=== PATIENT | male | born 1985 | race Caucasian/White ===

== ENCOUNTER 2016-06-17 09:57 | Inpatient (IN) | payer OTHER ==
[2016-06-17] MEDS ORDERED: IPRATROPIUM-ALBUTEROL 3 ML NEB INHALATION STA (10:36)
[2016-06-17] MEDS ORDERED: SODIUM CHLORIDE 0.9% 1,000 ML IV STA ×2 (10:36)
[2016-06-17] MEDS ORDERED: LEVOFLOXACIN 750MG-D5W PMX 750 MG in DEXTROSE/WATER 1 150ML.BAG IVPB STA (10:38)
--- NOTE | 2016-06-17 11:31 | ED ---
SOB HPI - General Chief Complaint: Shortness of Breath Stated Complaint: Weakness/yellow eyes Time Seen by Provider: 06/17/16 10:28 Source: patient Mode of arrival: wheelchair Limitations: no limitations - History of Present Illness Initial Comments: This 30-year-old white male presents with a complaint of some shortness of breath. He apparently has had it for approximately 10 days. He has had a cough with some yellowish production but denies any actual fever. He's felt very weak. He denies any known pulmonary pathology otherwise. He does utilize tobacco but quit approximately one week ago. Apparently had an episode of hematuria earlier today. He also complains of having some icterus of last 2 weeks. He barely does have one history of cold abuse but quit drinking alcohol approximately 2 weeks ago. 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 This causes severe psoriatic-type changes to his skin and is diffusely throughout his body. No other complaints or modifying factors. - Related Data Home Medications Medication Instructions Recorded Confirmed No Known Home Medications [No 06/17/16 06/17/16 Known Home Medications] Allergies Allergy/AdvReac Type Severity Reaction Status Date / Time No Known Allergies Allergy Verified 06/17/16 10:19 Review of Systems ROS Statement: Those systems with pertinent positive or pertinent negative responses have been documented in the HPI. ROS Other: All systems not noted in ROS Statement are negative. Past Medical History Additional Past Medical History / Comment(s): EPIDERMALYTIC HYPERKERATOSIS, ALCOHOL History of Any Multi-Drug Resistant Organisms: None Reported Past Surgical History: No Surgical Hx Reported Past Psychological History: No Psychological Hx Reported Smoking Status: Former smoker Past Alcohol Use History: Heavy Past Drug Use History: None Reported General Exam - General Exam Comments Initial Comments: GENERAL: The patient is well nourished and well hydrated. VITAL SIGNS: Heart rate, blood pressure, respiratory rate reviewed as recorded in nurse's notes. EYES: Pupils are round and reactive. Extraocular movements are intact. No conjunctival / lid redness or swelling. There is significant icterus noted. ENT: No external evidence of injury, swelling, or ecchymosis. Airway is patent. Throat is clear. NECK: Nontender. No swelling or evidence of injury. No subcutaneous emphysema. Trachea is midline. No thyroid mass. HEART: There is a tachycardic rate. Good peripheral pulses. LUNGS/CHEST: Breath sounds clear and equal bilaterally. No rales, rhonchi, or wheezes. No ecchymosis, subcutaneous emphysema, or tenderness. ABDOMEN: Abdomen soft without tenderness. No palpable masses or organomegaly. No peritoneal signs. No abdominal wall swelling or ecchymosis. EXTREMITIES: No extremity tenderness. Normal muscle tone and function. No thoracolumbar tenderness. NEUROLOGIC: Sensation is grossly intact. Cranial nerve exam reveals face is symmetrical, tongue is midline, speech is clear. SKIN: There is a diffuse severe scaly rash throughout most of body. PSYCHIATRIC: Alert and oriented. Appropriate behavior and judgment. Limitations: no limitations Course Vital Signs 06/17/16 06/17/16 06/17/16 10:01 11:30 11:40 Temperature 97.2 F L Pulse Rate 119 H 88 88 Respiratory 20 Rate Blood Pressure 119/72 O2 Sat by Pulse 100 Oximetry 06/17/16 06/17/16 06/17/16 12:42 13:40 15:08 Temperature Pulse Rate 112 H 114 H 110 H Respiratory 18 16 18 Rate Blood Pressure 122/66 121/70 112/56 O2 Sat by Pulse 100 99 98 Oximetry Medical Decision Making - Medical Decision Making The patient was seen and examined. All diagnostics were reviewed. An IV is started and he was hydrated. The patient receives a DuoNeb breathing treatment. The EKG shows a sinus tachycardia at a rate of 110. There is a nonspecific ST-T wave abnormality diffusely. The WI interval is 112, castration is 104, and the QTc interval is 562. The chest x-ray did not show any acute processes. There are multiple lab abnormalities. These are consistent with significant folliculitis abnormalities and hepatic failure. Is felt that his hepatic failure likely is related to his alcohol abuse but there also could be other underlying causes. It is felt as though patient likely does have a bronchitis treated with some IV Levaquin. Is felt as though he would require admission to the hospital and further GI consultation. Is somewhat improved on recheck. Case will be discussed with internal medicine in the near future and patient will be admitted to the floor. - Lab Data Result diagrams: 06/17/16 11:41 06/17/16 14:25 Lab Results 06/17/16 06/17/16 06/17/16 Range/Units 11:41 14:05 14:25 WBC 18.6 H (3.8-10.6) k/uL RBC 3.82 L (4.30-5.90) m/uL Hgb 12.6 L (13.0-17.5) gm/dL Hct 38.1 L (39.0-53.0) % MCV 99.7 (80.0-100.0) fL MCH 33.1 (25.0-35.0) pg MCHC 33.2 (31.0-37.0) g/dL RDW 15.9 H (11.5-15.5) % Plt Count 274 (150-450) k/uL Neutrophils % (Manual) 87.5 % Band Neutrophils % 1.0 % Lymphocytes % (Manual) 8.0 % Monocytes % (Manual) 3.0 % Myelocytes % 0.5 % Neutrophils # (Manual) 16.5 H (1.3-7.7) k/uL Lymphocytes # (Manual) 1.5 (1.0-4.8) k/uL Monocytes # (Manual) 0.6 (0-1.0) k/uL Nucleated RBCs 0 (0-0) /100 WBC Toxic Granulation Present Poikilocytosis (manual Present Anisocytosis (manual) Present Macrocytosis Slight Sodium 117 L* (137-145) mmol/L Potassium 3.4 L (3.5-5.1) mmol/L Chloride 79 L* (98-107) mmol/L Carbon Dioxide 15 L (22-30) mmol/L Anion Gap 23 mmol/L BUN <2 L (9-20) mg/dL Creatinine 0.54 L (0.66-1.25) mg/dL Est GFR (MDRD) Af Amer >60 (>60 ml/min/1.73 sqM) Est GFR (MDRD) Non-Af >60 (>60 ml/min/1.73 sqM) Glucose 135 H (74-99) mg/dL Calcium 6.9 L (8.4-10.2) mg/dL Total Bilirubin 17.9 H* (0.2-1.3) mg/dL ALT 106 H (21-72) U/L Alkaline Phosphatase 358 H (38-126) U/L Total Protein 6.4 (6.3-8.2) g/dL Albumin 2.9 L (3.5-5.0) g/dL Urine Color Dark Brown Urine Appearance Cloudy (Clear) Urine pH 6.0 (5.0-8.0) Ur Specific [place] 1.016 (1.001-1.035) Urine Protein 1+ H (Negative) Urine Glucose (UA) Negative (Negative) Urine Ketones Trace H (Negative) Urine Blood Negative (Negative) Urine Nitrate Negative (Negative) Urine Bilirubin 4+ H (Negative) Urine Urobilinogen 2.0 (<2.0) mg/dL Ur Leukocyte Esterase Negative (Negative) Cellular Casts 17 (0) /lpf Hyaline Casts 21 H (0-2) /lpf Urine Mucus Few H (None) /hpf Disposition Clinical Impression: Bronchitis, Dyspnea, Hepatic failure, Hyponatremia, Hypochloremia, Leukocytosis , Transaminitis, Prolonged QT interval, Alcohol abuse, Tobacco abuse, Icterus Disposition: ADMITTED IP TO THIS [facility] Condition: Fair Time of Disposition: 15:40 Decision Date: 06/17/16 Decision Time: 15:40
[2016-06-17 12:22] LABS: CHCM 35.3; HCT 38.1 % (39.0-53.0); HDW 3.01; HGB 12.6 gm/dL (13.0-17.5); Immature Gran Flag Moderate; MCH 33.1 pg (25.0-35.0); MCHC 33.2 g/dL (31.0-37.0); MCV 99.7 fL (80.0-100.0); Macrocytosis Slight; Mean Platelet Volume 7.8; RBC 3.82 m/uL (4.30-5.90); RDW 15.9 % (11.5-15.5); WBC (Perox) 18.33
--- NOTE | 2016-06-17 12:38 | XR ---
EXAMINATION TYPE: XR chest 2V DATE OF EXAM: 06/17/2016 12:09 PM COMPARISON: NONE HISTORY: Difficulty breathing, shortness of breath and hematuria TECHNIQUE: Frontal and lateral views of the chest are obtained. FINDINGS: There is no focal air space opacity, pleural effusion, or pneumothorax seen. The cardiac silhouette size is within normal limits. The osseous structures are intact. IMPRESSION: No acute cardiopulmonary process.
[2016-06-17 13:36] LABS: Add Differential Manual Differential
[2016-06-17 13:39] LABS: WBC 18.6 k/uL (3.8-10.6)
[2016-06-17 13:41] LABS: Myelocytes % 0.5 %; Nucleated Red Blood Cells 0 /100 WBC (0-0); Total Cells Counted 200
[2016-06-17 13:42] LABS: Toxic Granulation Present
[2016-06-17 14:19] LABS: Appearance,Urine Cloudy (Clear); Bilirubin,Urine 4+ (Negative); Glucose,Urine (UA) Negative (Negative); Ketones,Urine Trace (Negative); Leukocyte Esterase,Urine Negative (Negative); Mucus,Urine Few /hpf; Nitrite,Urine Negative (Negative); Particle Count 44474; Protein,Urine 1+ (Negative); Specific Gravity,Urine 1.016 (1.001-1.035); UA Billing (MACRO vs. MICRO) MICRO
[2016-06-17 15:02] LABS: ALT 106 U/L (21-72); Alkaline Phosphatase 358 U/L (38-126); Anion Gap 23 mmol/L; Blood Urea Nitrogen <2 mg/dL (9-20); Calcium 6.9 mg/dL (8.4-10.2); Carbon Dioxide 15 mmol/L (22-30); Glucose 135 mg/dL (74-99); Non-African American GFR(MDRD) >60 (>60 ml/min/1.73 sqM); Total Protein 6.4 g/dL (6.3-8.2)
[2016-06-17 15:10] LABS: Sodium 117 mmol/L (137-145)
[2016-06-17 15:11] LABS: Chloride 79 mmol/L (98-107); Total Bilirubin 17.9 mg/dL (0.2-1.3)
[2016-06-17 15:18] LABS: Potassium 3.4 mmol/L (3.5-5.1)
[2016-06-17] MEDS ORDERED: ONDANSETRON 4 MG/2 ML VIAL IVP PRN (15:44)
[2016-06-17] MEDS ORDERED: NALOXONE 0.4 MG/ML 1 ML VIAL IV PRN (15:44)
[2016-06-17] MEDS ORDERED: KETOROLAC 30 MG/ML 1 ML VIAL IVP PRN (15:44)
[2016-06-17 16:11] LABS: AST 572 U/L (17-59)
[2016-06-17] MEDS: IPRATROPIUM-ALBUTEROL 3 ML NEB INHALATION SCH ×3 (17:19→20:35)
[2016-06-17] MEDS: PIPERACILLIN-TAZOBACTAM 3.375 GM in DEXTROSE/WATER 1 50ML.BAG IVPB SCH (20:36)
[2016-06-17] MEDS: ENOXAPARIN 40 MG/0.4 ML SYRINGE SQ SCH (20:43)
[2016-06-17] MEDS: PANTOPRAZOLE 40 MG/10 ML VIAL IV SCH (20:43)
[2016-06-17] MEDS ORDERED: LORazepam 2 MG/ML SYRINGE IV PRN ×3 (20:52)
[2016-06-17] MEDS ORDERED: Potassium Replacement Protocol 1 EACH MISC MISCELLANE PRN (20:53)
[2016-06-17] MEDS ORDERED: SODIUM CHLORIDE 3%(HYPERTONIC) 500 ML IV SCH (21:00)
[2016-06-17] MEDS: POTASSIUM CHLORIDE ER 20 MEQ TAB.ER PO SCH ×2 (22:25→23:19)
[2016-06-17 23:45] LABS: Glucose,Whole Blood 153 mg/dL (75-99)
[2016-06-18 00:51] LABS: Anion Gap 21 mmol/L; Calcium 6.7 mg/dL (8.4-10.2); Carbon Dioxide 16 mmol/L (22-30); Glucose 142 mg/dL (74-99); Non-African American GFR(MDRD) >60 (>60 ml/min/1.73 sqM); Sodium 116 mmol/L (137-145)
[2016-06-18 00:52] LABS: Blood Urea Nitrogen 3 mg/dL (9-20); Chloride 79 mmol/L (98-107); Potassium 4.7 mmol/L (3.5-5.1)
[2016-06-18] MEDS: IPRATROPIUM-ALBUTEROL 3 ML NEB INHALATION SCH ×6 (00:57→22:04)
[2016-06-18] MEDS: PIPERACILLIN-TAZOBACTAM 3.375 GM in DEXTROSE/WATER 1 50ML.BAG IVPB SCH ×4 (01:00→23:24)
[2016-06-18] MEDS: SODIUM CHLORIDE 0.9% 1,000 ML IV SCH ×2 (01:00→11:55)
[2016-06-18] MEDS ORDERED: SODIUM CHLORIDE 3%(HYPERTONIC) 500 ML IV SCH ×2 (01:30→21:15)
[2016-06-18 06:43] LABS: Basophils % (A) 0 %; CH 34.5; CHCM 34.3; Eosinophils # (A) 0.1 k/uL (0-0.7); Eosinophils % (A) 1 %; HCT 35.4 % (39.0-53.0); HDW 2.91; Luc # (Auto) 0.24; Luc % (Auto) 2; Lymphocytes # (A) 2.1 k/uL (1.0-4.8); Lymphocytes % (A) 15 %; MCH 34.3 pg (25.0-35.0); MCHC 33.8 g/dL (31.0-37.0); MCV 101.3 fL (80.0-100.0); Macrocytosis Slight; Mean Platelet Volume 6.8; Monocytes # (A) 0.6 k/uL (0-1.0); Monocytes % (A) 4 %; Neutrophils # (A) 10.5 k/uL (1.3-7.7); Neutrophils % (A) 78 %; RBC 3.49 m/uL (4.30-5.90); RDW 15.8 % (11.5-15.5); WBC 13.4 k/uL (3.8-10.6); WBC (Perox) 13.53
[2016-06-18 06:48] LABS: INR 1.9 (<1.1); Prothrombin Time 18.5 sec (9.0-12.0)
[2016-06-18 06:54] LABS: ALT 111 U/L (21-72); AST 473 U/L (17-59); Alkaline Phosphatase 338 U/L (38-126); Anion Gap 16 mmol/L; Blood Urea Nitrogen 2 mg/dL (9-20); Calcium 6.6 mg/dL (8.4-10.2); Carbon Dioxide 20 mmol/L (22-30); Chloride 84 mmol/L (98-107); Glucose 107 mg/dL (74-99); Magnesium 2.1 mg/dL (1.6-2.3); Non-African American GFR(MDRD) >60 (>60 ml/min/1.73 sqM); Phosphorous 1.5 mg/dL (2.5-4.5); Potassium 3.1 mmol/L (3.5-5.1); Total Protein 5.2 g/dL (6.3-8.2)
[2016-06-18 06:56] LABS: Sodium 120 mmol/L (137-145); Total Bilirubin 15.9 mg/dL (0.2-1.3)
[2016-06-18] MEDS ORDERED: POTASSIUM CHLORIDE ER 20 MEQ TAB.ER PO STA ×2 (07:18→16:54)
[2016-06-18] MEDS ORDERED: POTASSIUM PHOSPHATE 10 MMOL in SODIUM CHLORIDE 0.9% 250 ML IV ONE (08:00)
[2016-06-18] MEDS: ENOXAPARIN 40 MG/0.4 ML SYRINGE SQ SCH (08:35)
--- NOTE | 2016-06-18 10:04 | P.CNPUL ---
<Gloria Tompkins - Last Filed: 06/18/16 09:49> History of Present Illness Consult date: 06/18/16 Requesting physician: Chapo Harkins Reason for consult: other (Critical care management) Chief complaint: Shortness of breath History of present illness: This is a pleasant 30-year-old gentleman with a known history of daily excessive alcohol use who admits to 3 1/2 pints a day of mostly schnapps but usually whatever he can obtain that well "knock him out", chronic tobacco use, epidermalytic hyperkeratosis. He currently resides with his grandmother. He presented to the emergency room yesterday with complaints of increasing shortness of breath, yellow productive sputum and generalized weakness. He also noted yellow changes of his eyes and some blood in his urine. His urinalysis was negative for blood but did show 4+ bilirubin 1+ protein and trace of ketones. Liver enzymes revealed AST of 572, ALT 106, alk phos 358, albumin 2.9, total bilirubin 17.9. He also had profound hyponatremia with the presenting sodium of 117. He is currently receiving 3% sodium chloride at a rate of 30 MLS per hour. His most recent sodium is 121. His chest x-ray revealed no acute pulmonary process. White count 18.6. He is maintaining good O2 saturations in the high 90s on room air. He's been afebrile. He is covered with Zosyn. No signs of acute withdrawal currently. He did receive 1 dose of Ativan for slight restlessness last evening. He is seen currently in the intensive care unit. He is awake and alert in no acute distress. He denies any worsening shortness of breath, cough or congestion. He denies any significant abdominal discomfort. No noted bleeding. Review of Systems 14 point review of system was conducted. All negative other than as mentioned in the HPI. Past Medical History Past Medical History: No Reported History, GERD/Reflux Additional Past Medical History / Comment(s): EPIDERMALYTIC HYPERKERATOSIS, daily alcohol use up to 3 1/2 pints per day. History of Any Multi-Drug Resistant Organisms: None Reported Past Surgical History: No Surgical Hx Reported Past Anesthesia/Blood Transfusion Reactions: No Reported Reaction Past Psychological History: No Psychological Hx Reported Smoking Status: Current every day smoker Past Alcohol Use History: Daily, Heavy Additional Past Alcohol Use History / Comment(s): STARTED SMOKING AT AGE 20, 1/2 -1 PPD-STATED HAS'NT SMOKED IN PAST WEEK D/T NOT FEELING WELL. PT STATED DRINKS DAILY 1.5 [employer] [place] [employer] Past Drug Use History: None Reported - Past Family History Father Family Medical History: Unable to Obtain Additional Family Medical History / Comment(s): RAISED BY STEP FATHER Mother Family Medical History: No Reported History Medications and Allergies Home Medications Medication Instructions Recorded Confirmed Type No Known Home Medications [No 06/17/16 06/17/16 History Known Home Medications] Allergies Allergy/AdvReac Type Severity Reaction Status Date / Time No Known Allergies Allergy Verified 06/17/16 10:19 Physical Exam Vitals: Vital Signs Temp Pulse Pulse Pulse Resp BP BP 06/18/16 09:00 98.1 F 109 H 26 H 104/58 06/18/16 08:00 98.1 F 109 H 26 H 94/47 06/18/16 07:55 109 H 06/18/16 07:41 111 H 06/18/16 07:00 112 H 20 103/56 06/18/16 06:00 112 H 20 102/61 06/18/16 05:00 114 H 12 111/59 06/18/16 04:00 98.6 F 112 H 20 115/61 06/18/16 03:00 109 H 24 98/70 06/18/16 02:00 109 H 125/70 06/18/16 01:00 110 H 17 109/79 06/18/16 00:50 111 H 16 109/79 06/18/16 00:40 109 H 19 109/79 06/18/16 00:30 109 H 24 109/79 06/18/16 00:20 112 H 17 109/79 06/18/16 00:10 114 H 16 109/79 06/18/16 00:09 98.1 F 114 H 16 109/79 06/18/16 00:00 115 H 16 117/66 06/17/16 23:50 113 H 16 117/66 06/17/16 23:42 114 H 16 117/66 06/17/16 22:03 117 H 115 H 18 06/17/16 20:48 104 H 06/17/16 20:35 104 H 06/17/16 20:00 97 F L 115 H 18 116/77 06/17/16 19:00 98.3 F 110 H 16 115/68 06/17/16 18:03 97.2 F L 112 H 16 119/65 06/17/16 17:40 118 H 126/74 06/17/16 17:33 106 H 06/17/16 17:23 116 H 06/17/16 16:40 111 H 116/59 Pulse Ox 06/18/16 09:00 99 06/18/16 08:00 98 06/18/16 07:55 06/18/16 07:41 06/18/16 07:00 99 06/18/16 06:00 98 06/18/16 05:00 100 06/18/16 04:00 99 06/18/16 03:00 99 06/18/16 02:00 99 06/18/16 01:00 100 06/18/16 00:50 99 06/18/16 00:40 99 06/18/16 00:30 100 06/18/16 00:20 100 06/18/16 00:10 99 06/18/16 00:09 100 06/18/16 00:00 100 06/17/16 23:50 99 06/17/16 23:42 99 06/17/16 22:03 06/17/16 20:48 06/17/16 20:35 06/17/16 20:00 99 06/17/16 19:00 100 06/17/16 18:03 99 06/17/16 17:40 100 06/17/16 17:33 06/17/16 17:23 06/17/16 16:40 99 Intake and Output 06/17/16 06/18/16 06/18/16 22:59 06:59 14:59 Intake Total 120 430.0 330 Output Total 600 250 Balance 120 -170.0 80 Intake: IV 250.0 300 Piperacillin-Tazobactam 3 50.0 50 .375 gm In Dextrose/Water 1 50ml.bag @ 12.5 mls/hr IVPB Q8HR [facility] Rx#: [id number] Potassium Phosphate 10 250 mmol In Sodium Chloride 0 .9% 250 ml @ 125 mls/hr IV ONCE ONE Rx#:[id number] Sodium Chloride 0.9% 1, 200 000 ml @ 100 mls/hr IV . Q10H [facility] Rx#:[id number] Intake, IV Titration 180 30 Amount Sodium Chloride 3%( 180 30 Hypertonic) 500 ml @ 30 mls/hr IV .[id number] [facility] Rx #:[id number] Oral 120 Output: Urine 600 250 Other: Voiding Method Urinal Urinal # Voids 0 0 Weight 65.77 kg 65.77 kg Patient Weight 06/19/16 06:59 Weight 65.77 kg GENERAL EXAM: Alert, active, comfortable in no apparent distress. HEAD: Normocephalic. EYES: Slightly icteric. Normal reaction of pupils, equal size. NOSE: Clear with pink turbinates. THROAT: No erythema or exudates. NECK: No masses, no JVD. CHEST: No chest wall deformity. LUNGS: Equal air entry with no crackles, wheeze, rhonchi or dullness. CVS: S1 and S2 normal with no audible murmurs, regular rhythm. ABDOMEN: No significant hepatosplenomegaly, normal bowel sounds, no guarding or rigidity. SPINE: No scoliosis or deformity SKIN: Evidence of epidermal lytic hyperkeratosis with scaling. CENTRAL NERVOUS SYSTEM: No focal deficits, tone is normal in all 4 extremities. Extremities: There is no significant peripheral edema. Slight clubbing, no cyanosis. Peripheral pulses are intact. Results - Laboratory Findings CBC and BMP: 06/18/16 06:06 06/18/16 08:06 PT/INR, D-dimer PT 18.5 sec (9.0-12.0) H 06/18/16 06:06 INR 1.9 (<1.1) 06/18/16 06:06 Abnormal lab findings: Abnormal Labs 06/17/16 06/17/16 06/18/16 21:36 23:43 00:20 WBC RBC Hgb Hct MCV RDW Neutrophils # PT Sodium 118 L* 116 L* Potassium Chloride 79 L* Carbon Dioxide 16 L BUN 3 L Creatinine 0.52 L Glucose 142 H POC Glucose (mg/dL) 153 H Calcium 6.7 L Phosphorus Total Bilirubin AST ALT Alkaline Phosphatase Total Protein Albumin 06/18/16 06/18/16 06/18/16 03:38 06:06 06:06 WBC 13.4 H RBC 3.49 L Hgb 12.0 L Hct 35.4 L MCV 101.3 H RDW 15.8 H Neutrophils # 10.5 H PT 18.5 H Sodium 119 L* Potassium Chloride Carbon Dioxide BUN Creatinine Glucose POC Glucose (mg/dL) Calcium Phosphorus Total Bilirubin AST ALT Alkaline Phosphatase Total Protein Albumin 06/18/16 06/18/16 06:06 08:06 WBC RBC Hgb Hct MCV RDW Neutrophils # PT Sodium 120 L* 121 L Potassium 3.1 L Chloride 84 L Carbon Dioxide 20 L BUN 2 L Creatinine 0.48 L Glucose 107 H POC Glucose (mg/dL) Calcium 6.6 L Phosphorus 1.5 L Total Bilirubin 15.9 H* AST 473 H ALT 111 H Alkaline Phosphatase 338 H Total Protein 5.2 L Albumin 2.4 L - Diagnostic Findings Chest x-ray: image reviewed Assessment and Plan Plan: Impression: #1 Generalized weakness secondary to hyponatremia secondary to excessive alcohol use. #2 hyponatremia, initial sodium level CXII, currently 121. Remains on 3% normal saline at 5030 MLS per hour. #3 Elevated liver enzymes secondary to excessive daily alcohol use. #4Daily excessive alcohol use. #5 Chronic tobacco dependence. #6 Epidermolytic hyperkeratosis. Plan: The patient was seen and evaluated by Dr. Cook. His chest x-ray and labs were reviewed. We are gradually correcting his sodium and once normalized we' ll discontinue the 3% normal saline. The patient could be transferred out of the intensive care unit. He should remain in CIWAl protocol and observe for any delirium tremens. <Prince Cook - Last Filed: 06/18/16 10:28> Physical Exam Vitals: Vital Signs Temp Pulse Pulse Pulse Resp BP BP 06/18/16 10:00 110 H 18 107/64 06/18/16 09:00 98.1 F 109 H 26 H 104/58 06/18/16 08:00 98.1 F 109 H 26 H 94/47 06/18/16 07:55 109 H 06/18/16 07:41 111 H 06/18/16 07:00 112 H 20 103/56 06/18/16 06:00 112 H 20 102/61 06/18/16 05:00 114 H 12 111/59 06/18/16 04:00 98.6 F 112 H 20 115/61 06/18/16 03:00 109 H 24 98/70 06/18/16 02:00 109 H 125/70 06/18/16 01:00 110 H 17 109/79 06/18/16 00:50 111 H 16 109/79 06/18/16 00:40 109 H 19 109/79 06/18/16 00:30 109 H 24 109/79 06/18/16 00:20 112 H 17 109/79 06/18/16 00:10 114 H 16 109/79 06/18/16 00:09 98.1 F 114 H 16 109/79 06/18/16 00:00 115 H 16 117/66 06/17/16 23:50 113 H 16 117/66 06/17/16 23:42 114 H 16 117/66 06/17/16 22:03 117 H 115 H 18 06/17/16 20:48 104 H 06/17/16 20:35 104 H 06/17/16 20:00 97 F L 115 H 18 116/77 06/17/16 19:00 98.3 F 110 H 16 115/68 06/17/16 18:03 97.2 F L 112 H 16 119/65 06/17/16 17:40 118 H 126/74 06/17/16 17:33 106 H 06/17/16 17:23 116 H 06/17/16 16:40 111 H 116/59 Pulse Ox 06/18/16 10:00 100 06/18/16 09:00 99 06/18/16 08:00 98 06/18/16 07:55 06/18/16 07:41 06/18/16 07:00 99 06/18/16 06:00 98 06/18/16 05:00 100 06/18/16 04:00 99 06/18/16 03:00 99 06/18/16 02:00 99 06/18/16 01:00 100 06/18/16 00:50 99 06/18/16 00:40 99 06/18/16 00:30 100 06/18/16 00:20 100 06/18/16 00:10 99 06/18/16 00:09 100 06/18/16 00:00 100 06/17/16 23:50 99 06/17/16 23:42 99 06/17/16 22:03 06/17/16 20:48 06/17/16 20:35 06/17/16 20:00 99 06/17/16 19:00 100 06/17/16 18:03 99 06/17/16 17:40 100 06/17/16 17:33 06/17/16 17:23 06/17/16 16:40 99 Intake and Output 06/17/16 06/18/16 06/18/16 22:59 06:59 14:59 Intake Total 120 430.0 360 Output Total 600 250 Balance 120 -170.0 110 Intake: IV 250.0 300 Piperacillin-Tazobactam 3 50.0 50 .375 gm In Dextrose/Water 1 50ml.bag @ 12.5 mls/hr IVPB Q8HR [facility] Rx#: [id number] Potassium Phosphate 10 250 mmol In Sodium Chloride 0 .9% 250 ml @ 125 mls/hr IV ONCE ONE Rx#:[id number] Sodium Chloride 0.9% 1, 200 000 ml @ 100 mls/hr IV . Q10H [facility] Rx#:[id number] Intake, IV Titration 180 60 Amount Sodium Chloride 3%( 180 60 Hypertonic) 500 ml @ 30 mls/hr IV .[id number] [facility] Rx #:[id number] Oral 120 Output: Urine 600 250 Other: Voiding Method Urinal Urinal # Voids 0 0 Weight 65.77 kg 65.77 kg Patient Weight 06/19/16 06:59 Weight 65.77 kg Results - Laboratory Findings CBC and BMP: 06/18/16 06:06 06/18/16 08:06 PT/INR, D-dimer PT 18.5 sec (9.0-12.0) H 06/18/16 06:06 INR 1.9 (<1.1) 06/18/16 06:06 Abnormal lab findings: Abnormal Labs 06/17/16 06/17/16 06/18/16 21:36 23:43 00:20 WBC RBC Hgb Hct MCV RDW Neutrophils # PT Sodium 118 L* 116 L* Potassium Chloride 79 L* Carbon Dioxide 16 L BUN 3 L Creatinine 0.52 L Glucose 142 H POC Glucose (mg/dL) 153 H Calcium 6.7 L Phosphorus Total Bilirubin AST ALT Alkaline Phosphatase Total Protein Albumin 06/18/16 06/18/16 06/18/16 03:38 06:06 06:06 WBC 13.4 H RBC 3.49 L Hgb 12.0 L Hct 35.4 L MCV 101.3 H RDW 15.8 H Neutrophils # 10.5 H PT 18.5 H Sodium 119 L* Potassium Chloride Carbon Dioxide BUN Creatinine Glucose POC Glucose (mg/dL) Calcium Phosphorus Total Bilirubin AST ALT Alkaline Phosphatase Total Protein Albumin 06/18/16 06/18/16 06:06 08:06 WBC RBC Hgb Hct MCV RDW Neutrophils # PT Sodium 120 L* 121 L Potassium 3.1 L Chloride 84 L Carbon Dioxide 20 L BUN 2 L Creatinine 0.48 L Glucose 107 H POC Glucose (mg/dL) Calcium 6.6 L Phosphorus 1.5 L Total Bilirubin 15.9 H* AST 473 H ALT 111 H Alkaline Phosphatase 338 H Total Protein 5.2 L Albumin 2.4 L Assessment and Plan Plan: The patient has evidence of acute alcoholic hepatitis. His liver function tests are quite abnormal and the disturbances in the AST and ALP are typical of alcoholic hepatitis in conjunction with elevated bilirubin levels. As such, it is recommended to put this patient with glucocorticoids and will start the patient 40 mg by mouth daily. We'll check baseline hepatitis profile. We'll check an ultrasound of the liver looking for any fatty liver versus cirrhosis. Meanwhile, the patient will continue the hypertonic saline solution regards to his hyponatremia. Monitor the sodium level periodically every 4 hours. Nephrology on the case regarding the infusion rate and management. The patient will be watched for any signs of delirium tremens. We'll provide the patient thiamine and folate. We'll keep the patient ICU for another 24 hours.
[2016-06-18] MEDS: PANTOPRAZOLE 40 MG/10 ML VIAL IV SCH (10:08)
--- NOTE | 2016-06-18 10:26 | P.CONS ---
History of Present Illness - Reason for Consult Consult date: 06/18/16 hepatic failure Requesting physician: Chapo Harkins - History of Present Illness 30-year-old male with a history of epidermalytic hyperkeratosis skin, nicotine cigarette dependency, and EtOH abuse admitted with shortness of breath and electrolyte abnormalities. Quit drinking 3 days ago. Consultation requested for hepatic failure. Admission Hemoglobin 12.6. MCV 99. White count 18.6. Platelet 274. INR 1.9. Sodium 117. Potassium 3.4. BUN less than 2. Creatinine 0.5. Total bilirubin 17.9. AST 572. ALT 106. Alkaline phosphates 358. Currently sodium 120. Potassium 3.1. Total bilirubin 15.9. AST 473. ALT 111. Alkaline phosphates 08/14/1935. Phosphorus 1.5. Magnesium 2.1. BUN 2. Creatinine 0.4. Potassium 3.1. Denies fever chills weight loss changes in appetite hematemesis hematochezia or melena. Review of Systems All systems: negative (See HPI) Past Medical History Past Medical History: GERD/Reflux Additional Past Medical History / Comment(s): EPIDERMALYTIC HYPERKERATOSIS, ALCOHOL History of Any Multi-Drug Resistant Organisms: None Reported Past Surgical History: No Surgical Hx Reported Past Anesthesia/Blood Transfusion Reactions: No Reported Reaction Past Psychological History: No Psychological Hx Reported Smoking Status: Current every day smoker Past Alcohol Use History: Daily, Heavy Additional Past Alcohol Use History / Comment(s): STARTED SMOKING AT AGE 20, 1/2 -1 PPD-STATED HAS'NT SMOKED IN PAST WEEK D/T NOT FEELING WELL. PT STATED DRINKS DAILY 1.5 PINTS [place] [employer]NAPPS Past Drug Use History: None Reported - Past Family History Father Family Medical History: Unable to Obtain Additional Family Medical History / Comment(s): RAISED BY STEP FATHER Mother Family Medical History: No Reported History Medications and Allergies Home Medications Medication Instructions Recorded Confirmed Type No Known Home Medications [No 06/17/16 06/17/16 History Known Home Medications] Allergies Allergy/AdvReac Type Severity Reaction Status Date / Time No Known Allergies Allergy Verified 06/17/16 10:19 Physical Exam Vitals: Vital Signs Temp Pulse Pulse Pulse Resp BP BP 06/18/16 07:41 111 H 06/18/16 07:00 112 H 20 103/56 06/18/16 06:00 112 H 20 102/61 06/18/16 05:00 114 H 12 111/59 06/18/16 04:00 98.6 F 112 H 20 115/61 06/18/16 03:00 109 H 24 98/70 06/18/16 02:00 109 H 125/70 06/18/16 01:00 110 H 17 109/79 06/18/16 00:50 111 H 16 109/79 06/18/16 00:40 109 H 19 109/79 06/18/16 00:30 109 H 24 109/79 06/18/16 00:20 112 H 17 109/79 06/18/16 00:10 114 H 16 109/79 06/18/16 00:09 98.1 F 114 H 16 109/79 06/18/16 00:00 115 H 16 117/66 06/17/16 23:50 113 H 16 117/66 06/17/16 23:42 114 H 16 117/66 06/17/16 22:03 117 H 115 H 18 06/17/16 20:48 104 H 06/17/16 20:35 104 H 06/17/16 20:00 97 F L 115 H 18 116/77 06/17/16 19:00 98.3 F 110 H 16 115/68 06/17/16 18:03 97.2 F L 112 H 16 119/65 06/17/16 17:40 118 H 126/74 06/17/16 17:33 106 H 06/17/16 17:23 116 H 06/17/16 16:40 111 H 116/59 Pulse Ox 06/18/16 07:41 06/18/16 07:00 99 06/18/16 06:00 98 06/18/16 05:00 100 06/18/16 04:00 99 06/18/16 03:00 99 06/18/16 02:00 99 06/18/16 01:00 100 06/18/16 00:50 99 06/18/16 00:40 99 06/18/16 00:30 100 06/18/16 00:20 100 06/18/16 00:10 99 06/18/16 00:09 100 06/18/16 00:00 100 06/17/16 23:50 99 06/17/16 23:42 99 06/17/16 22:03 06/17/16 20:48 06/17/16 20:35 06/17/16 20:00 99 06/17/16 19:00 100 06/17/16 18:03 99 06/17/16 17:40 100 06/17/16 17:33 06/17/16 17:23 06/17/16 16:40 99 Intake and Output 06/17/16 06/18/16 06/18/16 22:59 06:59 14:59 Intake Total 120 430.0 Output Total 600 Balance 120 -170.0 Intake: IV 250.0 Piperacillin-Tazobactam 3 50.0 .375 gm In Dextrose/Water 1 50ml.bag @ 12.5 mls/hr IVPB Q8HR [facility] Rx#: [id number] Sodium Chloride 0.9% 1, 200 000 ml @ 100 mls/hr IV . Q10H [facility] Rx#:[id number] Intake, IV Titration 180 Amount Sodium Chloride 3%( 180 Hypertonic) 500 ml @ 30 mls/hr IV .[id number] [facility] Rx #:[id number] Oral 120 Output: Urine 600 Other: Voiding Method Urinal # Voids 0 0 Weight 65.77 kg General appearance: The patient is alert, oriented, in no acute distress. Visibly jaundiced with generalized hyperkeratosis of the skin all extremities and face. HET: Head is normocephalic and atraumatic. Pupils are equal and reactive, icteric. Oropharynx is clear without lesions. Neck: Supple without lymphadenopathy. Trachea midline. Heart: S1 S2. Regular rate and rhythm. Lungs: No crackles or wheezes are heard. Abdomen: Soft, nontender, mildly bloated with no appreciable ascites with bowel sounds. No peritoneal signs. No palpable organomegaly or masses. Extremities: Normal skin color and turgor. No cyanosis, rash, ulceration, clubbing, or edema. Radial and pedal pulses are 2/4 bilaterally. No evidence of asterixis. Neurological: No focal deficits. Strength and sensation are grossly intact. Results CBC & Chem 7: 06/18/16 06:06 06/18/16 08:06 Labs: Abnormal Lab Results - Last 24 Hours (Table) 06/17/16 06/17/16 06/18/16 Range/Units 21:36 23:43 00:20 WBC (3.8-10.6) k/uL RBC (4.30-5.90) m/uL Hgb (13.0-17.5) gm/dL Hct (39.0-53.0) % MCV (80.0-100.0) fL RDW (11.5-15.5) % Neutrophils # (1.3-7.7) k/uL PT (9.0-12.0) sec Sodium 118 L* 116 L* (137-145) mmol/L Potassium (3.5-5.1) mmol/L Chloride 79 L* (98-107) mmol/L Carbon Dioxide 16 L (22-30) mmol/L BUN 3 L (9-20) mg/dL Creatinine 0.52 L (0.66-1.25) mg/dL Glucose 142 H (74-99) mg/dL POC Glucose (mg/dL) 153 H (75-99) mg/dL Calcium 6.7 L (8.4-10.2) mg/dL Phosphorus (2.5-4.5) mg/dL Total Bilirubin (0.2-1.3) mg/dL AST (17-59) U/L ALT (21-72) U/L Alkaline Phosphatase (38-126) U/L Total Protein (6.3-8.2) g/dL Albumin (3.5-5.0) g/dL 06/18/16 06/18/16 06/18/16 Range/Units 03:38 06:06 06:06 WBC 13.4 H (3.8-10.6) k/uL RBC 3.49 L (4.30-5.90) m/uL Hgb 12.0 L (13.0-17.5) gm/dL Hct 35.4 L (39.0-53.0) % MCV 101.3 H (80.0-100.0) fL RDW 15.8 H (11.5-15.5) % Neutrophils # 10.5 H (1.3-7.7) k/uL PT 18.5 H (9.0-12.0) sec Sodium 119 L* (137-145) mmol/L Potassium (3.5-5.1) mmol/L Chloride (98-107) mmol/L Carbon Dioxide (22-30) mmol/L BUN (9-20) mg/dL Creatinine (0.66-1.25) mg/dL Glucose (74-99) mg/dL POC Glucose (mg/dL) (75-99) mg/dL Calcium (8.4-10.2) mg/dL Phosphorus (2.5-4.5) mg/dL Total Bilirubin (0.2-1.3) mg/dL AST (17-59) U/L ALT (21-72) U/L Alkaline Phosphatase (38-126) U/L Total Protein (6.3-8.2) g/dL Albumin (3.5-5.0) g/dL 06/18/16 Range/Units 06:06 WBC (3.8-10.6) k/uL RBC (4.30-5.90) m/uL Hgb (13.0-17.5) gm/dL Hct (39.0-53.0) % MCV (80.0-100.0) fL RDW (11.5-15.5) % Neutrophils # (1.3-7.7) k/uL PT (9.0-12.0) sec Sodium 120 L* (137-145) mmol/L Potassium 3.1 L (3.5-5.1) mmol/L Chloride 84 L (98-107) mmol/L Carbon Dioxide 20 L (22-30) mmol/L BUN 2 L (9-20) mg/dL Creatinine 0.48 L (0.66-1.25) mg/dL Glucose 107 H (74-99) mg/dL POC Glucose (mg/dL) (75-99) mg/dL Calcium 6.6 L (8.4-10.2) mg/dL Phosphorus 1.5 L (2.5-4.5) mg/dL Total Bilirubin 15.9 H* (0.2-1.3) mg/dL AST 473 H (17-59) U/L ALT 111 H (21-72) U/L Alkaline Phosphatase 338 H (38-126) U/L Total Protein 5.2 L (6.3-8.2) g/dL Albumin 2.4 L (3.5-5.0) g/dL Assessment and Plan (1) Alcoholic hepatitis Status: Acute (2) Jaundice Status: Acute (3) Alcohol abuse Status: Chronic (4) Hyperkeratosis of skin Status: Chronic (5) Dyspnea Status: Acute (6) Hyponatremia Status: Acute Plan: 1. Hepatitis panel, ammonia, monitoring PT INR and liver chemistries closely. 2. Alcohol abstinence strongly advised. 3. Supportive measures. Correction of electrolytes. 4. Abdominal ultrasound. GI prophylaxis. Alcohol withdrawal protocol. Thank you for this kind referral and the opportunity to participate in the care of your patient. This consultation was discussed with Dr. Mcelroy. The impression and plan of care have been directed as dictated.
[2016-06-18 10:56] LABS: Creatine Kinase 145 U/L (55-170); Sodium 121 mmol/L (137-145)
[2016-06-18 11:16] LABS: Acetaminophen <10.0 ug/mL; Salicylate <1.0 mg/dL
[2016-06-18 11:47] LABS: Hepatitis B Surface Ag Index 0.12
[2016-06-18 11:52] LABS: Hepatitis B Core IgM Index 0.02
[2016-06-18] MEDS: predniSONE 20 MG TAB PO SCH (11:55)
[2016-06-18] MEDS: THIAMINE 100 MG TAB PO SCH (11:55)
[2016-06-18] MEDS: FOLIC ACID 1 MG TAB PO SCH (11:55)
[2016-06-18 12:04] LABS: Hepatitis C Virus IgG Ab Negative (Negative); Hepatitis C Virus IgG Index 0.01
--- NOTE | 2016-06-18 13:23 | P.NPCON ---
History of Present Illness - Reason for Consult hyponatremia - Chief Complaint Hyponatremia, normal renal function and severe liver disease - History of Present Illness Visit 30-year-old male with a chronic skin disease with hyperkeratosis, admitted because of severe jaundice and hyponatremia. Overnight he has been given 3% saline as initial liter of normal saline reduce his sodium. He was also found to have severe gap acidosis and a normal creatinine at 0.5 and a BUN of 2. He is known to have history of alcohol abuse has not been admitted to this hospital therefore there is no previous labs available. He was able to tell me that he is been eating fairly amount his last significant alcohol was on 06/13/2016 for days prior to admission. No nausea vomiting diarrhea abdominal pain no fever chills cough shortness of breath no chest pain. Denies taking any substances other than alcohol. He is not on any medication except for some skin cream that he does not use. Denies taking any [id number] medications. Denies taking any rubbing alcohol or anti-freeze. Denies any glue sniffing. Past Medical History Past Medical History: GERD/Reflux Additional Past Medical History / Comment(s): EPIDERMALYTIC HYPERKERATOSIS, ALCOHOL History of Any Multi-Drug Resistant Organisms: None Reported Past Surgical History: No Surgical Hx Reported Past Anesthesia/Blood Transfusion Reactions: No Reported Reaction Past Psychological History: No Psychological Hx Reported Smoking Status: Current every day smoker Past Alcohol Use History: Daily, Heavy Additional Past Alcohol Use History / Comment(s): STARTED SMOKING AT AGE 20, 1/2 -1 PPD-STATED HAS'NT SMOKED IN PAST WEEK D/T NOT FEELING WELL. PT STATED DRINKS DAILY 1.5 [employer]TS [employer] Past Drug Use History: None Reported - Past Family History Father Family Medical History: Unable to Obtain Additional Family Medical History / Comment(s): RAISED BY STEP FATHER Mother Family Medical History: No Reported History Medications and Allergies Home Medications Medication Instructions Recorded Confirmed Type No Known Home Medications [No 06/17/16 06/17/16 History Known Home Medications] Allergies Allergy/AdvReac Type Severity Reaction Status Date / Time No Known Allergies Allergy Verified 06/17/16 10:19 Physical Exam Vitals: Vital Signs Temp Pulse Pulse Pulse Resp BP BP 06/18/16 12:00 98.1 F 96 26 H 96/69 06/18/16 11:42 104 H 06/18/16 11:32 107 H 06/18/16 11:00 107 H 25 H 108/75 06/18/16 10:00 110 H 18 107/64 06/18/16 09:00 98.1 F 109 H 26 H 104/58 06/18/16 08:00 98.1 F 109 H 26 H 94/47 06/18/16 07:55 109 H 06/18/16 07:41 111 H 06/18/16 07:00 112 H 20 103/56 06/18/16 06:00 112 H 20 102/61 06/18/16 05:00 114 H 12 111/59 06/18/16 04:00 98.6 F 112 H 20 115/61 06/18/16 03:00 109 H 24 98/70 06/18/16 02:00 109 H 125/70 06/18/16 01:00 110 H 17 109/79 06/18/16 00:50 111 H 16 109/79 06/18/16 00:40 109 H 19 109/79 06/18/16 00:30 109 H 24 109/79 06/18/16 00:20 112 H 17 109/79 06/18/16 00:10 114 H 16 109/79 06/18/16 00:09 98.1 F 114 H 16 109/79 06/18/16 00:00 115 H 16 117/66 06/17/16 23:50 113 H 16 117/66 06/17/16 23:42 114 H 16 117/66 06/17/16 22:03 117 H 115 H 18 06/17/16 20:48 104 H 06/17/16 20:35 104 H 06/17/16 20:00 97 F L 115 H 18 116/77 06/17/16 19:00 98.3 F 110 H 16 115/68 06/17/16 18:03 97.2 F L 112 H 16 119/65 06/17/16 17:40 118 H 126/74 06/17/16 17:33 106 H 06/17/16 17:23 116 H 06/17/16 16:40 111 H 116/59 Pulse Ox 06/18/16 12:00 94 L 06/18/16 11:42 06/18/16 11:32 06/18/16 11:00 98 06/18/16 10:00 100 06/18/16 09:00 99 06/18/16 08:00 98 06/18/16 07:55 06/18/16 07:41 06/18/16 07:00 99 06/18/16 06:00 98 06/18/16 05:00 100 06/18/16 04:00 99 06/18/16 03:00 99 06/18/16 02:00 99 06/18/16 01:00 100 06/18/16 00:50 99 06/18/16 00:40 99 06/18/16 00:30 100 06/18/16 00:20 100 06/18/16 00:10 99 06/18/16 00:09 100 06/18/16 00:00 100 06/17/16 23:50 99 06/17/16 23:42 99 06/17/16 22:03 06/17/16 20:48 06/17/16 20:35 06/17/16 20:00 99 06/17/16 19:00 100 06/17/16 18:03 99 06/17/16 17:40 100 06/17/16 17:33 06/17/16 17:23 06/17/16 16:40 99 Intake and Output 06/17/16 06/18/16 06/18/16 22:59 06:59 14:59 Intake Total 120 430.0 390 Output Total 600 250 Balance 120 -170.0 140 Intake: IV 250.0 300 Piperacillin-Tazobactam 3 50.0 50 .375 gm In Dextrose/Water 1 50ml.bag @ 12.5 mls/hr IVPB Q8HR [facility] Rx#: [id number] Potassium Phosphate 10 250 mmol In Sodium Chloride 0 .9% 250 ml @ 125 mls/hr IV ONCE ONE Rx#:[id number] Sodium Chloride 0.9% 1, 200 000 ml @ 100 mls/hr IV . Q10H [facility] Rx#:[id number] Intake, IV Titration 180 90 Amount Sodium Chloride 3%( 180 90 Hypertonic) 500 ml @ 30 mls/hr IV .[id number] [facility] Rx #:[id number] Oral 120 Output: Urine 600 250 Other: Voiding Method Urinal Urinal # Voids 0 0 Weight 65.77 kg 65.77 kg Patient Weight 06/19/16 06:59 Weight 65.77 kg Currently on exam he is awake alert oriented. He is somewhat sleepy fatigued tired he does answer questions when pressed. A chin exam no JVP in neck is supple no facial asymmetry is deeply jaundiced. He has severe skin disease with scaliness and hyperkeratosis all over his body. Lungs are clear to auscultation percussion good air entry bilaterally Heart sounds are unremarkable for any murmur rub gallop normal sinus rhythm on the monitor. Abdomen is soft nontender slightly distended 50 to see if he has ascites probably has some. No organomegaly noted. No masses noted. Extremity exam was mild edema with red erythematous scaly skin. Neck Neurologically awake alert oriented no asterixis. He has significant contractures of both of his hands therefore the acidosis was difficult to evaluate. Results - Lab Results Most recent lab results Calcium 6.6 mg/dL (8.4-10.2) L 06/18/16 06:06 Phosphorus 1.5 mg/dL (2.5-4.5) L 06/18/16 06:06 Magnesium 2.1 mg/dL (1.6-2.3) 06/18/16 06:06 06/18/16 06:06 06/18/16 10:38 Assessment and Plan Plan: Impression 1. 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 Rule out hypothyroidism and adrenal insufficiency. Creatinine was normal at 0.5, uric acid is 6, urine osmolality was 339, after fluid was given about a liter therefore unreliable to read into this urine osmolality. Slowly improving but satisfactory on 3% normal saline. 2. Severe non-gap acidosis on admission with a bicarb of 15 and a gap of 23. Possibly lactic acidosis versus ketoacidosis from starvation. With IV fluid is bicarb improved to 20) and anion gap has improved to 16. Will check for ethylene glycol or methanol formic acid and lactic acid. 3. Severe liver disease likely secondary to alcohol his him. Hepatitis a IgM, hepatitis B surface antigen, hepatitis C IgG core is negative so far bilirubin is high and transaminases are high. 4. Severe skin disease with keratosis, chronically. 5. Hypokalemia secondary to decreased intake, and possibly alcohol wasn't. magnesium deficiency has been ruled out, magnesium is 2.1. 6. Hypophosphatemia secondary to alcohol his him, decreased intake and possibly respiratory alkalosis Recommendation. 1. Check ethylene glycol or methanol formic acid, TSH, serum free cortisol and total cortisol. 2. Patient has been treated with 3% saline overnight and we have been monitoring his sodium so that it comes up slowly as this may be a chronic issue. For right now on the changing to normal saline at 100 mL an hour and DC the 3% and watch 3. Watch potassium closely., Patient has been given 50 mg of potassium 4. Watch phosphorus. Patient was given 10 mmol of potassium phosphorus
--- NOTE | 2016-06-18 13:50 | HP ---
DATE OF ADMISSION: CHIEF COMPLAINT: Turning yellow. HISTORY OF PRESENT ILLNESS: This is the first known admission for this 30-year-old white male. He presented to the emergency room because he noticed that his eyes were getting yellow. He is an alcoholic. He has had no seizures, blackouts, nausea, vomiting, hematemesis, melena, etc. In the emergency room, his bilirubin was 17 and his sodium was 117 and the chloride of 79 and CO2 of 15. He also had an increased QT interval. 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 REVIEW OF SYSTEMS: He has had no other complaints. He has had no diplopia, history of lung disease, heart disease, hypertension, murmurs, rheumatic fever, pancreatitis, renal disease, diabetes, etc. Past medical history, family history, and personal and social histories reveals he is not allergic to any medication. He is not taking any. He has had no surgery and he smokes about a pack of cigarettes a day. He cannot quantify how much he drinks. PHYSICAL EXAMINATION: Blood pressure is 116/68 with a pulse of 83 and regular, respirations of 40 and he is afebrile. Generally appeared to be chronically ill. He was jaundiced and he had a hyperkeratotic dermatitis encompassing his entire body. Head, ears, eyes, nose, mouth, and throat were normal except for the scleral icterus. Neck veins are not distended and there are no neck masses. Chest demonstrated breath sounds on both sides. Cardiac exam demonstrated sinus tachycardia. The abdomen is soft and there was suggestion of ascites. Extremities were normal except for the dermatitis. He was admitted to the hospital with diagnosis: 1. 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 2. Electrolyte imbalance. 3. Metabolic acidosis. 4. Alcoholism. PLAN: 1. Bed rest. 2. IV fluids. 3. Correct electrolyte imbalance. 4. Prophylaxis for DTs. 5. [facility] referral.
--- NOTE | 2016-06-18 13:55 | US ---
EXAMINATION TYPE: US liver DATE OF EXAM: 06/18/2016 11:40 AM COMPARISON: NONE CLINICAL HISTORY: US. Cirrhosis, hepatic failure, hyponatremia, hypochloremia EXAM MEASUREMENTS: Liver Length: 22.4 cm Gallbladder Wall: 0.2 cm CBD: 0.5 cm Right Kidney: 10.0 x 4.4 x 5.4 cm ANATOMY: TECHNOLOGIST IMPRESSION: Limited examination due to bowel gas, liver size and attenuation. Pancreas: Obscured by bowel gas, parts visualized appear wnl Liver: Overall echogenicity is hyperechoic probable liver steatosis Gallbladder: Limited due to gas and pt wouldn't LLD, parts visualized appear wnl Evidence for sonographic Reyes's sign: No CBD: Appears wnl Right Kidney: Obscured by overlying bowel gas, liver size and attentuation; parts visualized appear wnl Overall examination was limited due to liver size and attenuation; portions visualized appeared with in normal limits. Impressions: 1. Limited examination. 2. Moderate fatty infiltration of the liver. Normal Values: Liver Length: < 16cm wnl, 17-18cm upper limits, >18cm enlarged Renal Length = 9 - 12cm GB Wall: < 0.3cm CBD: < 0.6cm or < 1.0cm post cholecystectomy
--- NOTE | 2016-06-18 14:10 | PN ---
DATE OF SERVICE: 06/18/2016 CHIEF COMPLAINT: Alcoholism and hepatic failure. HISTORY OF PRESENT ILLNESS: This gentleman is fairly stable. His blood pressure is low. He has not DT's so far. PHYSICAL EXAM: Blood pressure is 94/57 and his chest is clear and the cardiac exam is normal. The abdomen is soft. IMPRESSION: 1. Alcoholic hepatitis. 2. Cirrhosis. 3. Hepatic failure. 4. Chronic alcoholism. 5. Electrolyte imbalance. PLAN: 1. Continue with IV fluids and follow labs. 2. Watch for DTs. 3. [facility] are following the patient.
[2016-06-18 15:30] LABS: Potassium 3.6 mmol/L (3.5-5.1); Sodium 123 mmol/L (137-145)
[2016-06-18 17:27] LABS: Anion Gap 36 mmol/L; Blood Urea Nitrogen 3 mg/dL (9-20); Glucose 72 mg/dL (74-99); Non-African American GFR(MDRD) >60 (>60 ml/min/1.73 sqM); Potassium 3.6 mmol/L (3.5-5.1)
[2016-06-18 17:30] LABS: Chloride 76 mmol/L (98-107); Sodium 119 mmol/L (137-145)
[2016-06-18 17:31] LABS: Calcium 5.9 mg/dL (8.4-10.2); Carbon Dioxide 7 mmol/L (22-30)
[2016-06-18 18:06] LABS: ABG Base Excess -3.8 mmol/L; ABG HCO3 18 mmol/L (21-25); ABG PCO2 20 mmHg (35-45); ABG PH 7.56 (7.35-7.45); ABG PO2 100 mmHg (83-108); ABG TCO2 19 mmol/L (19-24)
[2016-06-18 19:32] LABS: ALT 94 U/L (21-72); AST 462 U/L (17-59); Alkaline Phosphatase 360 U/L (38-126); Anion Gap 15 mmol/L; Blood Urea Nitrogen 3 mg/dL (9-20); Calcium 6.7 mg/dL (8.4-10.2); Carbon Dioxide 18 mmol/L (22-30); Chloride 90 mmol/L (98-107); Glucose 146 mg/dL (74-99); Non-African American GFR(MDRD) >60 (>60 ml/min/1.73 sqM); Potassium 4.3 mmol/L (3.5-5.1); Sodium 123 mmol/L (137-145); Total Protein 5.9 g/dL (6.3-8.2)
[2016-06-18 19:37] LABS: Total Bilirubin 16.5 mg/dL (0.2-1.3)
[2016-06-18 22:13] LABS: INR 1.6 (<1.1); Partial Thromboplastin Time 27.3 sec (22.0-30.0); Prothrombin Time 15.5 sec (9.0-12.0)
[2016-06-18 22:17] LABS: Sodium 124 mmol/L (137-145)
[2016-06-18] MEDS ORDERED: IPRATROPIUM-ALBUTEROL 3 ML NEB INHALATION PRN (22:41)
[2016-06-19 05:00] LABS: Basophils # (A) 0.1 k/uL (0-0.2); Basophils % (A) 1 %; CH 33.3; CHCM 31.4; Eosinophils # (A) 0.1 k/uL (0-0.7); Eosinophils % (A) 0 %; HCT 36.2 % (39.0-53.0); HDW 2.82; HGB 11.5 gm/dL (13.0-17.5); Hypochromasia Slight; Luc # (Auto) 0.21; Luc % (Auto) 1; Lymphocytes # (A) 2.2 k/uL (1.0-4.8); Lymphocytes % (A) 14 %; MCHC 31.8 g/dL (31.0-37.0); Macrocytosis Moderate; Mean Platelet Volume 7.7; Monocytes # (A) 0.7 k/uL (0-1.0); Monocytes % (A) 4 %; Neutrophils # (A) 13.2 k/uL (1.3-7.7); Neutrophils % (A) 80 %; RBC 3.38 m/uL (4.30-5.90); RDW 15.6 % (11.5-15.5); WBC 16.4 k/uL (3.8-10.6); WBC (Perox) 16.27
[2016-06-19 05:31] LABS: INR 1.7 (<1.1); Prothrombin Time 16.8 sec (9.0-12.0)
[2016-06-19 05:39] LABS: Anion Gap 12 mmol/L; Carbon Dioxide 18 mmol/L (22-30); Chloride 93 mmol/L (98-107); Glucose 102 mg/dL (74-99); Non-African American GFR(MDRD) >60 (>60 ml/min/1.73 sqM); Sodium 123 mmol/L (137-145); Total Protein 5.1 g/dL (6.3-8.2)
[2016-06-19 06:01] LABS: Calcium 6.5 mg/dL (8.4-10.2)
[2016-06-19 06:02] LABS: ALT 100 U/L (21-72); AST 409 U/L (17-59); Alkaline Phosphatase 310 U/L (38-126); Blood Urea Nitrogen 4 mg/dL (9-20); Magnesium 2.4 mg/dL (1.6-2.3); Phosphorous 1.6 mg/dL (2.5-4.5); Potassium 4.4 mmol/L (3.5-5.1)
[2016-06-19] MEDS ORDERED: Phosphorus Replacement Protoco 1 EACH MISC MISCELLANE PRN (06:07)
[2016-06-19 08:41] LABS: Ionized Calcium 3.6 mg/dL (4.5-5.3)
--- NOTE | 2016-06-19 08:44 | P.PN ---
Subjective Principal diagnosis: This is a 30-year-old male seen in consultation because of severe hyponatremia which is very slowly improving on 3% saline. 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 He does have mild edema. On normal saline and his sodium continues to fall requiring continuation of 3% saline. Last night again and attempt at normal saline resulted in sodium going down and therefore we had to go back to 3% saline. Other than this he has hypophosphatemia from respiratory alkalosis. Hypokalemia from decreased intake. His appetite is still poor although slowly improving. He has severe skin disease chronically with keratosis erythema. Yesterday he fell when he was going to the bathroom and there has been some abrasion on his posterior chest wall. Patient denies any nausea vomiting diarrhea abdominal pain no. Fever chills cough shortness of breath. On exam today he had orthostatic changes blood pressure 126/62, with heart rate of 108 supine and on standing up it was 107/72 with a heart rate of 124. Workup for an anion gap acidosis including ethylene glycol or methanol and formic acid is still pending. The cause of his respiratory alkalosis seemed to be from pain and anxiety. Blood gases showed pH of 7.56 with a pCO2 of 20, bicarb was 19 on the blood gases. There's been no positive cultures to suggest sepsis. Objective - Vital Signs Vital signs: Vital Signs Temp 98.3 F 06/19/16 00:00 Pulse 95 06/19/16 07:00 Resp 16 06/19/16 07:00 BP 104/61 06/19/16 07:00 Pulse Ox 97 06/19/16 07:00 Intake & Output 06/18/16 06/19/16 06/19/16 18:59 06:59 18:59 Intake Total 915 580.0 Output Total 250 650 Balance 665 -70.0 Weight 65.77 kg 80 kg Intake: IV 750 330.0 Piperacillin-Tazobactam 3 50 150.0 .375 gm In Dextrose/Water 1 50ml.bag @ 12.5 mls/hr IVPB Q8HR [facility] Rx#: [id number] Potassium Phosphate 10 250 mmol In Sodium Chloride 0 .9% 250 ml @ 125 mls/hr IV ONCE ONE Rx#:[id number] Sodium Chloride 0.9% 1, 450 90 000 ml @ 100 mls/hr IV . Q10H [facility] Rx#:[id number] Sodium Chloride 3%( 90 Hypertonic) 500 ml @ 30 mls/hr IV .[id number] [facility] Rx #:[id number] Intake, IV Titration 165 Amount Sodium Chloride 3%( 165 Hypertonic) 500 ml @ 30 mls/hr IV .[id number] [facility] Rx #:[id number] Oral 250 Output: Urine 250 650 Other: Voiding Method Urinal Urinal # Voids 1 # Bowel Movements 1 On examination is awake alert oriented. He is in pain in his shoulders. A chin exam no JVP neck is supple no facial asymmetry He has skin lesions that are unchanged with diffuse erythema and scaliness keratosis. Lungs are clear to auscultation and percussion good air entry bilaterally Heart sounds are unremarkable no murmur rub gallop monitor shows normal sinus rhythm. Abdomen soft nontender ascites is not clinically evident although he has mild distention. Extremity exam was mild edema. Neurologically awake alert oriented. - Labs CBC & Chem 7: 06/19/16 04:18 06/19/16 04:18 Labs: Abnormal Lab Results - Last 24 Hours (Table) 06/18/16 06/18/16 06/18/16 Range/Units 06:06 08:06 10:38 WBC (3.8-10.6) k/uL RBC (4.30-5.90) m/uL Hgb (13.0-17.5) gm/dL Hct (39.0-53.0) % MCV (80.0-100.0) fL RDW (11.5-15.5) % Neutrophils # (1.3-7.7) k/uL PT (9.0-12.0) sec ABG pH (7.35-7.45) ABG pCO2 (35-45) mmHg ABG HCO3 (21-25) mmol/L ABG O2 Saturation (94-97) % Sodium 121 L 121 L (137-145) mmol/L Chloride (98-107) mmol/L Carbon Dioxide (22-30) mmol/L BUN (9-20) mg/dL Creatinine (0.66-1.25) mg/dL Glucose (74-99) mg/dL Osmolality (280-301) mosm/kg Plasma Lactic Acid Sebastián (0.7-2.0) mmol/L Calcium (8.4-10.2) mg/dL Phosphorus (2.5-4.5) mg/dL Magnesium (1.6-2.3) mg/dL Total Bilirubin (0.2-1.3) mg/dL AST (17-59) U/L ALT (21-72) U/L Alkaline Phosphatase (38-126) U/L Ammonia 81 H (<30) umol/L Total Protein (6.3-8.2) g/dL Albumin (3.5-5.0) g/dL TSH (0.465-4.680) mIU/L Free T4 (0.78-2.19) ng/dL 06/18/16 06/18/16 06/18/16 Range/Units 14:00 14:00 16:10 WBC (3.8-10.6) k/uL RBC (4.30-5.90) m/uL Hgb (13.0-17.5) gm/dL Hct (39.0-53.0) % MCV (80.0-100.0) fL RDW (11.5-15.5) % Neutrophils # (1.3-7.7) k/uL PT (9.0-12.0) sec ABG pH (7.35-7.45) ABG pCO2 (35-45) mmHg ABG HCO3 (21-25) mmol/L ABG O2 Saturation (94-97) % Sodium 123 L 119 L* (137-145) mmol/L Chloride 76 L* (98-107) mmol/L Carbon Dioxide 7 L* (22-30) mmol/L BUN 3 L (9-20) mg/dL Creatinine 0.55 L (0.66-1.25) mg/dL Glucose 72 L (74-99) mg/dL Osmolality (280-301) mosm/kg Plasma Lactic Acid Sebastián (0.7-2.0) mmol/L Calcium 5.9 L* (8.4-10.2) mg/dL Phosphorus (2.5-4.5) mg/dL Magnesium (1.6-2.3) mg/dL Total Bilirubin (0.2-1.3) mg/dL AST (17-59) U/L ALT (21-72) U/L Alkaline Phosphatase (38-126) U/L Ammonia (<30) umol/L Total Protein (6.3-8.2) g/dL Albumin (3.5-5.0) g/dL TSH 6.260 H (0.465-4.680) mIU/L Free T4 2.37 H (0.78-2.19) ng/dL 06/18/16 06/18/16 06/18/16 Range/Units 16:10 17:51 19:00 WBC (3.8-10.6) k/uL RBC (4.30-5.90) m/uL Hgb (13.0-17.5) gm/dL Hct (39.0-53.0) % MCV (80.0-100.0) fL RDW (11.5-15.5) % Neutrophils # (1.3-7.7) k/uL PT (9.0-12.0) sec ABG pH 7.56 H (7.35-7.45) ABG pCO2 20 L* (35-45) mmHg ABG HCO3 18 L (21-25) mmol/L ABG O2 Saturation 99.0 H (94-97) % Sodium 123 L (137-145) mmol/L Chloride 90 L (98-107) mmol/L Carbon Dioxide 18 L (22-30) mmol/L BUN 3 L (9-20) mg/dL Creatinine 0.49 L (0.66-1.25) mg/dL Glucose 146 H (74-99) mg/dL Osmolality (280-301) mosm/kg Plasma Lactic Acid Sebastián 9.3 H* (0.7-2.0) mmol/L Calcium 6.7 L (8.4-10.2) mg/dL Phosphorus (2.5-4.5) mg/dL Magnesium (1.6-2.3) mg/dL Total Bilirubin 16.5 H* (0.2-1.3) mg/dL AST 462 H (17-59) U/L ALT 94 H (21-72) U/L Alkaline Phosphatase 360 H (38-126) U/L Ammonia (<30) umol/L Total Protein 5.9 L (6.3-8.2) g/dL Albumin 2.7 L (3.5-5.0) g/dL TSH (0.465-4.680) mIU/L Free T4 (0.78-2.19) ng/dL 06/18/16 06/18/16 06/18/16 Range/Units 21:40 21:40 21:40 WBC (3.8-10.6) k/uL RBC (4.30-5.90) m/uL Hgb (13.0-17.5) gm/dL Hct (39.0-53.0) % MCV (80.0-100.0) fL RDW (11.5-15.5) % Neutrophils # (1.3-7.7) k/uL PT 15.5 H (9.0-12.0) sec ABG pH (7.35-7.45) ABG pCO2 (35-45) mmHg ABG HCO3 (21-25) mmol/L ABG O2 Saturation (94-97) % Sodium (137-145) mmol/L Chloride (98-107) mmol/L Carbon Dioxide (22-30) mmol/L BUN (9-20) mg/dL Creatinine (0.66-1.25) mg/dL Glucose (74-99) mg/dL Osmolality (280-301) mosm/kg Plasma Lactic Acid Sebastián 6.2 H* (0.7-2.0) mmol/L Calcium (8.4-10.2) mg/dL Phosphorus (2.5-4.5) mg/dL Magnesium (1.6-2.3) mg/dL Total Bilirubin (0.2-1.3) mg/dL AST (17-59) U/L ALT (21-72) U/L Alkaline Phosphatase (38-126) U/L Ammonia 65 H (<30) umol/L Total Protein (6.3-8.2) g/dL Albumin (3.5-5.0) g/dL TSH (0.465-4.680) mIU/L Free T4 (0.78-2.19) ng/dL 06/18/16 06/19/16 06/19/16 Range/Units 21:40 01:15 04:18 WBC (3.8-10.6) k/uL RBC (4.30-5.90) m/uL Hgb (13.0-17.5) gm/dL Hct (39.0-53.0) % MCV (80.0-100.0) fL RDW (11.5-15.5) % Neutrophils # (1.3-7.7) k/uL PT 16.8 H (9.0-12.0) sec ABG pH (7.35-7.45) ABG pCO2 (35-45) mmHg ABG HCO3 (21-25) mmol/L ABG O2 Saturation (94-97) % Sodium 124 L 127 L (137-145) mmol/L Chloride (98-107) mmol/L Carbon Dioxide (22-30) mmol/L BUN (9-20) mg/dL Creatinine (0.66-1.25) mg/dL Glucose (74-99) mg/dL Osmolality 262 L (280-301) mosm/kg Plasma Lactic Acid Sebastián (0.7-2.0) mmol/L Calcium (8.4-10.2) mg/dL Phosphorus (2.5-4.5) mg/dL Magnesium (1.6-2.3) mg/dL Total Bilirubin (0.2-1.3) mg/dL AST (17-59) U/L ALT (21-72) U/L Alkaline Phosphatase (38-126) U/L Ammonia (<30) umol/L Total Protein (6.3-8.2) g/dL Albumin (3.5-5.0) g/dL TSH (0.465-4.680) mIU/L Free T4 (0.78-2.19) ng/dL 06/19/16 06/19/16 06/19/16 Range/Units 04:18 04:18 04:18 WBC 16.4 H (3.8-10.6) k/uL RBC 3.38 L (4.30-5.90) m/uL Hgb 11.5 L (13.0-17.5) gm/dL Hct 36.2 L (39.0-53.0) % MCV 107.0 H D (80.0-100.0) fL RDW 15.6 H (11.5-15.5) % Neutrophils # 13.2 H (1.3-7.7) k/uL PT (9.0-12.0) sec ABG pH (7.35-7.45) ABG pCO2 (35-45) mmHg ABG HCO3 (21-25) mmol/L ABG O2 Saturation (94-97) % Sodium 123 L (137-145) mmol/L Chloride 93 L (98-107) mmol/L Carbon Dioxide 18 L (22-30) mmol/L BUN 4 L (9-20) mg/dL Creatinine 0.50 L (0.66-1.25) mg/dL Glucose 102 H (74-99) mg/dL Osmolality (280-301) mosm/kg Plasma Lactic Acid Sebastián (0.7-2.0) mmol/L Calcium 6.5 L* (8.4-10.2) mg/dL Phosphorus 1.6 L (2.5-4.5) mg/dL Magnesium 2.4 H (1.6-2.3) mg/dL Total Bilirubin 15.0 H* (0.2-1.3) mg/dL AST 409 H (17-59) U/L ALT 100 H (21-72) U/L Alkaline Phosphatase 310 H (38-126) U/L Ammonia 66 H (<30) umol/L Total Protein 5.1 L (6.3-8.2) g/dL Albumin 2.4 L (3.5-5.0) g/dL TSH (0.465-4.680) mIU/L Free T4 (0.78-2.19) ng/dL Microbiology - Last 24 Hours (Table) 06/18/16 01:54 Urine Culture - Preliminary Urine,Voided Assessment and Plan Plan: Impression 1. 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 Workup has shown a slightly high TSH at 6.2 cortisol is 26 free T4 is 2.37 slightly high. Uric acid was 6. Serum albumin is 2.4 as of this morning and serum sodium is 127 on 3% saline. He has failed normal saline at least twice now. Sodium tends to go down and had to revert back to 3% saline this morning 06/19/2016.Creatinine normal at 0.5, , urine osmolality was 339, after fluid was given about a liter therefore unreliable to read into this urine osmolality. Slowly improving but satisfactory on 3% normal saline. 2. Severe non-gap acidosis on admission with a bicarb of 15 and a gap of 23. lactic acidosis was high at 6.2 yesterday 06/18/2016. Was deemed to be from hypotension. This morning on 06/19/2016 his bicarb is 18 and anion gap is 12 therefore lactic acidosis is assumed to be down but was checked. Labs are pending for ethylene glycol or methanol formic acid. 3. Severe liver disease likely secondary to alcohol. Hepatitis a IgM, hepatitis B surface antigen, hepatitis C IgG core is negative so far, bilirubin is 15down from 17.9, 4. Liver disease with ammonia 66 this morning. Clinically no encephalopathy. 4. Severe skin disease with keratosis, chronically. 5. Hypokalemia secondary to decreased intake, and possibly alcohol. magnesium deficiency has been ruled out. 6. Hypophosphatemia secondary to respiratory alkalosis. 7. Respiratory alkalosis secondary to pain and anxiety no evidence of sepsis. Lungs are clear Recommendation. 1. pending ethylene glycol , methanol, formic acid, TSH. 2. Patient has been treated with 3% saline overnight and we have been monitoring his sodium so that it comes up slowly as this may be a chronic issue. 3. Potassium is being replaced as needed 4. phosphorus is being replaced as needed but because this is a shift from respiratory alkalosis avoid giving excessive phosphorus as it might rebound. 5. Because of need for 3% saline, requiring frequent lites to be checked, I'll try to give him samska 30 mg 1 dose and see if it'll reduce the need for frequent blood tests and 3% saline
[2016-06-19] MEDS ORDERED: CALCIUM GLUCONATE 2,000 MG in SODIUM CHLORIDE 0.9% 100 ML IVPB ONE (08:51)
--- NOTE | 2016-06-19 08:52 | P.PN ---
Subjective Principal diagnosis: Alcohol hepatitis 30-year-old male with a history of EtOH abuse and with acute alcohol hepatitis with profound hyponatremia. Afebrile. Hepatitis panel negative. Total bilirubin slowly improving 15 today. AST ALT alkaline phosphatase relatively unchanged. INR 1.7. Objective - Vital Signs Vital signs: Vital Signs Temp 98.2 F 06/19/16 08:40 Pulse 107 H 06/19/16 08:40 Resp 27 H 06/19/16 08:40 BP 107/72 06/19/16 08:40 Pulse Ox 99 06/19/16 08:40 Intake & Output 06/18/16 06/19/16 06/19/16 18:59 06:59 18:59 Intake Total 915 580.0 30 Output Total 250 650 Balance 665 -70.0 30 Weight 65.77 kg 80 kg Intake: IV 750 330.0 30 Piperacillin-Tazobactam 3 50 150.0 .375 gm In Dextrose/Water 1 50ml.bag @ 12.5 mls/hr IVPB Q8HR [facility] Rx#: [id number] Potassium Phosphate 10 250 mmol In Sodium Chloride 0 .9% 250 ml @ 125 mls/hr IV ONCE ONE Rx#:[id number] Sodium Chloride 0.9% 1, 450 90 000 ml @ 100 mls/hr IV . Q10H [facility] Rx#:[id number] Sodium Chloride 3%( 90 30 Hypertonic) 500 ml @ 30 mls/hr IV .[id number] [facility] Rx #:[id number] Intake, IV Titration 165 Amount Sodium Chloride 3%( 165 Hypertonic) 500 ml @ 30 mls/hr IV .[id number] [facility] Rx #:[id number] Oral 250 Output: Urine 250 650 Other: Voiding Method Urinal Urinal # Voids 1 # Bowel Movements 1 - Exam General appearance: The patient is alert, oriented, in no acute distress. Visibly jaundiced with generalized hyperkeratosis of the skin all extremities and face. HET: Head is normocephalic and atraumatic. Pupils are equal and reactive, icteric. Oropharynx is clear without lesions. Neck: Supple without lymphadenopathy. Trachea midline. Heart: S1 S2. Regular rate and rhythm. Lungs: No crackles or wheezes are heard. Abdomen: Soft, nontender, mildly bloated with no appreciable ascites with bowel sounds. No peritoneal signs. No palpable organomegaly or masses. Extremities: Normal skin color and turgor. No cyanosis, rash, ulceration, clubbing, or edema. Radial and pedal pulses are 2/4 bilaterally. No evidence of asterixis. Neurological: No focal deficits. Strength and sensation are grossly intact. - Labs CBC & Chem 7: 06/19/16 04:18 06/19/16 04:18 Labs: Abnormal Lab Results - Last 24 Hours (Table) 06/18/16 06/18/16 06/18/16 Range/Units 06:06 10:38 14:00 WBC (3.8-10.6) k/uL RBC (4.30-5.90) m/uL Hgb (13.0-17.5) gm/dL Hct (39.0-53.0) % MCV (80.0-100.0) fL RDW (11.5-15.5) % Neutrophils # (1.3-7.7) k/uL PT (9.0-12.0) sec ABG pH (7.35-7.45) ABG pCO2 (35-45) mmHg ABG HCO3 (21-25) mmol/L ABG O2 Saturation (94-97) % Sodium 121 L 123 L (137-145) mmol/L Chloride (98-107) mmol/L Carbon Dioxide (22-30) mmol/L BUN (9-20) mg/dL Creatinine (0.66-1.25) mg/dL Glucose (74-99) mg/dL Osmolality (280-301) mosm/kg Plasma Lactic Acid Sebastián (0.7-2.0) mmol/L Calcium (8.4-10.2) mg/dL Ionized Calcium Paras (4.5-5.3) mg/dL Phosphorus (2.5-4.5) mg/dL Magnesium (1.6-2.3) mg/dL Total Bilirubin (0.2-1.3) mg/dL AST (17-59) U/L ALT (21-72) U/L Alkaline Phosphatase (38-126) U/L Ammonia 81 H (<30) umol/L Total Protein (6.3-8.2) g/dL Albumin (3.5-5.0) g/dL TSH (0.465-4.680) mIU/L Free T4 (0.78-2.19) ng/dL 06/18/16 06/18/16 06/18/16 Range/Units 14:00 16:10 16:10 WBC (3.8-10.6) k/uL RBC (4.30-5.90) m/uL Hgb (13.0-17.5) gm/dL Hct (39.0-53.0) % MCV (80.0-100.0) fL RDW (11.5-15.5) % Neutrophils # (1.3-7.7) k/uL PT (9.0-12.0) sec ABG pH (7.35-7.45) ABG pCO2 (35-45) mmHg ABG HCO3 (21-25) mmol/L ABG O2 Saturation (94-97) % Sodium 119 L* (137-145) mmol/L Chloride 76 L* (98-107) mmol/L Carbon Dioxide 7 L* (22-30) mmol/L BUN 3 L (9-20) mg/dL Creatinine 0.55 L (0.66-1.25) mg/dL Glucose 72 L (74-99) mg/dL Osmolality (280-301) mosm/kg Plasma Lactic Acid Esbastián 9.3 H* (0.7-2.0) mmol/L Calcium 5.9 L* (8.4-10.2) mg/dL Ionized Calcium Paras (4.5-5.3) mg/dL Phosphorus (2.5-4.5) mg/dL Magnesium (1.6-2.3) mg/dL Total Bilirubin (0.2-1.3) mg/dL AST (17-59) U/L ALT (21-72) U/L Alkaline Phosphatase (38-126) U/L Ammonia (<30) umol/L Total Protein (6.3-8.2) g/dL Albumin (3.5-5.0) g/dL TSH 6.260 H (0.465-4.680) mIU/L Free T4 2.37 H (0.78-2.19) ng/dL 06/18/16 06/18/16 06/18/16 Range/Units 17:51 19:00 21:40 WBC (3.8-10.6) k/uL RBC (4.30-5.90) m/uL Hgb (13.0-17.5) gm/dL Hct (39.0-53.0) % MCV (80.0-100.0) fL RDW (11.5-15.5) % Neutrophils # (1.3-7.7) k/uL PT 15.5 H (9.0-12.0) sec ABG pH 7.56 H (7.35-7.45) ABG pCO2 20 L* (35-45) mmHg ABG HCO3 18 L (21-25) mmol/L ABG O2 Saturation 99.0 H (94-97) % Sodium 123 L (137-145) mmol/L Chloride 90 L (98-107) mmol/L Carbon Dioxide 18 L (22-30) mmol/L BUN 3 L (9-20) mg/dL Creatinine 0.49 L (0.66-1.25) mg/dL Glucose 146 H (74-99) mg/dL Osmolality (280-301) mosm/kg Plasma Lactic Acid Sebastián (0.7-2.0) mmol/L Calcium 6.7 L (8.4-10.2) mg/dL Ionized Calcium Paras (4.5-5.3) mg/dL Phosphorus (2.5-4.5) mg/dL Magnesium (1.6-2.3) mg/dL Total Bilirubin 16.5 H* (0.2-1.3) mg/dL AST 462 H (17-59) U/L ALT 94 H (21-72) U/L Alkaline Phosphatase 360 H (38-126) U/L Ammonia (<30) umol/L Total Protein 5.9 L (6.3-8.2) g/dL Albumin 2.7 L (3.5-5.0) g/dL TSH (0.465-4.680) mIU/L Free T4 (0.78-2.19) ng/dL 06/18/16 06/18/16 06/18/16 Range/Units 21:40 21:40 21:40 WBC (3.8-10.6) k/uL RBC (4.30-5.90) m/uL Hgb (13.0-17.5) gm/dL Hct (39.0-53.0) % MCV (80.0-100.0) fL RDW (11.5-15.5) % Neutrophils # (1.3-7.7) k/uL PT (9.0-12.0) sec ABG pH (7.35-7.45) ABG pCO2 (35-45) mmHg ABG HCO3 (21-25) mmol/L ABG O2 Saturation (94-97) % Sodium 124 L (137-145) mmol/L Chloride (98-107) mmol/L Carbon Dioxide (22-30) mmol/L BUN (9-20) mg/dL Creatinine (0.66-1.25) mg/dL Glucose (74-99) mg/dL Osmolality 262 L (280-301) mosm/kg Plasma Lactic Acid Sebastián 6.2 H* (0.7-2.0) mmol/L Calcium (8.4-10.2) mg/dL Ionized Calcium Paras (4.5-5.3) mg/dL Phosphorus (2.5-4.5) mg/dL Magnesium (1.6-2.3) mg/dL Total Bilirubin (0.2-1.3) mg/dL AST (17-59) U/L ALT (21-72) U/L Alkaline Phosphatase (38-126) U/L Ammonia 65 H (<30) umol/L Total Protein (6.3-8.2) g/dL Albumin (3.5-5.0) g/dL TSH (0.465-4.680) mIU/L Free T4 (0.78-2.19) ng/dL 06/19/16 06/19/16 06/19/16 Range/Units 01:15 04:18 04:18 WBC (3.8-10.6) k/uL RBC (4.30-5.90) m/uL Hgb (13.0-17.5) gm/dL Hct (39.0-53.0) % MCV (80.0-100.0) fL RDW (11.5-15.5) % Neutrophils # (1.3-7.7) k/uL PT 16.8 H (9.0-12.0) sec ABG pH (7.35-7.45) ABG pCO2 (35-45) mmHg ABG HCO3 (21-25) mmol/L ABG O2 Saturation (94-97) % Sodium 127 L (137-145) mmol/L Chloride (98-107) mmol/L Carbon Dioxide (22-30) mmol/L BUN (9-20) mg/dL Creatinine (0.66-1.25) mg/dL Glucose (74-99) mg/dL Osmolality (280-301) mosm/kg Plasma Lactic Acid Sebastián (0.7-2.0) mmol/L Calcium (8.4-10.2) mg/dL Ionized Calcium Paras (4.5-5.3) mg/dL Phosphorus (2.5-4.5) mg/dL Magnesium (1.6-2.3) mg/dL Total Bilirubin (0.2-1.3) mg/dL AST (17-59) U/L ALT (21-72) U/L Alkaline Phosphatase (38-126) U/L Ammonia 66 H (<30) umol/L Total Protein (6.3-8.2) g/dL Albumin (3.5-5.0) g/dL TSH (0.465-4.680) mIU/L Free T4 (0.78-2.19) ng/dL 06/19/16 06/19/16 06/19/16 Range/Units 04:18 04:18 08:05 WBC 16.4 H (3.8-10.6) k/uL RBC 3.38 L (4.30-5.90) m/uL Hgb 11.5 L (13.0-17.5) gm/dL Hct 36.2 L (39.0-53.0) % MCV 107.0 H D (80.0-100.0) fL RDW 15.6 H (11.5-15.5) % Neutrophils # 13.2 H (1.3-7.7) k/uL PT (9.0-12.0) sec ABG pH (7.35-7.45) ABG pCO2 (35-45) mmHg ABG HCO3 (21-25) mmol/L ABG O2 Saturation (94-97) % Sodium 123 L (137-145) mmol/L Chloride 93 L (98-107) mmol/L Carbon Dioxide 18 L (22-30) mmol/L BUN 4 L (9-20) mg/dL Creatinine 0.50 L (0.66-1.25) mg/dL Glucose 102 H (74-99) mg/dL Osmolality (280-301) mosm/kg Plasma Lactic Acid Sebastián (0.7-2.0) mmol/L Calcium 6.5 L* (8.4-10.2) mg/dL Ionized Calcium Paras 3.6 L (4.5-5.3) mg/dL Phosphorus 1.6 L (2.5-4.5) mg/dL Magnesium 2.4 H (1.6-2.3) mg/dL Total Bilirubin 15.0 H* (0.2-1.3) mg/dL AST 409 H (17-59) U/L ALT 100 H (21-72) U/L Alkaline Phosphatase 310 H (38-126) U/L Ammonia (<30) umol/L Total Protein 5.1 L (6.3-8.2) g/dL Albumin 2.4 L (3.5-5.0) g/dL TSH (0.465-4.680) mIU/L Free T4 (0.78-2.19) ng/dL Microbiology - Last 24 Hours (Table) 06/18/16 01:54 Urine Culture - Preliminary Urine,Voided - Imaging and Cardiology US - abdomen: report reviewed (Reviewed by Dr. Mcelroy) Assessment and Plan (1) Alcoholic hepatitis Status: Acute (2) Jaundice Status: Acute (3) Alcohol abuse Status: Chronic (4) Hyperkeratosis of skin Status: Chronic (5) Dyspnea Status: Acute (6) Hyponatremia Status: Acute (7) Hepatomegaly Status: Chronic Plan: 1. Supportive measures. 2. Abdominal ultrasound reviewed overall exam limited due to liver size 22.4 cm CBD appeared within normal limits. GI prophylaxis. Alcohol withdrawal protocol. 3. No further workup at this time we'll continue to follow. Assessment and plan of care discussed with Dr. Mcelroy.
[2016-06-19] MEDS: SODIUM PHOSPHATE 10 MMOL in SODIUM CHLORIDE 0.9% 250 ML IVPB SCH ×2 (08:55→11:56)
[2016-06-19] MEDS ORDERED: SODIUM CHLORIDE 0.9% 1,000 ML IV SCH (09:00)
[2016-06-19] MEDS ORDERED: TOLVAPTAN 30 MG TABLET PO ONE (09:00)
[2016-06-19] MEDS: PIPERACILLIN-TAZOBACTAM 3.375 GM in DEXTROSE/WATER 1 50ML.BAG IVPB SCH ×2 (09:03→17:57)
[2016-06-19] MEDS: ENOXAPARIN 40 MG/0.4 ML SYRINGE SQ SCH (09:04)
[2016-06-19] MEDS: predniSONE 20 MG TAB PO SCH (09:04)
[2016-06-19] MEDS: PANTOPRAZOLE 40 MG/10 ML VIAL IV SCH (09:04)
[2016-06-19] MEDS: FOLIC ACID 1 MG TAB PO SCH (11:57)
[2016-06-19] MEDS: THIAMINE 100 MG TAB PO SCH (11:57)
[2016-06-19 12:54] LABS: Amylase 69 U/L (30-110); Sodium 129 mmol/L (137-145)
--- NOTE | 2016-06-19 18:06 | P.PN ---
Subjective This is a pleasant 30-year-old gentleman with a known history of daily excessive alcohol use who admits to 3 1/2 pints a day of mostly schnapps but usually whatever he can obtain that well "knock him out", chronic tobacco use, epidermalytic hyperkeratosis. He currently resides with his grandmother. He presented to the emergency room yesterday with complaints of increasing shortness of breath, yellow productive sputum and generalized weakness. He also noted yellow changes of his eyes and some blood in his urine. His urinalysis was negative for blood but did show 4+ bilirubin 1+ protein and trace of ketones. Liver enzymes revealed AST of 572, ALT 106, alk phos 358, albumin 2.9, total bilirubin 17.9. He also had profound hyponatremia with the presenting sodium of 117. He is currently receiving 3% sodium chloride at a rate of 30 MLS per hour. His most recent sodium is 121. His chest x-ray revealed no acute pulmonary process. White count 18.6. He is maintaining good O2 saturations in the high 90s on room air. He's been afebrile. He is covered with Zosyn. No signs of acute withdrawal currently. He did receive 1 dose of Ativan for slight restlessness last evening. He is seen currently in the intensive care unit. He is awake and alert in no acute distress. He denies any worsening shortness of breath, cough or congestion. He denies any significant abdominal discomfort. No noted bleeding. On 06/19/2016 the patient is being seen in follow-up. As mentioned earlier, he has signs of alcoholic hepatitis. His liver function tests remain elevated with an AST of 49 and ALT of 100 and alkaline phosphatase of 310. His serum bilirubin is down to 15. The patient's INR is down to 1.7. At one point his lactic acid level was as high as 9.3 and a dilated dropped down to 6.2 and this is being still monitors. He is on oral prednisone. He is also on empiric antibiotic coverage with IV Zosyn. Acute hepatitis profile was done and it was negative. Ultrasound of the liver was done and it was a limited examination yet for the most part the liver was echogenic and consistent with liver steatosis. Gallbladder was difficult to visualize however the part that were visualized essentially within normal limits. The patient is still being treated also for hyponatremia. Earlier this morning he was on a hypertonic solution at 3% at the rate of 30 mL an hour. He was also given a dose of Tolvaptan 30 mg, and this brought up his sodium level up to 129. The hypertonic saline solution was discontinued. The patient is awake. No significant abdominal complaints. No change in mental status. No signs of delirium tremens. Objective - Vital Signs Vital signs: Vital Signs Temp 98.1 F 06/19/16 17:00 Pulse 113 H 06/19/16 17:30 Resp 24 06/19/16 17:30 BP 114/75 06/19/16 17:30 Pulse Ox 99 06/19/16 17:30 Intake & Output 06/18/16 06/19/16 06/19/16 18:59 06:59 18:59 Intake Total 915 580.0 1927.5 Output Total 592 008 3782 Balance 665 -70.0 -582.5 Weight 65.77 kg 80 kg 80 kg Intake: IV 750 330.0 1345.0 Piperacillin-Tazobactam 3 50 150.0 100.0 .375 gm In Dextrose/Water 1 50ml.bag @ 12.5 mls/hr IVPB Q8HR [facility] Rx#: [id number] Potassium Phosphate 10 250 mmol In Sodium Chloride 0 .9% 250 ml @ 125 mls/hr IV ONCE ONE Rx#:[id number] Sodium Chloride 0.9% 1, 450 90 000 ml @ 100 mls/hr IV . Q10H [facility] Rx#:[id number] Sodium Chloride 0.9% 1, 500 000 ml @ 50 mls/hr IV . Q20H [facility] Rx#:[id number] Sodium Chloride 3%( 90 120 Hypertonic) 500 ml @ 30 mls/hr IV .[id number] [facility] Rx #:[id number] Sodium Phosphate 10 mmol 625 In Sodium Chloride 0.9% 250 ml @ 125 mls/hr IVPB Q2H [facility] Rx#:[id number] Intake, IV Titration 165 212.5 Amount Calcium Gluconate 2,000 100 mg In Sodium Chloride 0.9 % 100 ml @ 100 mls/hr IVPB ONCE ONE Rx#: [id number] Piperacillin-Tazobactam 3 12.5 .375 gm In Dextrose/Water 1 50ml.bag @ 12.5 mls/hr IVPB Q8HR [facility] Rx#: [id number] Sodium Chloride 0.9% 1, 100 000 ml @ 50 mls/hr IV . Q20H [facility] Rx#:[id number] Sodium Chloride 3%( 165 Hypertonic) 500 ml @ 30 mls/hr IV .[id number] [facility] Rx #:[id number] Oral 250 370 Output: Urine 924 800 6795 Other: Voiding Method Urinal Urinal Urinal # Voids 1 1 # Bowel Movements 1 1 - Exam GENERAL EXAM: Alert, active, comfortable in no apparent distress. HEAD: Normocephalic. EYES: Slightly icteric. Normal reaction of pupils, equal size. NOSE: Clear with pink turbinates. THROAT: No erythema or exudates. NECK: No masses, no JVD. CHEST: No chest wall deformity. LUNGS: Equal air entry with no crackles, wheeze, rhonchi or dullness. CVS: S1 and S2 normal with no audible murmurs, regular rhythm. ABDOMEN: No significant hepatosplenomegaly, normal bowel sounds, no guarding or rigidity. SPINE: No scoliosis or deformity SKIN: Evidence of epidermal lytic hyperkeratosis with scaling. CENTRAL NERVOUS SYSTEM: No focal deficits, tone is normal in all 4 extremities. Extremities: There is no significant peripheral edema. Slight clubbing, no cyanosis. Peripheral pulses are intact. - Labs CBC & Chem 7: 06/19/16 04:18 06/19/16 11:50 Labs: Abnormal Lab Results - Last 24 Hours (Table) 06/18/16 06/18/16 06/18/16 Range/Units 17:51 19:00 21:40 WBC (3.8-10.6) k/uL RBC (4.30-5.90) m/uL Hgb (13.0-17.5) gm/dL Hct (39.0-53.0) % MCV (80.0-100.0) fL RDW (11.5-15.5) % Neutrophils # (1.3-7.7) k/uL PT 15.5 H (9.0-12.0) sec ABG pH 7.56 H (7.35-7.45) ABG pCO2 20 L* (35-45) mmHg ABG HCO3 18 L (21-25) mmol/L ABG O2 Saturation 99.0 H (94-97) % Sodium 123 L (137-145) mmol/L Chloride 90 L (98-107) mmol/L Carbon Dioxide 18 L (22-30) mmol/L BUN 3 L (9-20) mg/dL Creatinine 0.49 L (0.66-1.25) mg/dL Glucose 146 H (74-99) mg/dL Osmolality (280-301) mosm/kg Plasma Lactic Acid Sebastián (0.7-2.0) mmol/L Calcium 6.7 L (8.4-10.2) mg/dL Ionized Calcium Paras (4.5-5.3) mg/dL Phosphorus (2.5-4.5) mg/dL Magnesium (1.6-2.3) mg/dL Total Bilirubin 16.5 H* (0.2-1.3) mg/dL AST 462 H (17-59) U/L ALT 94 H (21-72) U/L Alkaline Phosphatase 360 H (38-126) U/L Ammonia (<30) umol/L Total Protein 5.9 L (6.3-8.2) g/dL Albumin 2.7 L (3.5-5.0) g/dL 06/18/16 06/18/16 06/18/16 Range/Units 21:40 21:40 21:40 WBC (3.8-10.6) k/uL RBC (4.30-5.90) m/uL Hgb (13.0-17.5) gm/dL Hct (39.0-53.0) % MCV (80.0-100.0) fL RDW (11.5-15.5) % Neutrophils # (1.3-7.7) k/uL PT (9.0-12.0) sec ABG pH (7.35-7.45) ABG pCO2 (35-45) mmHg ABG HCO3 (21-25) mmol/L ABG O2 Saturation (94-97) % Sodium 124 L (137-145) mmol/L Chloride (98-107) mmol/L Carbon Dioxide (22-30) mmol/L BUN (9-20) mg/dL Creatinine (0.66-1.25) mg/dL Glucose (74-99) mg/dL Osmolality 262 L (280-301) mosm/kg Plasma Lactic Acid Sebastián 6.2 H* (0.7-2.0) mmol/L Calcium (8.4-10.2) mg/dL Ionized Calcium Paras (4.5-5.3) mg/dL Phosphorus (2.5-4.5) mg/dL Magnesium (1.6-2.3) mg/dL Total Bilirubin (0.2-1.3) mg/dL AST (17-59) U/L ALT (21-72) U/L Alkaline Phosphatase (38-126) U/L Ammonia 65 H (<30) umol/L Total Protein (6.3-8.2) g/dL Albumin (3.5-5.0) g/dL 06/19/16 06/19/16 06/19/16 Range/Units 01:15 04:18 04:18 WBC (3.8-10.6) k/uL RBC (4.30-5.90) m/uL Hgb (13.0-17.5) gm/dL Hct (39.0-53.0) % MCV (80.0-100.0) fL RDW (11.5-15.5) % Neutrophils # (1.3-7.7) k/uL PT 16.8 H (9.0-12.0) sec ABG pH (7.35-7.45) ABG pCO2 (35-45) mmHg ABG HCO3 (21-25) mmol/L ABG O2 Saturation (94-97) % Sodium 127 L (137-145) mmol/L Chloride (98-107) mmol/L Carbon Dioxide (22-30) mmol/L BUN (9-20) mg/dL Creatinine (0.66-1.25) mg/dL Glucose (74-99) mg/dL Osmolality (280-301) mosm/kg Plasma Lactic Acid Sebastián (0.7-2.0) mmol/L Calcium (8.4-10.2) mg/dL Ionized Calcium Paras (4.5-5.3) mg/dL Phosphorus (2.5-4.5) mg/dL Magnesium (1.6-2.3) mg/dL Total Bilirubin (0.2-1.3) mg/dL AST (17-59) U/L ALT (21-72) U/L Alkaline Phosphatase (38-126) U/L Ammonia 66 H (<30) umol/L Total Protein (6.3-8.2) g/dL Albumin (3.5-5.0) g/dL 06/19/16 06/19/16 06/19/16 Range/Units 04:18 04:18 08:05 WBC 16.4 H (3.8-10.6) k/uL RBC 3.38 L (4.30-5.90) m/uL Hgb 11.5 L (13.0-17.5) gm/dL Hct 36.2 L (39.0-53.0) % MCV 107.0 H D (80.0-100.0) fL RDW 15.6 H (11.5-15.5) % Neutrophils # 13.2 H (1.3-7.7) k/uL PT (9.0-12.0) sec ABG pH (7.35-7.45) ABG pCO2 (35-45) mmHg ABG HCO3 (21-25) mmol/L ABG O2 Saturation (94-97) % Sodium 123 L 126 L (137-145) mmol/L Chloride 93 L (98-107) mmol/L Carbon Dioxide 18 L (22-30) mmol/L BUN 4 L (9-20) mg/dL Creatinine 0.50 L (0.66-1.25) mg/dL Glucose 102 H (74-99) mg/dL Osmolality (280-301) mosm/kg Plasma Lactic Acid Sebastián (0.7-2.0) mmol/L Calcium 6.5 L* (8.4-10.2) mg/dL Ionized Calcium Paras 3.6 L (4.5-5.3) mg/dL Phosphorus 1.6 L (2.5-4.5) mg/dL Magnesium 2.4 H (1.6-2.3) mg/dL Total Bilirubin 15.0 H* (0.2-1.3) mg/dL AST 409 H (17-59) U/L ALT 100 H (21-72) U/L Alkaline Phosphatase 310 H (38-126) U/L Ammonia (<30) umol/L Total Protein 5.1 L (6.3-8.2) g/dL Albumin 2.4 L (3.5-5.0) g/dL 06/19/16 06/19/16 Range/Units 11:50 17:00 WBC (3.8-10.6) k/uL RBC (4.30-5.90) m/uL Hgb (13.0-17.5) gm/dL Hct (39.0-53.0) % MCV (80.0-100.0) fL RDW (11.5-15.5) % Neutrophils # (1.3-7.7) k/uL PT (9.0-12.0) sec ABG pH (7.35-7.45) ABG pCO2 (35-45) mmHg ABG HCO3 (21-25) mmol/L ABG O2 Saturation (94-97) % Sodium 129 L (137-145) mmol/L Chloride (98-107) mmol/L Carbon Dioxide (22-30) mmol/L BUN (9-20) mg/dL Creatinine (0.66-1.25) mg/dL Glucose (74-99) mg/dL Osmolality (280-301) mosm/kg Plasma Lactic Acid Sebastián 7.7 H* (0.7-2.0) mmol/L Calcium (8.4-10.2) mg/dL Ionized Calcium Paras (4.5-5.3) mg/dL Phosphorus (2.5-4.5) mg/dL Magnesium (1.6-2.3) mg/dL Total Bilirubin (0.2-1.3) mg/dL AST (17-59) U/L ALT (21-72) U/L Alkaline Phosphatase (38-126) U/L Ammonia (<30) umol/L Total Protein (6.3-8.2) g/dL Albumin (3.5-5.0) g/dL Microbiology - Last 24 Hours (Table) 06/18/16 01:54 Urine Culture - Final Urine,Voided Assessment and Plan Plan: Assessment 1 acute alcoholic hepatitis, currently on oral prednisone. Patient has considerable abnormalities of the liver function tests typical of an acute hepatitis of an alcoholic in nature. 2 acute lactic acidosis, lactic acid levels are being monitored. 3 coagulopathy secondary to liver disease 4 chronic alcoholism 5 severe hyponatremia initially admitted at a sodium level 117 and the patient was treated with a combination of hypertonic solution at 3% normal saline and he was given Talvaptan which brought up his sodium level up to 127. Currently he is off the hypertonic saline solution. 6 anion gap metabolic acidosis, improving 7 electrolyte imbalance with hypokalemia and hypophosphatemia Plan Monitor the liver function tests, monitor bilirubin, monitor coagulopathy, mild atelectatic level, monitor the sodium level. Agree on discontinuing the 3% hypertonic solution for now. Continue empiric antibiotic coverage with Zosyn. The patient will be watched. ICU protocol 24 hours. The first on the case. GI is on the case.
--- NOTE | 2016-06-19 19:01 | PN ---
DATE OF SERVICE: 06/19/2016 CHIEF COMPLAINT: Acute alcohol intoxication, acute alcoholic hepatitis, cirrhosis and alcoholism. HISTORY OF PRESENT ILLNESS: This gentleman is doing a little bit better. He remains alert and he has not gone into DTs so far. PHYSICAL EXAMINATION: Chest is clear. Cardiac exam is normal. The abdomen is soft and non-tender. IMPRESSION: 1. Acute alcohol intoxication. 2. Alcoholic hepatitis. 3. Cirrhosis. 4. Chronic alcoholism. PLAN: Continue with current program. He is slowly improving.
[2016-06-19] MEDS: DEXTROSE 5% IN WATER 1,000 ML IV SCH (19:09)
[2016-06-20] MEDS: PIPERACILLIN-TAZOBACTAM 3.375 GM in DEXTROSE/WATER 1 50ML.BAG IVPB SCH ×3 (00:30→16:50)
[2016-06-20 04:52] LABS: Anisocytosis Slight; Basophils % (A) 0 %; CH 33.4; CHCM 31.4; Eosinophils % (A) 0 %; HCT 35.4 % (39.0-53.0); HDW 3.12; Hypochromasia Slight; Luc # (Auto) 0.24; Luc % (Auto) 1; Lymphocytes # (A) 1.8 k/uL (1.0-4.8); Lymphocytes % (A) 10 %; MCH 33.2 pg (25.0-35.0); MCV 107.2 fL (80.0-100.0); Macrocytosis Marked; Mean Platelet Volume 7.5; Monocytes % (A) 5 %; Neutrophils # (A) 15.3 k/uL (1.3-7.7); Neutrophils % (A) 83 %; RDW 16.3 % (11.5-15.5); WBC 18.4 k/uL (3.8-10.6)
[2016-06-20 05:07] LABS: ALT 118 U/L (21-72); AST 437 U/L (17-59); Alkaline Phosphatase 299 U/L (38-126); Anion Gap 14 mmol/L; Blood Urea Nitrogen 2 mg/dL (9-20); Calcium 7.7 mg/dL (8.4-10.2); Carbon Dioxide 20 mmol/L (22-30); Chloride 113 mmol/L (98-107); Glucose 198 mg/dL (74-99); Magnesium 2.7 mg/dL (1.6-2.3); Non-African American GFR(MDRD) >60 (>60 ml/min/1.73 sqM); Sodium 147 mmol/L (137-145); Total Bilirubin 14.3 mg/dL (0.2-1.3); Total Protein 5.2 g/dL (6.3-8.2)
[2016-06-20 05:14] LABS: Potassium 2.7 mmol/L (3.5-5.1)
[2016-06-20 05:19] LABS: INR 1.5 (<1.1); Partial Thromboplastin Time 22.5 sec (22.0-30.0); Prothrombin Time 14.3 sec (9.0-12.0)
[2016-06-20] MEDS: POTASSIUM CHLORIDE ER 20 MEQ TAB.ER PO SCH ×9 (05:54→21:04)
[2016-06-20] MEDS ORDERED: DESMOPRESSIN INJ 4 MCG/ML AMP SQ STA (06:05)
--- NOTE | 2016-06-20 07:44 | P.PN ---
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 He has been given 3% saline for several days and then yesterday on 06/19/2016, I gave him Tolvaptan 30 mg one dose. His sodium then went up from 129 6 hours later to 140. He was started on D5W and then sodium went down to 139 but again climbed up to 147 earlier this morning. He was therefore given DDAVP 1 g subcu. He feels fairly well denies any headache fever chills cough he continues to have some nausea vomiting on and off is draining large amounts of water since the sodium went up. He continues to have diarrhea although C. diff is negative. Rest of the review of system is unchanged. His edema is much better. Other than this he has hypophosphatemia from respiratory alkalosis. Hypokalemia from decreased intake, a anion gap acidosis that was not very well explain with lactic acid being high transiently. He is being treated for sepsis although all cultures are negative. . His appetite is still poor although slowly improving. He has severe skin disease chronically with keratosis erythema. Day before yesterday Yesterday he fell when he was going to the bathroom and there has been some abrasion on his posterior chest wall. Workup for an anion gap acidosis including ethylene glycol or methanol and formic acid is still pending. The cause of his respiratory alkalosis seemed to be from pain and anxiety. Blood gases showed pH of 7.56 with a pCO2 of 20, bicarb was 19 on the blood gases. Objective - Vital Signs Vital signs: Vital Signs Temp 97.4 F L 06/20/16 04:00 Pulse 81 06/20/16 07:00 Resp 24 06/20/16 07:00 BP 121/84 06/20/16 07:00 Pulse Ox 98 06/20/16 07:00 Intake & Output 06/19/16 06/20/16 06/20/16 18:59 06:59 18:59 Intake Total 1990.0 4130.0 Output Total 2710 6500 Balance -720.0 -2370.0 Weight 80 kg 77.1 kg Intake: IV 1407.5 50.0 Piperacillin-Tazobactam 3 112.5 50.0 .375 gm In Dextrose/Water 1 50ml.bag @ 12.5 mls/hr IVPB Q8HR [facility] Rx#: [id number] Sodium Chloride 0.9% 1, 550 000 ml @ 50 mls/hr IV . Q20H [facility] Rx#:[id number] Sodium Chloride 3%( 120 Hypertonic) 500 ml @ 30 mls/hr IV .[id number] [facility] Rx #:[id number] Sodium Phosphate 10 mmol 625 In Sodium Chloride 0.9% 250 ml @ 125 mls/hr IVPB Q2H [facility] Rx#:[id number] Intake, IV Titration 212.5 900 Amount Calcium Gluconate 2,000 100 mg In Sodium Chloride 0.9 % 100 ml @ 100 mls/hr IVPB ONCE ONE Rx#: [id number] Dextrose 5% in Water 1, 900 000 ml @ 75 mls/hr IV . [id number] [facility] Rx#:[id number] Piperacillin-Tazobactam 3 12.5 .375 gm In Dextrose/Water 1 50ml.bag @ 12.5 mls/hr IVPB Q8HR [facility] Rx#: [id number] Sodium Chloride 0.9% 1, 100 000 ml @ 50 mls/hr IV . Q20H [facility] Rx#:[id number] Oral 370 3180 Output: Urine 2710 3900 Stool 1100 Emesis 1500 Other: Voiding Method Urinal Urinal Diaper # Voids 1 1 # Bowel Movements 1 1 On examination is awake alert oriented comfortable. No JVP noted neck is supple no facial asymmetry Lungs are clear to auscultation percussion good air entry bilaterally Heart sounds unremarkable no murmur rub gallop Abdomen soft nontender Extremity exam was trace edema significantly improved He has chronic skin condition unchanged. Neurologically awake alert oriented. No asterixis. No focal motor deficit. - Labs CBC & Chem 7: 06/20/16 04:19 06/20/16 04:19 Labs: Abnormal Lab Results - Last 24 Hours (Table) 06/19/16 06/19/16 06/19/16 Range/Units 08:05 11:50 17:00 WBC (3.8-10.6) k/uL RBC (4.30-5.90) m/uL Hgb (13.0-17.5) gm/dL Hct (39.0-53.0) % MCV (80.0-100.0) fL RDW (11.5-15.5) % Neutrophils # (1.3-7.7) k/uL PT (9.0-12.0) sec Sodium 126 L 129 L (137-145) mmol/L Potassium (3.5-5.1) mmol/L Chloride (98-107) mmol/L Carbon Dioxide (22-30) mmol/L BUN (9-20) mg/dL Creatinine (0.66-1.25) mg/dL Glucose (74-99) mg/dL Plasma Lactic Acid Sebastián 7.7 H* (0.7-2.0) mmol/L Calcium (8.4-10.2) mg/dL Ionized Calcium Paras 3.6 L (4.5-5.3) mg/dL Magnesium (1.6-2.3) mg/dL Total Bilirubin (0.2-1.3) mg/dL AST (17-59) U/L ALT (21-72) U/L Alkaline Phosphatase (38-126) U/L Ammonia (<30) umol/L Total Protein (6.3-8.2) g/dL Albumin (3.5-5.0) g/dL 06/20/16 06/20/16 06/20/16 Range/Units 04:19 04:19 04:30 WBC 18.4 H (3.8-10.6) k/uL RBC 3.30 L (4.30-5.90) m/uL Hgb 11.0 L (13.0-17.5) gm/dL Hct 35.4 L (39.0-53.0) % MCV 107.2 H (80.0-100.0) fL RDW 16.3 H (11.5-15.5) % Neutrophils # 15.3 H (1.3-7.7) k/uL PT (9.0-12.0) sec Sodium 147 H (137-145) mmol/L Potassium 2.7 L* (3.5-5.1) mmol/L Chloride 113 H (98-107) mmol/L Carbon Dioxide 20 L (22-30) mmol/L BUN 2 L (9-20) mg/dL Creatinine 0.50 L (0.66-1.25) mg/dL Glucose 198 H (74-99) mg/dL Plasma Lactic Acid Sebastián 6.2 H* (0.7-2.0) mmol/L Calcium 7.7 L (8.4-10.2) mg/dL Ionized Calcium Paras (4.5-5.3) mg/dL Magnesium 2.7 H (1.6-2.3) mg/dL Total Bilirubin 14.3 H (0.2-1.3) mg/dL AST 437 H (17-59) U/L ALT 118 H (21-72) U/L Alkaline Phosphatase 299 H (38-126) U/L Ammonia 31 H (<30) umol/L Total Protein 5.2 L (6.3-8.2) g/dL Albumin 2.4 L (3.5-5.0) g/dL 06/20/16 Range/Units 04:46 WBC (3.8-10.6) k/uL RBC (4.30-5.90) m/uL Hgb (13.0-17.5) gm/dL Hct (39.0-53.0) % MCV (80.0-100.0) fL RDW (11.5-15.5) % Neutrophils # (1.3-7.7) k/uL PT 14.3 H (9.0-12.0) sec Sodium (137-145) mmol/L Potassium (3.5-5.1) mmol/L Chloride (98-107) mmol/L Carbon Dioxide (22-30) mmol/L BUN (9-20) mg/dL Creatinine (0.66-1.25) mg/dL Glucose (74-99) mg/dL Plasma Lactic Acid Sebastián (0.7-2.0) mmol/L Calcium (8.4-10.2) mg/dL Ionized Calcium Paras (4.5-5.3) mg/dL Magnesium (1.6-2.3) mg/dL Total Bilirubin (0.2-1.3) mg/dL AST (17-59) U/L ALT (21-72) U/L Alkaline Phosphatase (38-126) U/L Ammonia (<30) umol/L Total Protein (6.3-8.2) g/dL Albumin (3.5-5.0) g/dL Microbiology - Last 24 Hours (Table) 06/19/16 16:05 Gram Stain - Preliminary Sputum 06/18/16 01:54 Urine Culture - Final Urine,Voided Assessment and Plan Plan: Impression 1. 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 His sodium went up from 129-140 with one dose of Tolvaptan 30 mg and had to be started on D5W as well as 1 dose of DDAVP 1 g subcu was given this morning. Sodium this morning is 147. History of large amounts of water because of the thirst induced by the hyper bacteremia. (Workup has shown a slightly high TSH at 6.2 cortisol is 26 free T4 is 2.37 slightly high. Uric acid was 6. ) 2. Severe non-gap acidosis on admission with a bicarb of 15 and a gap of 23. lactic acidosis was high at 6.2 on 06/18/2016. This morning his bicarb is 20 and his anion gap is 14 therefore unlikely to have any severe acidosis. Was deemed to be from hypotension. This morning on 06/19/2016 his bicarb is 18 and anion gap is 12 therefore lactic acidosis is assumed to be down but was checked. Labs are pending for ethylene glycol or methanol formic acid. 3. Severe liver disease likely secondary to alcohol. Hepatitis a IgM, hepatitis B surface antigen, hepatitis C IgG core is negative so far, bilirubin is down to 14.3 4. Liver disease with ammonia 31 this morning. Clinically no encephalopathy. 4. Severe skin disease with keratosis, chronically. 5. Hypokalemia secondary to decreased intake, and diuresis and diarrhea and vomiting. magnesium deficiency has been ruled out. 6. Hypophosphatemia secondary to respiratory alkalosis. Today's phosphorus pending 7. Respiratory alkalosis secondary to pain and anxiety no evidence of sepsis. Lungs are clear Recommendation. 1. pending ethylene glycol , methanol, formic acid, TSH. 3. Potassium is being replaced as needed 4. phosphorus is being replaced as needed but because this is a shift from respiratory alkalosis avoid giving excessive phosphorus as it might rebound.
[2016-06-20] MEDS: DEXTROSE 5% IN WATER 1,000 ML IV SCH ×2 (08:39→21:05)
[2016-06-20] MEDS: ENOXAPARIN 40 MG/0.4 ML SYRINGE SQ SCH (08:39)
[2016-06-20] MEDS: PANTOPRAZOLE 40 MG/10 ML VIAL IV SCH (08:40)
[2016-06-20] MEDS: predniSONE 20 MG TAB PO SCH (08:40)
--- NOTE | 2016-06-20 09:58 | P.PN ---
Subjective Principal diagnosis: Alcohol hepatitis 30-year-old male with a history of EtOH abuse and with acute alcohol hepatitis with profound hyponatremia. Afebrile. Total bilirubin slowly improving 14.3 today. AST ALT alkaline phosphatase relatively unchanged. INR 1.5. Sodium 147. Loose stools fecal management system inserted. Clostridium difficile testing negative. Objective - Vital Signs Vital signs: Vital Signs Temp 97.4 F L 06/20/16 04:00 Pulse 114 H 06/20/16 09:00 Resp 26 H 06/20/16 09:00 BP 119/77 06/20/16 09:00 Pulse Ox 97 06/20/16 09:00 Intake & Output 06/19/16 06/20/16 06/20/16 18:59 06:59 18:59 Intake Total 1990.0 4130.0 990 Output Total 2710 6500 550 Balance -720.0 -2370.0 440 Weight 80 kg 77.1 kg Intake: IV 1407.5 50.0 Piperacillin-Tazobactam 3 112.5 50.0 .375 gm In Dextrose/Water 1 50ml.bag @ 12.5 mls/hr IVPB Q8HR [facility] Rx#: [id number] Sodium Chloride 0.9% 1, 550 000 ml @ 50 mls/hr IV . Q20H [facility] Rx#:[id number] Sodium Chloride 3%( 120 Hypertonic) 500 ml @ 30 mls/hr IV .[id number] [facility] Rx #:[id number] Sodium Phosphate 10 mmol 625 In Sodium Chloride 0.9% 250 ml @ 125 mls/hr IVPB Q2H [facility] Rx#:[id number] Intake, IV Titration 212.5 900 150 Amount Calcium Gluconate 2,000 100 mg In Sodium Chloride 0.9 % 100 ml @ 100 mls/hr IVPB ONCE ONE Rx#: [id number] Dextrose 5% in Water 1, 900 150 000 ml @ 75 mls/hr IV . [id number] [facility] Rx#:[id number] Piperacillin-Tazobactam 3 12.5 .375 gm In Dextrose/Water 1 50ml.bag @ 12.5 mls/hr IVPB Q8HR [facility] Rx#: [id number] Sodium Chloride 0.9% 1, 100 000 ml @ 50 mls/hr IV . Q20H [facility] Rx#:[id number] Oral 370 3180 840 Output: Urine 2710 3900 550 Stool 1100 Emesis 1500 Other: Voiding Method Urinal Urinal Diaper # Voids 1 1 # Bowel Movements 1 1 - Exam General appearance: The patient is alert, oriented, in no acute distress. Visibly jaundiced with generalized hyperkeratosis of the skin all extremities and face. HET: Head is normocephalic and atraumatic. Pupils are equal and reactive, icteric. Oropharynx is clear without lesions. Neck: Supple without lymphadenopathy. Trachea midline. Heart: S1 S2. Regular rate and rhythm. Lungs: No crackles or wheezes are heard. Abdomen: Soft, nontender, mildly bloated with no appreciable ascites with bowel sounds. No peritoneal signs. No palpable organomegaly or masses. Extremities: Normal skin color and turgor. No cyanosis, rash, ulceration, clubbing, or edema. Radial and pedal pulses are 2/4 bilaterally. No evidence of asterixis. Fecal management system with loose brown stool. Neurological: No focal deficits. Strength and sensation are grossly intact. - Labs CBC & Chem 7: 06/20/16 04:19 06/20/16 04:19 Labs: Abnormal Lab Results - Last 24 Hours (Table) 06/19/16 06/19/16 06/20/16 Range/Units 11:50 17:00 04:19 WBC 18.4 H (3.8-10.6) k/uL RBC 3.30 L (4.30-5.90) m/uL Hgb 11.0 L (13.0-17.5) gm/dL Hct 35.4 L (39.0-53.0) % MCV 107.2 H (80.0-100.0) fL RDW 16.3 H (11.5-15.5) % Neutrophils # 15.3 H (1.3-7.7) k/uL PT (9.0-12.0) sec Sodium 129 L (137-145) mmol/L Potassium (3.5-5.1) mmol/L Chloride (98-107) mmol/L Carbon Dioxide (22-30) mmol/L BUN (9-20) mg/dL Creatinine (0.66-1.25) mg/dL Glucose (74-99) mg/dL Plasma Lactic Acid Sebastián 7.7 H* (0.7-2.0) mmol/L Calcium (8.4-10.2) mg/dL Phosphorus (2.5-4.5) mg/dL Magnesium (1.6-2.3) mg/dL Total Bilirubin (0.2-1.3) mg/dL AST (17-59) U/L ALT (21-72) U/L Alkaline Phosphatase (38-126) U/L Ammonia (<30) umol/L Total Protein (6.3-8.2) g/dL Albumin (3.5-5.0) g/dL 06/20/16 06/20/16 06/20/16 Range/Units 04:19 04:19 04:30 WBC (3.8-10.6) k/uL RBC (4.30-5.90) m/uL Hgb (13.0-17.5) gm/dL Hct (39.0-53.0) % MCV (80.0-100.0) fL RDW (11.5-15.5) % Neutrophils # (1.3-7.7) k/uL PT (9.0-12.0) sec Sodium 147 H (137-145) mmol/L Potassium 2.7 L* (3.5-5.1) mmol/L Chloride 113 H (98-107) mmol/L Carbon Dioxide 20 L (22-30) mmol/L BUN 2 L (9-20) mg/dL Creatinine 0.50 L (0.66-1.25) mg/dL Glucose 198 H (74-99) mg/dL Plasma Lactic Acid Sebastián 6.2 H* (0.7-2.0) mmol/L Calcium 7.7 L (8.4-10.2) mg/dL Phosphorus 1.8 L (2.5-4.5) mg/dL Magnesium 2.7 H (1.6-2.3) mg/dL Total Bilirubin 14.3 H (0.2-1.3) mg/dL AST 437 H (17-59) U/L ALT 118 H (21-72) U/L Alkaline Phosphatase 299 H (38-126) U/L Ammonia 31 H (<30) umol/L Total Protein 5.2 L (6.3-8.2) g/dL Albumin 2.4 L (3.5-5.0) g/dL 06/20/16 Range/Units 04:46 WBC (3.8-10.6) k/uL RBC (4.30-5.90) m/uL Hgb (13.0-17.5) gm/dL Hct (39.0-53.0) % MCV (80.0-100.0) fL RDW (11.5-15.5) % Neutrophils # (1.3-7.7) k/uL PT 14.3 H (9.0-12.0) sec Sodium (137-145) mmol/L Potassium (3.5-5.1) mmol/L Chloride (98-107) mmol/L Carbon Dioxide (22-30) mmol/L BUN (9-20) mg/dL Creatinine (0.66-1.25) mg/dL Glucose (74-99) mg/dL Plasma Lactic Acid Sebastián (0.7-2.0) mmol/L Calcium (8.4-10.2) mg/dL Phosphorus (2.5-4.5) mg/dL Magnesium (1.6-2.3) mg/dL Total Bilirubin (0.2-1.3) mg/dL AST (17-59) U/L ALT (21-72) U/L Alkaline Phosphatase (38-126) U/L Ammonia (<30) umol/L Total Protein (6.3-8.2) g/dL Albumin (3.5-5.0) g/dL Microbiology - Last 24 Hours (Table) 06/19/16 16:05 Gram Stain - Preliminary Sputum 06/18/16 01:54 Urine Culture - Final Urine,Voided Assessment and Plan (1) Alcoholic hepatitis Status: Acute (2) Jaundice Status: Acute (3) Alcohol abuse Status: Chronic (4) Hyperkeratosis of skin Status: Chronic (5) Dyspnea Status: Acute (6) Hyponatremia Status: Acute (7) Hepatomegaly Status: Chronic Plan: 1. Supportive measures. 2. GI prophylaxis. Alcohol withdrawal protocol. 3. No further workup at this time we'll continue to follow. Assessment and plan of care discussed with Dr. Stafford.
[2016-06-20] MEDS ORDERED: DESMOPRESSIN INJ 4 MCG/ML AMP IV ONE (12:15)
[2016-06-20] MEDS: FOLIC ACID 1 MG TAB PO SCH (13:14)
[2016-06-20] MEDS: THIAMINE 100 MG TAB PO SCH (13:14)
[2016-06-20 15:10] LABS: Potassium 3.3 mmol/L (3.5-5.1)
--- NOTE | 2016-06-20 15:53 | CONS ---
DATE OF CONSULTATION: REASON FOR CONSULTATION: Alcohol abuse. HISTORY OF PRESENT ILLNESS: The patient is a 30 -year-old white single male with history of epidermolytic hyperkeratosis of the skin and extensive history of alcohol abuse since age 23. The patient was admitted to the hospital due to electrolytes imbalance and shortness of breath. Initially, the patient said, "I do not need to talk with psychiatrist, I can stop drinking on my own". The he was superficially cooperative during the interview and he stated that he has been drinking up to a fifth of whiskey on a daily basis but he denied any withdrawal of seizures. He did admit that he has multiple blackouts in addition to severe hand tremors when he stopped drinking. The patient denied any history of depression, poor sleep, poor appetite. He denied any psychotic feature, he denied any anxiety disorder. He denied any suicidal or homicidal ideation. PAST PSYCHIATRIC HISTORY: There is no previous inpatient or outpatient treatment for mental illness. SUBSTANCE ABUSE HISTORY: 1. One alcohol. He has been drinking on a daily basis since age 23 and as I mentioned before, up to a fifth a day. He never had been on the inpatient substance abuse, however, four years ago, he did have DUI for drunk driving ticket and he was court ordered to go to [facility] for substance abuse. According to him, he was able to stay sober for almost 12 months four years ago. Currently he does not have any sponsor and he does not attend any substance abuse treatment. 2. Nicotine. He started smoking early teens at least one pack a day but he says "I quit smoking one week ago". PAST MEDICAL HISTORY: 1. As I mentioned, he has hyperkeratosis skin disorder. 2. History of gastroesophageal reflux disease. His lab creatinine 0.48, glucose 107, calcium is low at 6.6, phosphorus 5.5, total bilirubin is high it is 15.9. All his hepatic functions are high, AST 473, ALT 111, alkaline phosphatase 338. His total protein is low at 5.2. His sodium is low at 119. FAMILY HISTORY: Psychiatry illness. He stated multiple uncles from his mother's side struggling with drinking problem but he denied any history of depression or suicide in the family. SOCIAL HISTORY: The patient was born and raised in the [facility]. He was raised by his mother and stepfather. He has been on Social Security Disability for his skin disorder for many years. He has been living on his own. He never had been . No children. He used to work in a factory. He is his own guardian. He does not have any spiritual involvement. MENTAL STATUS EXAMINATION: The patient is a male who has severe skin disease with hyperkeratosis. He was alert and oriented to person, place and time. Disheveled, unkempt. He was superficially cooperative during the interview, avoiding eye contact. His speech is not spontaneous but normal in rate and rhythm. Stated "I am okay". Affect is constricted. Thought process is logical and goal directed. Thought content, denied any suicidal or homicidal ideation. Denied any psychotic feature. Denied any feeling of hopeless or helpless. His insight and judgement are present. However, his insight in regards to his drinking and extensive consequences of this is questionable. Intellectual function is average. DIAGNOSES: AXIS: Alcohol use disorder, continuous. AXIS II: Deferred. AXIS III: Alcoholic hepatitis, jaundice, hyperkeratosis of the skin. Hyponatremia. PLAN: The patient is not suicidal or homicidal. The patient does not need inpatient hospitalization for mental illness as he does not have ( ) he denied any mental symptoms. I did offer him inpatient substance abuse but he was very resistant to this so he was given phone number of [facility], the contact to be referred to substance abuse treatment . Thank you for this consultation.
--- NOTE | 2016-06-20 15:59 | P.PN ---
Subjective This is a pleasant 30-year-old gentleman with a known history of daily excessive alcohol use who admits to 3 1/2 pints a day of mostly schnapps but usually whatever he can obtain that well "knock him out", chronic tobacco use, epidermalytic hyperkeratosis. He currently resides with his grandmother. He presented to the emergency room yesterday with complaints of increasing shortness of breath, yellow productive sputum and generalized weakness. He also noted yellow changes of his eyes and some blood in his urine. His urinalysis was negative for blood but did show 4+ bilirubin 1+ protein and trace of ketones. Liver enzymes revealed AST of 572, ALT 106, alk phos 358, albumin 2.9, total bilirubin 17.9. He also had profound hyponatremia with the presenting sodium of 117. He is currently receiving 3% sodium chloride at a rate of 30 MLS per hour. His most recent sodium is 121. His chest x-ray revealed no acute pulmonary process. White count 18.6. He is maintaining good O2 saturations in the high 90s on room air. He's been afebrile. He is covered with Zosyn. No signs of acute withdrawal currently. He did receive 1 dose of Ativan for slight restlessness last evening. He is seen currently in the intensive care unit. He is awake and alert in no acute distress. He denies any worsening shortness of breath, cough or congestion. He denies any significant abdominal discomfort. No noted bleeding. On 06/19/2016 the patient is being seen in follow-up. As mentioned earlier, he has signs of alcoholic hepatitis. His liver function tests remain elevated with an AST of 49 and ALT of 100 and alkaline phosphatase of 310. His serum bilirubin is down to 15. The patient's INR is down to 1.7. At one point his lactic acid level was as high as 9.3 and a dilated dropped down to 6.2 and this is being still monitors. He is on oral prednisone. He is also on empiric antibiotic coverage with IV Zosyn. Acute hepatitis profile was done and it was negative. Ultrasound of the liver was done and it was a limited examination yet for the most part the liver was echogenic and consistent with liver steatosis. Gallbladder was difficult to visualize however the part that were visualized essentially within normal limits. The patient is still being treated also for hyponatremia. Earlier this morning he was on a hypertonic solution at 3% at the rate of 30 mL an hour. He was also given a dose of Tolvaptan 30 mg, and this brought up his sodium level up to 129. The hypertonic saline solution was discontinued. The patient is awake. No significant abdominal complaints. No change in mental status. No signs of delirium tremens. On 06/20/2016 the patient is being seen in follow-up. Is awake alert and following commands. No signs of any delirium tremens. No nausea vomiting or abdominal pain. His lactic acid level has dropped down to 5.0. He is still having issues with sodium control. After being treated for his hyponatremia, the patient overshot on his sodium level and the value came up to 147. At that point the patient was given DDAVP one dose and the patient was started on D5 water which is currently running in 150 mL an hour. He is doing well. His having adequate urination. As mentioned, no change in mental status or any focal neurological deficits. Objective - Vital Signs Vital signs: Vital Signs Temp 98.1 F 06/20/16 12:00 Pulse 111 H 06/20/16 15:00 Resp 28 H 06/20/16 15:00 BP 139/92 06/20/16 15:00 Pulse Ox 98 06/20/16 15:00 Intake & Output 06/19/16 06/20/16 06/20/16 18:59 06:59 18:59 Intake Total 1990.0 4130.0 4075 Output Total 2710 6500 1552 Balance -720.0 -2370.0 2523 Weight 80 kg 77.1 kg 77.1 kg Intake: IV 1407.5 50.0 Piperacillin-Tazobactam 3 112.5 50.0 .375 gm In Dextrose/Water 1 50ml.bag @ 12.5 mls/hr IVPB Q8HR [facility] Rx#: [id number] Sodium Chloride 0.9% 1, 550 000 ml @ 50 mls/hr IV . Q20H [facility] Rx#:[id number] Sodium Chloride 3%( 120 Hypertonic) 500 ml @ 30 mls/hr IV .[id number] [facility] Rx #:[id number] Sodium Phosphate 10 mmol 625 In Sodium Chloride 0.9% 250 ml @ 125 mls/hr IVPB Q2H [facility] Rx#:[id number] Intake, IV Titration 212.5 900 900 Amount Calcium Gluconate 2,000 100 mg In Sodium Chloride 0.9 % 100 ml @ 100 mls/hr IVPB ONCE ONE Rx#: [id number] Dextrose 5% in Water 1, 900 900 000 ml @ 75 mls/hr IV . [id number] [facility] Rx#:[id number] Piperacillin-Tazobactam 3 12.5 .375 gm In Dextrose/Water 1 50ml.bag @ 12.5 mls/hr IVPB Q8HR [facility] Rx#: [id number] Sodium Chloride 0.9% 1, 100 000 ml @ 50 mls/hr IV . Q20H [facility] Rx#:[id number] Oral 370 [id number] Output: Urine 2710 3900 1450 Stool 1100 100 Emesis 1500 2 Other: Voiding Method Urinal Urinal Diaper # Voids 1 1 1 # Bowel Movements 1 1 1 - Exam GENERAL EXAM: Alert, active, comfortable in no apparent distress. HEAD: Normocephalic. EYES: Slightly icteric. Normal reaction of pupils, equal size. NOSE: Clear with pink turbinates. THROAT: No erythema or exudates. NECK: No masses, no JVD. CHEST: No chest wall deformity. LUNGS: Equal air entry with no crackles, wheeze, rhonchi or dullness. CVS: S1 and S2 normal with no audible murmurs, regular rhythm. ABDOMEN: No significant hepatosplenomegaly, normal bowel sounds, no guarding or rigidity. SPINE: No scoliosis or deformity SKIN: Evidence of epidermal lytic hyperkeratosis with scaling. CENTRAL NERVOUS SYSTEM: No focal deficits, tone is normal in all 4 extremities. Extremities: There is no significant peripheral edema. Slight clubbing, no cyanosis. Peripheral pulses are intact. - Labs CBC & Chem 7: 06/20/16 04:19 06/20/16 14:11 Labs: Abnormal Lab Results - Last 24 Hours (Table) 06/19/16 06/20/16 06/20/16 Range/Units 17:00 04:19 04:19 WBC 18.4 H (3.8-10.6) k/uL RBC 3.30 L (4.30-5.90) m/uL Hgb 11.0 L (13.0-17.5) gm/dL Hct 35.4 L (39.0-53.0) % MCV 107.2 H (80.0-100.0) fL RDW 16.3 H (11.5-15.5) % Neutrophils # 15.3 H (1.3-7.7) k/uL PT (9.0-12.0) sec Sodium 147 H (137-145) mmol/L Potassium 2.7 L* (3.5-5.1) mmol/L Chloride 113 H (98-107) mmol/L Carbon Dioxide 20 L (22-30) mmol/L BUN 2 L (9-20) mg/dL Creatinine 0.50 L (0.66-1.25) mg/dL Glucose 198 H (74-99) mg/dL Plasma Lactic Acid Sebastián 7.7 H* (0.7-2.0) mmol/L Calcium 7.7 L (8.4-10.2) mg/dL Phosphorus (2.5-4.5) mg/dL Magnesium 2.7 H (1.6-2.3) mg/dL Total Bilirubin 14.3 H (0.2-1.3) mg/dL AST 437 H (17-59) U/L ALT 118 H (21-72) U/L Alkaline Phosphatase 299 H (38-126) U/L Ammonia (<30) umol/L Total Protein 5.2 L (6.3-8.2) g/dL Albumin 2.4 L (3.5-5.0) g/dL 06/20/16 06/20/16 06/20/16 Range/Units 04:19 04:30 04:46 WBC (3.8-10.6) k/uL RBC (4.30-5.90) m/uL Hgb (13.0-17.5) gm/dL Hct (39.0-53.0) % MCV (80.0-100.0) fL RDW (11.5-15.5) % Neutrophils # (1.3-7.7) k/uL PT 14.3 H (9.0-12.0) sec Sodium (137-145) mmol/L Potassium (3.5-5.1) mmol/L Chloride (98-107) mmol/L Carbon Dioxide (22-30) mmol/L BUN (9-20) mg/dL Creatinine (0.66-1.25) mg/dL Glucose (74-99) mg/dL Plasma Lactic Acid Sebastián 6.2 H* (0.7-2.0) mmol/L Calcium (8.4-10.2) mg/dL Phosphorus 1.8 L (2.5-4.5) mg/dL Magnesium (1.6-2.3) mg/dL Total Bilirubin (0.2-1.3) mg/dL AST (17-59) U/L ALT (21-72) U/L Alkaline Phosphatase (38-126) U/L Ammonia 31 H (<30) umol/L Total Protein (6.3-8.2) g/dL Albumin (3.5-5.0) g/dL 06/20/16 06/20/16 06/20/16 Range/Units 10:33 14:11 14:11 WBC (3.8-10.6) k/uL RBC (4.30-5.90) m/uL Hgb (13.0-17.5) gm/dL Hct (39.0-53.0) % MCV (80.0-100.0) fL RDW (11.5-15.5) % Neutrophils # (1.3-7.7) k/uL PT (9.0-12.0) sec Sodium 150 H 147 H (137-145) mmol/L Potassium 3.3 L (3.5-5.1) mmol/L Chloride (98-107) mmol/L Carbon Dioxide (22-30) mmol/L BUN (9-20) mg/dL Creatinine (0.66-1.25) mg/dL Glucose (74-99) mg/dL Plasma Lactic Acid Sebastián 5.0 H* (0.7-2.0) mmol/L Calcium (8.4-10.2) mg/dL Phosphorus (2.5-4.5) mg/dL Magnesium (1.6-2.3) mg/dL Total Bilirubin (0.2-1.3) mg/dL AST (17-59) U/L ALT (21-72) U/L Alkaline Phosphatase (38-126) U/L Ammonia (<30) umol/L Total Protein (6.3-8.2) g/dL Albumin (3.5-5.0) g/dL Microbiology - Last 24 Hours (Table) 06/19/16 16:05 Gram Stain - Preliminary Sputum 06/18/16 01:54 Urine Culture - Final Urine,Voided Assessment and Plan Plan: Assessment 1 acute alcoholic hepatitis, currently on oral prednisone. Patient has considerable abnormalities of the liver function tests typical of an acute hepatitis of an alcoholic in nature. 2 acute lactic acidosis, lactic acid levels are being monitored. Lactic acid level is gradually improving and the level is down to 5.0. 3 coagulopathy secondary to liver disease, improving and the INR is down to 1.5 4 chronic alcoholism 5 severe hyponatremia initially admitted at a sodium level 117 and following treatment the patient's sodium level came up to 147. Currently is on D5 water. He was also given a dose of DDAVP. Nephrology has been essentially maintaining and treating his sodium imbalance. 6 anion gap metabolic acidosis, improving 7 electrolyte imbalance with hypokalemia and hypophosphatemia Plan Continue present electrolytes. Monitor the sodium level. Monitor the lactic acid level. Continue oral prednisone. We'll follow.
[2016-06-20] MEDS ORDERED: POTASSIUM PHOSPHATE 10 MMOL in SODIUM CHLORIDE 0.9% 250 ML IV ONE (16:00)
--- NOTE | 2016-06-20 17:01 | PN ---
DATE OF SERVICE: 06/20/2016 CHIEF COMPLAINT: 1. Chronic alcoholism. 2. Acute alcoholic hepatitis. 3. Dehydration. 4. Electrolyte imbalance. HISTORY OF PRESENT ILLNESS: This gentleman is doing better. He is more awake and alert. Serum ammonia has dropped and so has his bilirubin. PHYSICAL EXAMINATION: Color is better. Hydration is improved. Chest is clear. Cardiac exam is normal. Abdomen is soft, nontender. IMPRESSION: 1. Acute alcohol intoxication. 2. Chronic alcoholism. 3. Alcoholic hepatitis. PLAN: Continue on current program and gradually increase activity.
[2016-06-20 20:22] LABS: Phosphorous 1.3 mg/dL (2.5-4.5); Potassium 4.3 mmol/L (3.5-5.1)
[2016-06-21] MEDS: PIPERACILLIN-TAZOBACTAM 3.375 GM in DEXTROSE/WATER 1 50ML.BAG IVPB SCH ×2 (00:14→08:55)
[2016-06-21 00:33] LABS: Magnesium 2.1 mg/dL (1.6-2.3); Potassium 4.4 mmol/L (3.5-5.1)
[2016-06-21 00:44] LABS: Phosphorous 1.2 mg/dL (2.5-4.5)
[2016-06-21] MEDS ORDERED: POTASSIUM PHOSPHATE 10 MMOL in SODIUM CHLORIDE 0.9% 250 ML IV ONE (01:04)
[2016-06-21 04:42] LABS: Anisocytosis Slight; Basophils # (A) 0.1 k/uL (0-0.2); Basophils % (A) 0 %; CH 33.8; CHCM 31.5; Eosinophils # (A) 0.1 k/uL (0-0.7); Eosinophils % (A) 0 %; HCT 32.6 % (39.0-53.0); Hypochromasia Slight; Luc # (Auto) 0.15; Luc % (Auto) 1; Lymphocytes # (A) 2.5 k/uL (1.0-4.8); Lymphocytes % (A) 14 %; MCH 33.1 pg (25.0-35.0); MCHC 30.6 g/dL (31.0-37.0); Macrocytosis Marked; Mean Platelet Volume 7.3; Monocytes # (A) 0.7 k/uL (0-1.0); Monocytes % (A) 4 %; Neutrophils # (A) 14.5 k/uL (1.3-7.7); Neutrophils % (A) 80 %; RBC 3.02 m/uL (4.30-5.90); RDW 16.8 % (11.5-15.5); WBC (Perox) 19.53
[2016-06-21 04:50] LABS: ALT 127 U/L (21-72); AST 462 U/L (17-59); Alkaline Phosphatase 299 U/L (38-126); Anion Gap 8 mmol/L; Blood Urea Nitrogen <2 mg/dL (9-20); Calcium 6.6 mg/dL (8.4-10.2); Carbon Dioxide 20 mmol/L (22-30); Chloride 110 mmol/L (98-107); Glucose 110 mg/dL (74-99); Magnesium 1.8 mg/dL (1.6-2.3); Non-African American GFR(MDRD) >60 (>60 ml/min/1.73 sqM); Phosphorous 2.1 mg/dL (2.5-4.5); Potassium 5.1 mmol/L (3.5-5.1); Sodium 138 mmol/L (137-145); Total Bilirubin 12.7 mg/dL (0.2-1.3); Total Protein 5.2 g/dL (6.3-8.2)
[2016-06-21] MEDS: MAGNESIUM SULFATE-D5W PMX 1 GM in DEXTROSE/WATER 1 100ML.BAG IVPB SCH ×2 (06:33→08:55)
[2016-06-21 08:54] LABS: Magnesium 2.4 mg/dL (1.6-2.3); Phosphorous 1.8 mg/dL (2.5-4.5); Potassium 4.9 mmol/L (3.5-5.1)
[2016-06-21] MEDS: PANTOPRAZOLE 40 MG/10 ML VIAL IV SCH (08:55)
[2016-06-21] MEDS: ENOXAPARIN 40 MG/0.4 ML SYRINGE SQ SCH (08:55)
[2016-06-21] MEDS: predniSONE 20 MG TAB PO SCH (08:55)
--- NOTE | 2016-06-21 10:23 | P.PN ---
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 He has been given 3% saline for several days and then on 06/19/2016, I gave him Tolvaptan 30 mg one dose. His sodium then went up from 129, 6 hours later to 140. He was started on D5W and then sodium went down to 139 but again climbed up to 147 earlier this morning. He was therefore given DDAVP 1 g subcu and a subsequent one microgram was given IV because the sodium intake to go up 250. Subsequently the sodium has been improving. Patient feels somewhat better subjectively and denies any new complaints. He is moving his bowels. His appetite is fair he is drinking large amounts of water. Diarrhea is improved. His edema is much better. Other than this he has hypophosphatemia from respiratory alkalosis. Hypokalemia from decreased intake, a anion gap acidosis that was not very well explain with lactic acid being high transiently. He is being treated for sepsis although all cultures are negative. His appetite is still poor although slowly improving. He has severe skin disease chronically with keratosis erythema. Workup for an anion gap acidosis including ethylene glycol or methanol and formic acid is still pending. He also had respiratory alkalosis because of pain and anxiety and possibly from withdrawal. Objective - Vital Signs Vital signs: Vital Signs Temp 98.6 F 06/21/16 04:00 Pulse 106 H 06/21/16 10:00 Resp 12 06/21/16 09:00 BP 107/73 06/21/16 10:00 Pulse Ox 99 06/21/16 10:00 Intake & Output 06/20/16 06/21/16 06/21/16 18:59 06:59 18:59 Intake Total 5875 2575 595 Output Total 2552 875 440 Balance 3323 1700 155 Weight 77.1 kg 80.6 kg Intake: IV 50 Piperacillin-Tazobactam 3 50 .375 gm In Dextrose/Water 1 50ml.bag @ 12.5 mls/hr IVPB Q8HR [facility] Rx#: [id number] Intake, IV Titration 1450 1525 115 Amount Dextrose 5% in Water 1, 1200 1425 115 000 ml @ 10 mls/hr IV . Q24H [facility] Rx#:[id number] Magnesium Sulfate-D5w Pmx 100 1 gm In Dextrose/Water 1 100ml.bag @ 100 mls/hr IVPB Q1H [facility] Rx#: [id number] Potassium Phosphate 10 250 mmol In Sodium Chloride 0 .9% 250 ml @ 125 mls/hr IV ONCE ONE Rx#:[id number] Oral 4425 1000 480 Output: Urine 2450 875 440 Stool 100 Emesis 2 Other: Voiding Method Urinal Urinal Diaper Diaper # Voids 1 1 # Bowel Movements 1 0 1 On examination he is awake alert oriented comfortable. He has significant minimal diffuse edema A chin exam was unremarkable for any JVP neck is supple no facial asymmetry Lungs are clear to auscultation percussion good air entry bilaterally Heart sounds are unremarkable for any murmur rub gallop Abdomen is soft slightly distended and maybe right upper quadrant tenderness and liver may be felt. It is soft. Extremity exam was trace edema with thick coarse and skin chronically from skin disease. Neurologically awake alert oriented. No asterixis. - Labs CBC & Chem 7: 06/21/16 04:26 06/21/16 08:14 Labs: Abnormal Lab Results - Last 24 Hours (Table) 06/20/16 06/20/16 06/20/16 Range/Units 10:33 14:11 14:11 WBC (3.8-10.6) k/uL RBC (4.30-5.90) m/uL Hgb (13.0-17.5) gm/dL Hct (39.0-53.0) % MCV (80.0-100.0) fL MCHC (31.0-37.0) g/dL RDW (11.5-15.5) % Neutrophils # (1.3-7.7) k/uL Sodium 150 H 147 H (137-145) mmol/L Potassium 3.3 L (3.5-5.1) mmol/L Chloride (98-107) mmol/L Carbon Dioxide (22-30) mmol/L BUN (9-20) mg/dL Creatinine (0.66-1.25) mg/dL Glucose (74-99) mg/dL Plasma Lactic Acid Sebastián 5.0 H* (0.7-2.0) mmol/L Calcium (8.4-10.2) mg/dL Phosphorus (2.5-4.5) mg/dL Magnesium (1.6-2.3) mg/dL Total Bilirubin (0.2-1.3) mg/dL AST (17-59) U/L ALT (21-72) U/L Alkaline Phosphatase (38-126) U/L Total Protein (6.3-8.2) g/dL Albumin (3.5-5.0) g/dL 06/20/16 06/20/16 06/21/16 Range/Units 19:49 23:56 04:26 WBC (3.8-10.6) k/uL RBC (4.30-5.90) m/uL Hgb (13.0-17.5) gm/dL Hct (39.0-53.0) % MCV (80.0-100.0) fL MCHC (31.0-37.0) g/dL RDW (11.5-15.5) % Neutrophils # (1.3-7.7) k/uL Sodium (137-145) mmol/L Potassium (3.5-5.1) mmol/L Chloride 108 H 110 H (98-107) mmol/L Carbon Dioxide 19 L 19 L 20 L (22-30) mmol/L BUN <2 L (9-20) mg/dL Creatinine 0.44 L (0.66-1.25) mg/dL Glucose 110 H (74-99) mg/dL Plasma Lactic Acid Sebastián (0.7-2.0) mmol/L Calcium 6.6 L (8.4-10.2) mg/dL Phosphorus 1.3 L 1.2 L* 2.1 L (2.5-4.5) mg/dL Magnesium (1.6-2.3) mg/dL Total Bilirubin 12.7 H (0.2-1.3) mg/dL AST 462 H (17-59) U/L ALT 127 H (21-72) U/L Alkaline Phosphatase 299 H (38-126) U/L Total Protein 5.2 L (6.3-8.2) g/dL Albumin 2.4 L (3.5-5.0) g/dL 06/21/16 06/21/16 06/21/16 Range/Units 04:26 08:14 08:14 WBC 18.0 H (3.8-10.6) k/uL RBC 3.02 L (4.30-5.90) m/uL Hgb 10.0 L (13.0-17.5) gm/dL Hct 32.6 L (39.0-53.0) % MCV 108.0 H (80.0-100.0) fL MCHC 30.6 L (31.0-37.0) g/dL RDW 16.8 H (11.5-15.5) % Neutrophils # 14.5 H (1.3-7.7) k/uL Sodium (137-145) mmol/L Potassium (3.5-5.1) mmol/L Chloride 109 H (98-107) mmol/L Carbon Dioxide 20 L (22-30) mmol/L BUN (9-20) mg/dL Creatinine (0.66-1.25) mg/dL Glucose (74-99) mg/dL Plasma Lactic Acid Sebastián 3.3 H* (0.7-2.0) mmol/L Calcium (8.4-10.2) mg/dL Phosphorus 1.8 L (2.5-4.5) mg/dL Magnesium 2.4 H (1.6-2.3) mg/dL Total Bilirubin (0.2-1.3) mg/dL AST (17-59) U/L ALT (21-72) U/L Alkaline Phosphatase (38-126) U/L Total Protein (6.3-8.2) g/dL Albumin (3.5-5.0) g/dL Microbiology - Last 24 Hours (Table) 06/19/16 16:05 Gram Stain - Final Sputum Sputum Culture - Final Zora albicans Assessment and Plan Plan: Impression 1. Severe hyponatremia, secondary to tea and toast syndrome, admitted with a serum sodium of 117 likely from Tea and toast syndrome. His hyponatremia was treated with a rapid and 30 mg the cause serum sodium should to 150 requiring 2 doses of DDAVP and D5W, and this morning on 06/21/2016 his sodium is down to 139. sodium was treated with after having went up from 129-140 History of large amounts of water because of the thirst induced by the hyper bacteremia. (Workup has shown a slightly high TSH at 6.2 cortisol is 26 free T4 is 2.37 slightly high. Uric acid was 6. ) 2. Severe non-gap acidosis on admission with a bicarb of 15 and a gap of 23. lactic acidosis was high at 6.2 on 06/18/2016. On today's lab bicarb is 20 and an anion gap is 8. Lactic acid is down to 3.3. Labs are pending for ethylene glycol or methanol formic acid. 3. Severe liver disease likely secondary to alcohol. Hepatitis a IgM, hepatitis B surface antigen, hepatitis C IgG core is negative so far, bilirubin is down to 14.3 4. Liver disease w secondary to alcoholism 4. Severe skin disease with keratosis, chronically. 6. Hypophosphatemia secondary to respiratory alkalosis, and D5W being given . Phosphorus is 1.8 this morning. 7. Respiratory alkalosis secondary to pain and anxiety no evidence of sepsis. Lungs are clear Recommendation. 1. pending ethylene glycol , methanol, formic acid, 2. DC IV fluids and watch sodium and potassium phosphorus calcium. 3. phosphorus is being replaced as needed but because this is a shift from respiratory alkalosis avoid giving excessive phosphorus as it might rebound. 4. Watch liver function tests, bilirubin down to 12.7, albumin is 2.4
--- NOTE | 2016-06-21 11:26 | PN ---
DATE OF SERVICE: 06/21/2016 The patient is a 30-year-old pleasant white male admitted to the hospital with acute alcoholic hepatitis and electrolyte imbalance. He has been in the ICU since being in the hospital. He was also started on oral steroids for acute alcoholic hepatitis with prednisone 40 mg daily and he is presently day #3. Overall, he says he is feeling better. He denies any abdominal pain. He reports no nausea or vomiting. He also has severe skin rash with exfoliating dermatitis. He is being watched very closely in the ICU because of significant hyponatremia which has over the days been corrected and today the sodium is 139. On physical examination he appears comfortable in no apparent distress. Vital signs are stable. Blood pressure is 100/51, pulse rate 91, temperature 97. HEENT examination unremarkable. Conjunctivae pink. Sclerae icteric. Oral cavity, no lesions. NECK: No JVD or lymph node enlargement. CHEST: Clear to auscultation. HEART: Regular rate and rhythm. ABDOMEN: Soft. Bowel sounds are positive. No organomegaly. EXTREMITIES: No pedal edema. SKIN: Diffuse skin rash with exfoliation notes. EXTREMITIES: No pedal edema. NEURO: Alert and oriented x3. No focal deficits. Labs done today: WBC 18, hemoglobin 10.0, platelets are 290. AST is a 462, ALT is 127, alk phos 299, T-bili is 2.7. INR is 1.5. Lactic acid level is 3.3. Hepatitis serologies for A, B, and C are negative. IMPRESSION: 1. Acute alcoholic hepatitis in this patient who is a 30-year-old white male with significant alcohol use over the last several years. Hepatitis serologies for A, B, and C were negative. Ultrasound showed evidence of fatty liver. The patient was empirically started on prednisone 40 mg daily about 3 days ago and his serum transaminases as well as T-bili are gradually improving. Last INR 1.5. 2. Electrolyte abnormalities with severe hyponatremia, appears to have resolved. Today's sodium is 139. 3. Lactic acidosis. 4. Mild coagulopathy likely secondary to liver disease but INR is down to 1.5 today. 5. History of heavy alcohol abuse. RECOMMENDATIONS: 1. Continue with oral prednisone 40 mg daily for 4 weeks. 2. Continue with symptomatic and supportive care. 3. Continue with broad-spectrum antibiotics, which have been already started empirically on the patient 3 days ago and will follow the patient closely during his hospital stay. Thank you for this consultation.
[2016-06-21] MEDS: THIAMINE 100 MG TAB PO SCH (13:29)
[2016-06-21] MEDS: FOLIC ACID 1 MG TAB PO SCH (13:29)
--- NOTE | 2016-06-21 14:03 | PN ---
DATE OF SERVICE: 06/21/2016 CHIEF COMPLAINT: Hepatic failure. HISTORY OF PRESENT ILLNESS: This gentleman continues to improve. Hydration is improving. His bilirubin is coming down. PHYSICAL EXAM: Color is better and he has not developed any edema. Jaundice is fading. Chest is clear. Cardiac exam is normal. The abdomen is protuberant and soft. IMPRESSION: 1. Hepatic failure. 2. Chronic alcoholism. 3. Cirrhosis. 4. Renal failure. PLAN: Progress activity and he can probably go back to regular floor today.
--- NOTE | 2016-06-21 14:17 | P.PN ---
Subjective This is a pleasant 30-year-old gentleman with a known history of daily excessive alcohol use who admits to 3 1/2 pints a day of mostly schnapps but usually whatever he can obtain that well "knock him out", chronic tobacco use, epidermalytic hyperkeratosis. He currently resides with his grandmother. He presented to the emergency room yesterday with complaints of increasing shortness of breath, yellow productive sputum and generalized weakness. He also noted yellow changes of his eyes and some blood in his urine. His urinalysis was negative for blood but did show 4+ bilirubin 1+ protein and trace of ketones. Liver enzymes revealed AST of 572, ALT 106, alk phos 358, albumin 2.9, total bilirubin 17.9. He also had profound hyponatremia with the presenting sodium of 117. He is currently receiving 3% sodium chloride at a rate of 30 MLS per hour. His most recent sodium is 121. His chest x-ray revealed no acute pulmonary process. White count 18.6. He is maintaining good O2 saturations in the high 90s on room air. He's been afebrile. He is covered with Zosyn. No signs of acute withdrawal currently. He did receive 1 dose of Ativan for slight restlessness last evening. He is seen currently in the intensive care unit. He is awake and alert in no acute distress. He denies any worsening shortness of breath, cough or congestion. He denies any significant abdominal discomfort. No noted bleeding. On 06/19/2016 the patient is being seen in follow-up. As mentioned earlier, he has signs of alcoholic hepatitis. His liver function tests remain elevated with an AST of 49 and ALT of 100 and alkaline phosphatase of 310. His serum bilirubin is down to 15. The patient's INR is down to 1.7. At one point his lactic acid level was as high as 9.3 and a dilated dropped down to 6.2 and this is being still monitors. He is on oral prednisone. He is also on empiric antibiotic coverage with IV Zosyn. Acute hepatitis profile was done and it was negative. Ultrasound of the liver was done and it was a limited examination yet for the most part the liver was echogenic and consistent with liver steatosis. Gallbladder was difficult to visualize however the part that were visualized essentially within normal limits. The patient is still being treated also for hyponatremia. Earlier this morning he was on a hypertonic solution at 3% at the rate of 30 mL an hour. He was also given a dose of Tolvaptan 30 mg, and this brought up his sodium level up to 129. The hypertonic saline solution was discontinued. The patient is awake. No significant abdominal complaints. No change in mental status. No signs of delirium tremens. On 06/20/2016 the patient is being seen in follow-up. Is awake alert and following commands. No signs of any delirium tremens. No nausea vomiting or abdominal pain. His lactic acid level has dropped down to 5.0. He is still having issues with sodium control. After being treated for his hyponatremia, the patient overshot on his sodium level and the value came up to 147. At that point the patient was given DDAVP one dose and the patient was started on D5 water which is currently running in 150 mL an hour. He is doing well. His having adequate urination. As mentioned, no change in mental status or any focal neurological deficits. On 06/11/2016, the patient is doing well. His sodium level has normalized. His lactic acid level has further declined. No major arthritis balance. Tolerating his diet. No nausea or vomiting. We'll be removing this patient out of the intensive care unit today. No change in mental status. No abdominal pain. No nausea or vomiting. No hypotension. Objective - Vital Signs Vital signs: Vital Signs Temp 97.8 F 06/21/16 13:00 Pulse 93 06/21/16 13:00 Resp 20 06/21/16 13:00 BP 117/83 06/21/16 13:00 Pulse Ox 99 06/21/16 13:00 Intake & Output 06/20/16 06/21/16 06/21/16 18:59 06:59 18:59 Intake Total 5875 2575 815 Output Total 2552 875 665 Balance 3323 1700 150 Weight 77.1 kg 80.6 kg 80.6 kg Intake: IV 50 Piperacillin-Tazobactam 3 50 .375 gm In Dextrose/Water 1 50ml.bag @ 12.5 mls/hr IVPB Q8HR [facility] Rx#: [id number] Intake, IV Titration 1450 1525 135 Amount Dextrose 5% in Water 1, 1200 1425 135 000 ml @ 20 mls/hr IV . Q24H [facility] Rx#:[id number] Magnesium Sulfate-D5w Pmx 100 1 gm In Dextrose/Water 1 100ml.bag @ 100 mls/hr IVPB Q1H [facility] Rx#: [id number] Potassium Phosphate 10 250 mmol In Sodium Chloride 0 .9% 250 ml @ 125 mls/hr IV ONCE ONE Rx#:[id number] Oral 4425 1000 680 Output: Urine 2450 875 665 Stool 100 Emesis 2 Other: Voiding Method Urinal Urinal Urinal Diaper Diaper Diaper # Voids 1 1 # Bowel Movements 1 0 1 - Exam GENERAL EXAM: Alert, active, comfortable in no apparent distress. HEAD: Normocephalic. EYES: Slightly icteric. Normal reaction of pupils, equal size. NOSE: Clear with pink turbinates. THROAT: No erythema or exudates. NECK: No masses, no JVD. CHEST: No chest wall deformity. LUNGS: Equal air entry with no crackles, wheeze, rhonchi or dullness. CVS: S1 and S2 normal with no audible murmurs, regular rhythm. ABDOMEN: No significant hepatosplenomegaly, normal bowel sounds, no guarding or rigidity. SPINE: No scoliosis or deformity SKIN: Evidence of epidermal lytic hyperkeratosis with scaling. CENTRAL NERVOUS SYSTEM: No focal deficits, tone is normal in all 4 extremities. Extremities: There is no significant peripheral edema. Slight clubbing, no cyanosis. Peripheral pulses are intact. - Labs CBC & Chem 7: 06/21/16 04:26 06/21/16 08:14 Labs: Abnormal Lab Results - Last 24 Hours (Table) 06/20/16 06/20/16 06/20/16 Range/Units 14:11 14:11 19:49 WBC (3.8-10.6) k/uL RBC (4.30-5.90) m/uL Hgb (13.0-17.5) gm/dL Hct (39.0-53.0) % MCV (80.0-100.0) fL MCHC (31.0-37.0) g/dL RDW (11.5-15.5) % Neutrophils # (1.3-7.7) k/uL Sodium 147 H (137-145) mmol/L Potassium 3.3 L (3.5-5.1) mmol/L Chloride 108 H (98-107) mmol/L Carbon Dioxide 19 L (22-30) mmol/L BUN (9-20) mg/dL Creatinine (0.66-1.25) mg/dL Glucose (74-99) mg/dL Plasma Lactic Acid Sebastián 5.0 H* (0.7-2.0) mmol/L Calcium (8.4-10.2) mg/dL Phosphorus 1.3 L (2.5-4.5) mg/dL Magnesium (1.6-2.3) mg/dL Total Bilirubin (0.2-1.3) mg/dL AST (17-59) U/L ALT (21-72) U/L Alkaline Phosphatase (38-126) U/L Total Protein (6.3-8.2) g/dL Albumin (3.5-5.0) g/dL 06/20/16 06/21/16 06/21/16 Range/Units 23:56 04:26 04:26 WBC 18.0 H (3.8-10.6) k/uL RBC 3.02 L (4.30-5.90) m/uL Hgb 10.0 L (13.0-17.5) gm/dL Hct 32.6 L (39.0-53.0) % MCV 108.0 H (80.0-100.0) fL MCHC 30.6 L (31.0-37.0) g/dL RDW 16.8 H (11.5-15.5) % Neutrophils # 14.5 H (1.3-7.7) k/uL Sodium (137-145) mmol/L Potassium (3.5-5.1) mmol/L Chloride 110 H (98-107) mmol/L Carbon Dioxide 19 L 20 L (22-30) mmol/L BUN <2 L (9-20) mg/dL Creatinine 0.44 L (0.66-1.25) mg/dL Glucose 110 H (74-99) mg/dL Plasma Lactic Acid Sebastián (0.7-2.0) mmol/L Calcium 6.6 L (8.4-10.2) mg/dL Phosphorus 1.2 L* 2.1 L (2.5-4.5) mg/dL Magnesium (1.6-2.3) mg/dL Total Bilirubin 12.7 H (0.2-1.3) mg/dL AST 462 H (17-59) U/L ALT 127 H (21-72) U/L Alkaline Phosphatase 299 H (38-126) U/L Total Protein 5.2 L (6.3-8.2) g/dL Albumin 2.4 L (3.5-5.0) g/dL 06/21/16 06/21/16 Range/Units 08:14 08:14 WBC (3.8-10.6) k/uL RBC (4.30-5.90) m/uL Hgb (13.0-17.5) gm/dL Hct (39.0-53.0) % MCV (80.0-100.0) fL MCHC (31.0-37.0) g/dL RDW (11.5-15.5) % Neutrophils # (1.3-7.7) k/uL Sodium (137-145) mmol/L Potassium (3.5-5.1) mmol/L Chloride 109 H (98-107) mmol/L Carbon Dioxide 20 L (22-30) mmol/L BUN (9-20) mg/dL Creatinine (0.66-1.25) mg/dL Glucose (74-99) mg/dL Plasma Lactic Acid Sebastián 3.3 H* (0.7-2.0) mmol/L Calcium (8.4-10.2) mg/dL Phosphorus 1.8 L (2.5-4.5) mg/dL Magnesium 2.4 H (1.6-2.3) mg/dL Total Bilirubin (0.2-1.3) mg/dL AST (17-59) U/L ALT (21-72) U/L Alkaline Phosphatase (38-126) U/L Total Protein (6.3-8.2) g/dL Albumin (3.5-5.0) g/dL Microbiology - Last 24 Hours (Table) 06/19/16 16:05 Gram Stain - Final Sputum Sputum Culture - Final Zora albicans Assessment and Plan Plan: Assessment 1 acute alcoholic hepatitis, currently on oral prednisone. Patient has considerable abnormalities of the liver function tests typical of an acute hepatitis of an alcoholic in nature. 2 acute lactic acidosis, lactic acid levels are being monitored. Lactic acid level is gradually improving and today the level is down to 3.3. 3 coagulopathy secondary to liver disease, improving and the INR is down to 1.5 4 chronic alcoholism 5 severe hyponatremia initially admitted at a sodium level 117 and following treatment the patient's sodium level came up to 147. Currently is on D5 water. He was also given a dose of DDAVP. On 06/21/2016, the sodium level has normalized and it is at 137. No significant atelectatic and balance. 6 anion gap metabolic acidosis, resolved 7 electrolyte imbalance with hypokalemia and hypophosphatemia, resolved Plan We'll discharge this patient out of the intensive care unit.
[2016-06-21] MEDS: DEXTROSE 5% IN WATER 1,000 ML IV SCH ×2 (14:34→19:30)
[2016-06-21 19:47] LABS: Magnesium 2.3 mg/dL (1.6-2.3); Potassium 4.5 mmol/L (3.5-5.1)
[2016-06-21 20:06] LABS: Phosphorous 1.1 mg/dL (2.5-4.5)
[2016-06-21] MEDS: SODIUM PHOSPHATE 10 MMOL in SODIUM CHLORIDE 0.9% 250 ML IVPB SCH ×2 (21:03→23:11)
[2016-06-22] MEDS: SODIUM PHOSPHATE 10 MMOL in SODIUM CHLORIDE 0.9% 250 ML IVPB SCH (01:33)
[2016-06-22 07:05] LABS: ALT 137 U/L (21-72); AST 410 U/L (17-59); Alkaline Phosphatase 285 U/L (38-126); Anion Gap 12 mmol/L; Blood Urea Nitrogen 3 mg/dL (9-20); Carbon Dioxide 19 mmol/L (22-30); Chloride 104 mmol/L (98-107); Glucose 78 mg/dL (74-99); Non-African American GFR(MDRD) >60 (>60 ml/min/1.73 sqM); Potassium 3.8 mmol/L (3.5-5.1); Sodium 135 mmol/L (137-145); Total Bilirubin 10.6 mg/dL (0.2-1.3); Total Protein 5.1 g/dL (6.3-8.2)
[2016-06-22 07:07] LABS: Calcium 6.2 mg/dL (8.4-10.2)
[2016-06-22 07:08] LABS: Anisocytosis Slight; Basophils # (A) 0.1 k/uL (0-0.2); Basophils % (A) 0 %; CH 33.5; CHCM 30.8; Eosinophils # (A) 0.1 k/uL (0-0.7); Eosinophils % (A) 1 %; HCT 32.4 % (39.0-53.0); HDW 2.87; HGB 10.3 gm/dL (13.0-17.5); Hypochromasia Moderate; Luc # (Auto) 0.25; Luc % (Auto) 2; Lymphocytes % (A) 21 %; MCH 34.8 pg (25.0-35.0); MCHC 31.8 g/dL (31.0-37.0); MCV 109.5 fL (80.0-100.0); Macrocytosis Marked; Mean Platelet Volume 6.6; Monocytes # (A) 0.5 k/uL (0-1.0); Monocytes % (A) 4 %; Neutrophils # (A) 10.6 k/uL (1.3-7.7); Neutrophils % (A) 73 %; RBC 2.96 m/uL (4.30-5.90); RDW 17.1 % (11.5-15.5); WBC 14.6 k/uL (3.8-10.6); WBC (Perox) 14.89
[2016-06-22 07:25] LABS: Polychromasia Present
[2016-06-22] MEDS ORDERED: CALCIUM CHLORIDE 100 MG/ML 10 ML SYRINGE IVP STA (08:07)
[2016-06-22] MEDS: predniSONE 20 MG TAB PO SCH (08:34)
[2016-06-22] MEDS: ENOXAPARIN 40 MG/0.4 ML SYRINGE SQ SCH (08:34)
[2016-06-22] MEDS: PANTOPRAZOLE 40 MG/10 ML VIAL IV SCH (08:34)
--- NOTE | 2016-06-22 10:04 | P.PN ---
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 A possibility of ethylene glycol or methanol were considered. Levels were ordered I don't see the results yet.. Initially was managed with 3% saline for several days and then on 06/19/2016, I gave him Tolvaptan 30 mg one dose. His sodium then went up from 129, 6 hours later to 150. He was started on D5W as well as needed DDAVP twice to be given to control his sodium. Eventually it has been controlled over the last 2 days running in the 130s. He is now feeling much better. Able to eat. No diarrhea. Loose stools have r resolved. His edema is significantly improved. He remains jaundiced. Complains of some cramps in his legs. Calcium is down as well as phosphorus which is being replaced. This may be explained on the basis of vitamin D deficiency. The Hypophosphatemia Is from D5W As Well As from Respiratory Alkalosis from Anxiety Pain and Hopefully This Will Recover. 50. He was started on D5W and then sodium went down to 139 but again climbed up to 147 earlier this morning. He was therefore given DDAVP 1 g subcu and a subsequent one microgram was given IV because the sodium intake to go up 250. Subsequently the sodium has been improving. He has severe skin disease chronically with keratosis erythema. Objective - Vital Signs Vital signs: Vital Signs Temp 97.9 F 06/22/16 04:00 Pulse 98 06/22/16 04:00 Resp 18 06/22/16 04:00 BP 115/62 06/22/16 04:00 Pulse Ox 98 06/22/16 04:00 Intake & Output 06/21/16 06/22/16 06/22/16 18:59 06:59 18:59 Intake Total 1052 960 Output Total 1015 1229 Balance 37 -269 Weight 80.6 kg 85.5 kg Intake: Intake, IV Titration 135 Amount Dextrose 5% in Water 1, 135 000 ml @ 20 mls/hr IV . Q24H [facility] Rx#:[id number] Oral 917 960 Output: Urine 1015 1225 Stool 4 Other: Voiding Method Urinal Urinal Diaper Diaper # Bowel Movements 2 On exam she is awake alert oriented HEENT exam no JVP neck is supple no facial asymmetry Lungs are clear to auscultation percussion good air entry bilaterally Heart sounds are unremarkable for any murmur rub gallop Abdomen soft nontender slightly distended mild right upper quadrant tenderness possibly liver engorgement. Extremity examination reveals scaly rough erythematous skin chronically. Also mild edema Neurologically awake alert oriented. - Labs CBC & Chem 7: 06/22/16 06:19 06/22/16 06:19 Labs: Abnormal Lab Results - Last 24 Hours (Table) 06/21/16 06/22/16 06/22/16 Range/Units 19:11 06:19 06:19 WBC 14.6 H (3.8-10.6) k/uL RBC 2.96 L (4.30-5.90) m/uL Hgb 10.3 L (13.0-17.5) gm/dL Hct 32.4 L (39.0-53.0) % MCV 109.5 H (80.0-100.0) fL RDW 17.1 H (11.5-15.5) % Neutrophils # 10.6 H (1.3-7.7) k/uL Sodium 133 L 135 L (137-145) mmol/L Carbon Dioxide 19 L 19 L (22-30) mmol/L BUN 3 L (9-20) mg/dL Creatinine 0.37 L (0.66-1.25) mg/dL Calcium 6.2 L* (8.4-10.2) mg/dL Phosphorus 1.1 L* (2.5-4.5) mg/dL Total Bilirubin 10.6 H (0.2-1.3) mg/dL AST 410 H (17-59) U/L ALT 137 H (21-72) U/L Alkaline Phosphatase 285 H (38-126) U/L Total Protein 5.1 L (6.3-8.2) g/dL Albumin 2.3 L (3.5-5.0) g/dL Microbiology - Last 24 Hours (Table) 06/19/16 16:05 Gram Stain - Final Sputum Sputum Culture - Final Zora albicans Assessment and Plan Plan: Impression 1. Severe hyponatremia, secondary to tea and toast syndrome, and liver disease. admitted with a serum sodium of 117 likely from Tea and toast syndrome. His hyponatremia was treated with 3% and then one dose of Tolvaptan 30 mg induce a sudden increase in sodium to 150 requiring D5W and DDAVP to reverse it. He's been off of IV fluids for the last approximately 48 hours and has been maintaining his sodium. Today sodium is 135. 2. Severe non-gap acidosis on admission with a bicarb of 15 and a gap of 23. lactic acidosis was high at 6.2 on 06/18/2016. All this is resolved with Of 12 now and bicarb of 19. Labs are pending for ethylene glycol or methanol formic acid. 3. Severe liver disease likely secondary to alcohol. Hepatitis a IgM, hepatitis B surface antigen, hepatitis C IgG core is negative so far, bilirubin is down to 10.6 from a high of 17.9. 4. Liver disease secondary to alcoholism 4. Severe skin disease with keratosis, chronically. 6. Hypophosphatemia secondary to respiratory alkalosis, and D5W being given . Phosphorus is 1.1 platelet night and has been given 30 mmol of phosphorus etiology possibly additionally could be from vitamin D deficiency. 7. Respiratory alkalosis secondary to pain and anxiety no evidence of sepsis. Lungs are clear . Possible vitamin D deficiency with low calcium and low phosphorus Recommendation. 1. Start calcitriol 0.25 g a day. 2. Start calcium carbonate 1 g twice a day in between meals so that it does not cause hypophosphatemia 3. Continuing to watch sodium. 4. Watch liver function tests
--- NOTE | 2016-06-22 11:46 | PN ---
DATE OF SERVICE: 06/22/2016 Patient is a 30-year-old white male admitted to the hospital with acute alcoholic hepatitis and electrolyte abnormalities as well as severe hyponatremia. He was transferred from the intensive care unit last night. He is doing much better. He denies any complaints except for right upper quadrant abdominal pain. He reports no nausea, vomiting, fever, chills or night sweats. On physical examination, blood pressure is 110/86, pulse rate 100, temperature 98.1. HEENT examination unremarkable. Conjunctivae are pink. Sclerae are nonicteric, oral cavity no lesions. NECK: No JVD or lymph node enlargement. Chest was clear to auscultation. HEART: Regular rate and rhythm. Abdomen is soft. Mild tenderness in the right upper quadrant, bowel sounds are positive. No organomegaly. EXTREMITIES: No pedal edema. SKIN: No rashes. NEURO: Alert and oriented x3. No focal deficits. LABS: WBC 14.6, hemoglobin 10.3, platelets are 283. Total bilirubin is 10.6. AST 14, ALT 137. IMPRESSION: 1. Acute alcoholic hepatitis. Presently on oral prednisone day #4. His bilirubin is gradually improving and so are the serum transaminases show slight improvement. Clinically, patient appears much better. 2. History of heavy alcohol abuse. 3. Severe skin rash. 4. Electrolyte abnormalities have been corrected. RECOMMENDATIONS: 1. Continue with oral prednisone 40 mg daily. 2. Repeat labs in the morning and if the labs are improving, we can consider discharging the patient from the hospital in the next 1 to 2 days. Thank you for this consultation.
[2016-06-22] MEDS: THIAMINE 100 MG TAB PO SCH (13:00)
[2016-06-22] MEDS: FOLIC ACID 1 MG TAB PO SCH (13:00)
--- NOTE | 2016-06-22 13:30 | P.PN ---
Subjective This is a pleasant 30-year-old gentleman with a known history of daily excessive alcohol use who admits to 3 1/2 pints a day of mostly schnapps but usually whatever he can obtain that well "knock him out", chronic tobacco use, epidermalytic hyperkeratosis. He currently resides with his grandmother. He presented to the emergency room yesterday with complaints of increasing shortness of breath, yellow productive sputum and generalized weakness. He also noted yellow changes of his eyes and some blood in his urine. His urinalysis was negative for blood but did show 4+ bilirubin 1+ protein and trace of ketones. Liver enzymes revealed AST of 572, ALT 106, alk phos 358, albumin 2.9, total bilirubin 17.9. He also had profound hyponatremia with the presenting sodium of 117. He is currently receiving 3% sodium chloride at a rate of 30 MLS per hour. His most recent sodium is 121. His chest x-ray revealed no acute pulmonary process. White count 18.6. He is maintaining good O2 saturations in the high 90s on room air. He's been afebrile. He is covered with Zosyn. No signs of acute withdrawal currently. He did receive 1 dose of Ativan for slight restlessness last evening. He is seen currently in the intensive care unit. He is awake and alert in no acute distress. He denies any worsening shortness of breath, cough or congestion. He denies any significant abdominal discomfort. No noted bleeding. On 06/19/2016 the patient is being seen in follow-up. As mentioned earlier, he has signs of alcoholic hepatitis. His liver function tests remain elevated with an AST of 49 and ALT of 100 and alkaline phosphatase of 310. His serum bilirubin is down to 15. The patient's INR is down to 1.7. At one point his lactic acid level was as high as 9.3 and a dilated dropped down to 6.2 and this is being still monitors. He is on oral prednisone. He is also on empiric antibiotic coverage with IV Zosyn. Acute hepatitis profile was done and it was negative. Ultrasound of the liver was done and it was a limited examination yet for the most part the liver was echogenic and consistent with liver steatosis. Gallbladder was difficult to visualize however the part that were visualized essentially within normal limits. The patient is still being treated also for hyponatremia. Earlier this morning he was on a hypertonic solution at 3% at the rate of 30 mL an hour. He was also given a dose of Tolvaptan 30 mg, and this brought up his sodium level up to 129. The hypertonic saline solution was discontinued. The patient is awake. No significant abdominal complaints. No change in mental status. No signs of delirium tremens. On 06/20/2016 the patient is being seen in follow-up. Is awake alert and following commands. No signs of any delirium tremens. No nausea vomiting or abdominal pain. His lactic acid level has dropped down to 5.0. He is still having issues with sodium control. After being treated for his hyponatremia, the patient overshot on his sodium level and the value came up to 147. At that point the patient was given DDAVP one dose and the patient was started on D5 water which is currently running in 150 mL an hour. He is doing well. His having adequate urination. As mentioned, no change in mental status or any focal neurological deficits. On 06/21/2016, the patient is doing well. His sodium level has normalized. His lactic acid level has further declined. No major arthritis balance. Tolerating his diet. No nausea or vomiting. We'll be removing this patient out of the intensive care unit today. No change in mental status. No abdominal pain. No nausea or vomiting. No hypotension. On 06/22/2016, the patient is stable on the medical floor. No change in mental status. There are function is still slowly improving. A follow-up lactic acid level was not obtained however the patient overall was in a declining pattern of lactic acid levels. Tolerating diet. Still weak. He is having some cramping in his lower extremities probably due to hypocalcemia and the calcium level is being supplemented. Objective - Vital Signs Vital signs: Vital Signs Temp 98 F 06/22/16 08:00 Pulse 103 H 06/22/16 08:00 Resp 18 06/22/16 08:00 BP 123/82 06/22/16 08:00 Pulse Ox 98 06/22/16 08:00 Intake & Output 06/21/16 06/22/16 06/22/16 18:59 06:59 18:59 Intake Total 1052 960 Output Total 1010 6669 300 Balance 37 -269 -300 Weight 80.6 kg 85.5 kg Intake: Intake, IV Titration 135 Amount Dextrose 5% in Water 1, 135 000 ml @ 20 mls/hr IV . Q24H [facility] Rx#:[id number] Oral 917 960 Output: Urine 1015 1225 300 Stool 4 Other: Voiding Method Urinal Urinal Diaper Diaper # Voids 1 # Bowel Movements 2 - Exam GENERAL EXAM: Alert, active, comfortable in no apparent distress. HEAD: Normocephalic. EYES: Slightly icteric. Normal reaction of pupils, equal size. NOSE: Clear with pink turbinates. THROAT: No erythema or exudates. NECK: No masses, no JVD. CHEST: No chest wall deformity. LUNGS: Equal air entry with no crackles, wheeze, rhonchi or dullness. CVS: S1 and S2 normal with no audible murmurs, regular rhythm. ABDOMEN: No significant hepatosplenomegaly, normal bowel sounds, no guarding or rigidity. SPINE: No scoliosis or deformity SKIN: Evidence of epidermal lytic hyperkeratosis with scaling. CENTRAL NERVOUS SYSTEM: No focal deficits, tone is normal in all 4 extremities. Extremities: There is no significant peripheral edema. Slight clubbing, no cyanosis. Peripheral pulses are intact. - Labs CBC & Chem 7: 06/22/16 06:19 06/22/16 06:19 Labs: Abnormal Lab Results - Last 24 Hours (Table) 06/21/16 06/22/16 06/22/16 Range/Units 19:11 06:19 06:19 WBC 14.6 H (3.8-10.6) k/uL RBC 2.96 L (4.30-5.90) m/uL Hgb 10.3 L (13.0-17.5) gm/dL Hct 32.4 L (39.0-53.0) % MCV 109.5 H (80.0-100.0) fL RDW 17.1 H (11.5-15.5) % Neutrophils # 10.6 H (1.3-7.7) k/uL Sodium 133 L 135 L (137-145) mmol/L Carbon Dioxide 19 L 19 L (22-30) mmol/L BUN 3 L (9-20) mg/dL Creatinine 0.37 L (0.66-1.25) mg/dL Calcium 6.2 L* (8.4-10.2) mg/dL Phosphorus 1.1 L* (2.5-4.5) mg/dL Total Bilirubin 10.6 H (0.2-1.3) mg/dL AST 410 H (17-59) U/L ALT 137 H (21-72) U/L Alkaline Phosphatase 285 H (38-126) U/L Total Protein 5.1 L (6.3-8.2) g/dL Albumin 2.3 L (3.5-5.0) g/dL Microbiology - Last 24 Hours (Table) 06/19/16 16:05 Gram Stain - Final Sputum Sputum Culture - Final Zora albicans Assessment and Plan Plan: Assessment 1 acute alcoholic hepatitis, currently on oral prednisone. Patient has considerable abnormalities of the liver function tests typical of an acute hepatitis of an alcoholic in nature. 2 acute lactic acidosis, lactic acid levels are being monitored. Lactic acid level is gradually improving and today the level is down to 3.3. 3 coagulopathy secondary to liver disease, improving and the INR is down to 1.5 4 chronic alcoholism 5 severe hyponatremia initially admitted at a sodium level 117 and following treatment the patient's sodium level came up to 147. Currently is on D5 water. He was also given a dose of DDAVP. On 06/21/2016, the sodium level has normalized and it is at 137. No significant atelectatic and balance. 6 anion gap metabolic acidosis, resolved 7 electrolyte imbalance with hypokalemia and hypophosphatemia, resolved. The calcium level is low and this is being supplemented. The patient has experienced some pain and cramping in lower oximetry is bilaterally. Plan Increased level of activity as tolerated. No active pulmonary or critical condition on this patient.
[2016-06-22] MEDS: CALCIUM CARBONATE 500 MG CHEWABLE PO SCH (20:22)
[2016-06-22] MEDS: DEXTROSE 5% IN WATER 1,000 ML IV SCH (20:23)
[2016-06-22] MEDS: DICLOFENAC SODIUM GEL 100 GM TUBE TOPICAL SCH (21:09)
[2016-06-22] MEDS: traZODone HCL 50 MG TAB PO SCH (21:09)
--- NOTE | 2016-06-22 22:23 | PN ---
CHIEF COMPLAINT: Alcoholism and cirrhosis and alcoholic hepatitis. HISTORY OF PRESENT ILLNESS: This patient continues to improve and bilirubin is going down. He has no complaints and he is not in DTs. PHYSICAL EXAMINATION: CHEST: Clear. CARDIAC: Normal and the abdomen is soft, nontender. Liver was enlarged. IMPRESSION: 1. Alcoholism. 2. Alcoholic hepatitis. 3. Hepatic failure. 4. Delirium tremens. PLAN: Trazodone for sleep and continue to monitor his slow improvement.
[2016-06-23 06:39] LABS: Anisocytosis Slight; Basophils % (A) 0 %; CH 33.6; CHCM 31.7; Eosinophils % (A) 0 %; HCT 31.3 % (39.0-53.0); HDW 2.79; HGB 9.9 gm/dL (13.0-17.5); Hypochromasia Slight; Luc % (Auto) 1; Lymphocytes # (A) 1.7 k/uL (1.0-4.8); Lymphocytes % (A) 15 %; MCH 33.7 pg (25.0-35.0); MCHC 31.5 g/dL (31.0-37.0); MCV 106.8 fL (80.0-100.0); Macrocytosis Marked; Mean Platelet Volume 7.5; Monocytes # (A) 0.5 k/uL (0-1.0); Monocytes % (A) 4 %; Neutrophils # (A) 9.6 k/uL (1.3-7.7); Neutrophils % (A) 80 %; RBC 2.93 m/uL (4.30-5.90); RDW 16.8 % (11.5-15.5); WBC (Perox) 12.34
[2016-06-23 06:57] LABS: ALT 134 U/L (21-72); AST 338 U/L (17-59); Alkaline Phosphatase 294 U/L (38-126); Anion Gap 8 mmol/L; Blood Urea Nitrogen 3 mg/dL (9-20); Calcium 6.8 mg/dL (8.4-10.2); Carbon Dioxide 22 mmol/L (22-30); Chloride 104 mmol/L (98-107); Glucose 83 mg/dL (74-99); Non-African American GFR(MDRD) >60 (>60 ml/min/1.73 sqM); Phosphorous 2.4 mg/dL (2.5-4.5); Potassium 4.1 mmol/L (3.5-5.1); Sodium 134 mmol/L (137-145); Total Bilirubin 10.2 mg/dL (0.2-1.3); Total Protein 5.1 g/dL (6.3-8.2)
[2016-06-23] MEDS: CALCIUM CARBONATE 500 MG CHEWABLE PO SCH ×2 (08:33→21:07)
[2016-06-23] MEDS: DICLOFENAC SODIUM GEL 100 GM TUBE TOPICAL SCH ×4 (08:33→21:12)
[2016-06-23] MEDS: PANTOPRAZOLE 40 MG/10 ML VIAL IV SCH (08:33)
[2016-06-23] MEDS: ENOXAPARIN 40 MG/0.4 ML SYRINGE SQ SCH (08:33)
[2016-06-23] MEDS: predniSONE 20 MG TAB PO SCH (08:34)
[2016-06-23] MEDS: CALCITRIOL 0.25 MCG CAP PO SCH (08:35)
--- NOTE | 2016-06-23 09:03 | P.PN ---
Subjective Patient is seen in follow-up for hyponatremia. Sodium level is stable at 134 today. His sodium was 117 for which she did receive 3% saline initially as well as 12 abdomen. His sodium did rise quite rapidly for which she did receive D5W as well as DDAVP. Sodium yesterday was 135 and is 134 today. His appetite is good. No vomiting or diarrhea. Denies chest pain or shortness of breath. Vital signs are stable. General: The patient appeared well nourished and normally developed. HEENT: Head exam is unremarkable. Neck is without jugular venous distension. LUNGS: Lungs are clear to auscultation and percussion. Breath sounds decreased. HEART: Rate and Rhythm are regular. First and second heart sounds normal. No murmurs, rubs or gallops. ABDOMEN: Abdominal exam reveals normal bowel sounds. Non-tender and non- distended. No evidence of peritonitis. EXTREMITITES: No clubbing, cyanosis, or edema. Objective - Vital Signs Vital signs: Vital Signs Temp 97.6 F 06/23/16 08:00 Pulse 99 06/23/16 08:00 Resp 16 06/23/16 08:00 BP 121/67 06/23/16 08:00 Pulse Ox 99 06/23/16 08:00 Intake & Output 06/22/16 06/23/16 06/23/16 18:59 06:59 18:59 Intake Total 660 220 472 Output Total 1650 4101 700 Balance -990 -3881 -228 Weight 84 kg Intake: Intake, IV Titration 260 220 Amount Dextrose 5% in Water 1, 260 220 000 ml @ 20 mls/hr IV . Q24H [facility] Rx#:[id number] Oral 400 472 Output: Urine 1650 1700 Stool 2401 700 Other: Voiding Method Urinal Urinal Diaper Diaper # Voids 1 1 # Bowel Movements 1 - Labs CBC & Chem 7: 06/23/16 06:17 06/23/16 06:17 Labs: Abnormal Lab Results - Last 24 Hours (Table) 06/23/16 06/23/16 Range/Units 06:17 06:17 WBC 12.0 H (3.8-10.6) k/uL RBC 2.93 L (4.30-5.90) m/uL Hgb 9.9 L (13.0-17.5) gm/dL Hct 31.3 L (39.0-53.0) % MCV 106.8 H (80.0-100.0) fL RDW 16.8 H (11.5-15.5) % Neutrophils # 9.6 H (1.3-7.7) k/uL Sodium 134 L (137-145) mmol/L BUN 3 L (9-20) mg/dL Creatinine 0.36 L (0.66-1.25) mg/dL Calcium 6.8 L (8.4-10.2) mg/dL Phosphorus 2.4 L (2.5-4.5) mg/dL Total Bilirubin 10.2 H (0.2-1.3) mg/dL AST 338 H (17-59) U/L ALT 134 H (21-72) U/L Alkaline Phosphatase 294 H (38-126) U/L Total Protein 5.1 L (6.3-8.2) g/dL Albumin 2.3 L (3.5-5.0) g/dL Assessment and Plan Plan: Assessment: #1. 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 Resolved. Sodium level 134 today. #2. Metabolic acidosis secondary to lactic acidosis. Improving. Bicarb level today is 22. Ethylene glycol and methanol levels negative. #3. Liver disease likely related to alcohol abuse. #4. Hypophosphatemia related to alcoholism and respiratory alkalosis. #5. Hypocalcemia secondary to hypoalbuminemia as well as likely vitamin D deficiency. #6. Respiratory alkalosis. Resolved. Plan: I will put him on a 1.2 L fluid restriction. Replace phosphorus. Neutra-Phos 3 times daily for 2 days. Encourage oral intake. Maintain calcitriol and Tums at current doses. Repeat electrolytes in the morning.
[2016-06-23] MEDS: THIAMINE 100 MG TAB PO SCH (11:43)
[2016-06-23] MEDS: POTAS-SOD-PHOS 278-164-250 MG 1 EACH PACKET PO SCH ×3 (11:43→21:07)
[2016-06-23] MEDS: FOLIC ACID 1 MG TAB PO SCH (11:43)
--- NOTE | 2016-06-23 12:25 | P.PN ---
Progress Note - Text Clinical problem: Patient was seen for psychiatric follow-up. Patient was laying in his bed, he states that he is feeling better than couple of days ago, he denied any nausea or vomiting or shortness of breath. Patient states that he will stay with his parents after discharge from the hospital so he would be able to regain his physical strengths and it would help him to maintain his sobriety. Patient denied any current craving for alcohol and he was offered education regarding the effect of alcohol on his physical and mental health, patient verbalized understanding, he was very resistant to pursuing inpatient substance abuse rehab. Vital signs: Temp 97.6, pulse 99, respirations 16 , blood pressure 121/67. Examination: Patient is wearing hospital gown, superficially cooperative, avoiding eye contact, he is affect is very flat, he is and oriented to person place and time. His speech is non spontaneous and limited in productivity, most of his answers are yes or no answer. He denied any depressive symptoms, he denied suicidal ideation or homicidal ideation, he denied helpless or hopeless feeling he denied any psychotic feature, he stated that his goal is to get some physical therapy so he would be able to walk on his own. Assessment: Alcohol use disorder continuous, liver disease related to his alcohol abuse. Plan: Do recommend physical therapy evaluation as he might need times fair to inpatient physical rehab, he was given a list for [facility] service for alcohol abuse in the [facility].
--- NOTE | 2016-06-23 12:48 | PN ---
DATE OF SERVICE: 06/23/2016 Patient is a 30-year-old pleasant white male admitted to the hospital with electrolyte abnormalities and acute alcoholic hepatitis. Patient was transferred from intensive care unit 2 days ago. He is doing much better. He complains of diarrhea. He had stool studies done for C. diff toxin, which was reported as negative. He denies any abdominal pain. Reports no nausea or vomiting. On physical examination, appears comfortable, in no apparent distress. Vitals signs are stable. Blood pressure is 109/62, pulse 87, temperature 98.8. HEENT is unremarkable. Conjunctivae are pink., sclera nonicteric. Oral cavity no lesions. NECK: No JVD or lymph node enlargement. Chest was clear to auscultation. HEART: Regular rate and rhythm. Abdomen is soft. Bowel sounds are positive. No organomegaly. EXTREMITIES: No pedal edema. SKIN: No rashes. NEURO: Alert and oriented x3. No focal deficits. EXTREMITIES: No pedal edema. SKIN: Has severe diffuse rash. Labs done today, WBC 12, hemoglobin 9.9, platelets are normal. T-bili is 10.2, AST 338, ALT 134, alk phos 294, amylase and lipase are normal. IMPRESSION: 1. Acute alcoholic hepatitis. Patient is clinically doing better, biochemical parameters are already improving. Last T-bili was 3.2. He was started on oral prednisone 40 mg daily while he was in the intensive care unit. 2. Electrolyte abnormalities for which Nephrology following the patient closely. Last sodium is 139 today. 3. Anxiety/depression. 4. Heavy alcohol abuse which he quit drinking one week ago. RECOMMENDATIONS: 1. Continue with the current plan of treatment. 2. Repeat labs in the morning and will follow him closely.
--- NOTE | 2016-06-23 19:26 | PN ---
DATE OF SERVICE: 06/23/2016 CHIEF COMPLAINT: 1. Acute alcoholism. 2. Cirrhosis. 3. Renal failure. 4. Exfoliative dermatitis. HISTORY OF PRESENT ILLNESS: This gentleman is improving, and he remains awake and alert. Labs are slowly improving. PHYSICAL EXAMINATION: CHEST: Clear. CARDIAC: Normal. ABDOMEN: Soft, nontender. IMPRESSION: 1. Alcoholic hepatitis. 2. Cirrhosis. 3. Renal failure. 4. Hypocalcemia. PLAN: Continue to try to make necessary metabolic corrections and work toward his going home sometime soon. His liver is recovering only very slowly.
[2016-06-23] MEDS: traZODone HCL 50 MG TAB PO SCH (21:08)
[2016-06-23] MEDS: DEXTROSE 5% IN WATER 1,000 ML IV SCH (21:10)
[2016-06-24 07:34] LABS: ALT 140 U/L (21-72); AST 394 U/L (17-59); Alkaline Phosphatase 309 U/L (38-126); Anion Gap 9 mmol/L; Blood Urea Nitrogen 5 mg/dL (9-20); Calcium 6.6 mg/dL (8.4-10.2); Carbon Dioxide 22 mmol/L (22-30); Chloride 105 mmol/L (98-107); Glucose 75 mg/dL (74-99); Magnesium 2.1 mg/dL (1.6-2.3); Non-African American GFR(MDRD) >60 (>60 ml/min/1.73 sqM); Phosphorous 2.4 mg/dL (2.5-4.5); Sodium 136 mmol/L (137-145); Total Bilirubin 9.8 mg/dL (0.2-1.3); Total Protein 5.4 g/dL (6.3-8.2)
[2016-06-24 07:35] LABS: Potassium 5.3 mmol/L (3.5-5.1)
[2016-06-24 07:55] LABS: Anisocytosis Slight; CH 33.9; CHCM 31.8; HCT 32.5 % (39.0-53.0); HDW 2.87; HGB 10.6 gm/dL (13.0-17.5); Hypochromasia Slight; Immature Gran Flag Slight; MCH 34.9 pg (25.0-35.0); MCHC 32.5 g/dL (31.0-37.0); MCV 107.2 fL (80.0-100.0); Macrocytosis Marked; Mean Platelet Volume 8.7; RBC 3.03 m/uL (4.30-5.90); RDW 16.9 % (11.5-15.5); WBC (Perox) 13.11
[2016-06-24] MEDS: POTAS-SOD-PHOS 278-164-250 MG 1 EACH PACKET PO SCH ×3 (08:30→21:01)
[2016-06-24] MEDS: PANTOPRAZOLE 40 MG/10 ML VIAL IV SCH (08:31)
[2016-06-24] MEDS: CALCIUM CARBONATE 500 MG CHEWABLE PO SCH ×2 (08:31→20:30)
[2016-06-24] MEDS: predniSONE 20 MG TAB PO SCH (08:32)
[2016-06-24] MEDS: CALCITRIOL 0.25 MCG CAP PO SCH (08:32)
[2016-06-24] MEDS: ENOXAPARIN 40 MG/0.4 ML SYRINGE SQ SCH (09:12)
[2016-06-24] MEDS ORDERED: CALCIUM GLUCONATE 1,000 MG in SODIUM CHLORIDE 0.9% 100 ML IVPB ONE (09:14)
--- NOTE | 2016-06-24 10:05 | P.PN ---
Subjective Patient is seen in follow-up for hyponatremia. Sodium level is stable at 136 today. His sodium was 117 for which she did receive 3% saline initially as well as tolvaptan. His sodium did rise quite rapidly for which he did receive D5W as well as DDAVP. Sodium level is relatively stable at 136 today. His appetite is good. No vomiting or diarrhea. Denies chest pain or shortness of breath. Vital signs are stable. General: The patient appeared well nourished and normally developed. HEENT: Head exam is unremarkable. Neck is without jugular venous distension. LUNGS: Lungs are clear to auscultation and percussion. Breath sounds decreased. HEART: Rate and Rhythm are regular. First and second heart sounds normal. No murmurs, rubs or gallops. ABDOMEN: Abdominal exam reveals normal bowel sounds. Non-tender and non- distended. No evidence of peritonitis. EXTREMITITES: No clubbing, cyanosis, or edema. Objective - Vital Signs Vital signs: Vital Signs Temp 96.8 F L 06/24/16 04:00 Pulse 78 06/24/16 04:00 Resp 18 06/24/16 04:00 BP 133/86 06/24/16 04:00 Pulse Ox 96 06/24/16 04:00 Intake & Output 06/23/16 06/24/16 06/24/16 18:59 06:59 18:59 Intake Total 472 326 Output Total 2050 3601 Balance -1578 -3601 326 Weight 83.5 kg Intake: Oral 472 326 Output: Urine 300 2200 Stool 1750 1400 Urine/Stool Mix 1 Other: Voiding Method Urinal Urinal Diaper Diaper # Voids 1 - Labs CBC & Chem 7: 06/24/16 06:33 06/24/16 06:33 Labs: Abnormal Lab Results - Last 24 Hours (Table) 06/24/16 06/24/16 Range/Units 06:33 06:33 WBC 13.1 H (3.8-10.6) k/uL RBC 3.03 L (4.30-5.90) m/uL Hgb 10.6 L (13.0-17.5) gm/dL Hct 32.5 L (39.0-53.0) % MCV 107.2 H (80.0-100.0) fL RDW 16.9 H (11.5-15.5) % Sodium 136 L (137-145) mmol/L Potassium 5.3 H (3.5-5.1) mmol/L BUN 5 L (9-20) mg/dL Creatinine 0.36 L (0.66-1.25) mg/dL Calcium 6.6 L (8.4-10.2) mg/dL Phosphorus 2.4 L (2.5-4.5) mg/dL Total Bilirubin 9.8 H (0.2-1.3) mg/dL AST 394 H (17-59) U/L ALT 140 H (21-72) U/L Alkaline Phosphatase 309 H (38-126) U/L Total Protein 5.4 L (6.3-8.2) g/dL Albumin 2.5 L (3.5-5.0) g/dL Assessment and Plan Plan: Assessment: #1. 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 Resolved. Sodium level 136 today. #2. Metabolic acidosis secondary to lactic acidosis. Stable. Bicarb level today is 22. Ethylene glycol and methanol levels negative. #3. Liver disease likely related to alcohol abuse. #4. Hypophosphatemia related to alcoholism and respiratory alkalosis. #5. Hypocalcemia secondary to hypoalbuminemia as well as likely vitamin D deficiency. #6. Respiratory alkalosis. Resolved. #. Mild hyperkalemia. Specimen appears to be hemolyzed. Will repeat again in the evening. Plan: Maintain 1.2 L fluid restriction. Replace phosphorus. Continue Neutra-Phos 3 times daily for 2 days. Encourage oral intake. Maintain calcitriol and Tums at current doses. 1 g IV calcium gluconate once today. Repeat electrolytes in the morning.
[2016-06-24 10:38] LABS: Add Differential Manual Differential
[2016-06-24 10:41] LABS: Band Neutrophils % 0.5 %; Nucleated Red Blood Cells 1 /100 WBC (0-0); Total Cells Counted 200
[2016-06-24 10:42] LABS: Crenated RBC Present; Manual Review Performed
--- NOTE | 2016-06-24 11:25 | P.PN ---
Subjective Principal diagnosis: Alcohol hepatitis 30-year-old male with a history of EtOH abuse and with acute alcohol hepatitis with profound hyponatremia. Afebrile. Started on oral prednisone for alcohol hepatitis total bilirubin 9.8. Sodium 136. Objective - Vital Signs Vital signs: Vital Signs Temp 97.4 F L 06/24/16 08:00 Pulse 95 06/24/16 08:00 Resp 18 06/24/16 08:00 BP 107/64 06/24/16 08:00 Pulse Ox 96 06/24/16 04:00 Intake & Output 06/23/16 06/24/16 06/24/16 18:59 06:59 18:59 Intake Total 472 326 Output Total 2049 3601 5337 Balance -5754 -9738 -404 Weight 83.5 kg 83.5 kg Intake: Oral 472 326 Output: Urine 300 2200 400 Stool 1750 1400 700 Urine/Stool Mix 1 Other: Voiding Method Urinal Urinal Urinal Diaper Diaper Diaper # Voids 1 1 - Exam General appearance: The patient is alert, oriented, in no acute distress. Visibly jaundiced with generalized hyperkeratosis of the skin all extremities and face. HET: Head is normocephalic and atraumatic. Pupils are equal and reactive, icteric. Oropharynx is clear without lesions. Neck: Supple without lymphadenopathy. Trachea midline. Heart: S1 S2. Regular rate and rhythm. Lungs: No crackles or wheezes are heard. Abdomen: Soft, nontender, mildly bloated with no appreciable ascites with bowel sounds. No peritoneal signs. No palpable organomegaly or masses. Extremities: Normal skin color and turgor. No cyanosis, rash, ulceration, clubbing, or edema. Radial and pedal pulses are 2/4 bilaterally. No evidence of asterixis. Neurological: No focal deficits. Strength and sensation are grossly intact. - Labs CBC & Chem 7: 06/24/16 06:33 06/24/16 06:33 Labs: Abnormal Lab Results - Last 24 Hours (Table) 06/24/16 06/24/16 Range/Units 06:33 06:33 WBC 13.0 H (3.8-10.6) k/uL RBC 3.03 L (4.30-5.90) m/uL Hgb 10.6 L (13.0-17.5) gm/dL Hct 32.5 L (39.0-53.0) % MCV 107.2 H (80.0-100.0) fL RDW 16.9 H (11.5-15.5) % Neutrophils # (Manual) 10.7 H (1.3-7.7) k/uL Nucleated RBCs 1 H (0-0) /100 WBC Sodium 136 L (137-145) mmol/L Potassium 5.3 H (3.5-5.1) mmol/L BUN 5 L (9-20) mg/dL Creatinine 0.36 L (0.66-1.25) mg/dL Calcium 6.6 L (8.4-10.2) mg/dL Phosphorus 2.4 L (2.5-4.5) mg/dL Total Bilirubin 9.8 H (0.2-1.3) mg/dL AST 394 H (17-59) U/L ALT 140 H (21-72) U/L Alkaline Phosphatase 309 H (38-126) U/L Total Protein 5.4 L (6.3-8.2) g/dL Albumin 2.5 L (3.5-5.0) g/dL Assessment and Plan (1) Alcoholic hepatitis Status: Acute (2) Jaundice Status: Acute (3) Alcohol abuse Status: Chronic (4) Hyperkeratosis of skin Status: Chronic (5) Dyspnea Status: Acute (6) Hyponatremia Status: Acute (7) Hepatomegaly Status: Chronic Plan: 1. Supportive measures. Prednisone 40 mg daily 28 days followed by tapering dose over the next month. 2. GI prophylaxis. Alcohol abstinence advised. Agreeable for discharge. 3. No further workup at this time return to office in 3-4 weeks for reevaluation. Assessment and plan of care discussed with Dr. Stafford.
[2016-06-24] MEDS: THIAMINE 100 MG TAB PO SCH (13:07)
[2016-06-24] MEDS: FOLIC ACID 1 MG TAB PO SCH (13:07)
[2016-06-24] MEDS: DICLOFENAC SODIUM GEL 100 GM TUBE TOPICAL SCH ×4 (13:14→21:01)
[2016-06-24 14:57] VITALS: BMI 25.7
[2016-06-24] MEDS: DEXTROSE 5% IN WATER 1,000 ML IV SCH (20:10)
[2016-06-24] MEDS: traZODone HCL 50 MG TAB PO SCH (20:30)
[2016-06-25] MEDS: guaiFENesin 600 MG TABLET.ER PO SCH ×2 (00:29→08:59)
[2016-06-25] MEDS ORDERED: PANTOPRAZOLE 40 MG TABLET PO SCH (07:30)
[2016-06-25 07:31] VITALS: BP 138/80; PULSE 105; RESP 16; TEMP 98.9
[2016-06-25 08:44] LABS: Anisocytosis Slight; Basophils % (A) 0 %; CH 34.1; CHCM 31.7; Eosinophils # (A) 0.2 k/uL (0-0.7); Eosinophils % (A) 2 %; HCT 34.9 % (39.0-53.0); HGB 11.1 gm/dL (13.0-17.5); Hypochromasia Slight; Immature Gran Flag Slight; Luc # (Auto) 0.12; Luc % (Auto) 1; Lymphocytes # (A) 1.4 k/uL (1.0-4.8); Lymphocytes % (A) 13 %; MCH 34.5 pg (25.0-35.0); MCHC 31.8 g/dL (31.0-37.0); MCV 108.4 fL (80.0-100.0); Macrocytosis Marked; Mean Platelet Volume 7.6; Monocytes # (A) 0.6 k/uL (0-1.0); Monocytes % (A) 5 %; Neutrophils # (A) 8.3 k/uL (1.3-7.7); Neutrophils % (A) 78 %; RBC 3.22 m/uL (4.30-5.90); RDW 17.2 % (11.5-15.5); WBC 10.6 k/uL (3.8-10.6); WBC (Perox) 10.89
[2016-06-25] MEDS: CALCITRIOL 0.25 MCG CAP PO SCH (08:58)
[2016-06-25] MEDS: CALCIUM CARBONATE 500 MG CHEWABLE PO SCH (08:58)
[2016-06-25] MEDS: DICLOFENAC SODIUM GEL 100 GM TUBE TOPICAL SCH ×2 (08:58→12:44)
[2016-06-25] MEDS: POTAS-SOD-PHOS 278-164-250 MG 1 EACH PACKET PO SCH (08:59)
[2016-06-25] MEDS: ENOXAPARIN 40 MG/0.4 ML SYRINGE SQ SCH (08:59)
[2016-06-25] MEDS: predniSONE 20 MG TAB PO SCH (09:00)
[2016-06-25 09:22] LABS: ALT 169 U/L (21-72); AST 416 U/L (17-59); Alkaline Phosphatase 329 U/L (38-126); Anion Gap 10 mmol/L; Blood Urea Nitrogen 3 mg/dL (9-20); Carbon Dioxide 21 mmol/L (22-30); Chloride 104 mmol/L (98-107); Glucose 89 mg/dL (74-99); Magnesium 1.8 mg/dL (1.6-2.3); Non-African American GFR(MDRD) >60 (>60 ml/min/1.73 sqM); Phosphorous 2.1 mg/dL (2.5-4.5); Potassium 3.9 mmol/L (3.5-5.1); Sodium 135 mmol/L (137-145); Total Bilirubin 12.2 mg/dL (0.2-1.3); Total Protein 5.4 g/dL (6.3-8.2)
[2016-06-25 11:10] LABS: Manual Review Performed
[2016-06-25] MEDS ORDERED: POTAS-SOD-PHOS 278-164-250 MG 1 EACH PACKET PO SCH (11:30)
--- NOTE | 2016-06-25 11:51 | P.DS ---
Providers Date of admission: 06/17/16 15:44 Expected date of discharge: 06/25/16 Attending physician: Chapo Harkins Consults: 06/17/16 20:53 Consult Physician Routine Consulting Provider: Prince Cook Consult Reason/Comments: ICU Management Do you want consulting provider notified?: Yes 06/19/16 12:38 Consult Physician Urgent Consulting Provider: Angela Orosco Consult Reason/Comments: substance abuse Do you want consulting provider notified?: Yes Dr. Weber nephrology Dr. Angela Sullivan and GI Primary care physician: Stated None Hospital Course: 30-year-old male who presented on the day of admission to the emergency room June 17 with a chief complaint of shortness of breath nausea vomiting coughing up yellowish sputum with significant weakness Patient has a history of alcohol consumption. Stated his last drink was 2 weeks prior.Apparently had an episode of hematuria earlier today. He also complains of having some icterus of last 2 weeks. does have history of alcohol abuse but quit drinking alcohol approximately 3days ago. 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 This causes severe psoriatic-type changes to his skin and is diffusely throughout his body. No other complaints or modifying factors. It was noted that the patient had severe electrolyte abnormalities. Sodium was down to 117 potassium 3.4 total bili 15.9 AST 473 ALT 111 phosphorus 1.5 patient was admitted to the intensive care unit for closer monitoring secondary to the patient's abnormal labs. Patient does admit that he drinks 1.5 pints of peppermint schnapps daily. Also has a nicotine dependency half a pack to a pack a day greater than a 10 year history patient was started on CIWA protocol for impending DTs. Multiple consulting physicians participated in the plan of care. Patient was hospitalized in the ICU until the electrolytes could be corrected and stabilized and patient was no longer unstable on the june patient was able to be transferred out of the intensive care unit to a stepdown unit. Physical and occupational therapy participated in the plan of care as well. Patient was hospitalized and monitored closely by the consulting physicians. And on the day of discharge was felt to be hemodynamically stable and appropriate proceed with a discharge to home. The social media specialist did see the patient once appropriate patient was counseled and advised to stop drinking alcohol. Patient verbalized that he was going to go to [facility] at the time of discharge his father would drive him to the [facility] facility so he could be admitted. This was tentatively set up for ThursdayJune 29. At the time of discharge patient was cooperative and understood the discharge plan additionally patient received information about smoking cessation patient was advised to stop smoking cigarettes and to stop drinking alcohol Impression discharge diagnosis acute alcoholic hepatitis, currently on oral prednisone. Patient has considerable abnormalities of the liver function tests typical of an acute hepatitis of an alcoholic in nature. acute lactic acidosis, lactic acid levels are being monitored. Lactic acid level is gradually improving and today the level is down to 3.3. coagulopathy secondary to liver disease, improving and the INR is down to 1.5 chronic alcoholism severe hyponatremia initially admitted at a sodium level 117 and following treatment the patient's sodium level came up to 147. on D5 water. He was also given a dose of DDAVP. anion gap metabolic acidosis, resolved Present on admission severe electrolyte imbalance with hypokalemia and hypophosphatemia, resolved Present on admission jaundice acute resolving with an elevated total bilirubin Chronic alcohol abuse Hepatomegaly chronic suspect due to chronic alcohol abuse Present on admission chronic severe Hyperkeratosis of skin hypocalcemia secondary to hypo-albuminemia as well as a vitamin D deficiency Hypophosphatemia related to alcoholism and respiratory alkalosis Present on admission respiratory alkalosis resolved Metabolic acidosis secondary to lactic acidosis resolved Severe liver disease likely secondary to chronic alcoholism hepatitis panel negative Respiratory alkalosis secondary to increased pain anxiety was no evidence of sepsis blood and urine cultures negative resolved Alcohol use disorder continuous Physical debility due to chronic illness and prolonged hospitalization use of a walker for gait stable mobility The above dictated assessment and findings were discussed with dr harkins . Impression and the plan of care have been dictated as directed. Colleen Bradley nurse practitioner acting as a scribe for dr harkins Patient Condition at Discharge: Fair Plan - Discharge Summary New Discharge Prescriptions: Calcitriol [Rocaltrol] 0.25 mcg PO DAILY #30 cap Calcium Carbonate [Tums] 1,000 mg PO BID #60 chew Diclofenac Sodium Gel [Voltaren Gel] 2 gm TOPICAL QID #100 tube Folic Acid 1 mg PO DAILY@1200 #30 tab Pantoprazole [Protonix] 40 mg PO AC-BRKFST #30 tablet.dr [id number] [id number] mg [Neutra-Phos Packet] 1 each PO TID #90 packet Thiamine [Vitamin B-1] 100 mg PO DAILY@1200 #30 tab predniSONE 40 mg PO DAILY #56 tab rOPINIRole HCL [Requip] 0.25 mg PO BID #60 tab traZODone HCL [Desyrel] 50 mg PO HS #30 tab Discharge Medication List predniSONE 40 mg PO DAILY #56 tab 06/24/16 [Rx] Calcitriol [Rocaltrol] 0.25 mcg PO DAILY #30 cap 06/25/16 [Rx] Calcium Carbonate [Tums] 1,000 mg PO BID #60 chew 06/25/16 [Rx] Diclofenac Sodium Gel [Voltaren Gel] 2 gm TOPICAL QID #100 tube 06/25/16 [Rx] Folic Acid 1 mg PO DAILY@1200 #30 tab 06/25/16 [Rx] Pantoprazole [Protonix] 40 mg PO AC-BRKFST #30 tablet. 06/25/16 [Rx] [id number] [id number] mg [Neutra-Phos Packet] 1 each PO TID #90 packet [Rx] Thiamine [Vitamin B-1] 100 mg PO DAILY@1200 #30 tab 06/25/16 [Rx] rOPINIRole HCL [Requip] 0.25 mg PO BID #60 tab 06/25/16 [Rx] traZODone HCL [Desyrel] 50 mg PO HS #30 tab 06/25/16 [Rx] Follow up Appointment(s)/Referral(s): Missy Stafford MD [STAFF PHYSICIAN] - 3 Weeks None,Stated [Primary Care Provider] - 1-2 days Chapo Harkins MD [STAFF PHYSICIAN] - 06/27/16 Ron Weber DO [STAFF PHYSICIAN] - 1 Week Ambulatory/Diagnostic Orders: Complete Blood Count w/diff [LAB.AMB] Time Frame: 06/30/16, Location: Determined By Patient Comprehensive Metabolic Panel [LAB.AMB] Time Frame: 06/30/16, Location: Determined By Patient Comprehensive Metabolic Panel [LAB.AMB] Location: Determined By Patient Activity/Diet/Wound Care/Special Instructions: [facility] for primary care physician listings/referrals [phone] Patient has been provided with smoking cessation information by stop smoking cigarettes Patient is to admit self to [facility] for alcohol treatment Discharge Disposition: HOME SELF-CARE
[2016-06-25] MEDS: THIAMINE 100 MG TAB PO SCH (12:42)
[2016-06-25] MEDS: FOLIC ACID 1 MG TAB PO SCH (12:42)
--- NOTE | 2016-06-25 13:53 | PN ---
DATE OF SERVICE: 06/24/2016 CHIEF COMPLAINT: Alcoholism and cirrhosis. HISTORY OF PRESENT ILLNESS: This gentleman continues to slowly improve and his numbers are getting slightly better each day. He is awake and alert and he is not in DTs. PHYSICAL EXAM: The chest is clear. The cardiac exam is normal and the abdomen is soft and liver is enlarged. IMPRESSION: 1. Acute alcohol intoxication. 2. Chronic alcoholism. 3. Cirrhosis. 4. Renal failure. 5. Exfoliated dermatitis. PLAN: Move to another floor and continue to monitor his progress.
--- NOTE | 2016-06-25 14:42 | PN ---
DATE OF SERVICE: 06/25/2016 CHIEF COMPLAINT: 1. Cirrhosis. 2. Alcoholism. HISTORY OF PRESENT ILLNESS: This gentleman is now starting to have trouble with urinary incontinence and diarrhea. He is awake and alert and labs are getting slightly better. PHYSICAL EXAM: His chest is clear. The cardiac exam is normal and there are no masses. The liver is enlarged. IMPRESSION: 1. Diarrhea. 2. Urinary incontinence. 3. Alcoholism. 4. Cirrhosis. 5. Delirium tremens. 6. Acute alcoholic hepatitis. PLAN: Work-up and treat diarrhea and urinary incontinence and meanwhile work on a discharge plan.
--- NOTE | 2016-06-27 09:19 | PN ---
DATE OF SERVICE: 06/25/2016 CHIEF COMPLAINT: Cirrhosis, chronic alcoholism, renal failure. HISTORY OF PRESENT ILLNESS: This gentleman is doing well and we are working on discharge plan. He is not sure where he will go. He would like to go to [place] for treatment. PHYSICAL EXAMINATION: His chest is quite clear. CARDIAC: Exam is normal. ABDOMEN: Soft and nontender. EXTREMITIES: Normal. NEUROLOGIC: He is intact. IMPRESSION: 1. Alcoholism. 2. Cirrhosis. 3. Renal failure. PLAN: He may be discharged today and the nurse practitioner will make necessary arrangements. It is not clear where he will be going.
== END 2016-06-25 15:47 | disposition home or self-care (01) | DRG 433 ==
LOC: EC 09:57 → 6SEL 15:44 → 6ICU 23:41 → 6SEL 06-21 14:25 → 4MS4W 06-24 16:44
PROVIDERS: ADMIT Family Medicine; ATTEND Family Medicine
DX: K70.30 Alcoholic cirrhosis of liver without ascites (principal); D68.4 Acquired coagulation factor deficiency; K70.10 Alcoholic hepatitis without ascites; E87.4 Mixed disorder of acid-base balance; F10.231 Alcohol dependence with withdrawal delirium; N19 Unspecified kidney failure; E87.1 Hypo-osmolality and hyponatremia; K70.40 Alcoholic hepatic failure without coma; F10.20 Alcohol dependence, uncomplicated; D72.829 Elevated white blood cell count, unspecified; E55.9 Vitamin D deficiency, unspecified; E86.0 Dehydration; E87.5 Hyperkalemia; E87.6 Hypokalemia; E87.8 Other disorders of electrolyte and fluid balance, not elsewhere classified; E88.09 Other disorders of plasma-protein metabolism, not elsewhere classified; F17.210 Nicotine dependence, cigarettes, uncomplicated; F32.9 Major depressive disorder, single episode, unspecified; F41.9 Anxiety disorder, unspecified; J40 Bronchitis, not specified as acute or chronic; K21.9 Gastro-esophageal reflux disease without esophagitis; K76.0 Fatty (change of) liver, not elsewhere classified; L30.9 Dermatitis, unspecified; L40.9 Psoriasis, unspecified; L73.9 Follicular disorder, unspecified; R32 Unspecified urinary incontinence; W19.XXXA Unspecified fall, initial encounter; S20.319A Abrasion of unspecified front wall of thorax, initial encounter; L57.0 Actinic keratosis
CPT/HCPCS: 36415; 36600; 71020; 76705; 80048; 80051; 80053; 80074; 80299; 81001; 82009; 82140; 82150; 82330; 82533; 82550; 82570; 82805; 83520; 83605; 83690; 83735; 83930; 83935; 84100; 84132; 84295; 84300; 84439; 84443; 84550; 84600; 85025; 85610; 85730; 87040; 87070; 87086; 87205; 93005; 94640; 96361; 96365; 99285

== ENCOUNTER 2016-06-28 11:58 | Inpatient (IN) | payer OTHER ==
[2016-06-28] MEDS ORDERED: IPRATROPIUM-ALBUTEROL 3 ML NEB INHALATION STA (12:22)
--- NOTE | 2016-06-28 12:25 | ED ---
General Adult HPI - General Stated complaint: ZULY Weakness Time Seen by Provider: 06/28/16 12:13 Source: patient, RN notes reviewed Mode of arrival: EMS Limitations: no limitations - History of Present Illness Initial comments: Patient is a pleasant 30-year-old male presenting to the emergency department complaining of difficulty in breathing. Symptoms have progressed over the past several days. Patient does have cough with yellow sputum. No fevers. Patient feels somewhat weak all over. Patient admits to drinking alcohol following recent discharge. No abdominal pain. No confusion. - Related Data Home Medications Medication Instructions Recorded Confirmed [id number] [id number] mg 1 packet PO TID 06/28/16 06/28/16 [Neutra-Phos Packet] Previous Rx's Medication Instructions Recorded predniSONE 40 mg PO DAILY #56 tab 06/24/16 Calcitriol [Rocaltrol] 0.25 mcg PO DAILY #30 cap 06/25/16 Calcium Carbonate [Tums] 1,000 mg PO BID #60 chew 06/25/16 Diclofenac Sodium Gel [Voltaren 2 gm TOPICAL QID #100 tube 06/25/16 Gel] Folic Acid 1 mg PO DAILY@1200 #30 tab 06/25/16 Pantoprazole [Protonix] 40 mg PO AC-BRKFST #30 tablet. 06/25/16 Thiamine [Vitamin B-1] 100 mg PO DAILY@1200 #30 tab 06/25/16 rOPINIRole HCL [Requip] 0.25 mg PO BID #60 tab 06/25/16 traZODone HCL [Desyrel] 50 mg PO HS #30 tab 06/25/16 Allergies Allergy/AdvReac Type Severity Reaction Status Date / Time No Known Allergies Allergy Verified 06/28/16 13:00 Review of Systems ROS Statement: Those systems with pertinent positive or pertinent negative responses have been documented in the HPI. ROS Other: All systems not noted in ROS Statement are negative. Constitutional: Denies: fever Eyes: Denies: eye pain ENT: Denies: ear pain Respiratory: Reports: cough, dyspnea Cardiovascular: Denies: chest pain Endocrine: Reports: fatigue Gastrointestinal: Denies: abdominal pain Genitourinary: Denies: dysuria Musculoskeletal: Denies: back pain Skin: Reports: rash (Chronic) Neurological: Reports: weakness Past Medical History Past Medical History: GERD/Reflux Additional Past Medical History / Comment(s): EPIDERMALYTIC HYPERKERATOSIS, ALCOHOL History of Any Multi-Drug Resistant Organisms: None Reported Past Surgical History: No Surgical Hx Reported Past Anesthesia/Blood Transfusion Reactions: No Reported Reaction Past Psychological History: No Psychological Hx Reported Smoking Status: Current every day smoker Past Alcohol Use History: Daily, Heavy Additional Past Alcohol Use History / Comment(s): STARTED SMOKING AT AGE 20, 1/2 -1 PPD-STATED HAS'NT SMOKED IN PAST WEEK D/T NOT FEELING WELL. PT STATED DRINKS DAILY 1.5 [employer] Past Drug Use History: None Reported - Past Family History Father Family Medical History: Unable to Obtain Additional Family Medical History / Comment(s): RAISED BY STEP FATHER Mother Family Medical History: No Reported History General Exam Limitations: no limitations General appearance: alert, in no apparent distress Head exam: Present: atraumatic Eye exam: Present: scleral icterus ENT exam: Present: normal oropharynx Neck exam: Present: normal inspection Respiratory exam: Present: wheezes, rales Cardiovascular Exam: Present: regular rate, normal rhythm GI/Abdominal exam: Present: soft, organomegaly (Hepatomegaly). Absent: distended, tenderness Extremities exam: Present: normal inspection. Absent: pedal edema, calf tenderness Back exam: Present: normal inspection Neurological exam: Present: alert Psychiatric exam: Present: normal affect, normal mood Skin exam: Present: other (Jaundice appearance) Course Vital Signs 06/28/16 06/28/16 06/28/16 12:05 12:20 12:21 Temperature 98.4 F Pulse Rate 138 H Respiratory 30 H Rate Blood Pressure 130/84 O2 Sat by Pulse 92 L 75 L 92 L Oximetry 06/28/16 06/28/16 06/28/16 12:36 12:47 12:59 Temperature Pulse Rate 130 H 129 H 129 H Respiratory 28 H Rate Blood Pressure 170/84 O2 Sat by Pulse 89 L Oximetry 06/28/16 13:36 Temperature Pulse Rate Respiratory Rate Blood Pressure O2 Sat by Pulse 88 L Oximetry - Reevaluation(s) Reevaluation #1: 06/28/16 13:03 ABG shows pH 7.46, CO2 24.1, O2 59 on nonrebreather. Mixed picture with metabolic acidosis and respiratory alkalosis. 06/28/16 13:03 06/28/16 13:54 Case was discussed in detail with Dr. Harkins, who will readmit his patient. Case was discussed in detail with Dr. Serrano, covering for Dr. bender in who did previously see this patient. He recommends intubation and ICU admission. He does recommend Lasix as long as blood pressure holds. Patient was updated. Patient reevaluated and still appear short of breath. 06/28/16 13:55 Case was discussed in detail with Dr. Tomlinson who does feel patient is likely fluid overloaded and will consult. 06/28/16 13:56 Patient will be admitted for respiratory failure and congestive heart failure. Patient will be placed on antibiotics because pneumonia cannot be completely ruled out at this time. Patient does not have a definite infectious source and therefore does not meet sepsis criteria. EKG Findings - EKG Comments: EKG Findings:: Sinus tachycardia 128. KS 128. QRS 82. QT 324. QTC 473. Normal axis. Motion artifact is present. Nonspecific QRS. No acute ST changes. Procedures - Intubation Time Out Performed: Yes Sedative: Versed Paralytic: Succinylcholine Laryngoscope: Arizmendi Size: 3 ET Tube Size: 8 Tube Placement Confirmation: visualized tube passing through cords, equal breath sounds bilaterally, confirmation by capnometry Patient Tolerated Procedure: well, no complications Intubation Complications: none Medical Decision Making - Lab Data Result diagrams: 06/28/16 12:26 06/28/16 12:26 Lab Results 06/28/16 06/28/16 06/28/16 Range/Units 12:26 12:26 12:26 WBC 20.1 H (3.8-10.6) k/uL RBC 3.58 L (4.30-5.90) m/uL Hgb 12.2 L (13.0-17.5) gm/dL Hct 37.4 L (39.0-53.0) % MCV 104.5 H (80.0-100.0) fL MCH 34.1 (25.0-35.0) pg MCHC 32.7 (31.0-37.0) g/dL RDW 17.0 H (11.5-15.5) % Plt Count 391 (150-450) k/uL Neutrophils % 89 % Lymphocytes % 7 % Monocytes % 2 % Eosinophils % 1 % Basophils % 0 % Neutrophils # 17.9 H (1.3-7.7) k/uL Lymphocytes # 1.5 (1.0-4.8) k/uL Monocytes # 0.4 (0-1.0) k/uL Eosinophils # 0.1 (0-0.7) k/uL Basophils # 0.0 (0-0.2) k/uL Anisocytosis Slight Macrocytosis Moderate PT (9.0-12.0) sec INR (<1.1) APTT (22.0-30.0) sec Sample Site ABG pH (7.35-7.45) ABG pCO2 (35-45) mmHg ABG pO2 (83-108) mmHg ABG HCO3 (21-25) mmol/L ABG Total CO2 (19-24) mmol/L ABG O2 Saturation (94-97) % ABG Base Excess mmol/L FiO2 % Sodium 132 L (137-145) mmol/L Potassium 3.8 (3.5-5.1) mmol/L Chloride 102 (98-107) mmol/L Carbon Dioxide 17 L (22-30) mmol/L Anion Gap 13 mmol/L BUN 2 L (9-20) mg/dL Creatinine 0.36 L (0.66-1.25) mg/dL Est GFR (MDRD) Af Amer >60 (>60 ml/min/1.73 sqM) Est GFR (MDRD) Non-Af >60 (>60 ml/min/1.73 sqM) Glucose 103 H (74-99) mg/dL Plasma Lactic Acid Sebastián (0.7-2.0) mmol/L Calcium 7.3 L (8.4-10.2) mg/dL Total Bilirubin 17.6 H* (0.2-1.3) mg/dL AST 264 H (17-59) U/L ALT 142 H (21-72) U/L Alkaline Phosphatase 305 H (38-126) U/L Total Creatine Kinase 137 (55-170) U/L CK-MB (CK-2) 0.7 (0.0-2.4) ng/mL CK-MB (CK-2) Rel Index 0.5 Troponin I 0.087 H* (0.000-0.034) ng/mL NT-Pro-B Natriuret Pep pg/mL Total Protein 6.3 (6.3-8.2) g/dL Albumin 2.8 L (3.5-5.0) g/dL Amylase 32 (30-110) U/L Lipase <10 L (23-300) U/L Serum Alcohol <10 mg/dL 06/28/16 06/28/16 06/28/16 Range/Units 12:26 12:26 12:26 WBC (3.8-10.6) k/uL RBC (4.30-5.90) m/uL Hgb (13.0-17.5) gm/dL Hct (39.0-53.0) % MCV (80.0-100.0) fL MCH (25.0-35.0) pg MCHC (31.0-37.0) g/dL RDW (11.5-15.5) % Plt Count (150-450) k/uL Neutrophils % % Lymphocytes % % Monocytes % % Eosinophils % % Basophils % % Neutrophils # (1.3-7.7) k/uL Lymphocytes # (1.0-4.8) k/uL Monocytes # (0-1.0) k/uL Eosinophils # (0-0.7) k/uL Basophils # (0-0.2) k/uL Anisocytosis Macrocytosis PT 19.1 H (9.0-12.0) sec INR 2.0 (<1.1) APTT 27.3 (22.0-30.0) sec Sample Site ABG pH (7.35-7.45) ABG pCO2 (35-45) mmHg ABG pO2 (83-108) mmHg ABG HCO3 (21-25) mmol/L ABG Total CO2 (19-24) mmol/L ABG O2 Saturation (94-97) % ABG Base Excess mmol/L FiO2 % Sodium (137-145) mmol/L Potassium (3.5-5.1) mmol/L Chloride (98-107) mmol/L Carbon Dioxide (22-30) mmol/L Anion Gap mmol/L BUN (9-20) mg/dL Creatinine (0.66-1.25) mg/dL Est GFR (MDRD) Af Amer (>60 ml/min/1.73 sqM) Est GFR (MDRD) Non-Af (>60 ml/min/1.73 sqM) Glucose (74-99) mg/dL Plasma Lactic Acid Sebastián 3.2 H* (0.7-2.0) mmol/L Calcium (8.4-10.2) mg/dL Total Bilirubin (0.2-1.3) mg/dL AST (17-59) U/L ALT (21-72) U/L Alkaline Phosphatase (38-126) U/L Total Creatine Kinase (55-170) U/L CK-MB (CK-2) (0.0-2.4) ng/mL CK-MB (CK-2) Rel Index Troponin I (0.000-0.034) ng/mL NT-Pro-B Natriuret Pep 08948 pg/mL Total Protein (6.3-8.2) g/dL Albumin (3.5-5.0) g/dL Amylase (30-110) U/L Lipase (23-300) U/L Serum Alcohol mg/dL 06/28/16 Range/Units 12:51 WBC (3.8-10.6) k/uL RBC (4.30-5.90) m/uL Hgb (13.0-17.5) gm/dL Hct (39.0-53.0) % MCV (80.0-100.0) fL MCH (25.0-35.0) pg MCHC (31.0-37.0) g/dL RDW (11.5-15.5) % Plt Count (150-450) k/uL Neutrophils % % Lymphocytes % % Monocytes % % Eosinophils % % Basophils % % Neutrophils # (1.3-7.7) k/uL Lymphocytes # (1.0-4.8) k/uL Monocytes # (0-1.0) k/uL Eosinophils # (0-0.7) k/uL Basophils # (0-0.2) k/uL Anisocytosis Macrocytosis PT (9.0-12.0) sec INR (<1.1) APTT (22.0-30.0) sec Sample Site rrad ABG pH 7.46 H (7.35-7.45) ABG pCO2 24 L (35-45) mmHg ABG pO2 59 L (83-108) mmHg ABG HCO3 17 L (21-25) mmol/L ABG Total CO2 18 L (19-24) mmol/L ABG O2 Saturation 92.0 L (94-97) % ABG Base Excess -6.1 mmol/L FiO2 100 % Sodium (137-145) mmol/L Potassium (3.5-5.1) mmol/L Chloride (98-107) mmol/L Carbon Dioxide (22-30) mmol/L Anion Gap mmol/L BUN (9-20) mg/dL Creatinine (0.66-1.25) mg/dL Est GFR (MDRD) Af Amer (>60 ml/min/1.73 sqM) Est GFR (MDRD) Non-Af (>60 ml/min/1.73 sqM) Glucose (74-99) mg/dL Plasma Lactic Acid Sebastián (0.7-2.0) mmol/L Calcium (8.4-10.2) mg/dL Total Bilirubin (0.2-1.3) mg/dL AST (17-59) U/L ALT (21-72) U/L Alkaline Phosphatase (38-126) U/L Total Creatine Kinase (55-170) U/L CK-MB (CK-2) (0.0-2.4) ng/mL CK-MB (CK-2) Rel Index Troponin I (0.000-0.034) ng/mL NT-Pro-B Natriuret Pep pg/mL Total Protein (6.3-8.2) g/dL Albumin (3.5-5.0) g/dL Amylase (30-110) U/L Lipase (23-300) U/L Serum Alcohol mg/dL - Radiology Data Radiology results: image reviewed (Chest x-ray shows diffuse interstitial changes. Repeat chest x-ray shows appropriate intubation with endotracheal tube as well as gastric tube. Continued interstitial changes.) Critical Care Time Critical Care Time: Yes Total Critical Care Time: 45 Disposition Clinical Impression: Congestive heart failure, Acute respiratory failure, Pulmonary edema, Hepatic failure Disposition: ADMITTED IP TO THIS [facility] Condition: Critical Referrals: None,Stated [Primary Care Provider] - 1-2 days
[2016-06-28 12:50] LABS: Anisocytosis Slight; Basophils % (A) 0 %; CHCM 32.8; Eosinophils # (A) 0.1 k/uL (0-0.7); Eosinophils % (A) 1 %; HCT 37.4 % (39.0-53.0); HDW 3.21; HGB 12.2 gm/dL (13.0-17.5); Luc % (Auto) 1; Lymphocytes # (A) 1.5 k/uL (1.0-4.8); Lymphocytes % (A) 7 %; MCH 34.1 pg (25.0-35.0); MCHC 32.7 g/dL (31.0-37.0); MCV 104.5 fL (80.0-100.0); Macrocytosis Moderate; Mean Platelet Volume 7.2; Monocytes # (A) 0.4 k/uL (0-1.0); Monocytes % (A) 2 %; Neutrophils # (A) 17.9 k/uL (1.3-7.7); Neutrophils % (A) 89 %; RBC 3.58 m/uL (4.30-5.90); WBC 20.1 k/uL (3.8-10.6); WBC (Perox) 20.53
[2016-06-28 12:57] LABS: ABG Base Excess -6.1 mmol/L; ABG HCO3 17 mmol/L (21-25); ABG PCO2 24 mmHg (35-45); ABG PH 7.46 (7.35-7.45); ABG PO2 59 mmHg (83-108); ABG TCO2 18 mmol/L (19-24)
[2016-06-28 13:05] LABS: ALT 142 U/L (21-72); AST 264 U/L (17-59); Alcohol <10 mg/dL; Alkaline Phosphatase 305 U/L (38-126); Amylase 32 U/L (30-110); Anion Gap 13 mmol/L; Blood Urea Nitrogen 2 mg/dL (9-20); Calcium 7.3 mg/dL (8.4-10.2); Carbon Dioxide 17 mmol/L (22-30); Chloride 102 mmol/L (98-107); Glucose 103 mg/dL (74-99); Non-African American GFR(MDRD) >60 (>60 ml/min/1.73 sqM); Potassium 3.8 mmol/L (3.5-5.1); Sodium 132 mmol/L (137-145)
--- NOTE | 2016-06-28 13:18 | XR ---
EXAMINATION TYPE: XR chest 2V DATE OF EXAM: 06/28/2016 1:14 PM COMPARISON: NONE INDICATION: Difficulty breathing TECHNIQUE: Frontal and lateral views of the chest are obtained. FINDINGS: The heart size is normal. Pulmonary vasculature is prominent There are scattered increased lung markings to the bilateral lung doll. Correlate for pulmonary medina ma. Infectious etiologies could also be considered. IMPRESSION: 1. Correlate for pulmonary edema versus diffuse infectious etiology. Follow-up is recommended.
[2016-06-28 13:19] LABS: Total Bilirubin 17.6 mg/dL (0.2-1.3); Total Protein 6.3 g/dL (6.3-8.2)
[2016-06-28 13:21] LABS: Partial Thromboplastin Time 27.3 sec (22.0-30.0); Prothrombin Time 19.1 sec (9.0-12.0)
[2016-06-28 13:23] LABS: Creatine Kinase MB 0.7 ng/mL (0.0-2.4)
[2016-06-28 13:25] LABS: Troponin I 0.087 ng/mL (0.000-0.034)
[2016-06-28] MEDS ORDERED: NITROGLYCERIN OINT 1 INCH/GM PACKET TOPICAL STA (13:57)
[2016-06-28] MEDS ORDERED: FUROSEMIDE 10 MG/ML 4 ML VIAL IV STA (13:57)
[2016-06-28] MEDS: PROPOFOL 500 MG in EMPTY BAG 1 BAG IV SCH ×3 (14:15→23:07)
[2016-06-28] MEDS ORDERED: IPRATROPIUM-ALBUTEROL 3 ML NEB INHALATION PRN (14:19)
[2016-06-28] MEDS ORDERED: PIPERACILLIN-TAZOBACTAM 3.375 GM in DEXTROSE/WATER 1 50ML.BAG IVPB STA (14:20)
[2016-06-28] MEDS ORDERED: ASPIRIN 325 MG TAB PO STA (14:21)
[2016-06-28] MEDS ORDERED: LORazepam 2 MG/ML SYRINGE IV STA (14:38)
[2016-06-28] MEDS ORDERED: MORPHINE SULFATE 4 MG/ML SYRINGE IVP STA (14:38)
[2016-06-28] MEDS ORDERED: SUCCINYLCHOLINE CHLORIDE VIAL 200 MG/10 ML VIAL IV STA (14:38)
[2016-06-28] MEDS ORDERED: MIDAZOLAM (PF) 1 MG/ML 5 ML VIAL IV STA (14:38)
--- NOTE | 2016-06-28 14:47 | XR ---
EXAMINATION TYPE: XR chest 1V portable DATE OF EXAM: 06/28/2016 2:32 PM COMPARISON: NONE INDICATION: Difficulty breathing TECHNIQUE: Single frontal view of the chest is obtained. FINDINGS: The heart size is normal. Pulmonary vasculature is prominent Diffuse increased lung markings are present. Correlate for pulmonary edema. ARDS could be considered. There is an endotracheal tube present with the tip above the lisa. Nasogastric tube transverses the thorax. The tip is in the left upper quadrant of the abdomen. IMPRESSION: 1. Lines and catheters discussed above. 2. Worsening bilateral infiltrates. Correlate for pulmonary edema and ARDS. Infection could be consid ered.
[2016-06-28] MEDS: SODIUM CHLORIDE 0.9% 1,000 ML IV SCH (15:37)
[2016-06-28 15:55] LABS: ABG Base Excess -5.5 mmol/L; ABG HCO3 19 mmol/L (21-25); ABG Oxygen Saturation 98.3 % (94-97); ABG PCO2 37 mmHg (35-45); ABG PH 7.34 (7.35-7.45); ABG PO2 117 mmHg (83-108); ABG TCO2 21 mmol/L (19-24)
[2016-06-28] MEDS: IPRATROPIUM-ALBUTEROL 3 ML NEB INHALATION SCH ×3 (16:30→23:17)
[2016-06-28] MEDS ORDERED: SODIUM CHLORIDE 0.9% 100 ML IV STA (16:32)
[2016-06-28] MEDS: SODIUM CHLORIDE 0.9% 500 ML IV SCH ×3 (16:47→18:30)
[2016-06-28] MEDS ORDERED: IBUPROFEN IV 400 MG in SODIUM CHLORIDE 0.9% 250 ML IV ONE (16:49)
[2016-06-28 17:02] LABS: Glucose,Whole Blood 120 mg/dL (75-99)
[2016-06-28] MEDS: LEVOFLOXACIN 750MG-D5W PMX 750 MG in DEXTROSE/WATER 1 150ML.BAG IVPB SCH (17:29)
[2016-06-28] MEDS: NITROGLYCERIN OINT 1 INCH/GM PACKET TOPICAL SCH ×2 (17:31→21:39)
[2016-06-28] MEDS ORDERED: NALOXONE 0.4 MG/ML 1 ML VIAL IV PRN (18:05)
[2016-06-28] MEDS ORDERED: NOREPINEPHRINE 4 MG in SODIUM CHLORIDE 0.9% 250 ML IV SCH (18:15)
[2016-06-28 18:44] LABS: Appearance,Urine Clear (Clear); Bacteria,Urine Rare /hpf; Bilirubin,Urine 2+ (Negative); Glucose,Urine (UA) Negative (Negative); Granular Casts,Urine 57 /lpf (0); Ketones,Urine Negative (Negative); Leukocyte Esterase,Urine Negative (Negative); Mucus,Urine Rare /hpf; Nitrite,Urine Negative (Negative); PH, Urine 6.5 (5.0-8.0); Particle Count 8577; Protein,Urine Trace (Negative); RBC,Urine 1 /hpf (0-5); Specific Gravity,Urine 1.004 (1.001-1.035); Squamous Epithelial Cell,Urine <1 /hpf (0-4); UA Billing (MACRO vs. MICRO) MICRO; Urobilinogen,Urine <2.0 mg/dL (<2.0); WBC,Urine 3 /hpf (0-5)
[2016-06-28 20:54] LABS: Creatine Kinase MB 0.7 ng/mL (0.0-2.4)
[2016-06-28] MEDS: CHLORHEXIDINE GLUCONATE 15 ML CUP MUCOUS MEM SCH (20:56)
[2016-06-28 20:57] LABS: Troponin I 0.073 ng/mL (0.000-0.034)
[2016-06-28] MEDS: FUROSEMIDE 10 MG/ML 4 ML VIAL IV SCH (21:38)
[2016-06-28] MEDS: PIPERACILLIN-TAZOBACTAM 3.375 GM in DEXTROSE/WATER 1 50ML.BAG IVPB SCH (22:10)
[2016-06-28] MEDS: LORazepam 2 MG/ML SYRINGE IV PRN (22:18)
[2016-06-29] MEDS: SODIUM CHLORIDE 0.9% 1,000 ML IV SCH ×3 (00:44→17:47)
[2016-06-29] MEDS: LORazepam 2 MG/ML SYRINGE IV PRN ×3 (02:16→08:09)
[2016-06-29] MEDS: THIAMINE 100 MG TAB PO SCH ×3 (02:43→17:47)
[2016-06-29] MEDS: PROPOFOL 500 MG in EMPTY BAG 1 BAG IV SCH ×10 (02:45→23:04)
[2016-06-29 02:47] LABS: Anisocytosis Slight; Basophils % (A) 0 %; CH 33.1; Eosinophils # (A) 0.1 k/uL (0-0.7); Eosinophils % (A) 1 %; HCT 33.2 % (39.0-53.0); HDW 3.32; HGB 10.6 gm/dL (13.0-17.5); Hypochromasia Moderate; Luc # (Auto) 0.25; Luc % (Auto) 2; Lymphocytes # (A) 1.9 k/uL (1.0-4.8); Lymphocytes % (A) 12 %; MCH 34.4 pg (25.0-35.0); MCV 107.7 fL (80.0-100.0); Macrocytosis Marked; Mean Platelet Volume 6.9; Monocytes # (A) 0.4 k/uL (0-1.0); Monocytes % (A) 3 %; Neutrophils # (A) 13.6 k/uL (1.3-7.7); Neutrophils % (A) 84 %; RBC 3.09 m/uL (4.30-5.90); RDW 17.2 % (11.5-15.5); WBC 16.2 k/uL (3.8-10.6); WBC (Perox) 17.67
[2016-06-29 02:52] LABS: Anion Gap 11 mmol/L; Blood Urea Nitrogen 5 mg/dL (9-20); Calcium 6.6 mg/dL (8.4-10.2); Carbon Dioxide 20 mmol/L (22-30); Chloride 111 mmol/L (98-107); Glucose 79 mg/dL (74-99); Non-African American GFR(MDRD) >60 (>60 ml/min/1.73 sqM); Phosphorous 2.7 mg/dL (2.5-4.5); Sodium 142 mmol/L (137-145)
[2016-06-29 02:54] LABS: Potassium 2.6 mmol/L (3.5-5.1)
[2016-06-29] MEDS ORDERED: Potassium Replacement Protocol 1 EACH MISC MISCELLANE PRN (03:00)
[2016-06-29] MEDS: IPRATROPIUM-ALBUTEROL 3 ML NEB INHALATION SCH ×6 (03:00→23:17)
[2016-06-29 03:11] LABS: Creatine Kinase MB 0.9 ng/mL (0.0-2.4)
[2016-06-29 03:13] LABS: Troponin I 0.046 ng/mL (0.000-0.034)
[2016-06-29 03:20] LABS: Large Platelets Present; Manual Review Performed; Polychromasia Present
[2016-06-29 03:21] LABS: Toxic Vacuolation Present
[2016-06-29] MEDS: POTASSIUM CHLORIDE ORAL LIQUID 40 MEQ/30 ML CUP NG-TUBE SCH ×3 (03:48→07:01)
[2016-06-29] MEDS: FUROSEMIDE 10 MG/ML 4 ML VIAL IV SCH (05:35)
[2016-06-29] MEDS: PIPERACILLIN-TAZOBACTAM 3.375 GM in DEXTROSE/WATER 1 50ML.BAG IVPB SCH ×3 (06:21→21:27)
--- NOTE | 2016-06-29 08:18 | XR ---
EXAMINATION TYPE: XR chest 1V portable DATE OF EXAM: 06/29/2016 6:49 AM COMPARISON: 06/28/2016 INDICATION: Tube placement TECHNIQUE: Single frontal view of the chest is obtained. FINDINGS: The heart size may be mildly prominent. The pulmonary vasculature is indistinct. Patchy bilateral infiltrates are present. A left lower lobe consolidation is present. Findings have m ild improvement. There is an endotracheal tube present with tip above the lisa. A nasogastric tube transverses the t horax. IMPRESSION: 1. Lines and catheters discussed above. 2. There may be some minimal improvement of extensive patchy infiltrates present bilaterally.
[2016-06-29] MEDS: CHLORHEXIDINE GLUCONATE 15 ML CUP MUCOUS MEM SCH ×2 (08:38→20:21)
[2016-06-29] MEDS: PANTOPRAZOLE 40 MG/10 ML VIAL IV SCH (08:38)
[2016-06-29] MEDS: ENOXAPARIN 40 MG/0.4 ML SYRINGE SQ SCH (08:39)
[2016-06-29] MEDS: NITROGLYCERIN OINT 1 INCH/GM PACKET TOPICAL SCH ×4 (08:40→21:05)
[2016-06-29 08:55] LABS: ABG HCO3 20 mmol/L (21-25); ABG PCO2 26 mmHg (35-45); ABG PH 7.48 (7.35-7.45); ABG PO2 74 mmHg (83-108); ABG TCO2 20 mmol/L (19-24)
[2016-06-29] MEDS ORDERED: HYDROmorphone 1 MG/ML 1 ML SYRINGE ONE (09:17)
[2016-06-29] MEDS: HYDROmorphone 1 MG/ML 1 ML SYRINGE IVP PRN ×3 (09:20→23:58)
[2016-06-29] MEDS: HYDROCORTISONE SUCCINATE 100 MG/2 ML VIAL IV SCH ×3 (10:35→23:05)
[2016-06-29 11:34] LABS: Glucose,Whole Blood 80 mg/dL (75-99)
[2016-06-29] MEDS ORDERED: PROPOFOL 50 ML IV ONE (12:17)
--- NOTE | 2016-06-29 14:49 | P.CNPUL ---
History of Present Illness Consult date: 06/29/16 Requesting physician: Chapo Harkins Reason for consult: other (Acute hypoxic respiratory failure) Chief complaint: Shortness of breath History of present illness: This is a 30-year-old white male, alcoholic, patient presented to the ER on 06/28 at 12:13 PM with mostly symptoms of increased shortness of breath. His symptoms have progressed over the last few days. Patient was recently discharged from the hospital on 06/25/2016. Apparently he was admitted back on , and he was inpatient for almost 8 days. Apparently we have seen this patient on his last admission on consultation, and he was seen for generalized weakness secondary to hyponatremia secondary to excessive alcohol use, and his sodium at the time was 117. Patient also had evidence of elevated liver enzymes , and history of epidermoid lytic hyperkeratosis. Apparently most of his problems were all called related, and he had acute alcoholic hepatitis at the time of the last admission. Patient was discharged on multiple meds at the time , and I believe he was also discharged on prednisone at 40 mg daily. It is not clear whether the patient was actually compliant with all the meds he was discharged on. At any rate when the patient arrived to the ER, his chest x-ray showed bilateral infiltrates, and the differential diagnoses included pneumonia and/or pulmonary edema. His ABG upon presentation was quite abnormal, pO2 was 59 pCO2 was 24 and his pH was 7.46. His ABG was done on 100% non-rebreather mask. When the ER physician notified me about the ABG, and about the findings on the chest x-ray,, I recommended immediate intubation. Of course the ER physician was a bit reluctant, but I insisted on intubating the patient. Patient was placed on 100% FiO2, assist control rate of 16, and tidal volume of 550. Follow-up ABG showed a pO2 of 117 pCO2 of 37 and pH of 7.34. Patient was started on antibiotics empirically for pneumonia, he was also given diuretics for possible pulmonary edema, and when he arrived to the ICU were able to titrate down his FiO2 to 45 %, his assist control rate is down to 20, and his PEEP is back down to 5. Review of Systems ROS unobtainable: due to mental status Past Medical History Past Medical History: GERD/Reflux, Liver Disease, Skin Disorder Additional Past Medical History / Comment(s): EPIDERMALYTIC HYPERKERATOSIS, ALCOHOL, smoker History of Any Multi-Drug Resistant Organisms: None Reported Past Surgical History: No Surgical Hx Reported Past Anesthesia/Blood Transfusion Reactions: No Reported Reaction Past Psychological History: No Psychological Hx Reported Smoking Status: Current every day smoker Past Alcohol Use History: Daily, Heavy Additional Past Alcohol Use History / Comment(s): STARTED SMOKING AT AGE 20, 1/2 -1 PPD-STATED HAS'NT SMOKED IN PAST WEEK D/T NOT FEELING WELL. PT STATED DRINKS DAILY 1.5 [employer] Past Drug Use History: None Reported - Past Family History Father Family Medical History: Unable to Obtain Additional Family Medical History / Comment(s): RAISED BY STEP FATHER Mother Family Medical History: No Reported History Medications and Allergies Home Medications Medication Instructions Recorded Confirmed Type Zwmrw-[id number]-[id number] [id number] mg 1 packet PO TID 06/28/16 06/28/16 History [Neutra-Phos Packet] Allergies Allergy/AdvReac Type Severity Reaction Status Date / Time No Known Allergies Allergy Verified 06/28/16 13:00 Physical Exam Vitals: Vital Signs Temp Pulse Resp BP Pulse Ox 06/29/16 14:00 85 21 104/57 98 06/29/16 13:00 89 26 H 103/58 98 06/29/16 12:04 92 06/29/16 12:00 100.1 F H 90 20 99/59 100 06/29/16 11:55 91 06/29/16 11:00 97 30 H 101/57 96 06/29/16 10:00 95 23 97/54 96 06/29/16 09:00 106 H 33 H 96/60 98 06/29/16 08:00 98.2 F 120 H 29 H 103/60 96 06/29/16 07:52 110 H 06/29/16 07:41 111 H 06/29/16 07:00 87 26 H 94/59 96 06/29/16 06:45 92 25 H 91/57 95 06/29/16 06:30 97 25 H 101/63 96 06/29/16 06:15 93 29 H 106/63 96 06/29/16 06:00 97 26 H 100/74 96 06/29/16 05:45 101 H 35 H 101/59 99 06/29/16 05:30 96 28 H 98/63 94 L 06/29/16 05:15 91 23 100/60 97 06/29/16 05:00 95 25 H 101/60 95 06/29/16 04:45 87 23 102/59 98 06/29/16 04:30 89 24 99/58 97 06/29/16 04:15 87 23 98/56 98 06/29/16 04:00 98.7 F 87 23 102/59 96 06/29/16 03:45 87 25 H 99/56 96 06/29/16 03:30 95 25 H 109/59 95 06/29/16 03:15 85 16 102/58 98 06/29/16 03:07 89 06/29/16 03:00 84 22 107/59 96 06/29/16 02:56 87 06/29/16 02:45 88 25 H 106/59 96 06/29/16 02:30 95 23 104/67 95 06/29/16 02:15 106 H 64 H 108/62 89 L 06/29/16 02:00 88 22 107/62 95 06/29/16 01:45 91 26 H 106/61 93 L 06/29/16 01:30 89 20 106/60 96 06/29/16 01:15 88 24 110/60 95 06/29/16 01:00 89 24 107/61 95 06/29/16 00:45 89 22 107/58 95 06/29/16 00:30 90 21 107/61 94 L 06/29/16 00:15 91 24 108/58 94 L 06/29/16 00:00 98.9 F 93 23 107/60 93 L 06/28/16 23:45 92 22 103/58 94 L 06/28/16 23:30 96 22 103/60 93 L 06/28/16 23:20 88 06/28/16 23:15 95 23 96/59 96 06/28/16 23:09 89 06/28/16 23:00 95 22 94/55 98 06/28/16 22:45 94 23 95/58 98 06/28/16 22:30 96 20 100/68 98 06/28/16 22:15 105 H 26 H 97/58 95 06/28/16 22:00 98 22 93/56 95 06/28/16 21:45 100 22 101/61 95 06/28/16 21:30 103 H 24 97/63 96 06/28/16 21:15 105 H 26 H 89/51 93 L 06/28/16 21:00 100 23 86/48 96 06/28/16 20:45 100 21 91/53 95 06/28/16 20:30 102 H 23 100/54 95 06/28/16 20:00 98.7 F 102 H 20 99/61 100 06/28/16 19:55 99 06/28/16 19:45 104 H 06/28/16 19:30 101 H 23 92/51 100 06/28/16 19:00 104 H 22 91/52 100 06/28/16 18:45 107 H 22 90/53 98 06/28/16 18:30 108 H 21 87/48 99 06/28/16 18:15 108 H 22 96/51 99 06/28/16 18:00 109 H 22 90/46 99 06/28/16 17:45 110 H 22 90/44 99 06/28/16 17:30 114 H 22 86/50 100 06/28/16 17:15 99.8 F H 134 H 20 99 06/28/16 17:11 102.7 F H 114 H 16 96/49 98 06/28/16 16:41 114 H 06/28/16 16:31 118 H 06/28/16 16:27 102.7 F H 126 H 16 96/49 98 06/28/16 15:48 137 H 12 95/55 98 06/28/16 15:32 87/50 06/28/16 15:15 140 H 12 96/62 97 06/28/16 15:00 142 H 12 103/59 98 Intake and Output 06/28/16 06/29/16 06/29/16 22:59 06:59 14:59 Intake Total 2886.829 929.909 721.943 Output Total 1020 2200 616 Balance 1866.829 -1270.091 105.943 Intake: IV 2500 850.0 675 Levofloxacin 750Mg-D5w 100 Pmx 750 mg In Dextrose/ Water 1 150ml.bag @ 100 mls/hr IVPB Q24H [facility] Rx#: [id number] Piperacillin-Tazobactam 3 50.0 .375 gm In Dextrose/Water 1 50ml.bag @ 12.5 mls/hr IVPB Q8H [facility] Rx#: [id number] Sodium Chloride 0.9% 1, 400 800 675 000 ml @ 75 mls/hr IV . [id number] [facility] Rx#:[id number] Sodium Chloride 0.9% 500 2000 ml @ 1000 mls/hr IV Q35M [facility] Rx#:[id number] Amount of Fluid Infused ( 300 ml) Intake, IV Titration 86.829 79.909 46.943 Amount Propofol 500 mg In Empty 86.829 79.909 46.943 Bag 1 bag @ Titrate IV . Q0M [facility] Rx#:[id number] Output: Urine 1020 2200 616 Other: Voiding Method Indwelling Catheter Indwelling Catheter Weight 75 kg 75.791 kg 75.791 kg Patient Weight 06/30/16 06:59 Weight 75.791 kg Physical examination revealed a 30-year-old white male sedated, on mechanical ventilation. Endotracheal tube is intact. And orogastric tube is also intact. HEENT: Neck is supple no neck masses no thyromegaly. Patient is noted to be slightly jaundiced. Chest: Crackles and rhonchi bilaterally. Some wheezing bilaterally. Cardiac: Normal S1 and S2, no S3 gallop. Abdomen: Soft nontender enlarged liver no rebound. Extremities: No clubbing edema or cyanosis. Neurologic: Cannot be assessed patient is heavily sedated with propofol. Skin: Evidence of epidermal lytic hyperkeratosis is noted. Throughout. Results - Laboratory Findings CBC and BMP: 06/29/16 02:28 06/29/16 09:07 ABG ABG pH 7.48 (7.35-7.45) H 06/29/16 08:45 ABG pCO2 26 mmHg (35-45) L 06/29/16 08:45 ABG pO2 74 mmHg (83-108) L 06/29/16 08:45 ABG O2 Saturation 96.0 % (94-97) 06/29/16 08:45 PT/INR, D-dimer PT 19.1 sec (9.0-12.0) H 06/28/16 12:26 INR 2.0 (<1.1) 06/28/16 12:26 Abnormal lab findings: Abnormal Labs 06/28/16 06/28/16 06/28/16 15:40 17:01 18:30 WBC RBC Hgb Hct MCV RDW Neutrophils # ABG pH 7.34 L ABG pCO2 ABG pO2 117 H ABG HCO3 19 L ABG O2 Saturation 98.3 H Potassium Chloride Carbon Dioxide BUN Creatinine POC Glucose (mg/dL) 120 H Calcium Troponin I Urine Protein Trace H Urine Blood Trace H Urine Bilirubin 2+ H Urine Bacteria Rare H Hyaline Casts 38 H Urine Mucus Rare H 06/28/16 06/29/16 06/29/16 20:04 02:28 02:28 WBC 16.2 H RBC 3.09 L Hgb 10.6 L Hct 33.2 L MCV 107.7 H RDW 17.2 H Neutrophils # 13.6 H ABG pH ABG pCO2 ABG pO2 ABG HCO3 ABG O2 Saturation Potassium 2.6 L* Chloride 111 H Carbon Dioxide 20 L BUN 5 L Creatinine 0.40 L POC Glucose (mg/dL) Calcium 6.6 L Troponin I 0.073 H* Urine Protein Urine Blood Urine Bilirubin Urine Bacteria Hyaline Casts Urine Mucus 06/29/16 06/29/16 02:28 08:45 WBC RBC Hgb Hct MCV RDW Neutrophils # ABG pH 7.48 H ABG pCO2 26 L ABG pO2 74 L ABG HCO3 20 L ABG O2 Saturation Potassium Chloride Carbon Dioxide BUN Creatinine POC Glucose (mg/dL) Calcium Troponin I 0.046 H* Urine Protein Urine Blood Urine Bilirubin Urine Bacteria Hyaline Casts Urine Mucus - Diagnostic Findings Chest x-ray: image reviewed (Strongly suspect bilateral pneumonia, considering the patient's clinical history, aspiration is in the differential.) Assessment and Plan Plan: Impression: 1 acute hypoxic respiratory failure in a patient with history of alcoholism, and recent binge drinking, possibility of aspiration pneumonia is highly in the differential. Follow-up ABG this morning on 40% FiO2 showed a pO2 of 74 pCO2 of 26 and pH of 7.48. 2 cannot entirely rule out pulmonary edema, especially with a proBNP level of 11 ,000, hence the patient will remain on diuresis, and we'll arrange for an echocardiogram to rule out alcohol related cardiomyopathy. 3 history of alcoholism and recent episode of hyponatremia related to alcohol. 4 history of alcoholic hepatitis with elevated bilirubin, and elevated transaminases. 5 history of epidermolytic hyperkeratosis. Recommendation: Continue present meds including antibiotics, diuretics, bronchodilators, stress doses of hydrocortisone will be given since the patient was recently on prednisone at a relatively high dose. Patient will be kept sedated on mechanical ventilation, we'll keep on GI and DVT prophylaxis. Prognosis is definitely guarded. We'll continue to follow closely. Follow-up ABG and chest x-ray in a.m. Echocardiogram with Doppler in a.m. Time with Patient: Greater than 30
[2016-06-29] MEDS: ASPIRIN 325 MG TAB PO SCH (14:54)
--- NOTE | 2016-06-29 15:05 | P.CRDCN ---
History of Present Illness History of present illness: 30-year-old male patient who presented with increasing shortness of breath. Recently discharged from the hospital on the . At that time he was an inpatient for 8 days. Currently intubated No history available from the patient Review of systems not available Is a history of alcohol use Elevated liver enzymes History of hepatitis Admitted with pneumonitis and the infiltrates are worsening bilaterally He is currently on IV antibiotics On examination He is been febrile 202.7F He is to Take on admission and required intubation in the emergency room Blood pressure 99 Breath sounds are reduced bilaterally with bilateral crackles Heart sounds S1-S2 tachycardic and regular He appears jaundiced Impression Likely bilateral pneumonitis Alcohol-related liver injury and damage, hepatitis Suggest 2-D echo and Doppler study to assess for any alcohol-related cardio myopathy Past Medical History Past Medical History: GERD/Reflux, Liver Disease, Skin Disorder Additional Past Medical History / Comment(s): EPIDERMALYTIC HYPERKERATOSIS, ALCOHOL, smoker History of Any Multi-Drug Resistant Organisms: None Reported Past Surgical History: No Surgical Hx Reported Past Anesthesia/Blood Transfusion Reactions: No Reported Reaction Past Psychological History: No Psychological Hx Reported Smoking Status: Current every day smoker Past Alcohol Use History: Daily, Heavy Additional Past Alcohol Use History / Comment(s): STARTED SMOKING AT AGE 20, 1/2 -1 PPD-STATED HAS'NT SMOKED IN PAST WEEK D/T NOT FEELING WELL. PT STATED DRINKS DAILY 1.5 [employer] Past Drug Use History: None Reported - Past Family History Father Family Medical History: Unable to Obtain Additional Family Medical History / Comment(s): RAISED BY STEP FATHER Mother Family Medical History: No Reported History Medications and Allergies Home Medications Medication Instructions Recorded Confirmed Type Mgtrs-Rnw-Lwwm [id number] mg 1 packet PO TID 06/28/16 06/28/16 History [Neutra-Phos Packet] Allergies Allergy/AdvReac Type Severity Reaction Status Date / Time No Known Allergies Allergy Verified 06/28/16 13:00 Physical Exam Vitals: Vital Signs Temp Pulse Resp BP Pulse Ox 06/29/16 14:00 85 21 104/57 98 06/29/16 13:00 89 26 H 103/58 98 06/29/16 12:04 92 06/29/16 12:00 100.1 F H 90 20 99/59 100 06/29/16 11:55 91 01/22/17 11:00 97 30 H 101/57 96 06/29/16 10:00 95 23 97/54 96 06/29/16 09:00 106 H 33 H 96/60 98 06/29/16 08:00 98.2 F 120 H 29 H 103/60 96 06/29/16 07:52 110 H 06/29/16 07:41 111 H 06/29/16 07:00 87 26 H 94/59 96 06/29/16 06:45 92 25 H 91/57 95 06/29/16 06:30 97 25 H 101/63 96 06/29/16 06:15 93 29 H 106/63 96 06/29/16 06:00 97 26 H 100/74 96 06/29/16 05:45 101 H 35 H 101/59 99 06/29/16 05:30 96 28 H 98/63 94 L 06/29/16 05:15 91 23 100/60 97 06/29/16 05:00 95 25 H 101/60 95 06/29/16 04:45 87 23 102/59 98 06/29/16 04:30 89 24 99/58 97 06/29/16 04:15 87 23 98/56 98 06/29/16 04:00 98.7 F 87 23 102/59 96 06/29/16 03:45 87 25 H 99/56 96 06/29/16 03:30 95 25 H 109/59 95 06/29/16 03:15 85 16 102/58 98 06/29/16 03:07 89 06/29/16 03:00 84 22 107/59 96 06/29/16 02:56 87 06/29/16 02:45 88 25 H 106/59 96 06/29/16 02:30 95 23 104/67 95 06/29/16 02:15 106 H 64 H 108/62 89 L 06/29/16 02:00 88 22 107/62 95 06/29/16 01:45 91 26 H 106/61 93 L 06/29/16 01:30 89 20 106/60 96 06/29/16 01:15 88 24 110/60 95 06/29/16 01:00 89 24 107/61 95 06/29/16 00:45 89 22 107/58 95 06/29/16 00:30 90 21 107/61 94 L 06/29/16 00:15 91 24 108/58 94 L 06/29/16 00:00 98.9 F 93 23 107/60 93 L 06/28/16 23:45 92 22 103/58 94 L 06/28/16 23:30 96 22 103/60 93 L 06/28/16 23:20 88 06/28/16 23:15 95 23 96/59 96 06/28/16 23:09 89 06/28/16 23:00 95 22 94/55 98 06/28/16 22:45 94 23 95/58 98 06/28/16 22:30 96 20 100/68 98 06/28/16 22:15 105 H 26 H 97/58 95 06/28/16 22:00 98 22 93/56 95 06/28/16 21:45 100 22 101/61 95 06/28/16 21:30 103 H 24 97/63 96 06/28/16 21:15 105 H 26 H 89/51 93 L 06/28/16 21:00 100 23 86/48 96 06/28/16 20:45 100 21 91/53 95 06/28/16 20:30 102 H 23 100/54 95 06/28/16 20:00 98.7 F 102 H 20 99/61 100 06/28/16 19:55 99 06/28/16 19:45 104 H 06/28/16 19:30 101 H 23 92/51 100 06/28/16 19:00 104 H 22 91/52 100 06/28/16 18:45 107 H 22 90/53 98 06/28/16 18:30 108 H 21 87/48 99 06/28/16 18:15 108 H 22 96/51 99 06/28/16 18:00 109 H 22 90/46 99 06/28/16 17:45 110 H 22 90/44 99 06/28/16 17:30 114 H 22 86/50 100 06/28/16 17:15 99.8 F H 134 H 20 99 06/28/16 17:11 102.7 F H 114 H 16 96/49 98 06/28/16 16:41 114 H 06/28/16 16:31 118 H 06/28/16 16:27 102.7 F H 126 H 16 96/49 98 06/28/16 15:48 137 H 12 95/55 98 06/28/16 15:32 87/50 06/28/16 15:15 140 H 12 96/62 97 Intake and Output 06/29/16 06/29/16 06/29/16 06:59 14:59 22:59 Intake Total 929.909 771.943 Output Total 2200 616 Balance -1270.091 155.943 Intake: IV 850.0 675 Piperacillin-Tazobactam 3 50.0 .375 gm In Dextrose/Water 1 50ml.bag @ 12.5 mls/hr IVPB Q8H [facility] Rx#: [id number] Sodium Chloride 0.9% 1, 800 675 000 ml @ 75 mls/hr IV . [id number] [facility] Rx#:[id number] Intake, IV Titration 79.909 96.943 Amount Propofol 500 mg In Empty 79.909 96.943 Bag 1 bag @ Titrate IV . Q0M [facility] Rx#:[id number] Output: Urine 2200 616 Other: Voiding Method Indwelling Catheter Weight 75.791 kg 75.791 kg Patient Weight 06/30/16 06:59 Weight 75.791 kg Results 06/29/16 02:28 06/29/16 09:07 Cardiac Enzymes 06/28/16 06/29/16 Range/Units 20:04 02:28 CK-MB (CK-2) 0.7 0.9 (0.0-2.4) ng/mL Troponin I 0.073 H* 0.046 H* (0.000-0.034) ng/mL CBC 06/29/16 Range/Units 02:28 WBC 16.2 H (3.8-10.6) k/uL RBC 3.09 L (4.30-5.90) m/uL Hgb 10.6 L (13.0-17.5) gm/dL Hct 33.2 L (39.0-53.0) % Plt Count 338 (150-450) k/uL Comprehensive Metabolic Panel 06/29/16 06/29/16 Range/Units 02:28 09:07 Sodium 142 (137-145) mmol/L Potassium 2.6 L* 4.0 (3.5-5.1) mmol/L Chloride 111 H (98-107) mmol/L Carbon Dioxide 20 L (22-30) mmol/L BUN 5 L (9-20) mg/dL Creatinine 0.40 L (0.66-1.25) mg/dL Glucose 79 (74-99) mg/dL Calcium 6.6 L (8.4-10.2) mg/dL Current Medications Generic Name Dose Route Start Last Admin Trade Name Freq PRN Reason Stop Dose Admin Albuterol/Ipratropium 3 ml 06/28/16 16:00 06/29/16 11:55 Duoneb 0.5 Mg-3 Mg/3 Ml Soln INHALATION 3 ml RT-Q4H [facility] Administration Albuterol/Ipratropium 3 ml 06/28/16 14:19 Duoneb 0.5 Mg-3 Mg/3 Ml Soln INHALATION RT-Q2H PRN Shortness Of Breath Or Wheezing Aspirin 325 mg 06/29/16 14:23 06/29/16 14:54 Aspirin PO 325 mg DAILY [facility] Administration Chlorhexidine Gluconate 15 ml 06/28/16 21:00 06/29/16 08:38 Peridex MUCOUS MEM 15 ml BID [facility] Administration Enoxaparin Sodium 40 mg 06/29/16 09:00 06/29/16 08:39 Lovenox SQ 40 mg DAILY [facility] Administration Furosemide 40 mg 06/30/16 09:00 Lasix IV DAILY [facility] Hydrocortisone Sodium Succinate 100 mg 06/29/16 09:30 06/29/16 10:35 Solu-Cortef IV 100 mg Q8HR [facility] Administration Hydromorphone HCl 1 mg 06/29/16 09:17 06/29/16 09:20 Dilaudid IVP 1 mg Q3HR PRN Administration Pain Propofol 500 mg/ IV Solution 50 mls @ 0 mls/hr 06/28/16 14:30 06/29/16 14:53 IV 50 mcg/kg/min .Q0M [facility] 20.41 mls/hr Protocol Administration Titrate Levofloxacin 750 mg/ IV 150 mls @ 100 mls/hr 06/28/16 16:00 06/28/16 17:29 Solution IVPB 100 mls/hr Q24H [facility] Administration Piperacillin/Tazobactam/ 50 mls @ 12.5 mls/hr 06/28/16 22:00 06/29/16 14:53 Dextrose 3.375 gm/ IV Solution IVPB 12.5 mls/hr Q8H [facility] Administration Sodium Chloride 1,000 mls @ 75 mls/hr 06/28/16 14:30 06/29/16 14:54 Saline 0.9% IV Not Given .[id number] [facility] Norepinephrine Bitartrate 4 mg 254 mls @ 0 mls/hr 06/28/16 18:15 06/28/16 21: 25 / Sodium Chloride IV 2 mcg/min .Q0M [facility] 7.62 mls/hr Protocol Administration Titrate Lorazepam 1 mg 06/28/16 22:00 06/28/16 22:18 Ativan IV 1 mg Q2HR PRN Administration CIWA 8 or 9 Lorazepam 1 mg 06/28/16 22:00 06/29/16 05:44 Ativan IV 1 mg Q1HR PRN Administration CIWA 10 to 15 Lorazepam 2 mg 06/28/16 22:00 06/29/16 08:09 Ativan IV 2 mg Q1HR PRN Administration CIWA 16 or higher Miscellaneous Information 1 each 06/29/16 03:00 Potassium Per Protocol MISCELLANE DAILY PRN Per Protocol Protocol Naloxone HCl 0.2 mg 06/28/16 18:05 Narcan IV Q2M PRN Opioid Reversal Nitroglycerin 1 inch 06/28/16 18:00 06/29/16 14:54 Nitro-Bid Oint TOPICAL Not Given QID [facility] Pantoprazole Sodium 40 mg 06/29/16 09:00 06/29/16 08:38 Protonix IV 40 mg DAILY [facility] Administration Thiamine HCl 100 mg 06/28/16 17:00 06/29/16 14:54 Vitamin B-1 PO 100 mg BID@1200,1700 [facility] Administration Intake and Output 06/29/16 06/29/16 06/29/16 06:59 14:59 22:59 Intake Total 929.909 771.943 Output Total 2200 616 Balance -1270.091 155.943 Intake: IV 850.0 675 Piperacillin-Tazobactam 3 50.0 .375 gm In Dextrose/Water 1 50ml.bag @ 12.5 mls/hr IVPB Q8H [facility] Rx#: [id number] Sodium Chloride 0.9% 1, 800 675 000 ml @ 75 mls/hr IV . [id number] [facility] Rx#:[id number] Intake, IV Titration 79.909 96.943 Amount Propofol 500 mg In Empty 79.909 96.943 Bag 1 bag @ Titrate IV . Q0M [facility] Rx#:[id number] Output: Urine 2200 616 Other: Voiding Method Indwelling Catheter Weight 75.791 kg 75.791 kg Patient Weight 06/30/16 06:59 Weight 75.791 kg 06/29/16 02:28 06/29/16 09:07
[2016-06-29] MEDS ORDERED: FUROSEMIDE 10 MG/ML 4 ML VIAL IV STA (15:25)
[2016-06-29] MEDS: LEVOFLOXACIN 750MG-D5W PMX 750 MG in DEXTROSE/WATER 1 150ML.BAG IVPB SCH (16:35)
[2016-06-30] MEDS: PROPOFOL 500 MG in EMPTY BAG 1 BAG IV SCH ×8 (00:56→22:05)
[2016-06-30] MEDS: IPRATROPIUM-ALBUTEROL 3 ML NEB INHALATION SCH ×6 (03:03→23:47)
[2016-06-30 04:39] LABS: Anisocytosis Slight; Basophils % (A) 0 %; CH 32.7; CHCM 29.6; Eosinophils % (A) 0 %; HCT 33.7 % (39.0-53.0); HGB 10.1 gm/dL (13.0-17.5); Hypochromasia Marked; Luc # (Auto) 0.19; Luc % (Auto) 1; Lymphocytes # (A) 1.3 k/uL (1.0-4.8); Lymphocytes % (A) 9 %; MCH 33.4 pg (25.0-35.0); MCHC 29.9 g/dL (31.0-37.0); MCV 111.4 fL (80.0-100.0); Macrocytosis Marked; Monocytes # (A) 0.3 k/uL (0-1.0); Monocytes % (A) 2 %; Neutrophils # (A) 13.6 k/uL (1.3-7.7); Neutrophils % (A) 88 %; Poikilocytosis Slight; RBC 3.03 m/uL (4.30-5.90); RDW 17.3 % (11.5-15.5); WBC 15.5 k/uL (3.8-10.6); WBC (Perox) 16.03
[2016-06-30 04:56] LABS: Anion Gap 13 mmol/L; Blood Urea Nitrogen 8 mg/dL (9-20); Calcium 6.9 mg/dL (8.4-10.2); Carbon Dioxide 18 mmol/L (22-30); Chloride 115 mmol/L (98-107); Glucose 127 mg/dL (74-99); Magnesium 2.4 mg/dL (1.6-2.3); Non-African American GFR(MDRD) >60 (>60 ml/min/1.73 sqM); Phosphorous 2.1 mg/dL (2.5-4.5); Potassium 3.5 mmol/L (3.5-5.1); Sodium 146 mmol/L (137-145)
[2016-06-30 05:03] LABS: Manual Review Performed; Polychromasia Present
[2016-06-30] MEDS: PIPERACILLIN-TAZOBACTAM 3.375 GM in DEXTROSE/WATER 1 50ML.BAG IVPB SCH ×3 (05:06→22:02)
[2016-06-30] MEDS ORDERED: SODIUM PHOSPHATE 10 MMOL in SODIUM CHLORIDE 0.9% 250 ML IVPB ONE (05:22)
[2016-06-30] MEDS ORDERED: Phosphorus Replacement Protoco 1 EACH MISC MISCELLANE PRN (05:22)
[2016-06-30] MEDS ORDERED: Potassium Replacement Protocol 1 EACH MISC MISCELLANE PRN (05:25)
[2016-06-30 05:36] LABS: ABG Base Excess -4.4 mmol/L; ABG HCO3 20 mmol/L (21-25); ABG PCO2 32 mmHg (35-45); ABG PO2 104 mmHg (83-108); ABG TCO2 21 mmol/L (19-24)
[2016-06-30] MEDS: HYDROmorphone 1 MG/ML 1 ML SYRINGE IVP PRN ×3 (06:24→22:36)
[2016-06-30] MEDS: POTASSIUM CHLORIDE ORAL LIQUID 40 MEQ/30 ML CUP NG-TUBE SCH ×2 (06:26→07:39)
[2016-06-30] MEDS: SODIUM CHLORIDE 0.9% 1,000 ML IV SCH ×2 (06:34→20:48)
--- NOTE | 2016-06-30 08:16 | XR ---
EXAMINATION TYPE: XR chest 1V portable DATE OF EXAM: 06/30/2016 6:43 AM COMPARISON: 06/29/2016 HISTORY: SOB, Follow Up FINDINGS: Indwelling tubes and catheters are unchanged. Mild improvement in nonspecific scattered infiltrates. Stable appearance of the cardio-mediastinal structures at this time. Pleural effusion unchanged. IMPRESSION: 1. Mild improvement in nonspecific scattered infiltrates.
[2016-06-30] MEDS: CHLORHEXIDINE GLUCONATE 15 ML CUP MUCOUS MEM SCH ×2 (09:36→20:49)
[2016-06-30] MEDS: ASPIRIN 325 MG TAB PO SCH (09:36)
[2016-06-30] MEDS: HYDROCORTISONE SUCCINATE 100 MG/2 ML VIAL IV SCH ×3 (09:36→23:27)
[2016-06-30] MEDS: ENOXAPARIN 40 MG/0.4 ML SYRINGE SQ SCH (09:36)
[2016-06-30] MEDS: PANTOPRAZOLE 40 MG/10 ML VIAL IV SCH (09:37)
[2016-06-30] MEDS: FUROSEMIDE 10 MG/ML 4 ML VIAL IV SCH (09:37)
[2016-06-30] MEDS: NITROGLYCERIN OINT 1 INCH/GM PACKET TOPICAL SCH ×4 (09:37→21:55)
[2016-06-30] MEDS ORDERED: IBUPROFEN ORAL SUSP 100 MG/5 ML CUP PO PRN (10:23)
--- NOTE | 2016-06-30 10:23 | P.PN ---
Subjective Principal diagnosis: Acute hypoxic respiratory failure This is a 30-year-old gentleman with a known history of excessive alcoholism, chronic nicotine addiction, epidermal lytic hyperkeratosis. who was recently discharged home from this hospital on 06/25/2016 after being admitted for generalized weakness, shortness of breath and fatigue. He is found to be excessively hyponatremic with initial sodium level of 118. He was seen and evaluated here by Dr. Cook at that time while he was in the ICU. He presented here again on 06/28/2016 with complaints of increasing shortness of breath, yellow productive sputum, generalized weakness. He did admit to drinking alcohol following his discharge home. He went on to develop acute respiratory failure and was intubated in the emergency room and placed on mechanical ventilator. He is seen today again in follow-up. Current vent settings are assist control of 20 tidal volume 600 FiO2 45% and a PEEP of 8. Morning blood gases reveal a pO2 of 104, pCO2 32, pH 7.40. This is indicative of a mixed acid-base disturbance. Respiratory alkalosis with metabolic acidosis. Non-anion gap metabolic acidosis. Initial lactic acid 3.2 with subsequent results at 1.7. His chest x-ray reveals evidence of bilateral infiltrates. He is febrile at a temp of 102.9 this morning. Sputum, urine and blood cultures are pending. Current white count 15.5. Initial AST 264, ALT 142 and alk phos of 305. This morning's follow-up are pending. We'll utilize Motrin for now until his liver enzymes are improved. He remains sedated on propofol. Objective - Vital Signs Vital signs: Vital Signs Temp 98.1 F 06/30/16 04:00 Pulse 88 06/30/16 08:00 Resp 31 H 06/30/16 08:00 BP 106/56 06/30/16 08:00 Pulse Ox 97 06/30/16 08:00 Intake & Output 06/29/16 06/30/16 06/30/16 18:59 06:59 18:59 Intake Total 9734.515 3533.321 46.263 Output Total 1041 530 Balance 154.337 3991.321 46.263 Weight 75.791 kg 78.7 kg Intake: IV 1225 1037.5 Levofloxacin 750Mg-D5w 100 Pmx 750 mg In Dextrose/ Water 1 150ml.bag @ 100 mls/hr IVPB Q24H [facility] Rx#: [id number] Piperacillin-Tazobactam 3 150 62.5 .375 gm In Dextrose/Water 1 50ml.bag @ 12.5 mls/hr IVPB Q8H [facility] Rx#: [id number] Sodium Chloride 0.9% 1, 975 975 000 ml @ 75 mls/hr IV . [id number] [facility] Rx#:[id number] Intake, IV Titration 146.943 428.821 46.263 Amount Norepinephrine 4 mg In 187.452 Sodium Chloride 0.9% 250 ml @ Titrate IV .Q0M [facility] Rx#:[id number] Propofol 500 mg In Empty 146.943 241.369 46.263 Bag 1 bag @ Titrate IV . Q0M [facility] Rx#:[id number] Tube Feeding 20 390 Other 100 Output: Urine 1041 530 Other: Voiding Method Indwelling Catheter Indwelling Catheter - Exam GENERAL EXAM: Sedated and intubated. HEAD: Normocephalic. EYES: Slightly icteric. Normal reaction of pupils, equal size. NOSE: Clear with pink turbinates. THROAT: Oral endotracheal and gastric tube secured in place. No erythema or exudates. NECK: No masses, no JVD. CHEST: No chest wall deformity. LUNGS: Equal air entry with bilateral rhonchi. CVS: S1 and S2 normal with no audible murmurs, regular rhythm. ABDOMEN: Soft, normal bowel sounds, no guarding or rigidity. SPINE: No scoliosis or deformity SKIN: Changes secondary to epidermalytic hyperkeratosis. Extremities: There is no significant peripheral edema. No clubbing, no cyanosis. Peripheral pulses are intact. - Labs CBC & Chem 7: 06/30/16 04:16 06/30/16 04:16 Labs: Abnormal Lab Results - Last 24 Hours (Table) 06/30/16 06/30/16 06/30/16 Range/Units 04:16 04:16 05:00 WBC 15.5 H (3.8-10.6) k/uL RBC 3.03 L (4.30-5.90) m/uL Hgb 10.1 L (13.0-17.5) gm/dL Hct 33.7 L (39.0-53.0) % MCV 111.4 H (80.0-100.0) fL MCHC 29.9 L (31.0-37.0) g/dL RDW 17.3 H (11.5-15.5) % Neutrophils # 13.6 H (1.3-7.7) k/uL ABG pCO2 32 L (35-45) mmHg ABG HCO3 20 L (21-25) mmol/L ABG O2 Saturation 98.0 H (94-97) % Sodium 146 H (137-145) mmol/L Chloride 115 H (98-107) mmol/L Carbon Dioxide 18 L (22-30) mmol/L BUN 8 L (9-20) mg/dL Creatinine 0.50 L (0.66-1.25) mg/dL Glucose 127 H (74-99) mg/dL Calcium 6.9 L (8.4-10.2) mg/dL Phosphorus 2.1 L (2.5-4.5) mg/dL Magnesium 2.4 H (1.6-2.3) mg/dL Microbiology - Last 24 Hours (Table) 06/28/16 19:55 Gram Stain - Final Sputum Sputum Culture - Final 06/28/16 18:30 Urine Culture - Final Urine,Catheterized Assessment and Plan Plan: Impression: #1 Acute hypoxic respiratory failure secondary to suspected aspiration pneumonia in a patient with a history of alcoholism and recent binge drinking. There is also some concern regarding pulmonary edema with an elevated proBNP level and troponin leak. Echocardiogram is pending. 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 #2 History of alcoholism and recent admission for generalized weakness and fatigue and severe hyponatremia, recovered. #3 Chronic and ongoing excessive alcohol use. #4 Alcoholic hepatitis. #5 Chronic and ongoing tobacco dependence. #6 Epidermolytic hyperkeratosis. Plan: The patient was seen and evaluated by Dr. Camacho. We'll give the patient a daily interruption of sedation and weaning trial. In the interim we'll adjust the vent settings to decrease his tidal time to 420, increase the assist- control rate to 26 he may have 45% FiO2 and we'll decrease the PEEP to 5. We' ll utilize Motrin for his fever until his LFTs are rechecked. We'll request interventional radiology to place a PICC line for IV fluid administration. He is currently on tube feedings at goal at 40 mL per hour. He remains on 0.9 at 100 mL per hour. We'll continue to sedate with propofol. We'll repeat his chest x-ray and blood gases in the morning. We'll observe closely for delirium tremens. [facility] protocols in place. We'll repeat his chest x-ray and ABGs and labs in the a.m. We'll continue to follow and make further recommendations based on his clinical status. Critical care time 42 minutes.
--- NOTE | 2016-06-30 10:32 | ECHOF ---
Referral Reason:Heart Failure MEASUREMENTS -------- HEIGHT: 180.3 cm WEIGHT: 78.5 kg BP: 103/57 RVIDd: 3.1 cm (< 3.3) IVSd: 1.1 cm (0.6 - 1.1) LVIDd: 5.2 cm (3.9 - 5.3) LVPWd: 1.2 cm (0.6 - 1.1) IVSs: 1.6 cm LVIDs: 3.6 cm LVPWs: 1.9 cm LA Diam: 3.8 cm (2.7 - 3.8) Ao Diam: 3.2 cm (2.0 - 3.7) AV Cusp: 2.3 cm (1.5 - 2.6) MV EXCURSION: 25.336 mm (> 18.000) MV EF SLOPE: 158 mm/s (70 - 150) EPSS: 0.9 cm MV E Eliot: 0.95 m/s MV DecT: 257 ms MV A Eliot: 0.65 m/s MV E/A Ratio: 1.47 FINDINGS -------- Sinus rhythm. This was a technically good study. The left ventricular size is normal. There is borderline concentric left ventricular hypertrophy. Overall left ventricular systolic function is normal with, an EF between 55 - 60 %. The right ventricle is normal in size and function. The left atrium is normal in size. The right atrium is normal in size. The aortic valve is trileaflet and appears structurally normal. Normal appearing mitral valve. No mitral regurgitation. The tricuspid valve appears structurally normal. No regurgitation noted The pulmonic valve was not well visualized. The aortic root size is normal. The inferior vena cava is mildly dilated. There is no pericardial effusion. CONCLUSIONS -------- 1. Sinus rhythm. 2. Normal appearing mitral valve. 3. The tricuspid valve appears structurally normal. 4. The pulmonic valve was not well visualized. 5. The aortic root size is normal. 6. The inferior vena cava is mildly dilated. 7. There is no pericardial effusion. 8. This was a technically good study. 9. The left ventricular size is normal. 10. There is borderline concentric left ventricular hypertrophy. 11. Overall left ventricular systolic function is normal with, an EF between 55 - 60 %. 12. The right ventricle is normal in size and function. 13. The left atrium is normal in size. 14. The right atrium is normal in size. 15. The aortic valve is trileaflet and appears structurally normal. CASE ASSISTANT: Louann Palacios RDCS
[2016-06-30] MEDS: LORazepam 2 MG/ML SYRINGE IV PRN ×2 (10:40→21:04)
[2016-06-30] MEDS: THIAMINE 100 MG TAB PO SCH ×2 (12:43→16:34)
[2016-06-30 13:03] LABS: ALT 96 U/L (21-72); AST 131 U/L (17-59); Alkaline Phosphatase 232 U/L (38-126); Anion Gap 12 mmol/L; Blood Urea Nitrogen 8 mg/dL (9-20); Calcium 6.9 mg/dL (8.4-10.2); Carbon Dioxide 18 mmol/L (22-30); Chloride 119 mmol/L (98-107); Glucose 155 mg/dL (74-99); Non-African American GFR(MDRD) >60 (>60 ml/min/1.73 sqM); Potassium 3.9 mmol/L (3.5-5.1); Sodium 149 mmol/L (137-145); Total Bilirubin 11.8 mg/dL (0.2-1.3); Total Protein 5.6 g/dL (6.3-8.2)
[2016-06-30 13:26] LABS: INR 1.2 (<1.1); Prothrombin Time 12.2 sec (9.0-12.0)
[2016-06-30] MEDS ORDERED: ACETAMINOPHEN IV (For NPO) 1,000 MG in EMPTY BAG 1 BAG IVPB PRN (14:34)
[2016-06-30] MEDS ORDERED: POTASSIUM CHLORIDE ORAL LIQUID 40 MEQ/30 ML CUP NG-TUBE SCH (15:00)
[2016-06-30] MEDS: LEVOFLOXACIN 750MG-D5W PMX 750 MG in DEXTROSE/WATER 1 150ML.BAG IVPB SCH (16:37)
--- NOTE | 2016-06-30 19:14 | HP ---
DATE OF ADMISSION: 06/28/2016 CHIEF COMPLAINT: Delirium and fever. HISTORY OF PRESENT ILLNESS: This is another recent admission for this 30-year-old white male alcoholic. He went home several days ago and then came back to the emergency room. He admitted he had been drinking. This time, however, it was felt he was probably septic because he was minimally responsive, and laboratory studies were markedly abnormal. His treatment was started in the emergency room and he was transferred to the ICU. Review of systems unobtainable. It is not known if he was not taking any medications after he left the hospital. He was sent home on: 1. Prednisone 40 mg a day. 2. Calcium. 3. Voltaren topically. 4. Folic acid 1 mg a day. 5. Pantoprazole 40 mg once a day. 6. Thiamine 100 mg 2 a day. 7. Ropinirole 0.25 mg b.i.d. 8. Trazodone 50 mg once a day. Remainder of the history is unchanged or unobtainable. PHYSICAL EXAMINATION: VITAL SIGNS: Blood pressure is 95/40 with a pulse of 80, respirations 34 and he is afebrile. GENERAL: Appeared to be acutely ill. He is lethargic. Skin was not dry. Head, ears, eyes, nose, mouth, and throat were unremarkable. NECK: Neck veins not distended. Chest demonstrated poor sounds bilaterally. Poor breath sounds bilaterally. Cardiac exam demonstrated sinus tachycardia. ABDOMEN: Soft, protuberant and seemed firm. His liver was enlarged. Bowel sounds are heard. EXTREMITIES: Normal except for poor muscle bulk. NEUROLOGICAL: He is extremely lethargic. He was admitted to the hospital with: DIAGNOSES: 1. Probable septicemia. 2. Chronic alcoholism. 3. Cirrhosis. PLAN: 1. Bed rest. 2. ICU management. 3. Consults with radio recorder and infectious disease.
--- NOTE | 2016-06-30 19:59 | PN ---
DATE OF SERVICE: 06/29/2016 CHIEF COMPLAINT: Sepsis, respiratory failure. HISTORY OF PRESENT ILLNESS: The gentleman is about the same. He is intubated and on a ventilator now. REVIEW OF SYSTEMS: Unobtainable. PHYSICAL EXAMINATION: Breath sounds are heard bilaterally. His cardiac exam sounds sinus. Abdomen is soft. There are no masses. IMPRESSION: 1. Septicemia. 2. Respiratory failure. 3. Cirrhosis. 4. Alcoholism. PLAN: No change in program. Follow with Intensive Medicine, Pulmonology and Infectious Disease.
--- NOTE | 2016-06-30 20:13 | PN ---
DATE OF SERVICE: 06/30/2016 CHIEF COMPLAINT: Septicemia. HISTORY OF PRESENT ILLNESS: This patient is just about the same. He is still on a ventilator. There has been no other interval change. PHYSICAL EXAMINATION: CHEST: Clear. CARDIAC: Normal. ABDOMEN: Soft and nontender. IMPRESSION: 1. Sepsis. 2. Respiratory failure. 3. Cirrhosis. 4. Alcoholism. PLAN: Continue supportive care.
[2016-06-30] MEDS ORDERED: FUROSEMIDE 10 MG/ML 2 ML VIAL IV ONE (21:50)
[2016-07-01] MEDS: PROPOFOL 500 MG in EMPTY BAG 1 BAG IV SCH ×4 (00:02→06:00)
[2016-07-01 01:49] LABS: Anion Gap 13 mmol/L; Blood Urea Nitrogen 9 mg/dL (9-20); Calcium 6.6 mg/dL (8.4-10.2); Carbon Dioxide 18 mmol/L (22-30); Chloride 115 mmol/L (98-107); Glucose 177 mg/dL (74-99); Magnesium 2.3 mg/dL (1.6-2.3); Non-African American GFR(MDRD) >60 (>60 ml/min/1.73 sqM); Sodium 146 mmol/L (137-145)
[2016-07-01 01:50] LABS: Potassium 3.8 mmol/L (3.5-5.1)
[2016-07-01] MEDS: IPRATROPIUM-ALBUTEROL 3 ML NEB INHALATION SCH ×5 (03:30→23:33)
[2016-07-01] MEDS: HYDROmorphone 1 MG/ML 1 ML SYRINGE IVP PRN ×3 (04:37→22:55)
[2016-07-01 05:15] LABS: ABG Base Excess -3.8 mmol/L; ABG HCO3 21 mmol/L (21-25); ABG Oxygen Saturation 97.9 % (94-97); ABG PCO2 38 mmHg (35-45); ABG PH 7.36 (7.35-7.45); ABG PO2 107 mmHg (83-108); ABG TCO2 22 mmol/L (19-24)
[2016-07-01 05:20] LABS: Anisocytosis Slight; CH 32.6; CHCM 29.5; HCT 34.2 % (39.0-53.0); HDW 3.44; HGB 10.4 gm/dL (13.0-17.5); Hypochromasia Marked; MCH 33.8 pg (25.0-35.0); MCHC 30.3 g/dL (31.0-37.0); MCV 111.6 fL (80.0-100.0); Macrocytosis Marked; Mean Platelet Volume 6.8; Poikilocytosis Slight; RBC 3.07 m/uL (4.30-5.90); RDW 17.1 % (11.5-15.5); WBC 15.3 k/uL (3.8-10.6); WBC (Perox) 16.52
[2016-07-01 05:25] LABS: ALT 110 U/L (21-72); AST 182 U/L (17-59); Alkaline Phosphatase 217 U/L (38-126); Anion Gap 13 mmol/L; Blood Urea Nitrogen 8 mg/dL (9-20); Calcium 6.7 mg/dL (8.4-10.2); Carbon Dioxide 18 mmol/L (22-30); Chloride 116 mmol/L (98-107); Glucose 188 mg/dL (74-99); Magnesium 2.2 mg/dL (1.6-2.3); Non-African American GFR(MDRD) >60 (>60 ml/min/1.73 sqM); Phosphorous 1.7 mg/dL (2.5-4.5); Potassium 3.3 mmol/L (3.5-5.1); Sodium 147 mmol/L (137-145); Total Bilirubin 11.9 mg/dL (0.2-1.3); Total Protein 5.8 g/dL (6.3-8.2)
[2016-07-01 05:57] LABS: Add Differential Manual Differential
[2016-07-01 05:59] LABS: Manual Review Performed; Nucleated Red Blood Cells 0 /100 WBC (0-0); Total Cells Counted 200
[2016-07-01] MEDS ORDERED: Phosphorus Replacement Protoco 1 EACH MISC MISCELLANE PRN (06:06)
[2016-07-01] MEDS ORDERED: Potassium Replacement Protocol 1 EACH MISC MISCELLANE PRN (06:06)
[2016-07-01] MEDS: PIPERACILLIN-TAZOBACTAM 3.375 GM in DEXTROSE/WATER 1 50ML.BAG IVPB SCH ×3 (06:33→21:53)
[2016-07-01] MEDS ORDERED: POTASSIUM CHLORIDE ORAL LIQUID 40 MEQ/30 ML CUP NG-TUBE SCH (07:00)
--- NOTE | 2016-07-01 08:42 | XR ---
EXAMINATION TYPE: XR chest 1V portable DATE OF EXAM: 07/01/2016 6:38 AM Comparison: 06/30/2016 Clinical History: 30-year-old male Tube placement Findings: ET tube remains satisfactory. NG tube courses below the diaphragm. Heart remains mildly enlarged with continued diffuse patchy airspace opacities. Aeration may be sligh tly worsened at the peripheral left lower lung but improved on the right. Impression: Mild cardiomegaly and continued diffuse bilateral airspace disease with some shifting opacities but o therwise, without significant change.
--- NOTE | 2016-07-01 08:45 | P.PN ---
Subjective 30-year-old male being seen in the intensive care unit. Patient is orally intubated sedated on vent support. Did note the patient did have episodes last evening of junctional rhythm. Currently is in sinus rhythm. Patients being followed by the intensivists for ICU management. Hospital course patient admitted on June 28 to the emergency room with a chief complaint of experiencing shortness of breath with yellow productive sputum generalized weakness. Patient did admit to drinking alcohol following his discharge home. Patient was just discharged from the hospital on June 25 after patient was hospitalized and treated for acute alcoholic hepatitis with severe electrolyte abnormality necessitated a ICU admission was stabilized and transferred to a stepdown unit. Patient was to go to [facility] upon being discharged for treatment of alcoholism dependency patient developed acute hypoxic respiratory failure needed to be urgently intubated in the emergency room and placed on mechanical ventilator. Objective - Vital Signs Vital signs: Vital Signs Temp 98.4 F 07/01/16 08:00 Pulse 102 H 07/01/16 08:05 Resp 26 H 07/01/16 08:00 BP 119/81 07/01/16 08:00 Pulse Ox 100 07/01/16 08:00 Intake & Output 06/30/16 07/01/16 07/01/16 18:59 06:59 18:59 Intake Total 2000.620 2237.292 259.996 Output Total 494 807 79 Balance 9708.527 1575.292 180.996 Weight 76.4 kg 80.737 kg Intake: IV 1050.0 950.0 150 Levofloxacin 750Mg-D5w 150 Pmx 750 mg In Dextrose/ Water 1 150ml.bag @ 100 mls/hr IVPB Q24H [facility] Rx#: [id number] Piperacillin-Tazobactam 3 75.0 50.0 .375 gm In Dextrose/Water 1 50ml.bag @ 12.5 mls/hr IVPB Q8H [facility] Rx#: [id number] Sodium Chloride 0.9% 1, 825 900 150 000 ml @ 75 mls/hr IV . [id number] [facility] Rx#:[id number] Intake, IV Titration 230.620 252.292 9.996 Amount ACETAMINOPHEN IV (For NPO 100 ) 1,000 mg In Empty Bag 1 bag @ 400 mls/hr IVPB Q6HR PRN Rx#:[id number] Propofol 500 mg In Empty 130.620 252.292 9.996 Bag 1 bag @ Titrate IV . Q0M [facility] Rx#:[id number] Tube Feeding 440 635 100 Other 280 400 Output: Urine 494 807 79 Other: Voiding Method Indwelling Catheter Indwelling Catheter - Exam GENERAL APPEARANCE: 30-year-old male patient is sedated on propofol within support VITAL SIGNS: Reviewed HEENT: Head is normocephalic and atraumatic. Pupils are equal and reactive. The nares are patent. Oropharynx is clear without lesions. NECK: Supple without lymphadenopathy. Traches midline. HEART: S1, S2. Regular rate and rhythm. Current monitor sinus rhythm LUNGS: Diminished at the bases upper airways bronchial breath sounds no wheezing noted the FiO2 at 45% keeping a sat greater than 90 ABDOMEN: Soft, nontender, nondistended with good bowel sounds. No peritoneal signs. No palpable organomegaly or masses. Indwelling Conrad catheter in place EXTREMITIES: No pedal edema noted. Radial pedal pulses are 2/4 bilaterally. Skin Changes secondary to epidermalytic hyperkeratosis. - Labs CBC & Chem 7: 07/01/16 04:58 07/01/16 04:58 Labs: Abnormal Lab Results - Last 24 Hours (Table) 06/30/16 06/30/16 07/01/16 Range/Units 12:28 12:35 01:26 WBC (3.8-10.6) k/uL RBC (4.30-5.90) m/uL Hgb (13.0-17.5) gm/dL Hct (39.0-53.0) % MCV (80.0-100.0) fL MCHC (31.0-37.0) g/dL RDW (11.5-15.5) % Neutrophils # (Manual) (1.3-7.7) k/uL PT 12.2 H (9.0-12.0) sec ABG O2 Saturation (94-97) % Sodium 149 H 146 H (137-145) mmol/L Potassium (3.5-5.1) mmol/L Chloride 119 H 115 H (98-107) mmol/L Carbon Dioxide 18 L 18 L (22-30) mmol/L BUN 8 L (9-20) mg/dL Creatinine 0.54 L 0.50 L (0.66-1.25) mg/dL Glucose 155 H 177 H (74-99) mg/dL Calcium 6.9 L 6.6 L (8.4-10.2) mg/dL Phosphorus (2.5-4.5) mg/dL Total Bilirubin 11.8 H (0.2-1.3) mg/dL AST 131 H (17-59) U/L ALT 96 H (21-72) U/L Alkaline Phosphatase 232 H (38-126) U/L Total Protein 5.6 L (6.3-8.2) g/dL Albumin 2.4 L (3.5-5.0) g/dL 07/01/16 07/01/16 07/01/16 Range/Units 04:58 04:58 05:05 WBC 15.3 H (3.8-10.6) k/uL RBC 3.07 L (4.30-5.90) m/uL Hgb 10.4 L (13.0-17.5) gm/dL Hct 34.2 L (39.0-53.0) % MCV 111.6 H (80.0-100.0) fL MCHC 30.3 L (31.0-37.0) g/dL RDW 17.1 H (11.5-15.5) % Neutrophils # (Manual) 13.2 H (1.3-7.7) k/uL PT (9.0-12.0) sec ABG O2 Saturation 97.9 H (94-97) % Sodium 147 H (137-145) mmol/L Potassium 3.3 L (3.5-5.1) mmol/L Chloride 116 H (98-107) mmol/L Carbon Dioxide 18 L (22-30) mmol/L BUN 8 L (9-20) mg/dL Creatinine 0.44 L (0.66-1.25) mg/dL Glucose 188 H (74-99) mg/dL Calcium 6.7 L (8.4-10.2) mg/dL Phosphorus 1.7 L (2.5-4.5) mg/dL Total Bilirubin 11.9 H (0.2-1.3) mg/dL AST 182 H (17-59) U/L ALT 110 H (21-72) U/L Alkaline Phosphatase 217 H (38-126) U/L Total Protein 5.8 L (6.3-8.2) g/dL Albumin 2.6 L (3.5-5.0) g/dL Microbiology - Last 24 Hours (Table) 06/28/16 19:55 Gram Stain - Final Sputum Sputum Culture - Final Assessment and Plan Plan: Impression Present on admission acute hypoxic respiratory failure suspect due to aspiration pneumonia History of chronic alcoholism with recent binge drinking History of alcoholic hepatitis Skin condition with extensive Epidermolytic hyperkeratosis. Chronic and ongoing tobacco dependency Present on admission severe electrolyte abnormality hypo-natremia sodium level 118 the SPECT due to chronic alcoholism Elevated liver enzymes Alcohol related liver injury Present on admission febrile leukocytosis suspect due to aspiration pneumonia bilateral Echocardiogram left contiguous systolic function EF between 55 and 60% done on 06/30/2016 Plan Continue ICU management per tube balancer Vent per pulmonary service Continue current aerosol bronchodilators Continue C protocol for alcohol withdrawal possible impending DTs Continue Solu-Cortef 100 mg IV every 8 Continue with Lasix 40 IV monitor electrolytes CIWA protocol for impending DTs Continue IV Zosyn and Levaquin DVT and GI prophylaxis Further recommendations pending The above dictated assessment and findings were discussed with dr boyd. Impression and the plan of care have been dictated as directed. Colleen Bradley nurse practitioner acting as a scribe for dr boyd
[2016-07-01] MEDS: PANTOPRAZOLE 40 MG/10 ML VIAL IV SCH (09:00)
[2016-07-01] MEDS: FUROSEMIDE 10 MG/ML 4 ML VIAL IV SCH (09:00)
[2016-07-01] MEDS ORDERED: POTASSIUM CHLORIDE 10 MEQ, LIDOCAINE 2% INJ 10 MG in SODIUM CHLORIDE 0.9% 100 ML IV SCH (09:00)
[2016-07-01] MEDS: HYDROCORTISONE SUCCINATE 100 MG/2 ML VIAL IV SCH ×2 (09:00→15:15)
[2016-07-01] MEDS: CHLORHEXIDINE GLUCONATE 15 ML CUP MUCOUS MEM SCH (09:00)
[2016-07-01] MEDS: ASPIRIN 325 MG TAB PO SCH (09:00)
[2016-07-01] MEDS: SODIUM PHOSPHATE 10 MMOL in SODIUM CHLORIDE 0.9% 250 ML IVPB SCH ×2 (09:01→12:20)
[2016-07-01] MEDS: NITROGLYCERIN OINT 1 INCH/GM PACKET TOPICAL SCH (09:01)
--- NOTE | 2016-07-01 09:01 | P.PN ---
Subjective Progress note dated 07/01/2016 The patient's doing well today. His weaning parameters were excellent. His rapid shallow breathing index was down in the 30s and 40s. He is a bit more awake and alert. Sedation is been held. The patient was placed on pressure support and CPAP. His numbers look good and I think he is ready for extubation. On the ventilator, his vent settings include the assist control mode rate of 2610 of I'm 420 FiO2 45% PEEP of 5. His blood gases showed a pO2 of 107 pCO2 of 38 patient 0.36. Currently is on PSV 5 CPAP of 5 and 45%. His IV is a 0.9 at 75 mL an hour he is getting vital HPI 55 with a goal of 65. That will be held in anticipation of extubation. An uneventful night last night. Objective - Vital Signs Vital signs: Vital Signs Temp 98.4 F 07/01/16 08:00 Pulse 102 H 07/01/16 08:05 Resp 26 H 07/01/16 08:00 BP 119/81 07/01/16 08:00 Pulse Ox 100 07/01/16 08:00 Intake & Output 06/30/16 07/01/16 07/01/16 18:59 06:59 18:59 Intake Total 2000.620 2237.292 259.996 Output Total 494 807 79 Balance 2241.838 8463.292 180.996 Weight 76.4 kg 80.737 kg Intake: IV 1050.0 950.0 150 Levofloxacin 750Mg-D5w 150 Pmx 750 mg In Dextrose/ Water 1 150ml.bag @ 100 mls/hr IVPB Q24H [facility] Rx#: [id number] Piperacillin-Tazobactam 3 75.0 50.0 .375 gm In Dextrose/Water 1 50ml.bag @ 12.5 mls/hr IVPB Q8H [facility] Rx#: [id number] Sodium Chloride 0.9% 1, 825 900 150 000 ml @ 75 mls/hr IV . [id number] [facility] Rx#:[id number] Intake, IV Titration 230.620 252.292 9.996 Amount ACETAMINOPHEN IV (For NPO 100 ) 1,000 mg In Empty Bag 1 bag @ 400 mls/hr IVPB Q6HR PRN Rx#:[id number] Propofol 500 mg In Empty 130.620 252.292 9.996 Bag 1 bag @ Titrate IV . Q0M [facility] Rx#:[id number] Tube Feeding 440 635 100 Other 280 400 Output: Urine 494 807 79 Other: Voiding Method Indwelling Catheter Indwelling Catheter - Exam No acute distress, oriented times 2. HEENT examination is grossly unremarkable. Endotracheal tube and NG tube in place. Supple. Full range of motion. Cardiovascular examination reveals regular rhythm rate. Heart rate about 80. S1 and S2 normal. Lungs reveal few scattered rhonchi. No wheezes. No crackles. Abdomen soft bowel sounds are heard. Extremities are intact. - Labs CBC & Chem 7: 07/01/16 04:58 07/01/16 04:58 Labs: Abnormal Lab Results - Last 24 Hours (Table) 06/30/16 06/30/16 07/01/16 Range/Units 12:28 12:35 01:26 WBC (3.8-10.6) k/uL RBC (4.30-5.90) m/uL Hgb (13.0-17.5) gm/dL Hct (39.0-53.0) % MCV (80.0-100.0) fL MCHC (31.0-37.0) g/dL RDW (11.5-15.5) % Neutrophils # (Manual) (1.3-7.7) k/uL PT 12.2 H (9.0-12.0) sec ABG O2 Saturation (94-97) % Sodium 149 H 146 H (137-145) mmol/L Potassium (3.5-5.1) mmol/L Chloride 119 H 115 H (98-107) mmol/L Carbon Dioxide 18 L 18 L (22-30) mmol/L BUN 8 L (9-20) mg/dL Creatinine 0.54 L 0.50 L (0.66-1.25) mg/dL Glucose 155 H 177 H (74-99) mg/dL Calcium 6.9 L 6.6 L (8.4-10.2) mg/dL Phosphorus (2.5-4.5) mg/dL Total Bilirubin 11.8 H (0.2-1.3) mg/dL AST 131 H (17-59) U/L ALT 96 H (21-72) U/L Alkaline Phosphatase 232 H (38-126) U/L Total Protein 5.6 L (6.3-8.2) g/dL Albumin 2.4 L (3.5-5.0) g/dL 07/01/16 07/01/16 07/01/16 Range/Units 04:58 04:58 05:05 WBC 15.3 H (3.8-10.6) k/uL RBC 3.07 L (4.30-5.90) m/uL Hgb 10.4 L (13.0-17.5) gm/dL Hct 34.2 L (39.0-53.0) % MCV 111.6 H (80.0-100.0) fL MCHC 30.3 L (31.0-37.0) g/dL RDW 17.1 H (11.5-15.5) % Neutrophils # (Manual) 13.2 H (1.3-7.7) k/uL PT (9.0-12.0) sec ABG O2 Saturation 97.9 H (94-97) % Sodium 147 H (137-145) mmol/L Potassium 3.3 L (3.5-5.1) mmol/L Chloride 116 H (98-107) mmol/L Carbon Dioxide 18 L (22-30) mmol/L BUN 8 L (9-20) mg/dL Creatinine 0.44 L (0.66-1.25) mg/dL Glucose 188 H (74-99) mg/dL Calcium 6.7 L (8.4-10.2) mg/dL Phosphorus 1.7 L (2.5-4.5) mg/dL Total Bilirubin 11.9 H (0.2-1.3) mg/dL AST 182 H (17-59) U/L ALT 110 H (21-72) U/L Alkaline Phosphatase 217 H (38-126) U/L Total Protein 5.8 L (6.3-8.2) g/dL Albumin 2.6 L (3.5-5.0) g/dL Microbiology - Last 24 Hours (Table) 06/28/16 19:55 Gram Stain - Final Sputum Sputum Culture - Final Assessment and Plan (1) Acute respiratory failure Status: Acute (2) Hepatic failure Status: Acute (3) Alcoholic hepatitis Status: Acute (4) Jaundice Status: Acute (5) Alcohol abuse Status: Chronic (6) Hyperkeratosis of skin Status: Chronic Plan: Plan for 07/01/2016 The patient will be extubated. We'll review his medications labs and x-rays. Additional recommendations suggestions are forthcoming. We'll DC unnecessary medications. We'll follow closely. Prognosis is guarded. Time with Patient: Greater than 30
[2016-07-01] MEDS ORDERED: LIDOCAINE 2% INJ 20 MG/ML (20 ML MDV) ONE (09:24)
[2016-07-01] MEDS ORDERED: LIDOCAINE 2% INJ 20 MG/ML SQ ONE (10:00)
--- NOTE | 2016-07-01 10:35 | XR ---
EXAMINATION TYPE: XR chest 1V portable DATE OF EXAM: 07/01/2016 10:20 AM Comparison: 07/01/2016 Clinical History: 30-year-old male PICC line placement. Findings: ET tube removed. NG tube removed. Right PICC tip is in the upper right atrium. Heart remains mildly e nlarged and patchy and confluent bilateral airspace opacities persist. Impression: 1. Right PICC tip in the upper right atrium. 2. Interval extubation and removal of NG tube. 3. Continued diffuse bilateral airspace disease.
[2016-07-01] MEDS: LORazepam 2 MG/ML SYRINGE IV PRN (12:20)
--- NOTE | 2016-07-01 13:28 | IR ---
EXAMINATION TYPE: IR cvc insert >=5 years DATE OF EXAM: 07/01/2016 10:39 AM COMPARISON: NONE HISTORY: Delirium tremens, extubated, needs intravenous access for therapy FINDINGS: Maximal barrier technique was utilized. The skin overlying the right basilic vein was loca lized with ultrasound and noted to be compressible and patent by ultrasound. An ultrasound image was obtained and submitted on patient's chart. Sterile technique utilized with the ultrasound machine. T he skin overlying was prepped and draped and Lidocaine used for local anesthesia. A skin ronal was ma de with a scalpel. Access was gained to the vein under direct ultrasound guidance with a 21-gauge ne edle and a 0.018 inch wire was advanced. Access site was dilated with a peel-away sheath and the cat heter tailored to length. Catheter advanced centrally and a post procedure chest x-ray verified plac ement with the tip at the cavoatrial junction. Catheter was fixed to the skin with suture and a ster ile dressing placed. Hemostasis achieved and the catheter was aspirated and flushed with sterile nate ine. The patient remained in stable condition. IMPRESSION: STATUS POST ULTRASOUND GUIDED PICC LINE PLACEMENT, READY FOR USE. THIS PROCEDURE WAS PER FORMED BY THE UNDERSIGNED.
--- NOTE | 2016-07-01 13:28 | CDI ---
In responding to this query, please exercise your independent professional judgment. The [facility] Coding Staff and Clinical Documentation Specialists appreciate your assistance in clarifying documentation, maintaining compliance with coding guidelines, accurately documenting patients condition and capturing severity of illness. The fact that a question is asked does not imply that any particular answer is desired or expected. Communication forms are a method of clarifying documentation and are not made part of the Legal Health Record. Thank you in advance for your clarification. Last Revision, April 2015 Phylicia Kay [address] [facility] [place] [address] Documentation Clarification Form Date: 07/01/2016 1:13:00 PM From: Safia Reeves CCS, CCDS Admit Date: 06/28/2016 2:22:00 PM Patient Name: Taj Pacheco Visit Number: [id number] Discharge Date: Dr. Chapo Harkins: 30 yo male presented to [facility] w/SOB. Recent discharge, admitted for severe alcoholism related condition(s). [facility] note addendum: Patient now developed fever & meets septic shock criteria, IV fluid boluses administrated. Per Pulmonary consult/Critical Care: Acute hypoxic respiratory failure w/ history of alcoholism, recent binge drinking & possibility of aspiration pneumonia. Clinical Indicators: VS: T 98.4 - 102.7, P 138, R 30, BP 130/84, PO 92 15L nrb WBC: WBC 20.1, Neut 17.9 Lactic acid: 3.2 Blood cultures: No growth @ 48 hrs, final pending. Treatment: Intubation & admission to ICU, IV fluid bolus, IV Lasix, IV antibiotics: Zosyn, Levaquin; Albuterol INH, IV Morphine, IV Ativan. Consults: Pulmonary/Critical Care, Cardiology In your professional opinion, can you please clarify if these findings signify one of the following conditions, whether the condition is POA, and cause, if known? SIRS, without underlying infectious process Sepsis Severe Sepsis Septic Shock Unable to determine Other, please specify Identify the (suspected) organism Link or clarify if there is associated (due to/with): - Organ failure - Shock Please document in your progress notes and discharge summary in order to capture severity of illness and risk of mortality. Include clinical findings that support your diagnosis. FYI: Press F11 to launch patient chart. Place X here if this finding has no clinical significance, is not applicable or if you are not able to provide any additional documentation. Thank You. LINA
[2016-07-01] MEDS: POTASSIUM CHLORIDE 20 MEQ in WATER FOR INJECTION 1 100ML.BAG IVPB SCH ×5 (14:00→21:53)
[2016-07-01] MEDS: SODIUM CHLORIDE 0.9% 1,000 ML IV SCH ×2 (15:00→21:53)
[2016-07-01] MEDS: THIAMINE 100 MG TAB PO SCH ×2 (15:02→17:24)
[2016-07-01] MEDS: ENOXAPARIN 40 MG/0.4 ML SYRINGE SQ SCH (15:03)
[2016-07-01] MEDS: LEVOFLOXACIN 750MG-D5W PMX 750 MG in DEXTROSE/WATER 1 150ML.BAG IVPB SCH (17:23)
[2016-07-02] MEDS: HYDROCORTISONE SUCCINATE 100 MG/2 ML VIAL IV SCH ×2 (00:23→08:11)
[2016-07-02] MEDS: HYDROmorphone 1 MG/ML 1 ML SYRINGE IVP PRN ×4 (02:42→21:01)
--- NOTE | 2016-07-02 05:14 | PN ---
CHIEF COMPLAINT: Sepsis. HISTORY OF PRESENT ILLNESS: This gentleman is improving to the extent that he has just been extubated. He is slightly responsive. PHYSICAL EXAM: Breath sounds are heard on both sides. Cardiac exam is unremarkable. The abdomen is slightly distended and firm. Bowel sounds are not heard. IMPRESSION: 1. Sepsis. 2. Cirrhosis. 3. Alcoholism. 4. Junctional arrhythmia intermittently. PLAN: Try to progress activity and diet as tolerated. We will continue antibiotics and pulmonary treatments.
[2016-07-02 05:18] LABS: ALT 155 U/L (21-72); AST 384 U/L (17-59); Alkaline Phosphatase 228 U/L (38-126); Anion Gap 9 mmol/L; Blood Urea Nitrogen 10 mg/dL (9-20); Calcium 6.7 mg/dL (8.4-10.2); Carbon Dioxide 28 mmol/L (22-30); Chloride 116 mmol/L (98-107); Glucose 148 mg/dL (74-99); Magnesium 2.3 mg/dL (1.6-2.3); Non-African American GFR(MDRD) >60 (>60 ml/min/1.73 sqM); Phosphorous 2.6 mg/dL (2.5-4.5); Potassium 3.3 mmol/L (3.5-5.1); Sodium 153 mmol/L (137-145); Total Bilirubin 14.2 mg/dL (0.2-1.3); Total Protein 5.6 g/dL (6.3-8.2)
[2016-07-02] MEDS: PIPERACILLIN-TAZOBACTAM 3.375 GM in DEXTROSE/WATER 1 50ML.BAG IVPB SCH ×3 (05:32→21:01)
[2016-07-02] MEDS ORDERED: POTASSIUM CHLORIDE 20 MEQ in WATER FOR INJECTION 1 100ML.BAG IVPB ONE ×2 (05:35→14:00)
[2016-07-02 06:21] LABS: Anisocytosis Slight; Basophils # (A) 0.1 k/uL (0-0.2); Basophils % (A) 0 %; CH 33.1; CHCM 30.9; Eosinophils % (A) 0 %; HCT 33.2 % (39.0-53.0); HGB 10.4 gm/dL (13.0-17.5); Hypochromasia Marked; Luc # (Auto) 0.05; Luc % (Auto) 0; Lymphocytes % (A) 7 %; MCHC 31.4 g/dL (31.0-37.0); MCV 108.2 fL (80.0-100.0); Macrocytosis Marked; Mean Platelet Volume 7.2; Monocytes # (A) 0.4 k/uL (0-1.0); Monocytes % (A) 2 %; Neutrophils # (A) 13.8 k/uL (1.3-7.7); Neutrophils % (A) 90 %; Poikilocytosis Slight; RBC 3.07 m/uL (4.30-5.90); RDW 17.1 % (11.5-15.5); WBC 15.3 k/uL (3.8-10.6); WBC (Perox) 16.32
[2016-07-02] MEDS: IPRATROPIUM-ALBUTEROL 3 ML NEB INHALATION SCH ×4 (07:34→19:54)
[2016-07-02] MEDS: ENOXAPARIN 40 MG/0.4 ML SYRINGE SQ SCH (08:11)
[2016-07-02] MEDS: PANTOPRAZOLE 40 MG/10 ML VIAL IV SCH (08:11)
[2016-07-02] MEDS: ASPIRIN 325 MG TAB PO SCH (08:11)
[2016-07-02] MEDS: FUROSEMIDE 10 MG/ML 4 ML VIAL IV SCH (08:11)
--- NOTE | 2016-07-02 10:32 | P.PN ---
Subjective Progress note dated 07/01/2016 The patient's doing well today. His weaning parameters were excellent. His rapid shallow breathing index was down in the 30s and 40s. He is a bit more awake and alert. Sedation is been held. The patient was placed on pressure support and CPAP. His numbers look good and I think he is ready for extubation. On the ventilator, his vent settings include the assist control mode rate of 2610 of I'm 420 FiO2 45% PEEP of 5. His blood gases showed a pO2 of 107 pCO2 of 38 patient 0.36. Currently is on PSV 5 CPAP of 5 and 45%. His IV is a 0.9 at 75 mL an hour he is getting vital HPI 55 with a goal of 65. That will be held in anticipation of extubation. An uneventful night last night. Progress note dated 07/02/2016 The patient was extubated yesterday. This was on July 01. He is on O2 6 L. He getting an IV appointment for 5 is 75 mL an hour. Doing reasonably well. So lethargic and somnolent. Later date and go out. Does have a trained front of him. Is able take a soft diet according to the nurse. Objective - Vital Signs Vital signs: Vital Signs Temp 98.2 F 07/02/16 08:00 Pulse 103 H 07/02/16 09:00 Resp 36 H 07/02/16 09:00 BP 148/88 07/02/16 09:00 Pulse Ox 97 07/02/16 09:00 Intake & Output 07/01/16 07/02/16 07/02/16 18:59 06:59 18:59 Intake Total 5035.625 7821.0 325.0 Output Total 3274 390 95 Balance -2114.004 810.0 230.0 Weight 73.4 kg Intake: IV 1050.0 1000.0 325.0 Levofloxacin 750Mg-D5w 100 Pmx 750 mg In Dextrose/ Water 1 150ml.bag @ 100 mls/hr IVPB Q24H [facility] Rx#: [id number] Piperacillin-Tazobactam 3 50.0 100.0 25.0 .375 gm In Dextrose/Water 1 50ml.bag @ 12.5 mls/hr IVPB Q8H [facility] Rx#: [id number] Potassium Chloride 20 meq 150 In Water For Injection 1 100ml.bag @ 50 mls/hr IVPB ONCE ONE Rx#: [id number] Sodium Chloride 0.9% 1, 900 900 150 000 ml @ 75 mls/hr IV . [id number] [facility] Rx#:[id number] Intake, IV Titration 9.996 200 Amount Potassium Chloride 20 meq 200 In Water For Injection 1 100ml.bag @ 50 mls/hr IVPB Q2H [facility] Rx#: [id number] Propofol 500 mg In Empty 9.996 Bag 1 bag @ Titrate IV . Q0M [facility] Rx#:[id number] Tube Feeding 100 Output: Urine 3274 390 95 Other: Voiding Method Indwelling Catheter Indwelling Catheter Indwelling Catheter - Exam No acute distress, oriented times 2. HEENT examination is grossly unremarkable. Supple. Full range of motion. Cardiovascular examination reveals regular rhythm rate. Heart rate about 80. S1 and S2 normal. Lungs reveal few scattered rhonchi. No wheezes. No crackles. Abdomen soft bowel sounds are heard. Extremities are intact. - Labs CBC & Chem 7: 07/02/16 04:45 07/02/16 04:45 Labs: Abnormal Lab Results - Last 24 Hours (Table) 07/01/16 07/02/16 07/02/16 Range/Units 12:20 04:45 04:45 WBC 15.3 H (3.8-10.6) k/uL RBC 3.07 L (4.30-5.90) m/uL Hgb 10.4 L (13.0-17.5) gm/dL Hct 33.2 L (39.0-53.0) % MCV 108.2 H (80.0-100.0) fL RDW 17.1 H (11.5-15.5) % Neutrophils # 13.8 H (1.3-7.7) k/uL Sodium 153 H (137-145) mmol/L Potassium 2.3 L* 3.3 L (3.5-5.1) mmol/L Chloride 116 H (98-107) mmol/L Creatinine 0.40 L (0.66-1.25) mg/dL Glucose 148 H (74-99) mg/dL Calcium 6.7 L (8.4-10.2) mg/dL Total Bilirubin 14.2 H (0.2-1.3) mg/dL AST 384 H (17-59) U/L ALT 155 H (21-72) U/L Alkaline Phosphatase 228 H (38-126) U/L Total Protein 5.6 L (6.3-8.2) g/dL Albumin 2.7 L (3.5-5.0) g/dL Assessment and Plan (1) Acute respiratory failure Status: Acute (2) Hepatic failure Status: Acute (3) Alcoholic hepatitis Status: Acute (4) Jaundice Status: Acute (5) Alcohol abuse Status: Chronic (6) Hyperkeratosis of skin Status: Chronic Plan: Plan for 07/01/2016 The patient will be extubated. We'll review his medications labs and x-rays. Additional recommendations suggestions are forthcoming. We'll DC unnecessary medications. We'll follow closely. Prognosis is guarded. Planned for 07/02/2016 The patient's doing well. Was extubated yesterday. Just on O2 6 L. Can be transferred out to the general medical floor with telemetry later today. I did tell the nurse to go ahead and order a swallow evaluation if he has any difficulty swallowing or shows any signs of aspirating. Additional recommendations suggestions forthcoming. Medications are reviewed. Time with Patient: Less than 30
[2016-07-02] MEDS: DEXTROSE 5%-0.9% NACL 1,000 ML IV SCH ×2 (11:47→23:55)
[2016-07-02] MEDS: THIAMINE 100 MG TAB PO SCH ×2 (11:55→16:25)
--- NOTE | 2016-07-02 13:10 | P.PN ---
Subjective 30-year-old male being seen in the intensive care unit this morning. Patient was extubated yesterday morning. Patient is significantly more awake and alert this morning. Sedation has been held. Patient currently is on the 6 L nasal cannula with sats are documented at 98%. This been no new events. The intensivists indicates the patient could be moved out of the intensive care unit to a medical bed when the bed becomes available Objective - Vital Signs Vital signs: Vital Signs Temp 98.2 F 07/02/16 08:00 Pulse 76 07/02/16 11:56 Resp 14 07/02/16 11:00 BP 141/83 07/02/16 11:00 Pulse Ox 98 07/02/16 11:00 Intake & Output 07/01/16 07/02/16 07/02/16 18:59 06:59 18:59 Intake Total 9178.990 8172.0 475 Output Total 3274 390 2565 Balance -2114.004 810.0 -2090 Weight 73.4 kg Intake: IV 1050.0 1000.0 375 Levofloxacin 750Mg-D5w 100 Pmx 750 mg In Dextrose/ Water 1 150ml.bag @ 100 mls/hr IVPB Q24H [facility] Rx#: [id number] Piperacillin-Tazobactam 3 50.0 100.0 .375 gm In Dextrose/Water 1 50ml.bag @ 12.5 mls/hr IVPB Q8H [facility] Rx#: [id number] Potassium Chloride 20 meq 150 In Water For Injection 1 100ml.bag @ 50 mls/hr IVPB ONCE ONE Rx#: [id number] Sodium Chloride 0.9% 1, 900 900 225 000 ml @ 75 mls/hr IV . [id number] [facility] Rx#:[id number] Intake, IV Titration 9.996 200 100 Amount Dextrose 5%-0.9% NaCl 1, 100 000 ml @ 100 mls/hr IV . Q10H [facility] Rx#:[id number] Potassium Chloride 20 meq 200 In Water For Injection 1 100ml.bag @ 50 mls/hr IVPB Q2H [facility] Rx#: [id number] Propofol 500 mg In Empty 9.996 Bag 1 bag @ Titrate IV . Q0M [facility] Rx#:[id number] Tube Feeding 100 Output: Urine 3274 390 2565 Other: Voiding Method Indwelling Catheter Indwelling Catheter Indwelling Catheter - Exam Physical exam 30-year-old male sitting up in bed awake and is alert oriented to place and person no recall of event pleasant and cooperative Lungs diminished at the bases otherwise adequate air movement Heart S1-S2 audible and regular monitor sinus the rates in the 80s Abdomen soft indwelling Conrad catheter in place no reports of nausea vomiting reportedly is tolerating the diet no stool Extremities no edema noted - Labs CBC & Chem 7: 07/02/16 04:45 07/02/16 04:45 Labs: Abnormal Lab Results - Last 24 Hours (Table) 07/02/16 07/02/16 Range/Units 04:45 04:45 WBC 15.3 H (3.8-10.6) k/uL RBC 3.07 L (4.30-5.90) m/uL Hgb 10.4 L (13.0-17.5) gm/dL Hct 33.2 L (39.0-53.0) % MCV 108.2 H (80.0-100.0) fL RDW 17.1 H (11.5-15.5) % Neutrophils # 13.8 H (1.3-7.7) k/uL Sodium 153 H (137-145) mmol/L Potassium 3.3 L (3.5-5.1) mmol/L Chloride 116 H (98-107) mmol/L Creatinine 0.40 L (0.66-1.25) mg/dL Glucose 148 H (74-99) mg/dL Calcium 6.7 L (8.4-10.2) mg/dL Total Bilirubin 14.2 H (0.2-1.3) mg/dL AST 384 H (17-59) U/L ALT 155 H (21-72) U/L Alkaline Phosphatase 228 H (38-126) U/L Total Protein 5.6 L (6.3-8.2) g/dL Albumin 2.7 L (3.5-5.0) g/dL Assessment and Plan Plan: Impression Present on admission acute hypoxic respiratory failure suspect due to aspiration pneumonia History of chronic alcoholism with recent binge drinking History of alcoholic hepatitis Skin condition with extensive Epidermolytic hyperkeratosis. Chronic and ongoing tobacco dependency Present on admission severe electrolyte abnormality hypo-natremia sodium level 118 the suspect due to chronic alcoholism Elevated liver enzymes Alcohol related liver injury Present on admission febrile leukocytosis encephalopathy sepsis suspect due to aspiration pneumonia bilateral Echocardiogram left contiguous systolic function EF between 55 and 60% done on 06/30/2016 Present on admission acute toxic encephalopathy Plan Titrate the O2 down keep the sats greater than 90% Agree with transferring the patient to a medical floor Continue current aerosol bronchodilators Cortef 10 mg at bedtime and 20 mg in the morning Continue with Lasix 40 IV monitor electrolytes CIWA protocol for impending DTs Continue IV Zosyn and Levaquin DVT and GI prophylaxis PT OT eval Consult psych service with recommendations Further recommendations pending The above dictated assessment and findings were discussed with dr boyd. Impression and the plan of care have been dictated as directed. Colleen Bradley nurse practitioner acting as a scribe for dr boyd
[2016-07-02] MEDS ORDERED: Potassium Replacement Protocol 1 EACH MISC MISCELLANE PRN (13:24)
[2016-07-02 14:11] VITALS: BMI 22.6
[2016-07-02] MEDS ORDERED: LEVOFLOXACIN 500 MG TAB PO SCH (16:00)
[2016-07-02 17:50] LABS: Glucose,Whole Blood 245 mg/dL (75-99)
[2016-07-02] MEDS ORDERED: POTASSIUM CHLORIDE ER 20 MEQ TAB.ER PO STA (18:17)
[2016-07-02] MEDS ORDERED: IPRATROPIUM-ALBUTEROL 3 ML NEB INHALATION PRN (19:56)
[2016-07-03] MEDS ORDERED: POTASSIUM CHLORIDE 10 MEQ, LIDOCAINE 2% INJ 10 MG in SODIUM CHLORIDE 0.9% 100 ML IVPB SCH ×2 (02:00→08:00)
[2016-07-03 04:38] LABS: ALT 187 U/L (21-72); AST 485 U/L (17-59); Alkaline Phosphatase 259 U/L (38-126); Anion Gap 11 mmol/L; Blood Urea Nitrogen 6 mg/dL (9-20); Calcium 6.6 mg/dL (8.4-10.2); Carbon Dioxide 27 mmol/L (22-30); Chloride 108 mmol/L (98-107); Glucose 89 mg/dL (74-99); Non-African American GFR(MDRD) >60 (>60 ml/min/1.73 sqM); Sodium 146 mmol/L (137-145); Total Protein 5.3 g/dL (6.3-8.2)
[2016-07-03 04:54] LABS: Anisocytosis Slight; CH 33.8; CHCM 32.6; HCT 31.2 % (39.0-53.0); HDW 3.59; HGB 10.2 gm/dL (13.0-17.5); Hypochromasia Slight; Immature Gran Flag Moderate; MCH 34.2 pg (25.0-35.0); MCHC 32.7 g/dL (31.0-37.0); MCV 104.6 fL (80.0-100.0); Macrocytosis Moderate; Mean Platelet Volume 7.5; Poikilocytosis Slight; RBC 2.98 m/uL (4.30-5.90); RDW 17.6 % (11.5-15.5); WBC 16.1 k/uL (3.8-10.6); WBC (Perox) 17.21
[2016-07-03 04:54] LABS: Phosphorous 0.7 mg/dL (2.5-4.5); Potassium 2.6 mmol/L (3.5-5.1)
[2016-07-03 04:55] LABS: Total Bilirubin 16.3 mg/dL (0.2-1.3)
[2016-07-03] MEDS: POTASSIUM CHLORIDE ER 20 MEQ TAB.ER PO SCH ×5 (05:28→12:03)
[2016-07-03 05:40] LABS: Add Differential Manual Differential
[2016-07-03 05:41] LABS: Manual Review Performed; Nucleated Red Blood Cells 0 /100 WBC (0-0); Total Cells Counted 100
[2016-07-03] MEDS ORDERED: POTASSIUM CHLORIDE 20 MEQ, LIDOCAINE 2% INJ 20 MG in SODIUM CHLORIDE 0.9% 100 ML IVPB ONE ×4 (06:00)
[2016-07-03] MEDS ORDERED: PANTOPRAZOLE 40 MG TABLET PO SCH ×2 (07:30)
[2016-07-03] MEDS: PIPERACILLIN-TAZOBACTAM 3.375 GM in DEXTROSE/WATER 1 50ML.BAG IVPB SCH (07:36)
[2016-07-03] MEDS: ASPIRIN 325 MG TAB PO SCH (07:41)
[2016-07-03] MEDS: ENOXAPARIN 40 MG/0.4 ML SYRINGE SQ SCH (07:42)
[2016-07-03] MEDS: POTASSIUM PHOSPHATE 10 MMOL in SODIUM CHLORIDE 0.9% 100 ML IV SCH ×3 (07:55→11:48)
[2016-07-03] MEDS ORDERED: HYDROCORTISONE 20 MG TAB PO SCH (09:00)
--- NOTE | 2016-07-03 10:03 | P.CONS ---
History of Present Illness - Reason for Consult Consult date: 07/03/16 Alcohol hepatitis jaundice Requesting physician: Chapo Harkins - History of Present Illness 30-year-old male with a history of epidermalytic hyperkeratosis skin, nicotine cigarette dependency, GERD, and EtOH abuse recently hospitalized 2 weeks ago with acute alcohol hepatitis and electrolyte abnormalities. He was placed on prednisone 40 mg daily with improvement of hepatitis. Discharged 06/25/2016 and readmitted 06/28/2016 with dyspnea acute respiratory failure and worsening jaundice. Hepatitis panel negative. Extubated 2 days ago. Recent ultrasound abdomen reported hepatomegaly 22.4 cm. Patient was supposed to go to [place] but did not show up and subsequently started consuming alcohol. Discharge total bilirubin on 06/25/2016 was 12.2. AST 416. ALT 169. Alkaline phosphates 329. Total bilirubin 06/28/2016 was 17.6. AST 264. ALT 142. Alkaline phosphates 304. No reports of hematemesis, hematochezia, or melena. Review of Systems Constitutional: Denies fever, chills, sweats, weight gain, or loss. HEENT: Negative for migraines, blurred vision or loss, earaches, drainage, tinnitus, oral mucosal lesions, dysphagia, or odynophagia. Cardiac: Negative for chest pain, arrhythmias, or palpitation. Respiratory: Nicotine cigarette dependency. Dyspnea. Gastrointestinal: See HPI for pertinent findings. Genitourinary: Negative for hematuria, urgency, frequency, polyuria, dysuria, or penile discharge. Musculoskeletal: Negative for muscle aches, swelling, arthritis, and arthralgias. Neurologic: Negative for stroke or TIA. Endocrine: Negative for thyroid problems. Skin: Epidermallytic hyperkeratosis. Psychiatric: Negative history for depression and anxiety All systems: negative (See HPI) Past Medical History Past Medical History: GERD/Reflux, Liver Disease, Skin Disorder Additional Past Medical History / Comment(s): EPIDERMALYTIC HYPERKERATOSIS, ALCOHOL, smoker History of Any Multi-Drug Resistant Organisms: None Reported Past Surgical History: No Surgical Hx Reported Past Anesthesia/Blood Transfusion Reactions: No Reported Reaction Past Psychological History: No Psychological Hx Reported Smoking Status: Current every day smoker Past Alcohol Use History: Daily, Heavy Additional Past Alcohol Use History / Comment(s): STARTED SMOKING AT AGE 20, 1/2 -1 PPD-STATED HAS'NT SMOKED IN PAST WEEK D/T NOT FEELING WELL. PT STATED DRINKS DAILY 1.5 [employer]S [employer] Past Drug Use History: None Reported - Past Family History Father Family Medical History: Unable to Obtain Additional Family Medical History / Comment(s): RAISED BY STEP FATHER Mother Family Medical History: No Reported History Medications and Allergies Home Medications Medication Instructions Recorded Confirmed Type Iukfs-Jod-Emiv 278-164-250 mg 1 packet PO TID 06/28/16 06/28/16 History [Neutra-Phos Packet] Allergies Allergy/AdvReac Type Severity Reaction Status Date / Time No Known Allergies Allergy Verified 06/28/16 13:00 Physical Exam Vitals: Vital Signs Temp Pulse Pulse Resp BP BP Pulse Ox 07/03/16 08:24 92 L 07/03/16 07:00 98.2 F 120 H 30 H 166/95 88 L 07/02/16 22:32 98.2 F 78 16 126/78 99 07/02/16 16:21 71 07/02/16 16:08 70 07/02/16 16:00 98.3 F 71 11 L 116/59 98 07/02/16 15:53 13 07/02/16 15:00 74 13 141/85 98 07/02/16 14:00 76 32 H 133/82 93 L 07/02/16 13:00 99 22 141/79 95 07/02/16 12:00 98.3 F 85 22 142/85 96 07/02/16 11:56 76 07/02/16 11:46 77 07/02/16 11:00 64 14 141/83 98 07/02/16 10:00 79 31 H 153/87 97 Intake and Output 07/02/16 07/03/16 07/03/16 22:59 06:59 14:59 Intake Total 765.0 1050 Output Total 180 Balance 585.0 1050 Intake: IV 75.0 150 Piperacillin-Tazobactam 3 25.0 50 .375 gm In Dextrose/Water 1 50ml.bag @ 12.5 mls/hr IVPB Q8H [facility] Rx#: [id number] Potassium Chloride 20 meq 50 100 In Water For Injection 1 100ml.bag @ 50 mls/hr IVPB ONCE ONE Rx#: [id number] Intake, IV Titration 100 900 Amount Dextrose 5%-0.9% NaCl 1, 100 800 000 ml @ 100 mls/hr IV . Q10H [facility] Rx#:[id number] Potassium Phosphate 10 100 mmol In Sodium Chloride 0 .9% 100 ml @ 50 mls/hr IV Q2H [facility] Rx#:[id number] Oral 590 Output: Urine 180 Other: Voiding Method Indwelling Catheter Bedside Commode Incontinent # Voids 1 4 # Bowel Movements 1 2 Weight 79 kg General appearance: The patient is alert, increased respiratory rate. Visibly jaundiced with generalized hyperkeratosis of the skin all extremities and face. HET: Head is normocephalic and atraumatic. Pupils are equal and reactive, icteric. Oropharynx is clear without lesions. Neck: Supple without lymphadenopathy. Trachea midline. Heart: S1 S2. Regular rate and rhythm. Lungs: Diminished in bases bilaterally. Increased respiratory rate. Abdomen: Soft, nontender, mildly bloated with no appreciable large ascites with bowel sounds. No peritoneal signs. No palpable organomegaly or masses. Extremities: Erythematous bilateral elbows multiple skin tears and all extremities. No evidence of asterixis. Neurological: No focal deficits. Strength and sensation are grossly intact. Results CBC & Chem 7: 07/03/16 04:38 07/03/16 04:18 Labs: Abnormal Lab Results - Last 24 Hours (Table) 07/02/16 07/02/16 07/02/16 Range/Units 11:48 17:48 17:55 WBC (3.8-10.6) k/uL RBC (4.30-5.90) m/uL Hgb (13.0-17.5) gm/dL Hct (39.0-53.0) % MCV (80.0-100.0) fL RDW (11.5-15.5) % Neutrophils # (Manual) (1.3-7.7) k/uL Sodium (137-145) mmol/L Potassium 2.4 L* 2.5 L* (3.5-5.1) mmol/L Chloride (98-107) mmol/L BUN (9-20) mg/dL Creatinine (0.66-1.25) mg/dL POC Glucose (mg/dL) 245 H (75-99) mg/dL Calcium (8.4-10.2) mg/dL Phosphorus (2.5-4.5) mg/dL Total Bilirubin (0.2-1.3) mg/dL AST (17-59) U/L ALT (21-72) U/L Alkaline Phosphatase (38-126) U/L Total Protein (6.3-8.2) g/dL Albumin (3.5-5.0) g/dL 07/02/16 07/03/16 07/03/16 Range/Units 22:52 04:18 04:38 WBC 16.1 H (3.8-10.6) k/uL RBC 2.98 L (4.30-5.90) m/uL Hgb 10.2 L (13.0-17.5) gm/dL Hct 31.2 L (39.0-53.0) % MCV 104.6 H (80.0-100.0) fL RDW 17.6 H (11.5-15.5) % Neutrophils # (Manual) 13.7 H (1.3-7.7) k/uL Sodium 146 H (137-145) mmol/L Potassium 2.5 L* 2.6 L* (3.5-5.1) mmol/L Chloride 108 H (98-107) mmol/L BUN 6 L (9-20) mg/dL Creatinine 0.40 L (0.66-1.25) mg/dL POC Glucose (mg/dL) (75-99) mg/dL Calcium 6.6 L (8.4-10.2) mg/dL Phosphorus 0.7 L* (2.5-4.5) mg/dL Total Bilirubin 16.3 H* (0.2-1.3) mg/dL AST 485 H (17-59) U/L ALT 187 H (21-72) U/L Alkaline Phosphatase 259 H (38-126) U/L Total Protein 5.3 L (6.3-8.2) g/dL Albumin 2.5 L (3.5-5.0) g/dL Assessment and Plan (1) Acute alcoholic hepatitis Status: Acute (2) ETOH abuse Status: Acute (3) Dyspnea Status: Acute (4) Hepatomegaly Status: Chronic (5) Hyperkeratosis of skin Status: Chronic (6) Hypophosphatemia Status: Acute (7) Hypernatremia Status: Acute (8) Cigarette nicotine dependence Status: Chronic Plan: 1. We'll check ammonia level if within normal limits we'll start Prednisone 40 mg daily. 2. Supportive measures. GI prophylaxis. Alcohol abstinence strongly advised. 3. We'll follow with you. Thank you for this kind referral and the opportunity to participate in the care of your patient. This consultation was discussed with Dr. Mcelroy. The impression and plan of care have been directed as dictated.
[2016-07-03] MEDS ORDERED: CALCIUM GLUCONATE 1,000 MG in SODIUM CHLORIDE 0.9% 100 ML IVPB ONE (10:12)
[2016-07-03] MEDS ORDERED: DEXTROSE 5%-0.45% NACL 1,000 ML IV SCH (10:15)
[2016-07-03 10:45] LABS: ABG Base Excess 2.7 mmol/L; ABG HCO3 25 mmol/L (21-25); ABG PCO2 29 mmHg (35-45); ABG PH 7.55 (7.35-7.45); ABG PO2 64 mmHg (83-108); ABG TCO2 26 mmol/L (19-24)
--- NOTE | 2016-07-03 10:50 | XR ---
EXAMINATION TYPE: XR chest 1V portable DATE OF EXAM: 07/03/2016 10:46 AM COMPARISON: 07/01/2016 INDICATION: Short of breath TECHNIQUE: Single frontal view of the chest is obtained. FINDINGS: Heart size may be at the upper limits of normal. Pulmonary vasculature is indistinct. There is diffus e increased lung markings bilaterally. Findings are worsening. PICC line enters on the right with the tip in the proximal right atrium. EKG leads overlie the chest. IMPRESSION: 1. Worsening diffuse increased lung markings. Correlate for pulmonary edema, consider ARDS within the differential.
--- NOTE | 2016-07-03 10:57 | P.NPCON ---
History of Present Illness - Reason for Consult acute renal failure - History of Present Illness Reason for consultation: Electrolyte imbalance History of present illness: Patient is a 30 year male seen in renal consultation for electrolyte imbalance. Patient was recently admitted earlier this month with alcohol abuse and had electrolyte imbalance at that time. 2 he was subsequently discharged but is unclear if he was compliant with his medications are not. He presented to the hospital with dyspnea. He was intubated and sedated in the intensive care unit and has now been transferred out of the intensive care unit. At the time of evaluation patient's resting in bed. He appears quite tachypneic. He is not a reliable historian at this time. He is extremely hypokalemic with a potassium level of 2.6 as well as hypophosphatemic with a phosphorus level of 0.7. He is noted to have alcoholic hepatitis and his bilirubin level is elevated at 16.3 along with elevated liver function tests as well. His GFR is at baseline. He is currently being treated for aspiration pneumonia as well. He was maintained on Lasix initially but is held since yesterday. Vital signs are stable. General: The patient appeared well nourished and normally developed. HEENT: Head exam is unremarkable. Neck is without jugular venous distension. LUNGS: Lungs are clear to auscultation and percussion. Breath sounds decreased. HEART: Rate and Rhythm are regular. First and second heart sounds normal. No murmurs, rubs or gallops. ABDOMEN: Abdominal exam reveals normal bowel sounds. Non-tender and non- distended. No evidence of peritonitis. EXTREMITITES: No clubbing, cyanosis, or edema. Past Medical History Past Medical History: GERD/Reflux, Liver Disease, Skin Disorder Additional Past Medical History / Comment(s): EPIDERMALYTIC HYPERKERATOSIS, ALCOHOL, smoker History of Any Multi-Drug Resistant Organisms: None Reported Past Surgical History: No Surgical Hx Reported Past Anesthesia/Blood Transfusion Reactions: No Reported Reaction Past Psychological History: No Psychological Hx Reported Smoking Status: Current every day smoker Past Alcohol Use History: Daily, Heavy Additional Past Alcohol Use History / Comment(s): STARTED SMOKING AT AGE 20, 1/2 -1 PPD-STATED HAS'NT SMOKED IN PAST WEEK D/T NOT FEELING WELL. PT STATED DRINKS DAILY 1.5 FIF[employer]S [employer] Past Drug Use History: None Reported - Past Family History Father Family Medical History: Unable to Obtain Additional Family Medical History / Comment(s): RAISED BY STEP FATHER Mother Family Medical History: No Reported History Medications and Allergies Home Medications Medication Instructions Recorded Confirmed Type Xtxgk-Uqf-Sbid 278-164-250 mg 1 packet PO TID 06/28/16 06/28/16 History [Neutra-Phos Packet] Allergies Allergy/AdvReac Type Severity Reaction Status Date / Time No Known Allergies Allergy Verified 06/28/16 13:00 Physical Exam Vitals: Vital Signs Temp Pulse Pulse Resp BP BP Pulse Ox 07/03/16 08:24 92 L 07/03/16 07:00 98.2 F 120 H 30 H 166/95 88 L 07/02/16 22:32 98.2 F 78 16 126/78 99 07/02/16 16:21 71 07/02/16 16:08 70 07/02/16 16:00 98.3 F 71 11 L 116/59 98 07/02/16 15:53 13 07/02/16 15:00 74 13 141/85 98 07/02/16 14:00 76 32 H 133/82 93 L 07/02/16 13:00 99 22 141/79 95 07/02/16 12:00 98.3 F 85 22 142/85 96 07/02/16 11:56 76 07/02/16 11:46 77 07/02/16 11:00 64 14 141/83 98 Intake and Output 07/02/16 07/03/16 07/03/16 22:59 06:59 14:59 Intake Total 765.0 1050 Output Total 180 Balance 585.0 1050 Intake: IV 75.0 150 Piperacillin-Tazobactam 3 25.0 50 .375 gm In Dextrose/Water 1 50ml.bag @ 12.5 mls/hr IVPB Q8H [facility] Rx#: [id number] Potassium Chloride 20 meq 50 100 In Water For Injection 1 100ml.bag @ 50 mls/hr IVPB ONCE ONE Rx#: [id number] Intake, IV Titration 100 900 Amount Dextrose 5%-0.9% NaCl 1, 100 800 000 ml @ 100 mls/hr IV . Q10H [facility] Rx#:[id number] Potassium Phosphate 10 100 mmol In Sodium Chloride 0 .9% 100 ml @ 50 mls/hr IV Q2H [facility] Rx#:[id number] Oral 590 Output: Urine 180 Other: Voiding Method Indwelling Catheter Bedside Commode Incontinent # Voids 1 4 # Bowel Movements 1 2 Weight 79 kg Results - Lab Results Most recent lab results ABG pH 7.55 (7.35-7.45) H 07/03/16 10:25 ABG pCO2 29 mmHg (35-45) L 07/03/16 10:25 ABG pO2 64 mmHg (83-108) L 07/03/16 10:25 ABG HCO3 25 mmol/L (21-25) 07/03/16 10:25 ABG O2 Saturation 95.0 % (94-97) 07/03/16 10:25 Calcium 6.6 mg/dL (8.4-10.2) L 07/03/16 04:18 Phosphorus 0.7 mg/dL (2.5-4.5) L* 07/03/16 04:18 Magnesium 2.0 mg/dL (1.6-2.3) 07/03/16 04:18 07/03/16 04:38 07/03/16 04:18 Assessment and Plan Plan: Assessment: #1. Hypokalemia secondary to diuresis and poor nutritional status. Magnesium and replete. #2. Hypophosphatemia again secondary to poor nutritional status as well as diuresis. #3. Acute hypoxic respiratory failure secondary to pneumonia. #4. Hypovolemic hypernatremia. Sodium level improved to 146 today. #5. Aspiration pneumonia. #6. History of alcohol abuse. #7. Alcoholic hepatitis. On: Replace potassium and phosphorus aggressively. His worsening respiratory status can very well be related to hypophosphatemia causing diaphragmatic weakness. He is receiving IV potassium phosphate as well as oral and IV potassium supplementation in addition. I will change the IV fluids to half-normal saline to be run at 100 mL an hour. Repeat electrolytes in the evening. Thank you for the consultation. I will continue to follow the patient with you during his hospital stay.
[2016-07-03 11:29] LABS: INR 1.4 (<1.1); Prothrombin Time 13.3 sec (9.0-12.0)
[2016-07-03 11:34] LABS: Glucose,Whole Blood 107 mg/dL (75-99)
[2016-07-03] MEDS: DEXTROSE 5%-0.9% NACL 1,000 ML IV SCH (11:55)
[2016-07-03 12:55] VITALS: BP 128/76; PULSE 90; RESP 27; TEMP 97.7
--- NOTE | 2016-07-03 13:16 | P.DS ---
Providers Date of admission: 06/28/16 14:22 Expected date of discharge: 07/03/16 Attending physician: Chapo Harkins Consults: 07/02/16 13:10 Consult Physician Stat Consulting Provider: Paul Xavier Consult Reason/Comments: Psych eval Do you want consulting provider notified?: Yes 07/03/16 08:24 Consult Physician Stat Consulting Provider: Alverto Mcelroy Consult Reason/Comments: elveated bilirubia jaundice Do you want consulting provider notified?: Yes 07/03/16 09:00 Consult Physician Stat Consulting Provider: Ron Weber Consult Reason/Comments: High sodium Do you want consulting provider notified?: Yes Primary care physician: Stated None Hospital Course: Hospital course patient admitted on June 28 to the emergency room with a chief complaint of experiencing shortness of breath with yellow productive sputum generalized weakness. Patient did admit to drinking alcohol following his discharge home. Patient was just discharged from the hospital on June 25 after patient was hospitalized and treated for acute alcoholic hepatitis with severe electrolyte abnormality necessitated a ICU admission was stabilized and transferred to a stepdown unit. Patient was to go to [facility] upon being discharged for treatment of alcoholism dependency patient apparently went home and drank alcohol started binge drinking patient developed acute hypoxic respiratory failure needed to be urgently intubated in the emergency room and placed on mechanical ventilator. Patient was followed by pulmonology in an [facility]. Patient was extubated on July 01. Was transferred on the to a stepdown unit patient on the was extremely hypokalemic with potassium of 2.6 as well as hypophosphatemic phosphorus level was 0.7. Patient also had evidence of elevated liver enzymes, and history of epidermoid lytic hyperkeratosis the total bilirubin level this morning was elevated at 16.3 up from 11.9 the ammonia level elevated at 57 patient was increasingly more tender arousable to verbal stimuli only tachycardic and tachypneic oxygen needed to be titrated up to keep a sat greater than 90. Overall prognosis guarded electrolytes were corrected. A decision was made to transfer the patient to a tertiary center higher level of care for management of patient's acute alcoholic hepatitis with severe electrolyte abnormalites Patient since admission has been on IV Zosyn as well as IV Levaquin for treatment of the sepsis bilateral pneumonia Patient's mother Mega Arroyo was notified by phone conversation and updated on plan of care with the plan to be transferred to [facility] in [place] patient 's mother did agree. Patient was confused and oriented to self only Impression Present on admission acute hypoxic respiratory failure suspect due to aspiration pneumonia requiring vent support History of chronic alcoholism with recent binge drinking History of alcoholic hepatitis Skin condition with extensive Epidermolytic hyperkeratosis. Chronic and ongoing active tobacco dependency Present on admission severe electrolyte abnormality hypo-natremia sodium level 118 the suspect due to chronic alcoholism persist Elevated liver enzymes Alcohol related liver injury Present on admission febrile leukocytosis encephalopathy sepsis suspect due to aspiration pneumonia bilateral Echocardiogram left contiguous systolic function EF between 55 and 60% done on 06/30/2016 Present on admission acute toxic encephalopathy Severe electrolyte hypophosphorous and hypokalemic Leukocytosis persists The above dictated assessment and findings were discussed with dr harkins . Impression and the plan of care have been dictated as directed. Colleen Bradley nurse practitioner acting as a scribe for chandra Patient Condition at Discharge: Critical Plan - Discharge Summary Discharge Medication List predniSONE 40 mg PO DAILY #56 tab 06/24/16 [Rx] Calcitriol [Rocaltrol] 0.25 mcg PO DAILY #30 cap 06/25/16 [Rx] Calcium Carbonate [Tums] 1,000 mg PO BID #60 chew 06/25/16 [Rx] Diclofenac Sodium Gel [Voltaren Gel] 2 gm TOPICAL QID #100 tube 06/25/16 [Rx] Folic Acid 1 mg PO DAILY@1200 #30 tab 06/25/16 [Rx] Pantoprazole [Protonix] 40 mg PO AC-BRKFST #30 tablet. 06/25/16 [Rx] Thiamine [Vitamin B-1] 100 mg PO DAILY@1200 #30 tab 06/25/16 [Rx] rOPINIRole HCL [Requip] 0.25 mg PO BID #60 tab 06/25/16 [Rx] traZODone HCL [Desyrel] 50 mg PO HS #30 tab 06/25/16 [Rx] Ywreu-Eei-Sdvu 278-164-250 mg [Neutra-Phos Packet] 1 packet PO TID 06/28/16 [ History] Levofloxacin [Levaquin] 500 mg PO Q24H tab 07/03/16 [Rx] Follow up Appointment(s)/Referral(s): None,Stated [Primary Care Provider] - 1-2 days Chapo Harkins MD [STAFF PHYSICIAN] - 1 Week Discharge Disposition: DC/[facility] INTERMEDIATE CARE FAC
--- NOTE | 2016-07-03 19:47 | PN ---
DATE OF SERVICE: 07/02/2016 CHIEF COMPLAINT: Sepsis, respiratory failure and hepatic failure. This gentleman continues to have difficulty. Liver enzymes are climbing and he remains quite lethargic. PHYSICAL EXAMINATION: Breath sounds are heard on both sides. Cardiac is unremarkable. The abdomen is soft and there is a moderate amount of ascites. Bowel sounds are absent. IMPRESSION: 1. Septicemia. 2. Cirrhosis. 3. Hepatic failure. PLAN: Continue supportive care. Await recommendations of GI.
--- NOTE | 2016-07-03 20:09 | PN ---
DATE OF SERVICE: 07/03/2016 CHIEF COMPLAINT: Sepsis, hepatic failure and increasing lethargy. HISTORY OF PRESENT ILLNESS: The gentleman is doing worse. Bilirubin is rising and he is becoming less responsive. He has not been running a fever. PHYSICAL EXAMINATION: He is very lethargic and barely arousable. Chest is clear. Cardiac demonstrates sinus tachycardia. The abdomen is slightly distended with ascites. IMPRESSION: 1. Hepatic failure. 2. Cirrhosis. PLAN: Case will be discussed with a tertiary center with regard to possible transfer.
[2016-07-03] MEDS ORDERED: HYDROCORTISONE 10 MG TAB PO SCH (21:00)
== END 2016-07-03 14:15 | disposition short-term general hospital (02) | DRG 871 ==
LOC: EC 11:58 → 6ICU 14:22 → 5MS5E 07-02 16:59 → 6ICU 07-03 11:28
PROVIDERS: ADMIT Family Medicine; ATTEND Family Medicine
PROC: 0BH17EZ Insertion of Endotracheal Airway into Trachea, Via Natural or Artificial Opening (ICD-10-PCS; principal; 2016-06-28)
PROC: 5A1945Z Respiratory Ventilation, 24-96 Consecutive Hours (ICD-10-PCS; 2016-06-28)
PROC: 0D9670Z Drainage of Stomach with Drainage Device, Via Natural or Artificial Opening (ICD-10-PCS; 2016-06-28)
PROC: 02HV33Z Insertion of Infusion Device into Superior Vena Cava, Percutaneous Approach (ICD-10-PCS; 2016-07-01)
PROC: B548ZZA Ultrasonography of Superior Vena Cava, Guidance (ICD-10-PCS; 2016-07-01)
DX: A41.9 Sepsis, unspecified organism (principal); J69.0 Pneumonitis due to inhalation of food and vomit; J96.01 Acute respiratory failure with hypoxia; G92 Toxic encephalopathy; F10.231 Alcohol dependence with withdrawal delirium; E87.4 Mixed disorder of acid-base balance; K70.10 Alcoholic hepatitis without ascites; E87.1 Hypo-osmolality and hyponatremia; E87.0 Hyperosmolality and hypernatremia; E83.39 Other disorders of phosphorus metabolism; K21.9 Gastro-esophageal reflux disease without esophagitis; F17.210 Nicotine dependence, cigarettes, uncomplicated; L85.9 Epidermal thickening, unspecified; E86.1 Hypovolemia; E87.6 Hypokalemia; K72.90 Hepatic failure, unspecified without coma; K74.60 Unspecified cirrhosis of liver; T50.2X5A Adverse effect of carbonic-anhydrase inhibitors, benzothiadiazides and other diuretics, initial encounter; Z79.52 Long term (current) use of systemic steroids; Z79.899 Other long term (current) drug therapy
CPT/HCPCS: 31500; 36415; 36569; 36600; 71010; 71020; 76937; 80048; 80053; 80320; 81001; 82140; 82150; 82550; 82553; 82805; 83605; 83690; 83735; 83880; 84100; 84132; 84484; 85025; 85610; 85730; 87040; 87070; 87086; 87205; 93005; 93306; 94002; 94003; 94640; 94760; 96365; 96366; 96368; 96375; 99291

== ENCOUNTER → 2016-10-07 | Outpatient (CLI) | payer OTHER ==
[2016-10-07 15:15] LABS: CH 28.8; CHCM 32.3; HCT 40.5 % (39.0-53.0); HDW 2.74; HGB 12.9 gm/dL (13.0-17.5); MCH 28.6 pg (25.0-35.0); MCHC 31.9 g/dL (31.0-37.0); MCV 89.6 fL (80.0-100.0); Mean Platelet Volume 6.4; RBC 4.52 m/uL (4.30-5.90); RDW 15.5 % (11.5-15.5); WBC 16.5 k/uL (3.8-10.6)
[2016-10-07 15:22] LABS: Partial Thromboplastin Time 24.1 sec (22.0-30.0)
[2016-10-07 15:27] LABS: Prothrombin Time 10.6 sec (9.0-12.0)
[2016-10-07 15:30] LABS: ALT 56 U/L (21-72); AST 92 U/L (17-59); Alkaline Phosphatase 236 U/L (38-126); Anion Gap 14 mmol/L; Blood Urea Nitrogen 7 mg/dL (9-20); Calcium 10.3 mg/dL (8.4-10.2); Carbon Dioxide 20 mmol/L (22-30); Chloride 107 mmol/L (98-107); Glucose 107 mg/dL (74-99); Non-African American GFR(MDRD) >60 (>60 ml/min/1.73 sqM); Potassium 4.7 mmol/L (3.5-5.1); Sodium 141 mmol/L (137-145); Total Bilirubin 1.9 mg/dL (0.2-1.3); Total Protein 7.4 g/dL (6.3-8.2)
== END | disposition home or self-care (01) ==
LOC: LABWHC1 14:39
PROVIDERS: ATTEND Internal Medicine
DX: E11.9 Type 2 diabetes mellitus without complications (principal); D68.9 Coagulation defect, unspecified; M12.9 Arthropathy, unspecified; I10 Essential (primary) hypertension; R07.89 Other chest pain; E72.20 Disorder of urea cycle metabolism, unspecified; D64.9 Anemia, unspecified; Z79.899 Other long term (current) drug therapy
CPT/HCPCS: 36415; 80053; 82140; 85027; 85610; 85730

== ENCOUNTER 2017-02-08 18:01 | Inpatient (IN) | payer OTHER ==
[2017-02-08] MEDS ORDERED: ONDANSETRON 4 MG/2 ML VIAL IVP STA (18:41)
[2017-02-08] MEDS ORDERED: SODIUM CHLORIDE 0.9% 1,000 ML IV STA ×2 (18:41)
[2017-02-08 19:13] LABS: Basophils # (A) 0.1 k/uL (0-0.2); Basophils % (A) 1 %; CHCM 34.8; Eosinophils # (A) 0.2 k/uL (0-0.7); Eosinophils % (A) 2 %; HCT 39.6 % (39.0-53.0); HDW 2.74; HGB 13.4 gm/dL (13.0-17.5); Luc # (Auto) 0.13; Luc % (Auto) 1; Lymphocytes # (A) 1.5 k/uL (1.0-4.8); Lymphocytes % (A) 11 %; MCH 31.2 pg (25.0-35.0); MCHC 33.7 g/dL (31.0-37.0); MCV 92.5 fL (80.0-100.0); Mean Platelet Volume 7.2; Monocytes # (A) 0.5 k/uL (0-1.0); Monocytes % (A) 4 %; Neutrophils # (A) 11.2 k/uL (1.3-7.7); Neutrophils % (A) 82 %; RBC 4.28 m/uL (4.30-5.90); RDW 14.5 % (11.5-15.5); WBC 13.6 k/uL (3.8-10.6); WBC (Perox) 13.53
[2017-02-08 19:22] LABS: ALT 170 U/L (21-72); AST 80 U/L (17-59); Alkaline Phosphatase 322 U/L (38-126); Amylase 55 U/L (30-110); Anion Gap 15 mmol/L; Blood Urea Nitrogen 9 mg/dL (9-20); Calcium 9.7 mg/dL (8.4-10.2); Carbon Dioxide 18 mmol/L (22-30); Chloride 108 mmol/L (98-107); Glucose 103 mg/dL (74-99); Non-African American GFR(MDRD) >60 (>60 ml/min/1.73 sqM); Potassium 4.3 mmol/L (3.5-5.1); Sodium 141 mmol/L (137-145); Total Bilirubin 6.1 mg/dL (0.2-1.3); Total Protein 7.6 g/dL (6.3-8.2)
--- NOTE | 2017-02-08 19:22 | ED ---
General Adult HPI - General Source: patient, RN notes reviewed Mode of arrival: ambulatory Limitations: no limitations <Brice Thurman - Last Filed: 02/08/17 19:21> <Archana Johnson - Last Filed: 02/08/17 22:00> <HollyWlifred Vj - Last Filed: 02/09/17 04:42> - General Chief complaint: Abdominal Pain Stated complaint: abdominal pain, vomiting Time Seen by Provider: 02/08/17 18:33 - History of Present Illness Initial comments: Patient 31-year-old male who presents emergency room today with chief complaint of symptoms of nausea vomiting and abdominal pain over the last 3 days. Patient does admit that symptoms started 3 days ago after eating something. Does admit to some abdominal pain. States she's had nausea vomiting over the last day. Denies any signs of blood in the emesis. Denies any diarrhea. Does admit some cramping sensation in the middle of his abdomen. Patient denies any other complaints or symptoms. Patient denies any recent fever, chills, shortness of breath, chest pain, back pain, numbness or tingling, dysuria or hematuria, constipation or diarrhea, headaches or visual changes, or any other complaints. (Brice Thurman) - Related Data Home Medications Medication Instructions Recorded Confirmed Calcium Acetate [Phoslo] 667 mg PO TID-W/MEALS 02/08/17 02/08/17 Folic Acid 1 mg PO DAILY 02/08/17 02/08/17 Omeprazole 40 mg PO DAILY 02/08/17 02/08/17 Potassium Chloride ER [K-Dur 20] 20 meq PO DAILY 02/08/17 02/08/17 Thiamine [Vitamin B-1] 100 mg PO DAILY 02/08/17 02/08/17 levETIRAcetam [Keppra] 250 mg PO DAILY 02/08/17 02/08/17 Allergies Allergy/AdvReac Type Severity Reaction Status Date / Time No Known Allergies Allergy Verified 02/08/17 20:00 Review of Systems ROS Other: All systems not noted in ROS Statement are negative. <Brice Thurman - Last Filed: 02/08/17 19:21> ROS Other: All systems not noted in ROS Statement are negative. <Archana Johnson - Last Filed: 02/08/17 22:00> ROS Other: All systems not noted in ROS Statement are negative. <Wilfred Barrera Vj - Last Filed: 02/09/17 04:42> ROS Statement: Those systems with pertinent positive or pertinent negative responses have been documented in the HPI. Past Medical History Past Medical History: GERD/Reflux, Liver Disease, Skin Disorder Additional Past Medical History / Comment(s): EPIDERMALYTIC HYPERKERATOSIS History of Any Multi-Drug Resistant Organisms: None Reported Past Surgical History: No Surgical Hx Reported Past Anesthesia/Blood Transfusion Reactions: No Reported Reaction Past Psychological History: No Psychological Hx Reported Smoking Status: Current every day smoker Past Alcohol Use History: None Reported Past Drug Use History: None Reported - Past Family History Father Family Medical History: Unable to Obtain Additional Family Medical History / Comment(s): RAISED BY STEP FATHER Mother Family Medical History: No Reported History <Brice Thurman - Last Filed: 02/08/17 19:21> General Exam Limitations: no limitations <Brice Thurman - Last Filed: 02/08/17 19:21> <Archana Johnson - Last Filed: 02/08/17 22:00> <Maria LgersonWilfred Vj - Last Filed: 02/09/17 04:42> - General Exam Comments Initial Comments: General: The patient is awake and alert, in no distress, and does not appear acutely ill. Eye: Pupils are equal, round and reactive to light, extra-ocular movements are intact. No nystagmus. There is normal conjunctiva bilaterally. No signs of icterus. Ears, nose, mouth and throat: There are moist mucous membranes and no oral lesions. Neck: The neck is supple, there is no tenderness or JVD. Cardiovascular: There is a regular rate and rhythm. No murmur, rub or gallop is appreciated. Respiratory: Lungs are clear to auscultation, respirations are non-labored, breath sounds are equal. No wheezes, stridor, rales, or rhonchi. Gastrointestinal: Soft, non-distended, non-tender abdomen without masses or organomegaly noted. There is no rebound or guarding present. No CVA tenderness. Bowel sounds are unremarkable. Musculoskeletal: Normal ROM, no tenderness. Strength 5/5. Sensation intact. Pulses equal bilaterally 2+. Neurological: A&O x 3. CN II-XII intact, There are no obvious motor or sensory deficits. Coordination appears grossly intact. Speech is normal. Skin: Skin is warm and dry and no rashes or lesions are noted. Psychiatric: Cooperative, appropriate mood & affect, normal judgment. (Brice Thurman) Medical Decision Making - Lab Data Result diagrams: 02/08/17 19:05 <Brice Thurman - Last Filed: 02/08/17 19:21> - Lab Data Result diagrams: 02/08/17 19:05 02/08/17 19:05 - Radiology Data Radiology results: report reviewed, image reviewed <Archana Johnson - Last Filed: 02/08/17 22:00> - Lab Data Result diagrams: 02/08/17 19:05 02/08/17 19:05 <Wilfred Barrera - Last Filed: 02/09/17 04:42> - Medical Decision Making Patient's lab work has been reviewed. At this time there is suspicion with ultrasound and lab work evidence for acute cholecystitis due to cholelithiasis. This time we will admit the patient. Pending bilirubin levels. We will start antibiotics for the patient. Patient is in agreement with this plan. (Archana Johnson) 31-year-old male with right quadrant abdominal pain and nausea and vomiting. Patient is found to have acute cholecystitis. Case is discussed with general surgery on-call. Given the elevated bilirubin is recommended that the patient be admitted to internal medicine with general surgery on consult. Diagnosis: Acute cholecystitis, hyperbilirubinemia (Wilfred Barrera) - Lab Data Lab Results 02/08/17 02/08/17 02/08/17 Range/Units 19:05 19:05 19:27 WBC 13.6 H (3.8-10.6) k/uL RBC 4.28 L (4.30-5.90) m/uL Hgb 13.4 (13.0-17.5) gm/dL Hct 39.6 (39.0-53.0) % MCV 92.5 (80.0-100.0) fL MCH 31.2 (25.0-35.0) pg MCHC 33.7 (31.0-37.0) g/dL RDW 14.5 (11.5-15.5) % Plt Count 273 (150-450) k/uL Neutrophils % 82 % Lymphocytes % 11 % Monocytes % 4 % Eosinophils % 2 % Basophils % 1 % Neutrophils # 11.2 H (1.3-7.7) k/uL Lymphocytes # 1.5 (1.0-4.8) k/uL Monocytes # 0.5 (0-1.0) k/uL Eosinophils # 0.2 (0-0.7) k/uL Basophils # 0.1 (0-0.2) k/uL Sodium 141 (137-145) mmol/L Potassium 4.3 (3.5-5.1) mmol/L Chloride 108 H (98-107) mmol/L Carbon Dioxide 18 L (22-30) mmol/L Anion Gap 15 mmol/L BUN 9 (9-20) mg/dL Creatinine 0.70 (0.66-1.25) mg/dL Est GFR (MDRD) Af Amer >60 (>60 ml/min/1.73 sqM) Est GFR (MDRD) Non-Af >60 (>60 ml/min/1.73 sqM) Glucose 103 H (74-99) mg/dL Calcium 9.7 (8.4-10.2) mg/dL Total Bilirubin 6.1 H (0.2-1.3) mg/dL Conjugated Bilirubin (0.0-0.3) mg/dL Unconjugated Bilirubin (0.0-1.1) mg/dL Delta Bilirubin (0.0-0.2) mg/dL AST 80 H (17-59) U/L ALT 170 H (21-72) U/L Alkaline Phosphatase 322 H (38-126) U/L Total Protein 7.6 (6.3-8.2) g/dL Albumin 4.8 (3.5-5.0) g/dL Amylase 55 (30-110) U/L Lipase 164 (23-300) U/L Urine Color Dark Brown Urine Appearance Cloudy (Clear) Urine pH 6.0 (5.0-8.0) Ur Specific [place] 1.022 (1.001-1.035) Urine Protein Trace H (Negative) Urine Glucose (UA) Trace H (Negative) Urine Ketones Negative (Negative) Urine Blood Negative (Negative) Urine Nitrite Negative (Negative) Urine Bilirubin 2+ H (Negative) Urine Urobilinogen 8.0 (<2.0) mg/dL Ur Leukocyte Esterase Small H (Negative) Urine RBC 6 H (0-5) /hpf Urine WBC 9 H (0-5) /hpf Ur Squamous Epith Cells 1 (0-4) /hpf Calcium Oxalate Crystal Occasional H (None) /hpf Hyaline Casts 1 (0-2) /lpf Urine Mucus Rare H (None) /hpf 02/08/17 Range/Units 19:51 WBC (3.8-10.6) k/uL RBC (4.30-5.90) m/uL Hgb (13.0-17.5) gm/dL Hct (39.0-53.0) % MCV (80.0-100.0) fL MCH (25.0-35.0) pg MCHC (31.0-37.0) g/dL RDW (11.5-15.5) % Plt Count (150-450) k/uL Neutrophils % % Lymphocytes % % Monocytes % % Eosinophils % % Basophils % % Neutrophils # (1.3-7.7) k/uL Lymphocytes # (1.0-4.8) k/uL Monocytes # (0-1.0) k/uL Eosinophils # (0-0.7) k/uL Basophils # (0-0.2) k/uL Sodium (137-145) mmol/L Potassium (3.5-5.1) mmol/L Chloride (98-107) mmol/L Carbon Dioxide (22-30) mmol/L Anion Gap mmol/L BUN (9-20) mg/dL Creatinine (0.66-1.25) mg/dL Est GFR (MDRD) Af Amer (>60 ml/min/1.73 sqM) Est GFR (MDRD) Non-Af (>60 ml/min/1.73 sqM) Glucose (74-99) mg/dL Calcium (8.4-10.2) mg/dL Total Bilirubin 6.0 H (0.2-1.3) mg/dL Conjugated Bilirubin 1.8 H (0.0-0.3) mg/dL Unconjugated Bilirubin 2.1 H (0.0-1.1) mg/dL Delta Bilirubin 2.1 H (0.0-0.2) mg/dL AST (17-59) U/L ALT (21-72) U/L Alkaline Phosphatase (38-126) U/L Total Protein (6.3-8.2) g/dL Albumin (3.5-5.0) g/dL Amylase (30-110) U/L Lipase (23-300) U/L Urine Color Urine Appearance (Clear) Urine pH (5.0-8.0) Ur Specific [place] (1.001-1.035) Urine Protein (Negative) Urine Glucose (UA) (Negative) Urine Ketones (Negative) Urine Blood (Negative) Urine Nitrite (Negative) Urine Bilirubin (Negative) Urine Urobilinogen (<2.0) mg/dL Ur Leukocyte Esterase (Negative) Urine RBC (0-5) /hpf Urine WBC (0-5) /hpf Ur Squamous Epith Cells (0-4) /hpf Calcium Oxalate Crystal (None) /hpf Hyaline Casts (0-2) /lpf Urine Mucus (None) /hpf Disposition <Brice Thurman - Last Filed: 02/08/17 19:21> Decision Date: 02/08/17 Decision Time: 22:01 <Archana Johnson - Last Filed: 02/08/17 22:00> <Wilfred Barrera - Last Filed: 02/09/17 04:42> Clinical Impression: Acute cholecystitis, Cholelithiasis Disposition: ADMITTED IP TO THIS HOSP Condition: Stable
--- NOTE | 2017-02-08 19:44 | XR ---
EXAMINATION TYPE: XR KUB DATE OF EXAM: 02/08/2017 COMPARISON: NONE INDICATION: Abdomen pain upper quadrant TECHNIQUE: Single view abdomen FINDINGS: There is a normal bowel gas pattern. Psoas margins are normal. No organomegaly is present. IMPRESSION: 1. Unremarkable Abdomen
[2017-02-08 19:52] LABS: Appearance,Urine Cloudy (Clear); Bilirubin,Urine 2+ (Negative); Calcium Oxalate Crystals,Urine Occasional /hpf; Glucose,Urine (UA) Trace (Negative); Ketones,Urine Negative (Negative); Leukocyte Esterase,Urine Small (Negative); Mucus,Urine Rare /hpf; Nitrite,Urine Negative (Negative); Particle Count 6434; Protein,Urine Trace (Negative); RBC,Urine 6 /hpf (0-5); Specific Gravity,Urine 1.022 (1.001-1.035); Squamous Epithelial Cell,Urine 1 /hpf (0-4); UA Billing (MACRO vs. MICRO) MICRO; WBC,Urine 9 /hpf (0-5)
--- NOTE | 2017-02-08 21:03 | US ---
EXAMINATION TYPE: US abdomen limited DATE OF EXAM: 02/08/2017 COMPARISON: NONE CLINICAL HISTORY: Pain. n/v fa few days more in lower abdomen per pt EXAM MEASUREMENTS: Liver Length: 15.5 cm Gallbladder Wall: 0.3 cm CBD: 0.4 cm Right Kidney: 9.1 x 4.0 x 5.3 cm Limited due to bowel gas and pt not able to hold breath well due to pain and hiccups. Pancreas: Tail obscured by overlying bowel gas Liver: Increased attenuation Gallbladder: Sludge and gallstones noted within GB lumen Evidence for sonographic Reyes's sign: No CBD: wnl Right Kidney: wnl IMPRESSION: 1. Cholelithiasis. Some gallbladder wall thickening is present. Clinical consideration for cholecysti tis is recommended.
[2017-02-08] MEDS ORDERED: HYDROmorphone 1 MG/ML 1 ML SYRINGE IV PRN (22:02)
[2017-02-08] MEDS ORDERED: ONDANSETRON 4 MG/2 ML VIAL IVP PRN (22:02)
[2017-02-08] MEDS ORDERED: NALOXONE 0.4 MG/ML 1 ML VIAL IV PRN (22:02)
[2017-02-08 22:04] LABS: Bilirubin, Delta 2.1 mg/dL (0.0-0.2)
[2017-02-08] MEDS ORDERED: PIPERACILLIN-TAZOBACTAM 3.375 GM in DEXTROSE/WATER 1 50ML.BAG IVPB STA (22:04)
[2017-02-08] MEDS ORDERED: SODIUM CHLORIDE 0.9% 1,000 ML IV SCH (22:15)
--- NOTE | 2017-02-09 03:12 | P.GSCN ---
History of Present Illness Consult date: 02/09/17 Reason for Consult: R/O acute cholecystitis History of present illness: Mr. Swan is a 31 y/o male with a history of ETOH cirrhosis who presented with a complaint of abdominal pain. He states it began yesterday and had been getting worse. He states it is lower in his abdomen near his umbilicus. He denies N?V, F/C, passing normal BM. No other complaints at this time. He states he has stopped drinking. Review of Systems negative other than noted in HPI Past Medical History Past Medical History: GERD/Reflux, Liver Disease, Skin Disorder Additional Past Medical History / Comment(s): EPIDERMALYTIC HYPERKERATOSIS History of Any Multi-Drug Resistant Organisms: None Reported Past Surgical History: No Surgical Hx Reported Past Anesthesia/Blood Transfusion Reactions: No Reported Reaction Past Psychological History: No Psychological Hx Reported Smoking Status: Current every day smoker Past Alcohol Use History: None Reported Additional Past Alcohol Use History / Comment(s): PT STATES HAS NOT HAD A DRINK SINCE 06/24- PAST ETOH ABUSE HX. CURRENT CASUAL SMOKING DAILY Past Drug Use History: None Reported - Past Family History Father Family Medical History: Unable to Obtain Additional Family Medical History / Comment(s): RAISED BY STEP FATHER Mother Family Medical History: No Reported History Medications and Allergies Home Medications Medication Instructions Recorded Confirmed Type Calcium Acetate [Phoslo] 667 mg PO TID-W/MEALS 02/08/17 02/08/17 History Folic Acid 1 mg PO DAILY 02/08/17 02/08/17 History Omeprazole 40 mg PO DAILY 02/08/17 02/08/17 History Potassium Chloride ER [K-Dur 20] 20 meq PO DAILY 02/08/17 02/08/17 History Thiamine [Vitamin B-1] 100 mg PO DAILY 02/08/17 02/08/17 History levETIRAcetam [Keppra] 250 mg PO DAILY 02/08/17 02/08/17 History Allergies Allergy/AdvReac Type Severity Reaction Status Date / Time No Known Allergies Allergy Verified 02/08/17 20:00 Surgical - Exam Osteopathic Statement: *. No significant issues noted on an osteopathic structural exam other than those noted in the History and Physical/Consult. Vital Signs Temp Pulse Resp BP Pulse Ox 97.7 F 86 18 142/89 99 02/08/17 18:07 02/08/17 18:07 02/08/17 18:07 02/08/17 18:07 02/08/17 18:07 - General no distress - Eyes PERRL, no icteric - ENT normal pinna, normal nares - Neck no masses - Respiratory normal expansion, normal respiratory effort absent: dullness, wheezing - Cardiovascular Rhythm: regular - Abdomen Abdomen: soft, non tender, no distended - Musculoskeletal normal gait - Psychiatric oriented to time, oriented to person, oriented to place Results - Labs 02/08/17 19:05 02/08/17 19:05 Abnormal Lab Results - Last 24 Hours (Table) 02/08/17 02/08/17 02/08/17 Range/Units 19:05 19:05 19:27 WBC 13.6 H (3.8-10.6) k/uL RBC 4.28 L (4.30-5.90) m/uL Neutrophils # 11.2 H (1.3-7.7) k/uL Chloride 108 H (98-107) mmol/L Carbon Dioxide 18 L (22-30) mmol/L Glucose 103 H (74-99) mg/dL Total Bilirubin 6.1 H (0.2-1.3) mg/dL Conjugated Bilirubin (0.0-0.3) mg/dL Unconjugated Bilirubin (0.0-1.1) mg/dL Delta Bilirubin (0.0-0.2) mg/dL AST 80 H (17-59) U/L ALT 170 H (21-72) U/L Alkaline Phosphatase 322 H (38-126) U/L Urine Protein Trace H (Negative) Urine Glucose (UA) Trace H (Negative) Urine Bilirubin 2+ H (Negative) Ur Leukocyte Esterase Small H (Negative) Urine RBC 6 H (0-5) /hpf Urine WBC 9 H (0-5) /hpf Calcium Oxalate Crystal Occasional H (None) /hpf Urine Mucus Rare H (None) /hpf 02/08/17 Range/Units 19:51 WBC (3.8-10.6) k/uL RBC (4.30-5.90) m/uL Neutrophils # (1.3-7.7) k/uL Chloride (98-107) mmol/L Carbon Dioxide (22-30) mmol/L Glucose (74-99) mg/dL Total Bilirubin 6.0 H (0.2-1.3) mg/dL Conjugated Bilirubin 1.8 H (0.0-0.3) mg/dL Unconjugated Bilirubin 2.1 H (0.0-1.1) mg/dL Delta Bilirubin 2.1 H (0.0-0.2) mg/dL AST (17-59) U/L ALT (21-72) U/L Alkaline Phosphatase (38-126) U/L Urine Protein (Negative) Urine Glucose (UA) (Negative) Urine Bilirubin (Negative) Ur Leukocyte Esterase (Negative) Urine RBC (0-5) /hpf Urine WBC (0-5) /hpf Calcium Oxalate Crystal (None) /hpf Urine Mucus (None) /hpf Diabetes panel 02/08/17 Range/Units 19:05 Sodium 141 (137-145) mmol/L Potassium 4.3 (3.5-5.1) mmol/L Chloride 108 H (98-107) mmol/L Carbon Dioxide 18 L (22-30) mmol/L BUN 9 (9-20) mg/dL Creatinine 0.70 (0.66-1.25) mg/dL Glucose 103 H (74-99) mg/dL Calcium 9.7 (8.4-10.2) mg/dL AST 80 H (17-59) U/L ALT 170 H (21-72) U/L Alkaline Phosphatase 322 H (38-126) U/L Total Protein 7.6 (6.3-8.2) g/dL Albumin 4.8 (3.5-5.0) g/dL Calcium panel 02/08/17 Range/Units 19:05 Calcium 9.7 (8.4-10.2) mg/dL Albumin 4.8 (3.5-5.0) g/dL Pituitary panel 02/08/17 Range/Units 19:05 Sodium 141 (137-145) mmol/L Potassium 4.3 (3.5-5.1) mmol/L Chloride 108 H (98-107) mmol/L Carbon Dioxide 18 L (22-30) mmol/L BUN 9 (9-20) mg/dL Creatinine 0.70 (0.66-1.25) mg/dL Glucose 103 H (74-99) mg/dL Calcium 9.7 (8.4-10.2) mg/dL Adrenal panel 02/08/17 02/08/17 Range/Units 19:05 19:51 Sodium 141 (137-145) mmol/L Potassium 4.3 (3.5-5.1) mmol/L Chloride 108 H (98-107) mmol/L Carbon Dioxide 18 L (22-30) mmol/L BUN 9 (9-20) mg/dL Creatinine 0.70 (0.66-1.25) mg/dL Glucose 103 H (74-99) mg/dL Calcium 9.7 (8.4-10.2) mg/dL Total Bilirubin 6.1 H 6.0 H (0.2-1.3) mg/dL AST 80 H (17-59) U/L ALT 170 H (21-72) U/L Alkaline Phosphatase 322 H (38-126) U/L Total Protein 7.6 (6.3-8.2) g/dL Albumin 4.8 (3.5-5.0) g/dL - Imaging US - abdomen: report reviewed, image reviewed Assessment and Plan (1) Cholelithiasis Status: Acute (2) Alcoholic hepatitis Status: Acute (3) Hepatomegaly Status: Chronic Plan: Patient has significant history of ETOH absue and cirrhosis. In light of patients cirrhosis and underlying liver disease it is not clear that he has cholecystits. His pain is improved today. I recommend medically optimizing patient and follow up as an outpatient for surgical evaluation. He may also require GI to see him for his hyperbilirubenemia
[2017-02-09 07:03] LABS: Basophils % (A) 1 %; CH 30.6; CHCM 32.4; Eosinophils # (A) 0.3 k/uL (0-0.7); Eosinophils % (A) 4 %; HCT 36.9 % (39.0-53.0); HDW 2.68; HGB 12.6 gm/dL (13.0-17.5); Luc # (Auto) 0.24; Luc % (Auto) 3; Lymphocytes % (A) 36 %; MCH 32.4 pg (25.0-35.0); Mean Platelet Volume 7.1; Monocytes # (A) 0.5 k/uL (0-1.0); Monocytes % (A) 6 %; Neutrophils # (A) 4.3 k/uL (1.3-7.7); Neutrophils % (A) 52 %; RBC 3.89 m/uL (4.30-5.90); RDW 13.9 % (11.5-15.5); WBC 8.4 k/uL (3.8-10.6); WBC (Perox) 8.92
[2017-02-09 07:13] LABS: ALT 127 U/L (21-72); AST 56 U/L (17-59); Alkaline Phosphatase 249 U/L (38-126); Anion Gap 10 mmol/L; Blood Urea Nitrogen 5 mg/dL (9-20); Calcium 8.8 mg/dL (8.4-10.2); Carbon Dioxide 18 mmol/L (22-30); Chloride 113 mmol/L (98-107); Glucose 86 mg/dL (74-99); Non-African American GFR(MDRD) >60 (>60 ml/min/1.73 sqM); Sodium 141 mmol/L (137-145); Total Bilirubin 6.1 mg/dL (0.2-1.3); Total Protein 6.1 g/dL (6.3-8.2)
[2017-02-09] MEDS ORDERED: PANTOPRAZOLE 40 MG TABLET PO SCH (07:30)
[2017-02-09 07:41] VITALS: BP 111/57; PULSE 65; RESP 16; TEMP 98.1
[2017-02-09] MEDS: CALCIUM ACETATE 667 MG CAP PO SCH ×2 (07:43→11:22)
[2017-02-09] MEDS ORDERED: PIPERACILLIN-TAZOBACTAM 3.375 GM in DEXTROSE/WATER 1 50ML.BAG IVPB SCH (08:00)
[2017-02-09] MEDS ORDERED: levETIRAcetam 250 MG TAB PO SCH (09:00)
[2017-02-09] MEDS ORDERED: THIAMINE 100 MG TAB PO SCH (09:00)
[2017-02-09] MEDS ORDERED: POTASSIUM CHLORIDE ER 20 MEQ TAB.ER PO SCH (09:00)
[2017-02-09] MEDS ORDERED: FOLIC ACID 1 MG TAB PO SCH (12:00)
--- NOTE | 2017-02-09 14:03 | P.HPIM ---
History of Present Illness H&P Date: 02/09/17 Chief Complaint: abdominal pain Visit 31-year-old gentleman with a history of alcoholic hepatitis. Patient at one point was noted to have a what he describes as hepatorenal syndrome. Patient was transferred [facility]. Patient apparently had a peak bilirubin around 17 in the past Patient has been sober for about 7 months at this time. Patient over the hospital with this vague abdominal pain was noted to have gallstones no significant abnormalities including signs of inflammation of the pancreas. Patient was seen by her surgeon here was recommended to follow up outpatient Patient also has history of hyperkeratosis which she is being treated by a building pressure washer in the area Patient states that he feels better at the time of my evaluation denies having any headaches blurry vision nausea vomiting is able to tolerate diet I did discuss the etiology of his liver enzymes being elevated patient has mixed bilirubinemia which is consistent with his previous liver dysfunction patient also has had a hepatitis panel in the past which were negative Denies any illicit drug use change in medications or the recent times Her review of systems 14 point review of systems was done nonpertinent was mention of a Gen. appearance alert oriented 3 in no distress Lungs good air movement clear to auscultation no rhonchi wheezing or crackles Heart S1-S2 heard regular rate and rhythm no murmurs appreciated Abdomen soft nontender organomegaly Skin multiple areas of hyperkeratosis suddenly Kolsky's sign positive Neuro no focal motor or sensory deficits noted Assessment and plan #1 vague abdominal pain is likely could be due multifactorial #2 gallstones disease without acute cholecystitis or pancreatitis #3 chronic liver sources with bilirubinemia however this is been improving over the last few months #4 hyperkeratosis #5 seizure disorder Plan Continue ongoing care Patient will be discharged. Did discuss his case will need to follow up with Dr. 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 However interestingly there was one level that was around 1.2 if this episode is due to passing of a gallstone over the last few days could also answer the question. Patient is recommended to have a repeat complete liver function tests. Past Medical History Past Medical History: GERD/Reflux, Liver Disease, Skin Disorder Additional Past Medical History / Comment(s): EPIDERMALYTIC HYPERKERATOSIS History of Any Multi-Drug Resistant Organisms: None Reported Past Surgical History: No Surgical Hx Reported Past Anesthesia/Blood Transfusion Reactions: No Reported Reaction Past Psychological History: No Psychological Hx Reported Smoking Status: Current every day smoker Past Alcohol Use History: None Reported Additional Past Alcohol Use History / Comment(s): PT STATES HAS NOT HAD A DRINK SINCE 06/24- PAST ETOH ABUSE HX. CURRENT CASUAL SMOKING DAILY Past Drug Use History: None Reported - Past Family History Father Family Medical History: Unable to Obtain Additional Family Medical History / Comment(s): RAISED BY STEP FATHER Mother Family Medical History: No Reported History Medications and Allergies Home Medications Medication Instructions Recorded Confirmed Type Calcium Acetate [Phoslo] 667 mg PO TID-W/MEALS 02/08/17 02/08/17 History Folic Acid 1 mg PO DAILY 02/08/17 02/08/17 History Omeprazole 40 mg PO DAILY 02/08/17 02/08/17 History Potassium Chloride ER [K-Dur 20] 20 meq PO DAILY 02/08/17 02/08/17 History Thiamine [Vitamin B-1] 100 mg PO DAILY 02/08/17 02/08/17 History levETIRAcetam [Keppra] 250 mg PO DAILY 02/08/17 02/08/17 History Allergies Allergy/AdvReac Type Severity Reaction Status Date / Time No Known Allergies Allergy Verified 02/08/17 20:00 Physical Exam Vitals: Vital Signs Temp Pulse Pulse Resp BP BP Pulse Ox 02/09/17 08:00 65 16 02/09/17 07:00 98.1 F 65 16 111/57 98 02/09/17 05:15 97.1 F L 70 17 94/53 98 02/08/17 22:58 97.8 F 86 18 126/78 99 02/08/17 22:16 98.6 F 02/08/17 22:13 98 18 136/72 100 02/08/17 21:10 87 18 158/93 100 02/08/17 19:28 60 18 148/82 100 02/08/17 18:07 97.7 F 86 18 142/89 99 Intake and Output 02/08/17 02/09/17 02/09/17 22:59 06:59 14:59 Intake Total 1000 850 Balance 1000 850 Intake: IV 1000 Invasive Line 1 1000 Intake, IV Titration 850 Amount Piperacillin-Tazobactam 3 50 .375 gm In Dextrose/Water 1 50ml.bag @ 12.5 mls/hr IVPB Q8HR [facility] Rx#: [id number] Sodium Chloride 0.9% 1, 800 000 ml @ 100 mls/hr IV . Q10H [facility] Rx#:[id number] Other: Voiding Method Toilet Toilet # Voids 1 Weight 68.039 kg 68.039 kg Patient Weight 02/10/17 06:59 Weight 68.039 kg Results CBC & Chem 7: 02/09/17 06:23 02/09/17 06:23 Labs: Abnormal Lab Results - Last 24 Hours (Table) 02/08/17 02/08/17 02/08/17 Range/Units 19:05 19:05 19:27 WBC 13.6 H (3.8-10.6) k/uL RBC 4.28 L (4.30-5.90) m/uL Hgb (13.0-17.5) gm/dL Hct (39.0-53.0) % Neutrophils # 11.2 H (1.3-7.7) k/uL Chloride 108 H (98-107) mmol/L Carbon Dioxide 18 L (22-30) mmol/L BUN (9-20) mg/dL Glucose 103 H (74-99) mg/dL Total Bilirubin 6.1 H (0.2-1.3) mg/dL Conjugated Bilirubin (0.0-0.3) mg/dL Unconjugated Bilirubin (0.0-1.1) mg/dL Delta Bilirubin (0.0-0.2) mg/dL AST 80 H (17-59) U/L ALT 170 H (21-72) U/L Alkaline Phosphatase 322 H (38-126) U/L Total Protein (6.3-8.2) g/dL Urine Protein Trace H (Negative) Urine Glucose (UA) Trace H (Negative) Urine Bilirubin 2+ H (Negative) Ur Leukocyte Esterase Small H (Negative) Urine RBC 6 H (0-5) /hpf Urine WBC 9 H (0-5) /hpf Calcium Oxalate Crystal Occasional H (None) /hpf Urine Mucus Rare H (None) /hpf 02/08/17 02/09/17 02/09/17 Range/Units 19:51 06:23 06:23 WBC (3.8-10.6) k/uL RBC 3.89 L (4.30-5.90) m/uL Hgb 12.6 L (13.0-17.5) gm/dL Hct 36.9 L (39.0-53.0) % Neutrophils # (1.3-7.7) k/uL Chloride 113 H (98-107) mmol/L Carbon Dioxide 18 L (22-30) mmol/L BUN 5 L (9-20) mg/dL Glucose (74-99) mg/dL Total Bilirubin 6.0 H 6.1 H (0.2-1.3) mg/dL Conjugated Bilirubin 1.8 H (0.0-0.3) mg/dL Unconjugated Bilirubin 2.1 H (0.0-1.1) mg/dL Delta Bilirubin 2.1 H (0.0-0.2) mg/dL AST (17-59) U/L ALT 127 H (21-72) U/L Alkaline Phosphatase 249 H (38-126) U/L Total Protein 6.1 L (6.3-8.2) g/dL Urine Protein (Negative) Urine Glucose (UA) (Negative) Urine Bilirubin (Negative) Ur Leukocyte Esterase (Negative) Urine RBC (0-5) /hpf Urine WBC (0-5) /hpf Calcium Oxalate Crystal (None) /hpf Urine Mucus (None) /hpf Thrombosis Risk Factor Assmnt - Choose All That Apply Any of the Below Risk Factors Present?: No Other Risk Factors: No Other congenital or acquired thrombophilia - If yes, enter type in comment: No Thrombosis Risk Factor Assessment Level: Very Low Risk
== END 2017-02-09 15:00 | disposition home or self-care (01) | DRG 446 ==
LOC: EC 18:01 → 3SUR 21:45
PROVIDERS: ADMIT Internal Medicine; ATTEND Internal Medicine
DX: K80.70 Calculus of gallbladder and bile duct without cholecystitis without obstruction (principal); K70.30 Alcoholic cirrhosis of liver without ascites; F17.200 Nicotine dependence, unspecified, uncomplicated; G40.909 Epilepsy, unspecified, not intractable, without status epilepticus; K21.9 Gastro-esophageal reflux disease without esophagitis; Z79.899 Other long term (current) drug therapy; L85.9 Epidermal thickening, unspecified
CPT/HCPCS: 36415; 74000; 76705; 80053; 81001; 82150; 82248; 83690; 85025; 87040; 96361; 96365; 96375; 99285

== ENCOUNTER 2017-05-25 21:50 | Emergency (ER) | payer OTHER ==
[2017-05-25 21:59] VITALS: PULSE 95; RESP 18
[2017-05-25] MEDS ORDERED: ONDANSETRON ODT 4 MG TAB PO STA (22:23)
[2017-05-25] MEDS ORDERED: HYDROmorphone 1 MG/ML 1 ML SYRINGE IM STA (22:23)
[2017-05-25 23:49] VITALS: BP 163/99; TEMP 98.7
--- NOTE | 2017-05-25 23:49 | ED ---
Abdominal Pain HPI - General Chief Complaint: Abdominal Pain Stated Complaint: pain all over Time Seen by Provider: 05/25/17 22:03 Source: patient Mode of arrival: wheelchair Limitations: no limitations - History of Present Illness Initial Comments: patient presents with a chief complaint of postop abdominal pain. He was discharged from the hospital today after a cholecystectomy and return to the OR for repair of bile leak. Patient states that his pain is in his upper abdomen. There are no aggravating or alleviating factors. The patient states that he does not like taking the pain medication at home because of this Tylenol in it and he has a history of liver issues. On initial evaluation, patient is in no acute distress, vital signs are stable - Related Data Home Medications Medication Instructions Recorded Confirmed Calcium Acetate [PhosLo] 667 mg PO TID-W/MEALS 02/08/17 05/25/17 Folic Acid 1 mg PO DAILY 02/08/17 05/25/17 Omeprazole 40 mg PO DAILY 02/08/17 05/25/17 Potassium Chloride ER [K-Dur 20] 20 meq PO DAILY 02/08/17 05/25/17 Thiamine [Vitamin B-1] 100 mg PO DAILY 02/08/17 05/25/17 HYDROcodone/APAP 5-325MG [[place] 1 tab PO Q6HR PRN 05/25/17 05/25/17 5-325] Previous Rx's Medication Instructions Recorded Naproxen [Naprosyn] 500 mg PO Q12HR #20 tab 05/25/17 Sodium Bicarbonate Tab 650 mg PO BID #30 tab 05/25/17 Allergies Allergy/AdvReac Type Severity Reaction Status Date / Time sulfamethoxazole Allergy Unknown Verified 05/25/17 22:37 [From Bactrim] trimethoprim [From Bactrim] Allergy Unknown Verified 05/25/17 22:37 Review of Systems ROS Statement: Those systems with pertinent positive or pertinent negative responses have been documented in the HPI. ROS Other: All systems not noted in ROS Statement are negative. Constitutional: Denies: fever Eyes: Denies: vision change ENT: Denies: throat pain Respiratory: Denies: cough Cardiovascular: Denies: chest pain Endocrine: Denies: fatigue Gastrointestinal: Reports: abdominal pain Genitourinary: Denies: dysuria Musculoskeletal: Denies: back pain Skin: Reports: rash (patient has hyperkeratosis of the skin, there is diffuse scaling and sloughing of the epidermis.) Neurological: Denies: headache Past Medical History Past Medical History: GERD/Reflux, Liver Disease, Skin Disorder Additional Past Medical History / Comment(s): EPIDERMALYTIC HYPERKERATOSIS History of Any Multi-Drug Resistant Organisms: None Reported Past Surgical History: Cholecystectomy Past Anesthesia/Blood Transfusion Reactions: No Reported Reaction Past Psychological History: No Psychological Hx Reported Smoking Status: Current every day smoker Past Alcohol Use History: None Reported Past Drug Use History: None Reported - Past Family History Father Family Medical History: Unable to Obtain Additional Family Medical History / Comment(s): RAISED BY STEP FATHER Mother Family Medical History: No Reported History Additional Family Medical History / Comment(s): States his mother's heart is not working well and is in [facility]. General Exam Limitations: no limitations General appearance: alert, in no apparent distress Head exam: Present: atraumatic, normocephalic Respiratory exam: Present: normal lung sounds bilaterally Cardiovascular Exam: Present: regular rate, normal rhythm GI/Abdominal exam: Present: soft, tenderness (patient has tenderness in the epigastric region abdomen is nontender to nail) Neurological exam: Present: alert, oriented X3 Psychiatric exam: Present: normal affect, normal mood Skin exam: Present: warm, dry, intact (patient has diffuse scaling and peeling of skin secondary to hyperkeratosis) Course Vital Signs 05/25/17 21:55 Temperature 97.9 F Pulse Rate 95 Respiratory 18 Rate Blood Pressure 155/84 O2 Sat by Pulse 99 Oximetry Medical Decision Making - Medical Decision Making patient presents with a chief complaint of abdominal pain status post cholecystectomy and return to the OR for repair of bile leak. He was discharged from the hospital today. The patient states that he took a Concord around 4:00 but does not like taking it because he has pre-existing liver conditions. Patient was given a dose of Dilaudid in the emergency department with adequate relief of his pain. I discussed with him the need for short-term narcotic pain medications in the setting of surgery. I added naproxen to his regimen and advised that he can take [place] every 4 hours as opposed to every 6 hours if pain is severe. Patient is agreeable to care plan. During his stay in the emergency department his vital signs remained stable, he was never in any acute distress. The patient overall appears well. He was given explicit signs and symptoms that should prompt return visit to the emergency department. He is further instructed to follow up with primary care and his general surgeon. Disposition Clinical Impression: Postoperative abdominal pain Disposition: HOME SELF-CARE Condition: Good Instructions: Abdominal Pain (ED) Referrals: Alonzo Loredo MD [Primary Care Provider] - 1-2 days
== END 2017-05-25 23:48 | disposition home or self-care (01) ==
LOC: EC 21:50
DX: G89.18 Other acute postprocedural pain (principal); R10.10 Upper abdominal pain, unspecified; L85.9 Epidermal thickening, unspecified; K21.9 Gastro-esophageal reflux disease without esophagitis; F17.200 Nicotine dependence, unspecified, uncomplicated; Z79.899 Other long term (current) drug therapy; Z88.1 Allergy status to other antibiotic agents; Z90.49 Acquired absence of other specified parts of digestive tract
CPT/HCPCS: 99283; 96372; J1170

== ENCOUNTER → 2017-07-15 | Outpatient (CLI) | payer OTHER ==
[2017-07-15 18:13] LABS: ALT 52 U/L (21-72); AST 33 U/L (17-59); Albumin 5.1 g/dL (3.5-5.0); Alkaline Phosphatase 184 U/L (38-126); Anion Gap 17 mmol/L; Blood Urea Nitrogen 12 mg/dL (9-20); Calcium 10.2 mg/dL (8.4-10.2); Carbon Dioxide 22 mmol/L (22-30); Chloride 103 mmol/L (98-107); Glucose 87 mg/dL (74-99); Phosphorus 3.9 mg/dL (2.5-4.5); Potassium 4.2 mmol/L (3.5-5.1); Sodium 142 mmol/L (137-145); Total Bilirubin 1.4 mg/dL (0.2-1.3); Total Protein 8.2 g/dL (6.3-8.2)
[2017-07-15 18:27] LABS: Appearance,Urine Clear (Clear); Bilirubin,Urine Negative (Negative); Blood,Urine Negative (Negative); Color,Urine Yellow; Glucose,Urine (UA) Negative (Negative); Ketones,Urine Negative (Negative); Leukocyte Esterase,Urine Negative (Negative); Nitrite,Urine Negative (Negative); PH, Urine 6.5 (5.0-8.0); Protein,Urine Negative (Negative); Specific Gravity,Urine 1.018 (1.001-1.035); Urobilinogen,Urine <2.0 mg/dL (<2.0)
[2017-07-15 18:40] LABS: Creatinine,Urine Random 133.8 mg/dL
== END | disposition home or self-care (01) ==
LOC: LABWHC1 17:13
PROVIDERS: ATTEND Nurse Practitioner Family
DX: N17.9 Acute kidney failure, unspecified (principal); N39.0 Urinary tract infection, site not specified; R80.9 Proteinuria, unspecified
CPT/HCPCS: 36415; 80053; 81003; 82570; 84100; 84156

== ENCOUNTER 2017-08-04 13:34 | Emergency (ER) | payer OTHER ==
--- NOTE | 2017-08-04 14:14 | ED ---
General Adult HPI - General Chief complaint: Abdominal Pain Stated complaint: Abd.pain Time Seen by Provider: 08/04/17 14:03 Source: patient, RN notes reviewed, old records reviewed Mode of arrival: ambulatory Limitations: no limitations - History of Present Illness Initial comments: 31-year-old male presenting for evaluation of upper abdominal pain. Patient was lifting a heavy piece of concrete, fell pain in his upper anterior abdomen. No bulging or swelling noted. Patient states he had no pain prior to this injury. He has had worse pain with movement over the last hour prior to presentation. No vomiting. No changes in bowel habits. Patient denies any lower abdominal pain or inguinal or scrotal pain. Denies any other injury. - Related Data Home Medications Medication Instructions Recorded Confirmed Calcium Acetate [PhosLo] 667 mg PO TID-W/MEALS 02/08/17 05/25/17 Folic Acid 1 mg PO DAILY 02/08/17 05/25/17 Omeprazole 40 mg PO DAILY 02/08/17 05/25/17 Potassium Chloride ER [K-Dur 20] 20 meq PO DAILY 02/08/17 05/25/17 Thiamine [Vitamin B-1] 100 mg PO DAILY 02/08/17 05/25/17 HYDROcodone/APAP 5-325MG [[place] 1 tab PO Q6HR PRN 05/25/17 05/25/17 5-325] Previous Rx's Medication Instructions Recorded Naproxen [Naprosyn] 500 mg PO Q12HR #20 tab 05/25/17 Sodium Bicarbonate Tab 650 mg PO BID #30 tab 05/25/17 Allergies Allergy/AdvReac Type Severity Reaction Status Date / Time sulfamethoxazole Allergy Unknown Verified 08/04/17 13:42 [From Bactrim] trimethoprim [From Bactrim] Allergy Unknown Verified 08/04/17 13:42 Review of Systems ROS Statement: Those systems with pertinent positive or pertinent negative responses have been documented in the HPI. ROS Other: All systems not noted in ROS Statement are negative. Past Medical History Past Medical History: GERD/Reflux, Liver Disease, Skin Disorder Additional Past Medical History / Comment(s): EPIDERMALYTIC HYPERKERATOSIS History of Any Multi-Drug Resistant Organisms: None Reported Past Surgical History: Cholecystectomy Past Anesthesia/Blood Transfusion Reactions: No Reported Reaction Past Psychological History: No Psychological Hx Reported Smoking Status: Current every day smoker Past Alcohol Use History: None Reported Past Drug Use History: None Reported - Past Family History Father Family Medical History: Unable to Obtain Additional Family Medical History / Comment(s): RAISED BY STEP FATHER Mother Family Medical History: No Reported History Additional Family Medical History / Comment(s): States his mother's heart is not working well and is in [facility]. General Exam Limitations: no limitations General appearance: alert, in no apparent distress Head exam: Present: atraumatic, normocephalic Eye exam: Present: normal appearance, PERRL, EOMI Neck exam: Present: normal inspection. Absent: tenderness, meningismus Respiratory exam: Present: normal lung sounds bilaterally. Absent: respiratory distress, wheezes Cardiovascular Exam: Present: regular rate, normal rhythm GI/Abdominal exam: Present: soft, tenderness (Minimal upper anterior abdominal tenderness, worse with abdominal flexion, no hernia.). Absent: distended, guarding, rebound, hernia Extremities exam: Present: normal inspection Neurological exam: Present: alert, oriented X3, CN II-XII intact. Absent: motor sensory deficit Psychiatric exam: Present: normal affect, normal mood Skin exam: Present: warm, dry Course Vital Signs 08/04/17 13:40 Temperature 98.6 F Pulse Rate 84 Respiratory 20 Rate Blood Pressure 138/85 O2 Sat by Pulse 99 Oximetry Medical Decision Making - Medical Decision Making 31-year-old male presents with abdominal pain after doing some heavy lifting. Patient has no palpable hernia. Abdomen is soft. This occurred approximately 1 hour prior to arrival. No associated symptoms. Patient is well-appearing with stable vitals. He does have worse pain with abdominal flexion consistent with abdominal muscle strain. Patient states he has history of kidney and liver disease secondary to alcohol abuse, he is instructed not to take Tylenol or Motrin products. He will rest, apply ice, and follow-up with his primary care physician. Disposition Clinical Impression: Abdominal wall strain Disposition: HOME SELF-CARE Condition: Good Instructions: Muscle Strain (ED), Core Strengthening Exercises (ED) Referrals: Alonzo Loredo MD [Primary Care Provider] - 1-2 days Time of Disposition: 14:14
[2017-08-04 14:32] VITALS: BP 143/72; PULSE 105; RESP 14; TEMP 97.5
== END 2017-08-04 14:35 | disposition home or self-care (01) ==
LOC: EC 13:34
DX: S39.011A Strain of muscle, fascia and tendon of abdomen, initial encounter (principal); K21.9 Gastro-esophageal reflux disease without esophagitis; Z87.19 Personal history of other diseases of the digestive system; Z90.49 Acquired absence of other specified parts of digestive tract; Z79.899 Other long term (current) drug therapy; Z88.1 Allergy status to other antibiotic agents; Z88.2 Allergy status to sulfonamides; X50.0XXA Overexertion from strenuous movement or load, initial encounter
CPT/HCPCS: 99283

== ENCOUNTER 2017-08-05 22:16 | Inpatient (IN) | payer OTHER ==
--- NOTE | 2017-08-05 23:40 | ED ---
Abdominal Pain HPI - General Chief Complaint: Abdominal Pain Stated Complaint: abd pain; was here yesterday Time Seen by Provider: 08/05/17 23:20 Source: patient Mode of arrival: ambulatory Limitations: no limitations - History of Present Illness Initial Comments: This patient is a 31-year-old man who presents to be evaluated for left upper quadrant and epigastric abdominal pain. The patient states that the pain and come on yesterday in the afternoon after he had been doing some heavy lifting around his yard. He was seen here yesterday and diagnosed with abdominal wall strain. The patient states that the pain seemed to be a little worse tonight, and he also had 3 episodes of vomiting at home, without seeing any blood or coffee-ground material. With the vomiting he felt he should be ruled out reevaluated. The patient states that the pain has subsequently decreased, he is declining analgesic or antiemetic at this point. States pain also seems to be relieved if he curls into a ball. MD Complaint: abdominal pain Onset/Timin -: days(s) Location: LUQ, epigastric Radiation: none Migration to: no migration Severity: moderate Quality: aching Consistency: intermittent Improves With: other (Curling into a ball) Worsens With: nothing Associated Symptoms: nausea, vomiting - Related Data Home Medications Medication Instructions Recorded Confirmed Folic Acid 1 mg PO DAILY 02/08/17 08/05/17 Omeprazole 40 mg PO DAILY 02/08/17 08/05/17 Potassium Chloride ER [K-Dur 20] 20 meq PO DAILY 02/08/17 08/05/17 Thiamine [Vitamin B-1] 100 mg PO DAILY 02/08/17 08/05/17 Allergies Allergy/AdvReac Type Severity Reaction Status Date / Time sulfamethoxazole Allergy Unknown Verified 08/05/17 22:54 [From Bactrim] trimethoprim [From Bactrim] Allergy Unknown Verified 08/05/17 22:54 Review of Systems ROS Statement: Those systems with pertinent positive or pertinent negative responses have been documented in the HPI. ROS Other: All systems not noted in ROS Statement are negative. Constitutional: Denies: fever, chills Respiratory: Denies: cough, dyspnea Cardiovascular: Denies: chest pain, palpitations, edema, syncope Gastrointestinal: Reports: as per HPI, abdominal pain, nausea, vomiting. Denies : diarrhea, constipation, hematemesis, melena, hematochezia Genitourinary: Denies: dysuria, hematuria Musculoskeletal: Denies: back pain Skin: Denies: rash Neurological: Denies: headache Hematological/Lymphatic: Denies: easy bleeding Past Medical History Past Medical History: GERD/Reflux, Liver Disease, Skin Disorder Additional Past Medical History / Comment(s): EPIDERMALYTIC HYPERKERATOSIS History of Any Multi-Drug Resistant Organisms: None Reported Past Surgical History: Cholecystectomy Past Anesthesia/Blood Transfusion Reactions: No Reported Reaction Past Psychological History: No Psychological Hx Reported Smoking Status: Current some day smoker Past Alcohol Use History: None Reported Past Drug Use History: None Reported - Past Family History Father Family Medical History: Unable to Obtain Additional Family Medical History / Comment(s): RAISED BY STEP FATHER Mother Family Medical History: No Reported History Additional Family Medical History / Comment(s): States his mother's heart is not working well and is in [facility]. General Exam Limitations: no limitations General appearance: alert, in no apparent distress Head exam: Present: atraumatic, normocephalic Eye exam: Present: normal appearance. Absent: scleral icterus, conjunctival injection ENT exam: Present: normal oropharynx Respiratory exam: Present: normal lung sounds bilaterally. Absent: respiratory distress, wheezes, rales, rhonchi, stridor Cardiovascular Exam: Present: regular rate, normal rhythm, normal heart sounds. Absent: systolic murmur, diastolic murmur, rubs, gallop GI/Abdominal exam: Present: soft, normal bowel sounds. Absent: distended, tenderness, guarding, rebound, rigid, mass, pulsatile mass, hernia Extremities exam: Present: normal inspection, normal capillary refill. Absent: pedal edema, calf tenderness Back exam: Present: normal inspection. Absent: CVA tenderness (R), CVA tenderness (L) Skin exam: Present: warm, dry (With scaling), intact, normal color Course Vital Signs 08/05/17 08/06/17 22:25 02:47 Temperature 97.9 F Pulse Rate 103 H 91 Respiratory 20 18 Rate Blood Pressure 153/89 126/65 O2 Sat by Pulse 100 98 Oximetry Medical Decision Making - Medical Decision Making This patient is a 31-year-old man with history of pancreatitis, who presents to be evaluated for left upper quadrant pain, and is found to have pancreatitis on the labs. Clinically he does look very well considering the amylase and lipase levels. In fact he is been declining analgesics and antiemetics. Given the high levels found however it does seem prudent to admit the patient to ensure that these are improving. The case is discussed with Dr. Conte, will admit the patient and has seen him here in the emergency department. - Lab Data Result diagrams: 08/06/17 06:39 08/06/17 06:39 Lab Results 08/06/17 08/06/17 08/06/17 Range/Units 00:00 00:09 00:09 WBC 15.5 H (3.8-10.6) k/uL RBC 4.78 (4.30-5.90) m/uL Hgb 13.6 (13.0-17.5) gm/dL Hct 42.1 (39.0-53.0) % MCV 88.2 (80.0-100.0) fL MCH 28.5 (25.0-35.0) pg MCHC 32.3 (31.0-37.0) g/dL RDW 14.6 (11.5-15.5) % Plt Count 302 (150-450) k/uL Neutrophils % 81 % Lymphocytes % 13 % Monocytes % 5 % Eosinophils % 1 % Basophils % 0 % Neutrophils # 12.5 H (1.3-7.7) k/uL Lymphocytes # 1.9 (1.0-4.8) k/uL Monocytes # 0.7 (0-1.0) k/uL Eosinophils # 0.1 (0-0.7) k/uL Basophils # 0.0 (0-0.2) k/uL Sodium 143 (137-145) mmol/L Potassium 3.7 (3.5-5.1) mmol/L Chloride 104 (98-107) mmol/L Carbon Dioxide 25 (22-30) mmol/L Anion Gap 14 mmol/L BUN 12 (9-20) mg/dL Creatinine 0.60 L (0.66-1.25) mg/dL Est GFR (MDRD) Af Amer >60 (>60 ml/min/1.73 sqM) Est GFR (MDRD) Non-Af >60 (>60 ml/min/1.73 sqM) Glucose 132 H (74-99) mg/dL Calcium 9.9 (8.4-10.2) mg/dL Total Bilirubin 2.2 H (0.2-1.3) mg/dL AST 112 H (17-59) U/L ALT 85 H (21-72) U/L Alkaline Phosphatase 281 H (38-126) U/L Total Protein 7.4 (6.3-8.2) g/dL Albumin 4.7 (3.5-5.0) g/dL Amylase 2050 H* (30-110) U/L Lipase >19881 H (23-300) U/L Urine Color Yellow Urine Appearance Turbid (Clear) Urine pH 7.0 (5.0-8.0) Ur Specific [place] 1.015 (1.001-1.035) Urine Protein 1+ H (Negative) Urine Glucose (UA) Negative (Negative) Urine Ketones Negative (Negative) Urine Blood Negative (Negative) Urine Nitrite Negative (Negative) Urine Bilirubin Negative (Negative) Urine Urobilinogen 2.0 (<2.0) mg/dL Ur Leukocyte Esterase Negative (Negative) Amorphous Sediment Rare H (None) /hpf Urine Mucus Rare H (None) /hpf Serum Alcohol mg/dL IgG1 (405.0-1011.0) mg/dL IgG2 (169.0-640.0) mg/dL IgG3 (11.0-85.0) mg/dL IgG4 (3.0-175.0) mg/dL 08/06/17 08/06/17 Range/Units 00:09 00:09 WBC (3.8-10.6) k/uL RBC (4.30-5.90) m/uL Hgb (13.0-17.5) gm/dL Hct (39.0-53.0) % MCV (80.0-100.0) fL MCH (25.0-35.0) pg MCHC (31.0-37.0) g/dL RDW (11.5-15.5) % Plt Count (150-450) k/uL Neutrophils % % Lymphocytes % % Monocytes % % Eosinophils % % Basophils % % Neutrophils # (1.3-7.7) k/uL Lymphocytes # (1.0-4.8) k/uL Monocytes # (0-1.0) k/uL Eosinophils # (0-0.7) k/uL Basophils # (0-0.2) k/uL Sodium (137-145) mmol/L Potassium (3.5-5.1) mmol/L Chloride (98-107) mmol/L Carbon Dioxide (22-30) mmol/L Anion Gap mmol/L BUN (9-20) mg/dL Creatinine (0.66-1.25) mg/dL Est GFR (MDRD) Af Amer (>60 ml/min/1.73 sqM) Est GFR (MDRD) Non-Af (>60 ml/min/1.73 sqM) Glucose (74-99) mg/dL Calcium (8.4-10.2) mg/dL Total Bilirubin (0.2-1.3) mg/dL AST (17-59) U/L ALT (21-72) U/L Alkaline Phosphatase (38-126) U/L Total Protein (6.3-8.2) g/dL Albumin (3.5-5.0) g/dL Amylase (30-110) U/L Lipase (23-300) U/L Urine Color Urine Appearance (Clear) Urine pH (5.0-8.0) Ur Specific [place] (1.001-1.035) Urine Protein (Negative) Urine Glucose (UA) (Negative) Urine Ketones (Negative) Urine Blood (Negative) Urine Nitrite (Negative) Urine Bilirubin (Negative) Urine Urobilinogen (<2.0) mg/dL Ur Leukocyte Esterase (Negative) Amorphous Sediment (None) /hpf Urine Mucus (None) /hpf Serum Alcohol <10 mg/dL IgG1 436.0 (405.0-1011.0) mg/dL IgG2 186.0 (169.0-640.0) mg/dL IgG3 12.8 (11.0-85.0) mg/dL IgG4 77.2 (3.0-175.0) mg/dL Disposition Clinical Impression: Pancreatitis Disposition: ADMITTED IP TO THIS HOSP Condition: Fair
--- NOTE | 2017-08-06 00:16 | XR ---
EXAMINATION TYPE: XR abdomen acute w cxr DATE OF EXAM: 08/06/2017 COMPARISON: 05/16/2017 HISTORY: Chest pain abdominal pain TECHNIQUE: 3 views FINDINGS: Heart and mediastinum are normal. There is some linear density in the right upper lobe. There is no h eart failure. Bowel gas pattern is normal. There is no sign of intestinal obstruction or pneumoperito neum. Fecal pattern is normal. There are no pathologic calcifications over the left kidney. This eigh th 3 mm calcification over the right kidney. Bony structures are intact. There is no evidence of a ma ss. IMPRESSION: Nonacute abdomen. Normal heart. Linear density in the right upper lobe consistent with focal atelecta sis. There is new calcification over the right kidney compared to old exam. There is clearing of the extensive pulmonary edema compared to 07/03/2016.
[2017-08-06 00:17] LABS: Amorphous Sediment,Urine Rare /hpf; Appearance,Urine Turbid (Clear); Bilirubin,Urine Negative (Negative); Blood,Urine Negative (Negative); Color,Urine Yellow; Glucose,Urine (UA) Negative (Negative); Ketones,Urine Negative (Negative); Leukocyte Esterase,Urine Negative (Negative); Mucus,Urine Rare /hpf; Protein,Urine 1+ (Negative); Specific Gravity,Urine 1.015 (1.001-1.035)
[2017-08-06 00:38] LABS: ALT 85 U/L (21-72); AST 112 U/L (17-59); Albumin 4.7 g/dL (3.5-5.0); Alkaline Phosphatase 281 U/L (38-126); Anion Gap 14 mmol/L; Blood Urea Nitrogen 12 mg/dL (9-20); Calcium 9.9 mg/dL (8.4-10.2); Carbon Dioxide 25 mmol/L (22-30); Chloride 104 mmol/L (98-107); Glucose 132 mg/dL (74-99); Potassium 3.7 mmol/L (3.5-5.1); Sodium 143 mmol/L (137-145); Total Bilirubin 2.2 mg/dL (0.2-1.3); Total Protein 7.4 g/dL (6.3-8.2)
[2017-08-06 00:42] LABS: Basophils % (A) 0 %; Eosinophils # (A) 0.1 k/uL (0-0.7); Eosinophils % (A) 1 %; HCT 42.1 % (39.0-53.0); HGB 13.6 gm/dL (13.0-17.5); Lymphocytes # (A) 1.9 k/uL (1.0-4.8); Lymphocytes % (A) 13 %; MCH 28.5 pg (25.0-35.0); MCHC 32.3 g/dL (31.0-37.0); MCV 88.2 fL (80.0-100.0); Mean Platelet Volume 6.7; Monocytes # (A) 0.7 k/uL (0-1.0); Monocytes % (A) 5 %; Neutrophils # (A) 12.5 k/uL (1.3-7.7); Neutrophils % (A) 81 %; Platelet Count 302 k/uL (150-450); RBC 4.78 m/uL (4.30-5.90); RDW 14.6 % (11.5-15.5); WBC 15.5 k/uL (3.8-10.6)
[2017-08-06 01:08] LABS: Amylase 2050 U/L (30-110)
[2017-08-06 01:09] LABS: Lipase >20000 U/L (23-300)
[2017-08-06] MEDS ORDERED: SODIUM CHLORIDE 0.9% 1,000 ML IV ONE (01:34)
[2017-08-06] MEDS ORDERED: NALOXONE 0.4 MG/ML 1 ML VIAL IV PRN (02:09)
[2017-08-06] MEDS ORDERED: ONDANSETRON 4 MG/2 ML VIAL IVP PRN (02:09)
[2017-08-06] MEDS ORDERED: FAMOTIDINE 20 MG/2 ML VIAL IV SCH (02:15)
[2017-08-06 02:48] VITALS: RESP 18
[2017-08-06] MEDS ORDERED: RX INFO: IV CONTRAST WAS GIVEN 1 EACH MISC MISCELLANE PRN (02:48)
[2017-08-06] MEDS ORDERED: IOHEXOL 350 MG/ML 25 ML BOTTLE (ORAL USE) PO PRN (02:48)
[2017-08-06] MEDS: SODIUM CHLORIDE 0.9% 1,000 ML IV SCH ×2 (03:10→11:36)
[2017-08-06 03:16] VITALS: BMI 22.0
--- NOTE | 2017-08-06 03:19 | P.HPIM ---
History of Present Illness H&P Date: 08/06/17 Chief Complaint: Abdominal pain 31-year-old male presented due to epigastric and right upper quadrant abdominal pain. Patient reports pain started yesterday when he was doing some lifting came to the ER for evaluation and was diagnosed with muscle strain abdominal wall muscle strain. However the next day it after eating dinner he noticed worsening of the pain was associated with 2 bouts of vomiting of stomach content nonbloody nonbilious, patient denies otherwise any fevers chills or any changes in his bowel habits or urinary habits. Patient describes the pain as epigastric and right upper quadrant achy in nature 8 out of 10 in severity no relieving or aggravating factor pain is nonradiating and he never had experienced such pain before. This significant time patient presents to the ER the same problem over 2 days further investigation showed elevated lipase and amylase patient was admitted with a diagnosis of pancreatitis. Patient otherwise denies any similar events in the past, denies any trauma to the abdomen. Patient had cholecystectomy done 2 months ago. And patient is denying any alcohol intake Review of Systems Constitutional: Patient denies fever, denies chills, denies night sweating, denies significant weight changes Eyes: Patient denies visual changes, denies eye pain ENT: Patient denies ear pain, denies rhinorrhea, denies sore throat Cardiovascular: Patient denies chest pain, denies exertional dyspnea, denies peripheral leg edema, denies orthopnea, denies paroxysmal nocturnal dyspnea Respiratory:Patient denies cough, denies wheezing, denies shortness of breath Gastrointestinal: Patient denies diarrhea, denies constipatio, otherwise abdominal pain nausea and vomiting as described in HPI Genitourinary: Patient denies dysuria, denies hematuria, denies changes in urinary habits, denies genital lesions Musculoskeletal: Patient denies muscle pain, denies joint pain Psychiatric: Patient denies changes in mood or memory, denies suicidal ideation, denies anxiety Endocrine: Patient denies heat intolerance, denies cold intolerance, denies excessive thirst, denies polyuria Neurological: Patient denies focal neurologic deficits, denies weakness, denies numbness, denies tingling Hem/Lymphatic: Patient denies bleeding tendency, denies bruising, denies swollen lymph glands Allergic/Immun: Patient denies recent allergic reactions Skin: Patient reports chronic skin condition with dryness and scaling Past Medical History Past Medical History: GERD/Reflux, Liver Disease, Skin Disorder Additional Past Medical History / Comment(s): EPIDERMALYTIC HYPERKERATOSIS History of Any Multi-Drug Resistant Organisms: None Reported Past Surgical History: Cholecystectomy Past Anesthesia/Blood Transfusion Reactions: No Reported Reaction Past Psychological History: No Psychological Hx Reported Smoking Status: Current some day smoker Past Alcohol Use History: None Reported Past Drug Use History: None Reported - Past Family History Father Family Medical History: Unable to Obtain Additional Family Medical History / Comment(s): RAISED BY STEP FATHER Mother Family Medical History: No Reported History Additional Family Medical History / Comment(s): States his mother's heart is not working well and is in [facility]. Medications and Allergies Home Medications Medication Instructions Recorded Confirmed Type Folic Acid 1 mg PO DAILY 02/08/17 08/05/17 History Omeprazole 40 mg PO DAILY 02/08/17 08/05/17 History Potassium Chloride ER [K-Dur 20] 20 meq PO DAILY 02/08/17 08/05/17 History Thiamine [Vitamin B-1] 100 mg PO DAILY 02/08/17 08/05/17 History Allergies Allergy/AdvReac Type Severity Reaction Status Date / Time sulfamethoxazole Allergy Unknown Verified 08/05/17 22:54 [From Bactrim] trimethoprim [From Bactrim] Allergy Unknown Verified 08/05/17 22:54 Physical Exam Vitals: Vital Signs Temp Pulse Resp BP Pulse Ox 08/06/17 02:47 91 18 126/65 98 08/05/17 22:25 97.9 F 103 H 20 153/89 100 Intake and Output 08/05/17 08/05/17 08/06/17 14:59 22:59 06:59 Other: Weight 71.668 kg Patient Weight 08/06/17 06:59 Weight 71.668 kg Constitutional: No acute distress, conversant, pleasant Eyes: Anicteric sclerae, moist conjunctiva, no lid-lag Pupils equal round reactive to light ENMT: NC/AT Oropharynx clear, no erythema, exudates Neck: Supple, FROM, no masses, or JVD No carotid bruits No thyromegaly Lungs: Clear to auscultation Clear to percussion Normal respiratory effort, no accessory muscle use Cardiovascular: Heart regular in rate and rhythm, No murmurs, gallops, or rubs No peripheral edema Abdominal: Soft, very slight tenderness to palpation of the epigastric region, no guarding, rebound or rigidity Abdomen moving with respiration Normoactive bowel sounds No hepatomegaly, No splenomegaly No palpable mass No abdominal wall hernia noted Skin: Extensive scaling and dryness of the skin overall Normal temperature, tone, texture, turgor No induration No subcutaneous nodules no ulcers Extremities: No digital cyanosis No clubbing Pedal pulses intact and symmetrical Radial pulses intact and symmetrical No calf tenderness Psychiatric: Alert and oriented to person, place and time Appropriate affect fair judgment Neuro Muscles Strength 4/5 in all 4 extremities Sensation to light touch grossly present throughout Cranial nerves II-XII grossly intact No focal sensory deficits Lymphatics: no palpable cervical or supraclavicular , or inguinal lymph nodes Results CBC & Chem 7: 08/06/17 00:09 08/06/17 00:09 Labs: Abnormal Lab Results - Last 24 Hours (Table) 08/06/17 08/06/17 08/06/17 Range/Units 00:00 00:09 00:09 WBC 15.5 H (3.8-10.6) k/uL Neutrophils # 12.5 H (1.3-7.7) k/uL Creatinine 0.60 L (0.66-1.25) mg/dL Glucose 132 H (74-99) mg/dL Total Bilirubin 2.2 H (0.2-1.3) mg/dL AST 112 H (17-59) U/L ALT 85 H (21-72) U/L Alkaline Phosphatase 281 H (38-126) U/L Amylase 2050 H* (30-110) U/L Lipase >96824 H (23-300) U/L Urine Protein 1+ H (Negative) Amorphous Sediment Rare H (None) /hpf Urine Mucus Rare H (None) /hpf Assessment and Plan (1) Acute pancreatitis Narrative/Plan: Unknown exact underlying cause for now Continue with nothing by mouth and aggressive IV fluid hydration Monitor CBC BUN/creatinine and lipase level repeated in the morning Obtain CAT scan of the pancreas by face with pancreatic protocol Obtain GI consultation Keep nothing by mouth okay for metastases Current Visit: No Status: Acute Code(s): K85.90 - ACUTE PANCREATITIS WITHOUT NECROSIS OR INFECTION, UNSP SNOMED Code(s): 743151191 (2) ETOH abuse Narrative/Plan: Patient claims that this is in the past and he's been abstinence from alcohol Check alcohol level Current Visit: No Status: Acute Code(s): F10.10 - ALCOHOL ABUSE, UNCOMPLICATED SNOMED Code(s): 81900494 (3) Transaminitis Narrative/Plan: Hyperbilirubinemia This is mild could be due to recent history of cholecystectomy Versus possible alcohol intake Await blood alcohol level Current Visit: No Status: Acute Code(s): R74.0 - NONSPEC ELEV OF LEVELS OF TRANSAMNS & LACTIC ACID DEHYDRGNSE SNOMED Code(s): 164262934 (4) Cigarette nicotine dependence Narrative/Plan: Counseled to quit smoking Nicotine replacement therapy offered Current Visit: No Status: Chronic Code(s): F17.210 - NICOTINE DEPENDENCE, CIGARETTES, UNCOMPLICATED SNOMED Code(s): 54413373 (5) Hyperkeratosis of skin Narrative/Plan: This is chronic and stable per the patient Continue to apply emollients and skin creams Current Visit: No Status: Chronic Code(s): L85.9 - EPIDERMAL THICKENING, UNSPECIFIED SNOMED Code(s): 947092237 (6) DVT prophylaxis Narrative/Plan: Heparin subcu 3 times a day Current Visit: Yes Status: Acute Code(s): RFF3433 - SNOMED Code(s): 087800732 Plan: Preformed a thorough record review from recent hospitalization 2 months ago where he had cholecystectomy done CODE STATUS: Full code DVT prophylaxis: Heparin subcu 3 times a day Discussed with: Patient, ER Anticipated discharge: 48-[address]: Home A total of 45 minutes were spent on the care of this complex patient more than 50% of the time was spent in counseling and care coordination.
[2017-08-06 07:13] LABS: Basophils % (A) 0 %; Eosinophils # (A) 0.2 k/uL (0-0.7); Eosinophils % (A) 2 %; HGB 12.2 gm/dL (13.0-17.5); Lymphocytes # (A) 2.6 k/uL (1.0-4.8); Lymphocytes % (A) 35 %; MCH 28.4 pg (25.0-35.0); MCV 88.6 fL (80.0-100.0); Mean Platelet Volume 6.7; Monocytes # (A) 0.4 k/uL (0-1.0); Monocytes % (A) 6 %; Neutrophils # (A) 4.1 k/uL (1.3-7.7); Neutrophils % (A) 55 %; Platelet Count 269 k/uL (150-450); RBC 4.29 m/uL (4.30-5.90); RDW 14.7 % (11.5-15.5); WBC 7.4 k/uL (3.8-10.6)
[2017-08-06 07:45] LABS: Anion Gap 9 mmol/L; Blood Urea Nitrogen 9 mg/dL (9-20); Calcium 8.7 mg/dL (8.4-10.2); Carbon Dioxide 23 mmol/L (22-30); Chloride 111 mmol/L (98-107); Glucose 85 mg/dL (74-99); Potassium 3.6 mmol/L (3.5-5.1); Sodium 143 mmol/L (137-145); Triglycerides 52 mg/dL (<150)
[2017-08-06] MEDS ORDERED: HEPARIN SODIUM,PORCINE 5,000 UNIT/ML 1 ML VIAL SQ SCH (08:00)
[2017-08-06 08:10] LABS: Lipase 8808 U/L (23-300)
--- NOTE | 2017-08-06 08:34 | CT ---
EXAMINATION TYPE: CT pancreas biphase DATE OF EXAM: 08/06/2017 COMPARISON: 05/21/2017 HISTORY: Acute Pancreatitis CT DLP: 345.1 mGycm CONTRAST: CT scan of the abdomen is performed and with IV Contrast, patient injected with 100 mL of Omnipaque 300. 5 phase imaging was obtained of the pancreas. FINDINGS: LUNG BASES-: No visible nodule. No infiltrate. LIVER/GB: Cholecystectomy clips are in place. Mild hepatic steatosis. No space occupying hepatic l esion. Biliary tree is of normal caliber. PANCREAS: No inflammation. No distinct mass. SPLEEN: No splenic enlargement. No lesion seen. ADRENALS: No nodule. No thickening. KIDNEYS/BLADDER: No hydronephrosis. No nephrolithiasis. 1.3 cm right renal cyst. Urinary bladder gr ossly unremarkable. BOWEL: Normal appendix. Normal bowel caliber. No inflammation. GENITAL ORGANS: No gross abnormality. LYMPH NODES: No greater than 1cm abdominal or pelvic lymph nodes are appreciated. AORTA: No significant abnormality. OSSEOUS STRUCTURES: No significant abnormality is seen. OTHER: No significant additional abnormality is seen. IMPRESSION: 1. No CT evidence to suggest pancreatitis or pancreatic lesion. 2. Resolution of previously noted ascites. 3. Cholecystectomy changes. 4. Right renal cyst. 5. Hepatic steatosis.
[2017-08-06 08:59] VITALS: BP 118/57; PULSE 85; TEMP 98.3
[2017-08-06] MEDS ORDERED: POTASSIUM CHLORIDE ER 20 MEQ TAB.ER PO SCH (09:00)
[2017-08-06] MEDS ORDERED: THIAMINE 100 MG TAB PO SCH (09:00)
[2017-08-06] MEDS ORDERED: PANTOPRAZOLE 40 MG TABLET PO SCH (09:00)
[2017-08-06] MEDS ORDERED: FOLIC ACID 1 MG TAB PO SCH (09:00)
--- NOTE | 2017-08-06 11:35 | P.CONS ---
History of Present Illness - Reason for Consult Consult date: 08/06/17 Pancreatitis Requesting physician: Alfredo oCnte - History of Present Illness 31-year-old male well-known to the GI service with a history of EtOH abuse, chronic relapsing alcohol pancreatitis, epidermalytic hyperkeratosis skin, nicotine cigarette dependency, GERD, cholecystectomy. Patient presents with midepigastric pain elevated pancreatic enzymes consistent with acute recurrent pancreatitis. MRI pancreas no evidence of pseudocyst, stricture disease, or mass. Admission lipase greater than 20,000 presently 8800. LFTs elevated total bilirubin 2.2. AST 112. ALT 85. Alkaline phosphatase 281. Triglycerides 52. Last alcoholic drink June 2017. Patient's pain is significantly improved and is requesting discharge and diet. Afebrile. Denies hematemesis hematochezia melena. Review of Systems Constitutional: Denies fever, chills, sweats, weight gain, or loss. HEENT: Negative for migraines, blurred vision or loss, earaches, drainage, tinnitus, oral mucosal lesions, dysphagia, or odynophagia. Cardiac: Negative for chest pain, arrhythmias, or palpitation. Respiratory: Nicotine cigarette dependency. Dyspnea. Gastrointestinal: See HPI for pertinent findings. Genitourinary: Negative for hematuria, urgency, frequency, polyuria, dysuria, or penile discharge. Musculoskeletal: Negative for muscle aches, swelling, arthritis, and arthralgias. Neurologic: Negative for stroke or TIA. Endocrine: Negative for thyroid problems. Skin: Epidermallytic hyperkeratosis. Psychiatric: Negative history for depression and anxiety Past Medical History Past Medical History: GERD/Reflux, Liver Disease, Skin Disorder Additional Past Medical History / Comment(s): EPIDERMALYTIC HYPERKERATOSIS History of Any Multi-Drug Resistant Organisms: None Reported Past Surgical History: Cholecystectomy Past Anesthesia/Blood Transfusion Reactions: No Reported Reaction Past Psychological History: No Psychological Hx Reported Smoking Status: Current some day smoker Past Alcohol Use History: None Reported Past Drug Use History: None Reported - Past Family History Father Family Medical History: Unable to Obtain Additional Family Medical History / Comment(s): RAISED BY STEP FATHER Mother Family Medical History: No Reported History Additional Family Medical History / Comment(s): States his mother's heart is not working well and is in [facility]. Medications and Allergies Home Medications Medication Instructions Recorded Confirmed Type Folic Acid 1 mg PO DAILY 02/08/17 08/05/17 History Omeprazole 40 mg PO DAILY 02/08/17 08/05/17 History Potassium Chloride ER [K-Dur 20] 20 meq PO DAILY 02/08/17 08/05/17 History Thiamine [Vitamin B-1] 100 mg PO DAILY 02/08/17 08/05/17 History Allergies Allergy/AdvReac Type Severity Reaction Status Date / Time sulfamethoxazole Allergy Unknown Verified 08/05/17 22:54 [From Bactrim] trimethoprim [From Bactrim] Allergy Unknown Verified 08/05/17 22:54 Physical Exam Vitals: Vital Signs Temp Pulse Pulse Resp BP BP Pulse Ox 08/06/17 07:00 98.3 F 85 18 118/57 98 08/06/17 03:00 98.2 F 101 H 18 135/73 99 08/06/17 02:47 91 18 126/65 98 08/05/17 22:25 97.9 F 103 H 20 153/89 100 Intake and Output 08/05/17 08/06/17 08/06/17 22:59 06:59 14:59 Other: Voiding Method Toilet # Voids 1 Weight 71.668 kg 71.668 kg General appearance: The patient is alert, oriented, in no acute distress. HET: Head is normocephalic and atraumatic. Pupils are equal and reactive. Oropharynx is clear without lesions. Neck: Supple without lymphadenopathy. Trachea midline. Heart: S1 S2. Regular rate and rhythm. Lungs: No crackles or wheezes are heard. Abdomen: Soft, very mild midepigastric tenderness, nondistended with bowel sounds. No peritoneal signs. No palpable organomegaly or masses. Extremities: Hyperkeratosis skin all extremities trunk face, Normal skin color and turgor. No cyanosis, rash, ulceration, clubbing, or edema. Radial and pedal pulses are 2/4 bilaterally. Neurological: No focal deficits. Strength and sensation are grossly intact. Results CBC & Chem 7: 08/06/17 06:39 08/06/17 06:39 Labs: Abnormal Lab Results - Last 24 Hours (Table) 08/06/17 08/06/17 08/06/17 Range/Units 00:00 00:09 00:09 WBC 15.5 H (3.8-10.6) k/uL RBC (4.30-5.90) m/uL Hgb (13.0-17.5) gm/dL Hct (39.0-53.0) % Neutrophils # 12.5 H (1.3-7.7) k/uL Chloride (98-107) mmol/L Creatinine 0.60 L (0.66-1.25) mg/dL Glucose 132 H (74-99) mg/dL Total Bilirubin 2.2 H (0.2-1.3) mg/dL AST 112 H (17-59) U/L ALT 85 H (21-72) U/L Alkaline Phosphatase 281 H (38-126) U/L Amylase 2050 H* (30-110) U/L Lipase >32033 H (23-300) U/L Urine Protein 1+ H (Negative) Amorphous Sediment Rare H (None) /hpf Urine Mucus Rare H (None) /hpf 08/06/17 08/06/17 Range/Units 06:39 06:39 WBC (3.8-10.6) k/uL RBC 4.29 L (4.30-5.90) m/uL Hgb 12.2 L (13.0-17.5) gm/dL Hct 38.0 L (39.0-53.0) % Neutrophils # (1.3-7.7) k/uL Chloride 111 H (98-107) mmol/L Creatinine 0.55 L (0.66-1.25) mg/dL Glucose (74-99) mg/dL Total Bilirubin (0.2-1.3) mg/dL AST (17-59) U/L ALT (21-72) U/L Alkaline Phosphatase (38-126) U/L Amylase (30-110) U/L Lipase 8808 H (23-300) U/L Urine Protein (Negative) Amorphous Sediment (None) /hpf Urine Mucus (None) /hpf MRI - abdomen: report reviewed (Dr. Stafford) Assessment and Plan (1) Pancreatitis Narrative/Plan: Acute on chronic relapsing alcohol pancreatitis Current Visit: Yes Status: Acute Code(s): K85.90 - ACUTE PANCREATITIS WITHOUT NECROSIS OR INFECTION, UNSP SNOMED Code(s): 85299854 (2) Acute alcoholic hepatitis Narrative/Plan: Elevated liver enzymes bilirubin suspect component of alcohol hepatitis edema from pancreatitis. Last alcoholic drink two months ago Current Visit: No Status: Acute Code(s): K70.10 - ALCOHOLIC HEPATITIS WITHOUT ASCITES SNOMED Code(s): 0330663 Plan: 1. Pancreatic enzymes are improving patient reports minimal abdominal discomfort, abdomen soft nondistended. Patient is requesting a diet and wants to be discharged today. 2. Will allow low-fat diet if tolerated discharge per medicine. 3. Follow up in GI office after discharge. Follow with primary in 3-5 days. Thank you for this kind referral and the opportunity to participate in the care of your patient. This consultation was discussed with Dr. Stafford. The impression and plan of care have been directed as dictated.
[2017-08-06 12:02] LABS: IgG Subclass 3 12.8 mg/dL (11.0-85.0); IgG Subclass 4 77.2 mg/dL (3.0-175.0)
--- NOTE | 2017-08-06 13:51 | P.DS ---
Providers Date of admission: 08/06/17 02:09 Expected date of discharge: 08/06/17 Attending physician: Alfredo Conte MD Consults: 08/06/17 02:48 Consult Physician Routine Consulting Provider: Missy Stafford Consult Reason/Comments: pancreatitis Do you want consulting provider notified?: Yes, Notify in am Primary care physician: Alonzo Loredo - Discharge Diagnosis(es) (1) Acute alcoholic hepatitis Current Visit: No Status: Acute Hospital Course: The patient is a 31-year-old male that was admitted for acute alcoholic pancreatitis after presenting with abdominal pain and a serum lipase of 20,000 range. He was started on IV narcotics and aggressive IV fluid rehydration and was made nothing by mouth with treatment his lipase trended down to 8800 and his diet was advanced. A pancreatic CT showed no evidence of pancreatitis or pancreatic lesion, only hepatic steatosis and right renal cyst and prior cholecystectomy changes. The patient's leukocytosis resolved this was likely just acute stress response to his pancreatitis. He was subsequently discharged home in stable condition with a follow-up appointment with GI with Dr. Stafford on 09/14/17 at 4:00 pm. This discharge process took less than 30 minutes Patient Condition at Discharge: Fair Plan - Discharge Summary New Discharge Prescriptions: Continue Potassium Chloride ER [K-Dur 20] 20 meq PO DAILY Thiamine [Vitamin B-1] 100 mg PO DAILY Omeprazole 40 mg PO DAILY Folic Acid 1 mg PO DAILY Discharge Medication List Folic Acid 1 mg PO DAILY 02/08/17 [History] Omeprazole 40 mg PO DAILY 02/08/17 [History] Potassium Chloride ER [K-Dur 20] 20 meq PO DAILY 02/08/17 [History] Thiamine [Vitamin B-1] 100 mg PO DAILY 02/08/17 [History] Follow up Appointment(s)/Referral(s): Alonzo Loredo MD [Primary Care Provider] - 1-2 days Missy Stafford MD [STAFF PHYSICIAN] - 09/14/17 4:00 pm Patient Instructions/Handouts: Pancreatitis (DC) Discharge Disposition: HOME SELF-CARE
== END 2017-08-06 14:23 | disposition home or self-care (01) | DRG 440 ==
LOC: EC 22:16 → 5MS5E 08-06 02:09
PROVIDERS: ADMIT Internal Medicine; ATTEND Internal Medicine
DX: K85.20 Alcohol induced acute pancreatitis without necrosis or infection (principal); K70.10 Alcoholic hepatitis without ascites; D72.828 Other elevated white blood cell count; F10.10 Alcohol abuse, uncomplicated; F17.210 Nicotine dependence, cigarettes, uncomplicated; K21.9 Gastro-esophageal reflux disease without esophagitis; K86.1 Other chronic pancreatitis; Z88.2 Allergy status to sulfonamides; Z90.49 Acquired absence of other specified parts of digestive tract; Z82.49 Family history of ischemic heart disease and other diseases of the circulatory system; E80.6 Other disorders of bilirubin metabolism; R74.0 Nonspecific elevation of levels of transaminase and lactic acid dehydrogenase [LDH]; L57.0 Actinic keratosis
CPT/HCPCS: 36415; 74022; 74160; 80048; 80053; 80320; 81001; 82150; 82787; 83690; 84478; 85025; 96360; 96361; 99285

== ENCOUNTER → 2017-12-31 | Outpatient (CLI) | payer OTHER ==
[2017-12-31 11:16] LABS: ALT 36 U/L (21-72); AST 34 U/L (17-59); Albumin 4.2 g/dL (3.5-5.0); Alkaline Phosphatase 120 U/L (38-126); Anion Gap 11 mmol/L; Blood Urea Nitrogen 10 mg/dL (9-20); Calcium 9.1 mg/dL (8.4-10.2); Carbon Dioxide 20 mmol/L (22-30); Chloride 109 mmol/L (98-107); Glucose 151 mg/dL (74-99); Magnesium 1.9 mg/dL (1.6-2.3); Potassium 4.3 mmol/L (3.5-5.1); Sodium 140 mmol/L (137-145); Total Bilirubin 0.7 mg/dL (0.2-1.3); Total Protein 6.5 g/dL (6.3-8.2)
[2017-12-31 11:19] LABS: Appearance,Urine Clear (Clear); Bilirubin,Urine Negative (Negative); Blood,Urine Negative (Negative); Color,Urine Yellow; Glucose,Urine (UA) Negative (Negative); Ketones,Urine Negative (Negative); Leukocyte Esterase,Urine Trace (Negative); Nitrite,Urine Negative (Negative); PH, Urine 7.5 (5.0-8.0); Protein,Urine Negative (Negative); Specific Gravity,Urine 1.013 (1.001-1.035); Squamous Epithelial Cell,Urine <1 /hpf (0-4); Urobilinogen,Urine <2.0 mg/dL (<2.0); WBC,Urine 10 /hpf (0-5)
[2017-12-31 15:13] LABS: Creatinine,Urine Random 75.2 mg/dL
== END | disposition home or self-care (01) ==
LOC: LABWHC1 10:32
PROVIDERS: ATTEND Nurse Practitioner Family
DX: N17.9 Acute kidney failure, unspecified (principal); R80.9 Proteinuria, unspecified; N39.0 Urinary tract infection, site not specified
CPT/HCPCS: 36415; 80053; 81001; 82570; 83735; 84156

== ENCOUNTER → 2018-07-21 | Outpatient (CLI) | payer OTHER ==
[2018-07-21 16:18] LABS: HCT 46.5 % (39.0-53.0); HGB 15.6 gm/dL (13.0-17.5); MCH 31.3 pg (25.0-35.0); MCHC 33.5 g/dL (31.0-37.0); MCV 93.4 fL (80.0-100.0); Mean Platelet Volume 6.8; Platelet Count 280 k/uL (150-450); RBC 4.98 m/uL (4.30-5.90); RDW 13.9 % (11.5-15.5); WBC 11.2 k/uL (3.8-10.6)
[2018-07-21 23:11] LABS: Albumin 4.7 g/dL (3.80-4.90); Albumin/Globulin Ratio 2.47 (1.60-3.17); Anion Gap 7.1 mmol/L (4.00-12.00); Calcium 9.4 mg/dL (8.7-10.3); Carbon Dioxide 23.9 mmol/L (21.6-31.8); Globulin 1.9 g/dL (1.6-3.3); Magnesium 1.8 mg/dL (1.5-2.4); Phosphorus 2.3 mg/dL (2.4-5.1); Potassium 3.9 mmol/L (3.5-5.5); Total Bilirubin 1.2 mg/dL (0.3-1.2); Total Protein 6.6 g/dL (6.2-8.2)
[2018-07-21 23:12] LABS: Iron Saturation 28.04 (15.00-50.00)
[2018-07-21 23:20] LABS: Vitamin D 25 Hydroxy 8.6 ng/mL (30.0-100.0)
== END | disposition home or self-care (01) ==
LOC: LABWHC1 15:41
PROVIDERS: ATTEND Internal Medicine
DX: N17.9 Acute kidney failure, unspecified (principal); D64.9 Anemia, unspecified; E83.39 Other disorders of phosphorus metabolism; E55.9 Vitamin D deficiency, unspecified
CPT/HCPCS: 36415; 80053; 82306; 82728; 83540; 83550; 83735; 84100; 84133; 85027

== ENCOUNTER → 2018-11-03 | Outpatient (CLI) | payer OTHER ==
[2018-11-03 17:17] LABS: Basophils # (A) 0.1 k/uL (0-0.2); Basophils % (A) 1 %; Eosinophils # (A) 0.3 k/uL (0-0.7); Eosinophils % (A) 3 %; HCT 45.6 % (39.0-53.0); HGB 14.9 gm/dL (13.0-17.5); Lymphocytes # (A) 3.2 k/uL (1.0-4.8); Lymphocytes % (A) 32 %; MCH 29.7 pg (25.0-35.0); MCHC 32.6 g/dL (31.0-37.0); Mean Platelet Volume 6.9; Monocytes # (A) 0.5 k/uL (0-1.0); Monocytes % (A) 5 %; Neutrophils # (A) 5.7 k/uL (1.3-7.7); Neutrophils % (A) 58 %; Platelet Count 297 k/uL (150-450); RBC 5.02 m/uL (4.30-5.90); WBC 9.8 k/uL (3.8-10.6)
[2018-11-04 00:31] LABS: Iron Saturation 16.58 (15.00-50.00)
[2018-11-04 00:37] LABS: Parathyroid Hormone Intact 73.3 pg/mL (14.0-72.0)
[2018-11-04 00:46] LABS: Vitamin D 25 Hydroxy 14.5 ng/mL (30.0-100.0)
[2018-11-04 01:09] LABS: Albumin 4.8 g/dL (3.80-4.90); Albumin/Globulin Ratio 2.53 (1.60-3.17); Anion Gap 10.7 mmol/L (4.00-12.00); Calcium 9.6 mg/dL (8.7-10.3); Carbon Dioxide 21.3 mmol/L (21.6-31.8); Globulin 1.9 g/dL (1.6-3.3); Magnesium 1.9 mg/dL (1.5-2.4); Phosphorus 3.1 mg/dL (2.4-5.1); Total Bilirubin 0.9 mg/dL (0.3-1.2); Total Protein 6.7 g/dL (6.2-8.2); Uric Acid 5.6 mg/dL (3.7-8.7)
== END | disposition home or self-care (01) ==
LOC: LABWHC1 16:02
PROVIDERS: ATTEND Internal Medicine
DX: E87.6 Hypokalemia (principal); D64.9 Anemia, unspecified; M10.9 Gout, unspecified; E55.9 Vitamin D deficiency, unspecified
CPT/HCPCS: 36415; 80053; 82306; 82728; 83540; 83550; 83735; 83970; 84100; 84133; 84550; 85025

== ENCOUNTER 2022-08-29 15:09 | Inpatient (IN) | payer OTHER ==
[2022-08-29] MEDS ORDERED: THIAMINE 100 MG/ML 2 ML VIAL IM STA (15:43)
--- NOTE | 2022-08-29 15:45 | ED ---
General Adult HPI - General Chief complaint: Psychiatric Symptoms Stated complaint: EPS eval Time Seen by Provider: 08/29/22 15:23 Source: EMS Mode of arrival: EMS Limitations: altered mental status - History of Present Illness Initial comments: This patient is a 36-year-old man brought here for reportedly having a change in his mental/psychiatric state. It is reported to me that the patient's girlfriend had called EMS because he was agitated or confused. There was no one here to give additional history. The patient himself is not able to give a good explanation for why he is in the emergency department. He was talking nonstop about people that he had wanted to help and then also asked me to provide him with a"peripheral colored [employer] pickup truck." The patient is denying any physical complaint. He denies pain, dyspnea, fever or chill, vomiting or diarrhea. -: unknown Severity scale (1-10): 0 Improves with: none Worsens with: none Associated Symptoms: denies other symptoms Treatments Prior to Arrival: none - Related Data Previous Rx's Medication Instructions Recorded Folic Acid 1 mg PO DAILY 30 Days tab 08/31/22 Thiamine [Vitamin B-1] 100 mg PO DAILY 30 Days tab 08/31/22 amLODIPine [Norvasc] 10 mg PO DAILY #30 tab 08/31/22 Allergies Allergy/AdvReac Type Severity Reaction Status Date / Time sulfamethoxazole Allergy Unknown Verified 08/29/22 18:11 [From Bactrim] trimethoprim [From Bactrim] Allergy Unknown Verified 08/29/22 18:11 Review of Systems ROS Statement: Those systems with pertinent positive or pertinent negative responses have been documented in the HPI. ROS Other: All systems not noted in ROS Statement are negative. Constitutional: Denies: fever, chills, weakness Eyes: Denies: vision change Respiratory: Denies: cough, dyspnea Cardiovascular: Denies: chest pain, palpitations Gastrointestinal: Denies: abdominal pain, vomiting, diarrhea Genitourinary: Denies: dysuria, hematuria Musculoskeletal: Denies: back pain Skin: Reports: rash Neurological: Denies: headache, weakness Psychiatric: Denies: homicidal thoughts, suicidal thoughts Past Medical History Past Medical History: GERD/Reflux, Liver Disease, Skin Disorder Additional Past Medical History / Comment(s): EPIDERMALYTIC HYPERKERATOSIS History of Any Multi-Drug Resistant Organisms: None Reported Past Surgical History: Cholecystectomy Past Anesthesia/Blood Transfusion Reactions: No Reported Reaction Past Psychological History: No Psychological Hx Reported Past Alcohol Use History: None Reported Past Drug Use History: None Reported - Past Family History Father Family Medical History: Unable to Obtain Additional Family Medical History / Comment(s): RAISED BY STEP FATHER Mother Family Medical History: No Reported History Additional Family Medical History / Comment(s): States his mother's heart is not working well and is in [facility]. General Exam Limitations: altered mental status General appearance: alert, in no apparent distress Head exam: Present: atraumatic, normocephalic Eye exam: Present: normal appearance, PERRL, EOMI. Absent: scleral icterus, conjunctival injection ENT exam: Present: normal oropharynx Neck exam: Present: normal inspection, full ROM. Absent: tenderness, meningismus Respiratory exam: Present: normal lung sounds bilaterally. Absent: respiratory distress, wheezes, rales, rhonchi, stridor Cardiovascular Exam: Present: regular rate, normal rhythm, normal heart sounds. Absent: systolic murmur, diastolic murmur, rubs, gallop GI/Abdominal exam: Present: soft. Absent: distended, tenderness, guarding, rebound, rigid Extremities exam: Present: normal inspection, normal capillary refill. Absent: pedal edema, calf tenderness Neurological exam: Present: alert, CN II-XII intact, other (Patient has pressured speech and tangential thought processes. Denies suicidal/homicidal ideation. Does appear to have delusional thought content however difficult to assess.). Absent: motor sensory deficit Skin exam: Present: warm, dry, rash, erythema, other (The patient has hyper keratosis and scaling diffusely). Absent: urticaria, vesicles, petechiae, pallor, mottled Course Vital Signs 08/29/22 08/29/22 08/29/22 15:11 18:16 20:09 Temperature 98.3 F Pulse Rate 72 80 80 Respiratory 18 18 18 Rate Blood Pressure 175/97 160/110 140/100 O2 Sat by Pulse 97 97 98 Oximetry EKG Findings - EKG Results: EKG: interpreted by ERMD, sinus rhythm (64 bpm), normal axis, normal QRS, normal ST/T - Blocks, [place], Hypertrophy, ST Abn: Chamber hypertrophy or enlargement: only voltage criteria for left ventricular h ypertrophy Medical Decision Making - Medical Decision Making This patient is 36-year-old man reportedly sent here by partner to have evaluation of psychiatric symptoms. The patient does appear to have some psychotic symptoms. In addition extensive scaling rash. Case is discussed with admitting physician and patient will have admission with additional consultants. Was pt. sent in by a medical professional or institution (, [facility], DIRECTOR NURSING SERVICE, urgent care, hospital, or care home...) When possible be specific @ -[No] Did you speak to anyone other than the patient for history (EMS, parent, family, police, friend...)? What history was obtained from this source @ -[No] Did you review nursing and triage notes (agree or disagree)? Why? @ -[I reviewed and agree with nursing and triage notes] Were old charts reviewed (outside hosp., previous admission, EMS record, old EKG, old radiological studies, urgent care reports/EKG's, care home records)? Report findings @ -[No old charts were reviewed] Differential Diagnosis (chest pain, altered mental status, abdominal pain women, abdominal pain men, vaginal bleeding, weakness, fever, dyspnea, syncope, headache, dizziness, GI bleed, back pain, seizure, CVA, palpatations, mental health, musculoskeletal)? @ -[Differential Mental Health Depression, anxiety, bipolar, psychosis, schizophrenia, borderline personality, situational depression, adjustment disorder, behavioral disorder, brain tumor, malingering, substance abuse, encephalopathy, medication reaction, dementia, hypothyroidism, degenerative neurologic disorder, lupus.... This is not meant to be all-inclusive list EKG interpreted by me (3pts min.). @ -[ X-rays interpreted by me (1pt min.). @ -[None done] CT interpreted by me (1pt min.). @ -[None done] U/S interpreted by me (1pt. min.). @ -[None done] What testing was considered but not performed or refused? (CT, X-rays, U/S, labs)? Why? @ -[None] What meds were considered but not given or refused? Why? @ -[None] Did you discuss the management of the patient with other professionals (professionals i.e. , [facility], DIRECTOR NURSING SERVICE, lab, RT, psych nurse, dialysis social worker, senior electronics design engineer, teacher, ict help desk officer, test case developer)? Give summary @ -[Admitting physician Was smoking cessation discussed for >3mins.? @ -[No] Was critical care preformed (if so, how long)? @ -[No] Were there social determinants of health that impacted care today? How? (H omelessness, low income, unemployed, alcoholism, drug addiction, transportation, low edu. Level, literacy, decrease access to med. care, group home, rehab)? @ -[No] Was there de-escalation of care discussed even if they declined (Discuss DNR or withdrawal of care, Hospice)? DNR status @ -[No] What co-morbidities impacted this encounter? (DM, HTN, Smoking, COPD, CAD, Cancer, CVA, ARF, Chemo, Hep., AIDS, mental health diagnosis, sleep apnea, morbid obesity)? @ -[None] Was patient admitted / discharged? Hospital course, mention meds given and route, prescriptions, significant lab abnormalities, going to OR and other pertinent info. @ -[The patient is admitted to have psychiatric consultation and dermatology constant Undiagnosed new problem with uncertain prognosis? @ -[Undiagnosed dermatologic condition Drug Therapy requiring intensive monitoring for toxicity (Heparin, Nitro, Insulin, Cardizem)? @ -[No] Were any procedures done? @ -[No] Diagnosis/symptom? @ -[Acute psychosis Chronic rash Acute, or Chronic, or Acute on Chronic? @ -[Acute Uncomplicated (without systemic symptoms) or Complicated (systemic symptoms)? @ -[Complicated Side effects of treatment? @ -[No] Exacerbation, Progression, or Severe Exacerbation? @ -[No] Poses a threat to life or bodily function? How? (Chest pain, USA, GA, pneumonia, PE, COPD, DKA, ARF, appy, cholecystitis, CVA, Diverticulitis, Homicidal, Suicidal, threat to staff... and all critical care pts) @ -[Uncertain - Lab Data Result diagrams: 08/29/22 16:16 08/29/22 16:16 Lab Results 08/29/22 08/29/22 Range/Units 16:16 16:16 WBC 8.7 (3.8-10.6) k/uL RBC 4.47 (4.30-5.90) m/uL Hgb 13.9 (13.0-17.5) gm/dL Hct 40.3 (39.0-53.0) % MCV 90.3 (80.0-100.0) fL MCH 31.1 (25.0-35.0) pg MCHC 34.4 (31.0-37.0) g/dL RDW 12.6 (11.5-15.5) % Plt Count 305 (150-450) k/uL MPV 6.5 Neutrophils % 66 % Lymphocytes % 25 % Monocytes % 4 % Eosinophils % 4 % Basophils % 1 % Neutrophils # 5.7 (1.3-7.7) k/uL Lymphocytes # 2.1 (1.0-4.8) k/uL Monocytes # 0.3 (0-1.0) k/uL Eosinophils # 0.3 (0-0.7) k/uL Basophils # 0.1 (0-0.2) k/uL Sodium 139 (137-145) mmol/L Potassium 3.9 (3.5-5.1) mmol/L Chloride 107 (98-107) mmol/L Carbon Dioxide 24 (22-30) mmol/L Anion Gap 8 mmol/L BUN 11 (9-20) mg/dL Creatinine 0.66 (0.66-1.25) mg/dL Est GFR (CKD-EPI)AfAm >90 (>60 ml/min/1.73 sqM) Est GFR (CKD-EPI)NonAf >90 (>60 ml/min/1.73 sqM) Glucose 113 H (74-99) mg/dL Calcium 8.9 (8.4-10.2) mg/dL Total Bilirubin 1.2 (0.2-1.3) mg/dL AST 22 (17-59) U/L ALT 19 (4-49) U/L Alkaline Phosphatase 101 (38-126) U/L Total Protein 7.2 (6.3-8.2) g/dL Albumin 4.5 (3.5-5.0) g/dL TSH 2.790 (0.465-4.680) mIU/L Serum Alcohol <10 mg/dL Disposition Clinical Impression: Psychosis, Hyperkeratosis of skin Disposition: ADMITTED IP TO THIS [facility] Condition: Good Is patient prescribed a controlled substance at d/c from ED?: No
[2022-08-29 16:23] LABS: Basophils # (A) 0.1 k/uL (0-0.2); Basophils % (A) 1 %; Eosinophils # (A) 0.3 k/uL (0-0.7); Eosinophils % (A) 4 %; HCT 40.3 % (39.0-53.0); HGB 13.9 gm/dL (13.0-17.5); Lymphocytes # (A) 2.1 k/uL (1.0-4.8); Lymphocytes % (A) 25 %; MCH 31.1 pg (25.0-35.0); MCHC 34.4 g/dL (31.0-37.0); MCV 90.3 fL (80.0-100.0); Mean Platelet Volume 6.5; Monocytes # (A) 0.3 k/uL (0-1.0); Monocytes % (A) 4 %; Neutrophils # (A) 5.7 k/uL (1.3-7.7); Neutrophils % (A) 66 %; Platelet Count 305 k/uL (150-450); RBC 4.47 m/uL (4.30-5.90); RDW 12.6 % (11.5-15.5); WBC 8.7 k/uL (3.8-10.6)
[2022-08-29 16:34] LABS: ALT 19 U/L (4-49); AST 22 U/L (17-59); African American GFR (CKD) >90 (>60 ml/min/1.73 sqM); Albumin 4.5 g/dL (3.5-5.0); Alcohol <10 mg/dL; Alkaline Phosphatase 101 U/L (38-126); Anion Gap 8 mmol/L; Blood Urea Nitrogen 11 mg/dL (9-20); Calcium 8.9 mg/dL (8.4-10.2); Carbon Dioxide 24 mmol/L (22-30); Chloride 107 mmol/L (98-107); Glucose 113 mg/dL (74-99); Non-African American GFR(CKD) >90 (>60 ml/min/1.73 sqM); Potassium 3.9 mmol/L (3.5-5.1); Sodium 139 mmol/L (137-145); Total Bilirubin 1.2 mg/dL (0.2-1.3); Total Protein 7.2 g/dL (6.3-8.2)
[2022-08-29] MEDS ORDERED: NALOXONE 0.4 MG/ML 1 ML VIAL IV PRN (17:59)
[2022-08-29] MEDS: amLODIPine 10 MG TAB PO SCH (19:19)
--- NOTE | 2022-08-29 19:19 | CT ---
EXAMINATION TYPE: CT brain wo con DATE OF EXAM: 08/29/2022 COMPARISON: None HISTORY: ams CT DLP: 1153.4 mGycm Automated exposure control for dose reduction was used. Images of the brain obtained with no contrast. Ventricles have normal size. There is no mass effect or midline shift. No sign of intracranial hemorr marion. Calvarium is intact. There is normal aeration of the mastoid sinuses. IMPRESSION: Negative unenhanced head CT scan
--- NOTE | 2022-08-29 19:25 | XR ---
EXAMINATION TYPE: XR chest 2V DATE OF EXAM: 08/29/2022 COMPARISON: 08/06/2017 HISTORY: Abdominal pain. Chest pain TECHNIQUE: 2 views FINDINGS: Heart is normal. Lungs are clear of infiltrate. No heart failure. There are no hilar masses . There is mild pulmonary hyperinflation. There is some linear density in the right upper lobe consis tent with some scarring. IMPRESSION: Right upper lobe density consistent with scarring and not changed. No acute lung disease. There is probably COPD.
[2022-08-30 04:14] LABS: Amphetamine Screen,Urine Detected (NotDetected); Barbiturate Screen,Urine Not Detected (NotDetected); Benzodiazepines Screen,Urine Not Detected (NotDetected); Cocaine Screen,Urine Not Detected (NotDetected); Methadone Screen, Urine Not Detected (NotDetected); Opiate Screen,Urine Not Detected (NotDetected); Oxycodone Screen, Urine Not Detected (NotDetected); Phencyclidine Screen,Urine Not Detected (NotDetected); Tricyclic Antidepressant,Urine Not Detected (NotDetected); Urn Cannabinoid Scrn Detected (NotDetected)
--- NOTE | 2022-08-30 05:23 | HP ---
HISTORY AND PHYSICAL CHIEF COMPLAINT: Change in mental status and skin lesions. HISTORY OF PRESENT ILLNESS: This is a 36-year-old gentleman with past medical history of liver disease, skin disease, and epidermolytic hyperkeratoses, was found to be confused by family and taken to [facility] and admitted for evaluation and treatment. There is no history of any fever, rigors, or chills. The patient apparently had previous episode of pancreatitis and possibly has a poor p.o. intake also. There is no history of any fever, rigors, or chills. PAST MEDICAL HISTORY: Reviewed, include GERD, liver disease, skin disorder. HOME MEDICATIONS: None. ALLERGIES: Bactrim. FAMILY HISTORY: Unable to obtain. SOCIAL HISTORY: Previous history of alcohol, smoking. REVIEW OF SYSTEMS: A 14-point review is negative except as mentioned above. PHYSICAL EXAMINATION: VITAL SIGNS: Pulse 72, blood pressure 175/99, and respirations 18. HEENT: Conjunctivae normal. NECK: No jugular venous distention. CARDIOVASCULAR: S1, S2 muffled. RESPIRATION: Diminished at the basis. ABDOMEN: Soft, nontender. LEGS: No edema, no swelling. NERVOUS SYSTEM: No focal deficit. SKIN: Significant skin lesions, erythematous, and scaly yellowish lesions also present in the palms and both hands also. ASSESSMENT: 1. Change in mental status and possibly acute metabolic encephalopathy, rule out psychiatric disorder. 2. Hypertension. 3. Chronic liver disease. 4. History of skin disorder, epidermolytic hyperkeratosis. RECOMMENDATIONS: This is a 36-year-old gentleman who presented with multiple complex medical problems. We will monitor the patient closely. I would recommend initiate Norvasc and continue to monitor. Workup including a CT scan of the brain also will be ordered for change in mental status. Other than that, multiple supplementation for possible deficiencies. Repeat labs. Prognosis guarded because of multiple complex medical issues. Further recommendations to follow. MMODL / IJN: [id number] /
[2022-08-30] MEDS ORDERED: LORazepam 2 MG/ML INJ IM PRN (07:13)
[2022-08-30] MEDS ORDERED: HALOPERIDOL LACTATE 5 MG/ML 1 ML VIAL IM PRN (07:13)
[2022-08-30] MEDS: amLODIPine 10 MG TAB PO SCH (08:20)
[2022-08-30] MEDS: MULTIVITAMINS, THERA 1 EACH TAB PO SCH (08:20)
[2022-08-30] MEDS: FOLIC ACID 1 MG TAB PO SCH (08:20)
[2022-08-30] MEDS: THIAMINE 100 MG TAB PO SCH (08:20)
--- NOTE | 2022-08-30 16:44 | PN ---
PROGRESS NOTE DATE OF SERVICE: 08/30/2022 SUBJECTIVE: This is a 36-year-old gentleman who was admitted with change in mental status and diffuse skin lesions, also had psychotic episode last night. The patient is to be given Haldol and as well as . Multiple consultants are following the patient including psychiatric consultation PAST MEDICAL HISTORY: Reviewed. REVIEW OF SYSTEMS: Could not be taken as the patient is currently sedated. CURRENT MEDICATIONS: Reviewed include folic acid, Norvasc. Rest of the medications noted, Haldol 5 mg. PHYSICAL EXAMINATION: VITAL SIGNS: Pulse is 90, blood pressure 113/83, respirations 17. HEENT: Conjunctivae normal. NECK: No JVD. CARDIAC: S1 and S2. RESPIRATORY: Breath sounds diminished at the bases. ABDOMEN: Soft. SKIN: Diffuse skin lesions present. LABORATORY DATA: Reviewed. Drug screen is positive for amphetamine, methamphetamine, and as well as THC. ASSESSMENT: 1. Change in mental status and possibly acute metabolic encephalopathy, possible psychiatric disorder and psychosis. 2. Possible drug withdrawals. 3. Hypertension. 4. Chronic liver disease. 5. History of alcohol previously. 6. History of chronic skin disorder, epidermolytic hyperkeratosis. RECOMMENDATIONS: Recommend to continue current medications. Continue symptomatic treatment. Otherwise, continue Haldol. Psychiatric evaluation. Prognosis guarded because of multiple complex medical issues. Further recommendations to follow. MMODL / IJN: [id number] /
--- NOTE | 2022-08-30 17:52 | P.HP ---
Psychiatric H&P - . H&P Date: 08/30/22 History & Physical: Allergies Allergy/AdvReac Type Severity Reaction Status Date / Time sulfamethoxazole Allergy Unknown Verified 08/29/22 18:11 [From Bactrim] trimethoprim [From Bactrim] Allergy Unknown Verified 08/29/22 18:11 Vital Signs Temp 98.3 F 08/30/22 13:43 Pulse 83 08/30/22 13:43 Resp 15 08/30/22 13:43 BP 128/78 08/30/22 13:43 Pulse Ox 99 08/30/22 13:43 FiO2 Intake & Output 08/29/22 08/30/22 08/30/22 18:59 06:59 18:59 Weight 68.039 kg 68.039 kg Other: # Voids 1 2 Laboratory Last Values WBC 8.7 k/uL (3.8-10.6) 08/29/22 16:16 RBC 4.47 m/uL (4.30-5.90) 08/29/22 16:16 Hgb 13.9 gm/dL (13.0-17.5) 08/29/22 16:16 Hct 40.3 % (39.0-53.0) 08/29/22 16:16 MCV 90.3 fL (80.0-100.0) 08/29/22 16:16 MCH 31.1 pg (25.0-35.0) 08/29/22 16:16 MCHC 34.4 g/dL (31.0-37.0) 08/29/22 16:16 RDW 12.6 % (11.5-15.5) 08/29/22 16:16 Plt Count 305 k/uL (150-450) 08/29/22 16:16 MPV 6.5 08/29/22 16:16 Neutrophils % 66 % 08/29/22 16:16 Lymphocytes % 25 % 08/29/22 16:16 Monocytes % 4 % 08/29/22 16:16 Eosinophils % 4 % 08/29/22 16:16 Basophils % 1 % 08/29/22 16:16 Neutrophils # 5.7 k/uL (1.3-7.7) 08/29/22 16:16 Lymphocytes # 2.1 k/uL (1.0-4.8) 08/29/22 16:16 Monocytes # 0.3 k/uL (0-1.0) 08/29/22 16:16 Eosinophils # 0.3 k/uL (0-0.7) 08/29/22 16:16 Basophils # 0.1 k/uL (0-0.2) 08/29/22 16:16 Sodium 139 mmol/L (137-145) 08/29/22 16:16 Potassium 3.9 mmol/L (3.5-5.1) 08/29/22 16:16 Chloride 107 mmol/L (98-107) 08/29/22 16:16 Carbon Dioxide 24 mmol/L (22-30) 08/29/22 16:16 Anion Gap 8 mmol/L 08/29/22 16:16 BUN 11 mg/dL (9-20) 08/29/22 16:16 Creatinine 0.66 mg/dL (0.66-1.25) 08/29/22 16:16 Est GFR (CKD-EPI)AfAm >90 (>60 ml/min/1.73 sqM) 08/29/22 16:16 Est GFR (CKD-EPI)NonAf >90 (>60 ml/min/1.73 sqM) 08/29/22 16:16 Glucose 113 mg/dL (74-99) H 08/29/22 16:16 Calcium 8.9 mg/dL (8.4-10.2) 08/29/22 16:16 Total Bilirubin 1.2 mg/dL (0.2-1.3) 08/29/22 16:16 GGT 15 U/L (15-73) 08/29/22 20:19 AST 22 U/L (17-59) 08/29/22 16:16 ALT 19 U/L (4-49) 08/29/22 16:16 Alkaline Phosphatase 101 U/L (38-126) 08/29/22 16:16 Ammonia 30 umol/L (<30) H 08/29/22 20:19 Total Protein 7.2 g/dL (6.3-8.2) 08/29/22 16:16 Albumin 4.5 g/dL (3.5-5.0) 08/29/22 16:16 TSH 2.790 mIU/L (0.465-4.680) 08/29/22 16:16 Urine Opiates Screen Not Detected (NotDetected) 08/30/22 03:05 Ur Oxycodone Screen Not Detected (NotDetected) 08/30/22 03:05 Urine Methadone Screen Not Detected (NotDetected) 08/30/22 03:05 Ur Propoxyphene Screen Not Detected (NotDetected) 08/30/22 03:05 Ur Barbiturates Screen Not Detected (NotDetected) 08/30/22 03:05 U Tricyclic Antidepress Not Detected (NotDetected) 08/30/22 03:05 Ur Phencyclidine Scrn Not Detected (NotDetected) 08/30/22 03:05 Ur Amphetamines Screen Detected (NotDetected) H 08/30/22 03:05 U Methamphetamines Scrn Detected (NotDetected) H 08/30/22 03:05 U Benzodiazepines Scrn Not Detected (NotDetected) 08/30/22 03:05 Urine Cocaine Screen Not Detected (NotDetected) 08/30/22 03:05 U Marijuana (THC) Screen Detected (NotDetected) H 08/30/22 03:05 Serum Alcohol <10 mg/dL 08/29/22 16:16 08/30/22 17:50 Psychiatric evaluation: An attempt was made to assess the patient for a psychiatric evaluation According to the staff the patient had been agitated confused and delusional and restless He had the tried to run away from the unit and had to be grabbed by the security Patient had been given Haldol 5 mg IM and is resting comfortably. Patient could not be aroused from the deep sleep The patient tests positive for amphetamines methamphetamine marijuana An attempt was made to wake up the patient which was unsuccessful at this time We will try to reassess the patient tomorrow Please contact me if he had any issues and will follow this patient along with you Maynor Padilla M.D. 5:51 PM
[2022-08-31] MEDS: MULTIVITAMINS, THERA 1 EACH TAB PO SCH (08:48)
[2022-08-31] MEDS: FOLIC ACID 1 MG TAB PO SCH (08:48)
[2022-08-31] MEDS: amLODIPine 10 MG TAB PO SCH (08:48)
[2022-08-31] MEDS: THIAMINE 100 MG TAB PO SCH (08:48)
--- NOTE | 2022-08-31 10:22 | P.CN ---
Psychiatric Consult - . Consult date: 08/31/22 Consult:: 08/31/22 10:14 This is a psychiatric assessment on Taj anderson who is a 36-year-old male and was currently hospitalized at [facility] on the medical floor The patient was admitted with the stimulant intoxication and was found to be positive for methamphetamine and cocaine Patient had been acutely agitated and restless aggressive and impulsive and had to be given when necessary Haldol since admission on several locations as well as set had needed restraints to prevent him from causing any harm to himself or others intentionally or unintentionally Mother collect information is available at this time. An initial attempt to see the patient was unsuccessful yesterday due to oversedation from the Haldol that was given this discharge well before he was seen I was contacted again by the nursing staff about seeing the patient today When seen today the patient seemed to be struggling to maintain alertness but was woken up easily Continues to fall back to sleep and has difficulty with concentration and attention span Patient says that he is here in [place] Says that he has been having some problems with his girlfriend was difficult to handle and that she has also difficulty in accepting him the way he is Patient denies any alcohol or substance use Past about any employment 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 Poor eye contact. Speech: Patient's speech is spontaneous. Most of the time patient makes some gibberish announcements which are difficult to understand and unrelated to any questions asked Mood/Affect: Flat Suicidality/Homicidality: Patient denied any suicidal homicidality's Perceptions: Denies AH / VH Though content/process: Disorganized and illogical Memory and concentration: Appears poor. 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 Stimulant use disorder Methamphetamine use disorder Cocaine use disorder Intermittent relationship problems Plan: The patient at this time remains delusional admits that appears of agitation and confusion appears to be candidate for inpatient psychiatric hospitalization and treatment The transfer and will most likely be involuntary Patient's PCP will continue to monitor the patient from medical standpoint especially for his skin condition or any other medical issues that may arise during hospitalization Stabilize patient will also parts been on the coughlin activities individual milieu group OT RT PT and pharmacotherapy Thank you very much for the kind referral inpatient for contact me for any further questions Maynor Padilla M.D.
--- NOTE | 2022-08-31 13:20 | P.DS ---
Providers Date of admission: 08/29/22 18:03 Expected date of discharge: 08/31/22 Attending physician: Ben Interiano Consults: 08/29/22 17:58 Consult Physician Routine Consulting Provider: Kaykay Bazzi Consult Reason/Comments: rash Do you want consulting provider notified?: Yes 08/29/22 17:59 Consult Physician Routine Consulting Provider: Maynor Padilla Consult Reason/Comments: acute psychosis Do you want consulting provider notified?: Yes Primary care physician: Stated None Hospital Course: Discharge diagnoses; Acute metabolic encephalopathy. 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 Patient was seen by psychiatry, they recommended inpatient psych admission. Patient has been petitioned and certed, being discharged to inpatient psych in stable condition PHYSICAL EXAMINATION: GENERAL: The patient is alert , not in any acute distress. Well developed, well nourished. HEENT: Pupils are round and equally reacting to light. EOMI. No scleral icterus. No conjunctival pallor. Normocephalic, atraumatic. No pharyngeal erythema. No thyromegaly. CARDIOVASCULAR: S1 and S2 present. No murmurs, rubs, or gallops. PULMONARY: Chest is clear to auscultation, no wheezing or crackles. ABDOMEN: Soft, nontender, nondistended, normoactive bowel sounds. No palpable organomegaly. MUSCULOSKELETAL: No joint swelling or deformity. EXTREMITIES: No cyanosis, clubbing, or pedal edema. NEUROLOGICAL: Gross neurological examination did not reveal any focal deficits. SKIN: No rashes. Patient Condition at Discharge: Good Plan - Discharge Summary Discharge Rx Participant: No New Discharge Prescriptions: New amLODIPine [Norvasc] 10 mg PO DAILY #30 tab Folic Acid 1 mg PO DAILY 30 Days tab Thiamine [Vitamin B-1] 100 mg PO DAILY 30 Days tab Discharge Medication List Folic Acid 1 mg PO DAILY 30 Days tab 08/31/22 [Rx] Thiamine [Vitamin B-1] 100 mg PO DAILY 30 Days tab 08/31/22 [Rx] amLODIPine [Norvasc] 10 mg PO DAILY #30 tab 08/31/22 [Rx] Follow up Appointment(s)/Referral(s): None,Stated [Primary Care Provider] - 1-2 days Discharge Disposition: TRANSFER TO PSYCH HOSP/UNIT
[2022-09-01] MEDS: FOLIC ACID 1 MG TAB PO SCH (07:52)
[2022-09-01] MEDS: THIAMINE 100 MG TAB PO SCH (07:52)
[2022-09-01] MEDS: amLODIPine 10 MG TAB PO SCH (07:52)
[2022-09-01] MEDS: MULTIVITAMINS, THERA 1 EACH TAB PO SCH (07:52)
--- NOTE | 2022-09-01 13:38 | P.PN ---
Subjective Progress Note Date: 09/01/22 The patient was admitted with the stimulant intoxication and was found to be positive for methamphetamine and cocaine.Patient had been acutely agitated and restless aggressive and impulsive and had to be given when necessary Haldol since admission on several locations as well as set had needed restraints to prevent him from causing any harm to himself or others intentionally or unintentionally. Patient was seen by psychiatry, they recommended inpatient psych admission. Patient has been petitioned and certed, being discharged to inpatient psych in stable condition 09/01. Patient seen and examined. No acute overnight. Medically stable for discharge to inpatient psych REVIEW OF SYSTEMS: CONSTITUTIONAL: No fever, no malaise,. CARDIOVASCULAR: No chest pain, no palpitations, no syncope. PULMONARY: No shortness of breath, no cough, GASTROINTESTINAL: No diarrhea, no nausea, no vomiting, no abdominal pain. NEUROLOGICAL: No headaches, no weakness, PHYSICAL EXAMINATION: GENERAL: The patient is alert and oriented x3, not in any acute distress. Well developed, well nourished. HEENT: Pupils are round and equally reacting to light. EOMI. No scleral icterus. No conjunctival pallor. Normocephalic, atraumatic. No pharyngeal erythema. No thyromegaly. CARDIOVASCULAR: S1 and S2 present. No murmurs, rubs, or gallops. PULMONARY: Chest is clear to auscultation, no wheezing or crackles. ABDOMEN: Soft, nontender, nondistended, normoactive bowel sounds. No palpable organomegaly. MUSCULOSKELETAL: No joint swelling or deformity. EXTREMITIES: No cyanosis, clubbing, or pedal edema. NEUROLOGICAL: Gross neurological examination did not reveal any focal deficits. SKIN: Skin rash seen on his hands Assessment and plan Acute metabolic encephalopathy. 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
[2022-09-01 20:01] VITALS: BP 127/78; PULSE 75; RESP 18; TEMP 97.5
[2022-09-02 16:07] LABS: Vit B1(Thiamine) 138 ug/L (38-122)
== END 2022-09-01 22:27 | DRG 774 ==
LOC: EC 15:09 → 4SSUR 18:03
PROVIDERS: ADMIT Hospitalist; ATTEND Hospitalist
DX: F15.159 Other stimulant abuse with stimulant-induced psychotic disorder, unspecified (principal); F15.129 Other stimulant abuse with intoxication, unspecified; F23 Brief psychotic disorder; G93.41 Metabolic encephalopathy; F14.10 Cocaine abuse, uncomplicated; I10 Essential (primary) hypertension; K76.9 Liver disease, unspecified; L98.9 Disorder of the skin and subcutaneous tissue, unspecified; Z78.1 Physical restraint status; K21.9 Gastro-esophageal reflux disease without esophagitis; R45.1 Restlessness and agitation; F68.8 Other specified disorders of adult personality and behavior; L57.0 Actinic keratosis
CPT/HCPCS: 36415; 70450; 71046; 80053; 80306; 80320; 82075; 82140; 82977; 84425; 84443; 84591; 85025; 87635; 93005; 94760

== ENCOUNTER 2022-09-01 17:26 | Inpatient (IN) | payer MEDICAID, OTHER ==
[2022-09-01] MEDS ORDERED: HALOPERIDOL LACTATE 5 MG/ML 1 ML VIAL IM PRN (17:30)
[2022-09-01] MEDS ORDERED: LORazepam 1 MG TAB PO PRN (17:30)
[2022-09-01] MEDS ORDERED: MAG HYDROX/AL HYDROX/SIMETH 30 ML CUP PO PRN (17:30)
[2022-09-01] MEDS ORDERED: ACETAMINOPHEN TAB 325 MG TAB PO PRN (17:30)
[2022-09-01] MEDS ORDERED: MAGNESIUM HYDROXIDE 2,400 MG/10 ML CUP PO PRN (17:30)
[2022-09-01] MEDS ORDERED: LORazepam 2 MG/ML INJ IM PRN (17:35)
[2022-09-01] MEDS ORDERED: haloperidoL 5 MG TAB PO PRN (17:35)
[2022-09-02] MEDS: THIAMINE 100 MG TAB PO SCH (08:56)
[2022-09-02] MEDS: amLODIPine 10 MG TAB PO SCH (08:56)
[2022-09-02] MEDS: FOLIC ACID 1 MG TAB PO SCH (08:56)
[2022-09-02 10:41] LABS: Chol/HDL Ratio 2.67 Ratio; LDL Cholesterol,Calculated 71.4 mg/dL (0.0-131.0)
[2022-09-02] MEDS ORDERED: LORazepam 2 MG/ML INJ IM PRN (11:57)
[2022-09-02] MEDS: LITHIUM CARBONATE 300 MG CAP PO SCH ×2 (12:14→20:51)
--- NOTE | 2022-09-02 13:17 | P.MDCNMH ---
History of Present Illness H&P Date: 09/02/22 History of present illness; patient is a 36-year-old gentleman who was transferred to inpatient psych yesterday after being admitted for drug intoxication and was found to be positive for methamphetamines and cocaine.Patient had been acutely agitated and restless aggressive and impulsive and had to be given when necessary Haldol since admission on several locations as well as set had needed restraints to prevent him from causing any harm to himself or others intentionally or unintentionally. Patient was transferred to inpatient psych after being medically cleared. REVIEW OF SYSTEMS: CONSTITUTIONAL: No fever, no malaise, no fatigue. HEENT: No recent visual problems or hearing problems. Denied any sore throat. CARDIOVASCULAR: No chest pain, orthopnea, PND, no palpitations, no syncope. PULMONARY: No shortness of breath, no cough, no hemoptysis. GASTROINTESTINAL: No diarrhea, no nausea, no vomiting, no abdominal pain. NEUROLOGICAL: No headaches, no weakness, no numbness. HEMATOLOGICAL: Denies any bleeding or petechiae. GENITOURINARY: Denies any burning micturition, frequency, or urgency. MUSCULOSKELETAL/RHEUMATOLOGICAL: Denies any joint pain, swelling, or any muscle pain. ENDOCRINE: Denies any polyuria or polydipsia. The rest of the 14-point review of systems is negative. PHYSICAL EXAMINATION: GENERAL: The patient is alert and oriented x3, not in any acute distress. Well developed, well nourished. HEENT: Pupils are round and equally reacting to light. EOMI. No scleral icterus. No conjunctival pallor. Normocephalic, atraumatic. No pharyngeal erythema. No thyromegaly. CARDIOVASCULAR: S1 and S2 present. No murmurs, rubs, or gallops. PULMONARY: Chest is clear to auscultation, no wheezing or crackles. ABDOMEN: Soft, nontender, nondistended, normoactive bowel sounds. No palpable organomegaly. MUSCULOSKELETAL: No joint swelling or deformity. EXTREMITIES: No cyanosis, clubbing, or pedal edema. NEUROLOGICAL: Gross neurological examination did not reveal any focal deficits. 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 Stimulant use disorder Methamphetamine use disorder Cocaine use disorder Intermittent relationship problems Plan continue psych meds per psychiatry Past Medical History Past Medical History: GERD/Reflux, Liver Disease, Skin Disorder Additional Past Medical History / Comment(s): EPIDERMALYTIC HYPERKERATOSIS History of Any Multi-Drug Resistant Organisms: None Reported Past Surgical History: Cholecystectomy Past Anesthesia/Blood Transfusion Reactions: No Reported Reaction Smoking Status: Current every day smoker - Past Family History Father Family Medical History: Unable to Obtain Additional Family Medical History / Comment(s): RAISED BY STEP FATHER Mother Family Medical History: No Reported History Additional Family Medical History / Comment(s): States his mother's heart is not working well and is in [facility]. Medications and Allergies Home Medications Medication Instructions Recorded Confirmed Type Folic Acid 1 mg PO DAILY 30 Days tab 08/31/22 09/01/22 Rx Thiamine [Vitamin B-1] 100 mg PO DAILY 30 Days tab 08/31/22 09/01/22 Rx amLODIPine [Norvasc] 10 mg PO DAILY #30 tab 08/31/22 09/01/22 Rx Allergies Allergy/AdvReac Type Severity Reaction Status Date / Time sulfamethoxazole Allergy Unknown Verified 08/29/22 18:11 [From Bactrim] trimethoprim [From Bactrim] Allergy Unknown Verified 08/29/22 18:11 Physical Exam Vitals: Vital Signs Temp Pulse Resp BP Pulse Ox 09/02/22 08:58 99 18 154/79 09/01/22 23:05 98.7 F 97 18 121/82 98 Intake and Output 09/01/22 09/02/22 09/02/22 22:59 06:59 14:59 Other: Weight 68.039 kg 60.782 kg Cranial Nerve Examination - Cranial Nerves Cranial Nerve I- Olfactory: Intact (Cranial nerves 2 through 12 intact) Cranial Nerve II- Optic: Intact Cranial Nerve III- Oculomotor: Intact Cranial Nerve IV- Trochlear: Intact Cranial Nerve V- Trigeminal: Intact Cranial Nerve - Abducens: Intact Cranial Nerve VII- Facial: Intact Cranial Nerve VIII- Auditory: Intact Cranial Nerve IX- Glossopharyngeal: Intact Cranial Nerve X- Vagus: Intact Cranial Nerve XI- Accessory: Intact Cranial Nerve XII- Hypoglossal: Intact
--- NOTE | 2022-09-02 13:50 | P.HP ---
Psychiatric H&P - . H&P Date: 09/02/22 History & Physical: Allergies Allergy/AdvReac Type Severity Reaction Status Date / Time sulfamethoxazole Allergy Unknown Verified 08/29/22 18:11 [From Bactrim] trimethoprim [From Bactrim] Allergy Unknown Verified 08/29/22 18:11 Vital Signs Temp 98.7 F 09/01/22 23:05 Pulse 99 09/02/22 08:58 Resp 18 09/02/22 08:58 BP 154/79 09/02/22 08:58 Pulse Ox 98 09/01/22 23:05 FiO2 Intake & Output 09/01/22 09/02/22 09/02/22 18:59 06:59 18:59 Weight 68.039 kg 60.782 kg Laboratory Last Values Estimated Ave Glu mg/dL 113 09/02/22 07:21 Hemoglobin A1c 5.6 % (0.0-6.0) 09/02/22 07:21 Triglycerides 90.00 mg/dL (0.00-149.00) 09/02/22 07:21 Cholesterol 143.00 mg/dL (0.00-200.00) 09/02/22 07:21 LDL Cholesterol, Calc 71.4 mg/dL (0.0-131.0) 09/02/22 07:21 VLDL Cholesterol, Calc 18.00 mg/dL (5.00-40.00) 09/02/22 07:21 HDL Cholesterol 53.60 mg/dL (40.00-60.00) 09/02/22 07:21 Cholesterol/HDL Ratio 2.67 Ratio 09/02/22 07:21 09/02/22 13:11 IDENTIFYING DATA: Patient is a 36 yo male who lives with [facility], in a house, has no kids, unemployed HPI: Patient presented to the hospital [as a transfer from the medical floors]. patient was seen by Dr Padilla as a psych consult while on the medical floors. patient apparently was confused and psychotic and was admitting to methamphetamine abuse lately. Patient was admitted last night as a transfer and was apparently confused and he states that she was feeling "manipulated". He was endorsing some paranoia today. He appeared to have poor hygiene and grooming. He states that he usually does not trust doctors and the healthcare system and states that "my mother always told me that". He was displaying significant paranoia, flight of ideas, tangential and pressured speech. Patient was having racing thoughts. He states that his mood is "good" and was fairly intrusive with database report writer asking several questions about what he is wearing. At laila es he is inappropriate. He denies any anxiety at this time. He was vague when asked about his methamphetamine use. He claims that "I only used a little bit". He states that his sleep has been "all right" however only stated he slept about 3-4 hours. He states that his appetite is fair at this time. He has poor insight and judgment. Patient denies any suicidal or homicidal ideations intent or plan. At this time patient denies any auditory or visual hallucinations. Patient admits to using methamphetamine occasional, and cigarettes daily PAST PSYCHIATRIC HISTORY: Patient states that he has no hx of significant psych issues. [Patient denies being on any psychiatric medications previously.] [Patient denies any previous psychiatric hospitalizations.] [Patient denies any psychiatric outpatient follow-up.] [Patient denies any history of suicide attempts in the past.] PMH: as per ED note ALLERGIES: as per EMR CHEMICAL DEPENDENCY HISTORY: as per HPI FAMILY PSYCHIATRIC/SUBSTANCE USE HISTORY: [denies] SOCIAL HISTORY: Patient was born and raised in [place], [place]. he completed the 11th grade then went back to get his GED. He states that he is unemployed due to his skin condition. He claims that he went to long-term in 2012 for OWI charges. he lives with his fiance, in a house. denies having any kids. MENTAL STATUS EXAM: General Appearance: Patient appears to be [thin, wearing a beanie hat,] stated age is alert, distractable and uncooperative. Patient appears to have [poor] hygiene and grooming. Behavior: Patient is seated without any agitated behavior. intrusive. Speech: Patient's speech is [fluent.] pressured speech. Mood/Affect: Patient reports their mood is ["great"], affect is congruent and elated Suicidality/Homicidality: Patient denies having any homicidal ideation intent or plan. [Denies any suicidal ideations intent or plan] Perceptions: Patient denies any visual hallucinations [and denies any auditory hallucinations] Though content/process: flight of ideas, rambling, tangential. loose association. Memory and concentration: AOX3, grossly intact for the purposes of this session. Can spell "WORLD" backwards Judgment and insight: [poor]/impulsive. STRENGTHS/WEAKNESSES: strength is that patient is [resilient]. Weakness is that patient [has poor judgment and is impulsive] INTELLECT: [average] IMPRESSIONS: Psychosis unspecified, r/o secondary to methamphetamine abuse methamphetamine use disorder PLAN: -Patient is admitted under [involuntary] status to MHU for stabilization of psychiatric symptoms and safety. Patient has [not] signed [adult voluntary form and] [medication consent] and is placed in patient's chart. [A second certification was completed and along with petition will be filed for court.] -Medications : Will start patient on lithium 300 mg bid for mood stabilization, invega po 3 mg qhs for mood stabilization. -Ativan [and Haldol] PRN for agitation/aggression [-Patient was counselled on substance abuse and desired to cut back on use] however was superficial about quitting -Patient was informed of the risks, benefits and side effects of the medication and patient verbally consented to taking the medications. Patient signed med consent form and was placed in chart. -Internal Medicine consult to perform medical evaluation and physical. -NRT - not needed as patient does not smoke. -SW on board for discharge planning. Encourage patient to participate in groups to work on coping skills. [Will await deferral and court date.]
[2022-09-02] MEDS: PETROLATUM, WHITE OINT 50 GM TUBE TOPICAL PRN (15:04)
[2022-09-02] MEDS: MINERAL OIL-WHITE PETROLATUM 120 GM JAR TOPICAL PRN (15:04)
[2022-09-02] MEDS: PALIPERIDONE 3 MG TAB.ER.24 PO SCH (20:51)
[2022-09-03] MEDS: amLODIPine 10 MG TAB PO SCH (11:09)
[2022-09-03] MEDS: LITHIUM CARBONATE 300 MG CAP PO SCH (11:11)
[2022-09-03] MEDS: FOLIC ACID 1 MG TAB PO SCH (11:11)
[2022-09-03] MEDS: THIAMINE 100 MG TAB PO SCH (11:11)
--- NOTE | 2022-09-03 12:59 | P.PN ---
Progress Note - Text Progress Note Date: 09/03/22 Interval history: Patient was seen today for psychiatric follow up on the unit. he was playing c ards during group and was direrctable. he appears to be mildly less impuslive and less intrusive during conversation. he continues to ramble, have flight of ideas and also loose association. he spoke more about different ideas he had and also about how he is dealing with his skin disorder. he claims that his mood is "great" and denies any anxiety. he states that he slept better last night, has a fair appetite. he is denying any AH or VH. denies any SI or HI. General Appearance: Patient appears to be [thin, wearing a beanie hat,] stated age is alert, distractable and cooperative. Patient appears to have improving hygiene and grooming. Behavior: Patient is seated without any agitated behavior. less intrusive. Speech: Patient's speech is [fluent.] pressured speech. Mood/Affect: Patient reports their mood is ["great"], affect is congruent and elated Suicidality/Homicidality: Patient denies having any homicidal ideation intent or plan. [Denies any suicidal ideations intent or plan] Perceptions: Patient denies any visual hallucinations [and denies any auditory hallucinations] Though content/process: flight of ideas, rambling, tangential. loose association. Memory and concentration: AOX3, grossly intact for the purposes of this session Judgment and insight: poor/impulsive, improving mildly IMPRESSIONS: Psychosis unspecified, r/o secondary to methamphetamine abuse methamphetamine use disorder PLAN: -Patient is admitted under [involuntary] status to MHU for stabilization of psychiatric symptoms and safety. Patient has [not] signed [adult voluntary form and] [medication consent] and is placed in patient's chart. awaiting court and deferral date -Medications : increase lithium 450 mg bid for mood stabilization, invega po 3 mg qhs for mood stabilization. added trazodone prn for sleep -Ativan [and Haldol] PRN for agitation/aggression -NRT - not needed as patient does not smoke. -SW on board for discharge planning. Encourage patient to participate in groups to work on coping skills. Will await deferral and court date.
[2022-09-03] MEDS: PALIPERIDONE 3 MG TAB.ER.24 PO SCH (20:09)
[2022-09-03] MEDS: LITHIUM CARBONATE 150 MG CAP PO SCH (20:09)
[2022-09-03] MEDS: traZODone HCL 50 MG TAB PO PRN (20:09)
[2022-09-04 08:51] VITALS: RESP 16
[2022-09-04] MEDS: FOLIC ACID 1 MG TAB PO SCH (08:52)
[2022-09-04] MEDS: THIAMINE 100 MG TAB PO SCH (08:52)
[2022-09-04] MEDS: LITHIUM CARBONATE 150 MG CAP PO SCH ×2 (08:52→20:39)
[2022-09-04] MEDS: amLODIPine 10 MG TAB PO SCH (08:52)
--- NOTE | 2022-09-04 10:34 | P.PN ---
Progress Note - Text Progress Note Date: 09/04/22 Interval history: Patient was seen today for psychiatric follow up on the unit. he was also seen earlier taking part in groups. he claims that he is doing better today however continues to be rapid in his speech and continues to be tangential, and have some loose associations. flight of ideas are improving. he spoke positively about his girlfriend today and claims that he misses her. he claims that his mood is "great" and denies any anxiety. he states that he slept on and off last night, has a fair appetite. he was superficial at times. he is denying any AH or VH. denies any SI or HI. General Appearance: Patient appears to be [thin, wearing a beanie hat,] stated age is alert, distractable and cooperative. Patient appears to have improving hygiene and grooming. Behavior: Patient is seated without any agitated behavior. less intrusive. Speech: Patient's speech is [fluent.] pressured speech, improving mildly Mood/Affect: Patient reports their mood is ["alright"], affect is congruent and elated, improving mildly Suicidality/Homicidality: Patient denies having any homicidal ideation intent or plan. [Denies any suicidal ideations intent or plan] Perceptions: Patient denies any visual hallucinations [and denies any auditory hallucinations] Though content/process: flight of ideas improving midlly, rambling, tangential. loose association. Memory and concentration: AOX3, grossly intact for the purposes of this session Judgment and insight: poor/impulsive, improving mildly IMPRESSIONS: Psychosis unspecified, r/o secondary to methamphetamine abuse methamphetamine use disorder PLAN: -Patient is admitted under [involuntary] status to MHU for stabilization of psychiatric symptoms and safety. Patient has [not] signed [adult voluntary form and] [medication consent] and is placed in patient's chart -Medications : lithium 450 mg bid for mood stabilization, increase invega po 6 mg qhs for mood stabilization. trazodone prn for sleep -Ativan [and Haldol] PRN for agitation/aggression -NRT - not needed as patient does not smoke. -SW on board for discharge planning. Encourage patient to participate in groups to work on coping skills. patient signed deferral with bankruptcy attorney. [email or web address] is not interested in rehab at this time. likely discharge in 1-2 days back home.
[2022-09-04 11:02] LABS: ALT 20 U/L (4-49); AST 22 U/L (17-59); African American GFR (CKD) >90 (>60 ml/min/1.73 sqM); Albumin 4.4 g/dL (3.5-5.0); Alkaline Phosphatase 98 U/L (38-126); Anion Gap 10 mmol/L; Blood Urea Nitrogen 5 mg/dL (9-20); Calcium 9.3 mg/dL (8.4-10.2); Carbon Dioxide 24 mmol/L (22-30); Chloride 103 mmol/L (98-107); Glucose 100 mg/dL (74-99); Non-African American GFR(CKD) >90 (>60 ml/min/1.73 sqM); Potassium 4.6 mmol/L (3.5-5.1); Sodium 137 mmol/L (137-145); Total Bilirubin 1.1 mg/dL (0.2-1.3); Total Protein 7.1 g/dL (6.3-8.2)
[2022-09-04] MEDS: MINERAL OIL-WHITE PETROLATUM 120 GM JAR TOPICAL PRN (11:02)
[2022-09-04 11:23] LABS: Basophils % (A) 1 %; Eosinophils # (A) 0.2 k/uL (0-0.7); Eosinophils % (A) 3 %; HCT 42.4 % (39.0-53.0); HGB 14.8 gm/dL (13.0-17.5); Lymphocytes # (A) 1.9 k/uL (1.0-4.8); Lymphocytes % (A) 23 %; MCH 31.7 pg (25.0-35.0); MCHC 34.9 g/dL (31.0-37.0); MCV 90.8 fL (80.0-100.0); Mean Platelet Volume 7.4; Monocytes # (A) 0.4 k/uL (0-1.0); Monocytes % (A) 4 %; Neutrophils # (A) 5.4 k/uL (1.3-7.7); Neutrophils % (A) 68 %; Platelet Count 275 k/uL (150-450); RBC 4.67 m/uL (4.30-5.90); RDW 13.2 % (11.5-15.5)
[2022-09-04] MEDS: traZODone HCL 50 MG TAB PO PRN (20:41)
[2022-09-04] MEDS ORDERED: PALIPERIDONE 6 MG TAB.ER.24 PO SCH (21:00)
[2022-09-05] MEDS: LITHIUM CARBONATE 150 MG CAP PO SCH ×2 (08:51→20:09)
[2022-09-05] MEDS: FOLIC ACID 1 MG TAB PO SCH (08:51)
[2022-09-05] MEDS: amLODIPine 10 MG TAB PO SCH (08:51)
[2022-09-05] MEDS: THIAMINE 100 MG TAB PO SCH (08:51)
[2022-09-05] MEDS: PETROLATUM, WHITE OINT 50 GM TUBE TOPICAL PRN (09:52)
[2022-09-05] MEDS: MINERAL OIL-WHITE PETROLATUM 120 GM JAR TOPICAL PRN (09:53)
--- NOTE | 2022-09-05 11:12 | P.PN ---
Progress Note - Text Progress Note Date: 09/05/22 Interval history: Patient was seen today for psychiatric follow up on the unit. he was sitting o utside of the [employer] group with other patients. he claims that he is doing better today however continues to be rapid in his speech and continues to be tangential, and have some loose associations. flight of ideas are improving mildly today however he continues to have pressured speech. he was tearful about being scared on the unit due to another patient that was agitated last night. he spoke positively about his girlfriend today and claims that he misses her. he claims that his mood is "great" and denies any anxiety. very focused on discharge. he states that he slept on and off last night, has a fair appetite. he was superficial at times. he is denying any AH or VH. denies any SI or HI. General Appearance: Patient appears to be [thin, wearing a beanie hat,] stated age is alert, distractable and cooperative. Patient appears to have improving hygiene and grooming. Behavior: Patient is seated without any agitated behavior. less intrusive. Speech: Patient's speech is [fluent.] pressured speech, improving mildly Mood/Affect: Patient reports their mood is "good", affect is congruent and elated, improving mildly Suicidality/Homicidality: Patient denies having any homicidal ideation intent or plan. [Denies any suicidal ideations intent or plan] Perceptions: Patient denies any visual hallucinations [and denies any auditory hallucinations] Though content/process: flight of ideas improving midlly, rambling, tangential, improving mildly Memory and concentration: AOX3, grossly intact for the purposes of this session Judgment and insight: poor, improving mildly IMPRESSIONS: Psychosis unspecified, r/o secondary to methamphetamine abuse methamphetamine use disorder PLAN: -Patient is admitted under deferral status to MHU for stabilization of psychiatric symptoms and safety. Patient has [not] signed [adult voluntary form and] [medication consent] and is placed in patient's chart -Medications : lithium 450 mg bid for mood stabilization, increase invega po 9 mg qhs for mood stabilization. trazodone prn for sleep. will check lithium level tomorrow morning. can add on lamictal or depakote if needed for extra mood stabilization over the weekend if needed -Ativan [and Haldol] PRN for agitation/aggression -NRT - not needed as patient does not smoke. -SW on board for discharge planning. Encourage patient to participate in groups to work on coping skills. patient signed deferral with city attorney. micah is not interested in rehab at this time. likely discharge early next week if he is doing better
[2022-09-05] MEDS: PALIPERIDONE 3 MG TAB.ER.24 PO SCH (20:10)
[2022-09-05] MEDS: traZODone HCL 50 MG TAB PO PRN (20:58)
[2022-09-05] MEDS: LORazepam 1 MG TAB PO PRN (23:40)
[2022-09-06] MEDS: LITHIUM CARBONATE 150 MG CAP PO SCH ×2 (08:39→19:57)
[2022-09-06] MEDS: FOLIC ACID 1 MG TAB PO SCH (08:40)
[2022-09-06] MEDS: THIAMINE 100 MG TAB PO SCH (08:40)
[2022-09-06] MEDS: amLODIPine 10 MG TAB PO SCH (08:40)
--- NOTE | 2022-09-06 16:32 | P.PN ---
Progress Note - Text Interval history: Patient was seen [wandering the hallways] and was directable and agreeable to speak with ticket writer. He denies issues with sleep or paranoia he stated that he would like his discharge medications to be sent to [facility]. At this time patient denies any suicidal or homicidal ideations intent or plan. Denies any Auditory or visual hallucinations. Patient denies any side effects from the medications and has been compliant with meds. Mental status exam: General Appearance: [Patient appears to be stated age is alert, directable, and cooperative.] Behavior: [No agitated behavior. Patient is calm and directable] Speech: Elevated right Mood/Affect: Mood is "good", affect is congruent and constricted. Suicidality/Homicidality: Patient denies having any suicidal or homicidal ideation intent or plan. Perceptions: Patient denies any auditory or visual hallucinations. Though content/process: [There is no evidence of any delusional thought content and thought process is linear and goal-directed.] Memory and concentration: AOX3, grossly intact for the purposes of this session Judgment and insight: improving mildly Assessment/Plan: Continue with current diagnosis. Patient continues to meet criteria for inpatient psychiatric admission for symptom stabilization and safety.[Patient will be maintained on current psychotropic medication regimen.] Monitor for medication compliance and for any psychotropic medication side effects. Will continue to monitor ongoing response to treatment. Encouraged participation in milieu.
[2022-09-06] MEDS: traZODone HCL 50 MG TAB PO PRN (19:58)
[2022-09-06] MEDS: PALIPERIDONE 3 MG TAB.ER.24 PO SCH (19:58)
[2022-09-06] MEDS: LORazepam 1 MG TAB PO PRN (23:34)
[2022-09-07] MEDS: FOLIC ACID 1 MG TAB PO SCH (08:20)
[2022-09-07] MEDS: LITHIUM CARBONATE 150 MG CAP PO SCH ×2 (08:20→20:04)
[2022-09-07] MEDS: THIAMINE 100 MG TAB PO SCH (08:20)
[2022-09-07] MEDS: amLODIPine 10 MG TAB PO SCH (08:21)
[2022-09-07] MEDS: traZODone HCL 50 MG TAB PO PRN (20:04)
[2022-09-07] MEDS: PALIPERIDONE 3 MG TAB.ER.24 PO SCH (20:04)
[2022-09-07] MEDS: LORazepam 1 MG TAB PO PRN (20:07)
[2022-09-08 06:11] VITALS: BP 113/77; PULSE 122; TEMP 97.9
[2022-09-08] MEDS: LITHIUM CARBONATE 150 MG CAP PO SCH (08:40)
[2022-09-08] MEDS: FOLIC ACID 1 MG TAB PO SCH (08:40)
[2022-09-08] MEDS: THIAMINE 100 MG TAB PO SCH (08:40)
[2022-09-08] MEDS: amLODIPine 10 MG TAB PO SCH (08:40)
--- NOTE | 2022-09-08 11:25 | P.DS ---
Providers Date of admission: 09/01/22 22:22 Expected date of discharge: 09/08/22 Attending physician: Taj Silver MD Consults: 09/01/22 22:37 Consult Physician Routine Consulting Provider: Ben Interiano Consult Reason/Comments: H&P and medical Do you want consulting provider notified?: Yes, Notify in am Primary care physician: Stated None - Discharge Diagnosis(es) (1) Unspecified psychosis Current Visit: Yes Status: Acute Priority: High (2) Methamphetamine use disorder, moderate Current Visit: Yes Status: Acute Priority: High Hospital Course: Admission HPI: Admission note was completed by bond underwriter "Patient is a 36 yo male who lives with srinath, in a house, has no kids, unemployed. Patient presented to the hospital as a transfer from the medical floors. patient was seen by Dr Padilla as a psych consult while on the medical floors. patient apparently was confused and psychotic and was admitting to methamphetamine abuse lately. Patient was admitted last night as a transfer and was apparently confused and he states that she was feeling "manipulated". He was endorsing some paranoia today. He appeared to have poor hygiene and grooming. He states that he usually does not trust doctors and the healthcare system and states that "my mother always told me that". He was displaying significant paranoia, flight of ideas, tangential and pressured speech. Patient was having racing thoughts. He states that his mood is "good" and was fairly intrusive with bond underwriter asking several questions about what he is wearing. At times he is inappropriate. He denies any anxiety at this time. He was vague when asked about his methamphetamine use. He claims that "I only used a little bit". He states that his sleep has been "all right" however only stated he slept about 3-4 hours. He states that his appetite is fair at this time. He has poor insight and judgment. Patient denies any suicidal or homicidal ideations intent or plan. At this time patient denies any auditory or visual hallucinations. Patient admits to using methamphetamine occasional, and cigarettes daily" Hospital course: Upon admission to the unit patient was admitted involuntarily on a petition and certificate and a second certificate was completed and faxed with the courts. Patient ended up signing a deferral with the deputy county attorney and agreeing to treatment. Patient got along well with other patients on the unit and followed unit protocol. Patient was compliant with the medications and denied any side effects throughout hospital course. Patient was started on lithium 450 mg twice a day for mood stabilization, paliperidone by mouth 9 mg daily at bedtime for mood stabilization/psychosis, trazodone 50 mg daily at bedtime when necessary for insomnia. Honesdale was checked on 09/06 and was 0.4.. Patient spoke of his stressors and engaged in therapy both group and individual. Patient was also seen by medical team for history and physical exam. Throughout the course of the hospitalization patient gradually improved with regards to mood, anxiety, psychosis/kim, sleep and returned back to their baseline level of functioning. On the day of discharge patient denied any suicidal or homicidal ideations intent or plan denied any auditory or visual hallucinations. Patient endorsed wanting to live for his health and family. The patient denied any access to guns or weapons. Patient denied any paranoia and did not endorse any delusions. Patient does have a significant history of substance abuse and was counseled on abstaining from all substances including alcohol and marijuana. Patient was offered however declined inpatient substance-abuse rehab. Patient wanted to get back to being and his NA/AA meetings instead which he claims worked better for him. Patient was also counseled on the medications and need for regular compliance and was encouraged to follow-up with their outpatient appointment for mental health and also for primary care. Prior to discharge a family meeting will be arranged by social service agency director to answer any questions and ensure safety upon discharge. Mental status exam: General Appearance: Patient appears to be thin, stated age is alert, pleasant, and cooperative. Patient is in no acute distress and has improved hygiene and grooming Behavior: Patient is calmly seated without any agitated behavior. Speech: Patient's speech is fluent and nonpressured. Mood/Affect: Patient reports their mood is "good", affect is congruent Suicidality/Homicidality: Patient denies having any suicidal or homicidal ideation intent or plan. Perceptions: Patient denies any auditory or visual hallucinations. Though content/process: There is no evidence of any delusional thought content and thought process is linear and goal-directed. more future oriented Memory and concentration: AOX3, grossly intact for the purposes of this session. Can spell "WORLD" backwards correctly. Judgment and insight: chronically poor, however has improved with guarded prognosis Impression: Psychosis unspecified, likely secondary to methamphetamine abuse Methamphetamine use disorder moderate Plan: -Continue with discharge today as patient has improved and stabilized psychia trically and is not currently an imminent threat to himself and/or others. Patient will remain at chronically elevated risk for harm to self and/or others due to his impulsivity and substance abuse. -Continue medications: H[place]dale 450 mg twice a day for mood stabilization, paliperidone by mouth 9 mg daily at bedtime for mood stabilization/psychosis. Trazodone 50 mg daily at bedtime when necessary for insomnia. -Patient was counseled on the need for medication compliance and appropriate follow-up at mental health and also primary care for medical issues. Patient verbalized understanding and agreed. -Social work to arrange for and conduct family meeting to ensure safety upon discharge and answer any questions/concerns. Social work also to arrange for patients follow up appointments with [facility] for psychiatric care along with follow up with primary care provider. -Patient counseled on abstaining from recreational drugs and marijuana and alcohol. Was informed/educated on the adverse effects on their physical and mental health. Patient verbally agreed and understood. Patient was offered substance abuse treatment however declined at this time. -Patient was instructed to return to the hospital or seek immediate medical care if their psychiatric or medical symptoms do worsen or reoccur. Allergies Allergy/AdvReac Type Severity Reaction Status Date / Time sulfamethoxazole Allergy Unknown Verified 08/29/22 18:11 [From Bactrim] trimethoprim [From Bactrim] Allergy Unknown Verified 08/29/22 18:11 Laboratory Results WBC 8.0 k/uL (3.8-10.6) 09/04/22 10:06 RBC 4.67 m/uL (4.30-5.90) 09/04/22 10:06 Hgb 14.8 gm/dL (13.0-17.5) 09/04/22 10:06 Hct 42.4 % (39.0-53.0) 09/04/22 10:06 MCV 90.8 fL (80.0-100.0) 09/04/22 10:06 MCH 31.7 pg (25.0-35.0) 09/04/22 10:06 MCHC 34.9 g/dL (31.0-37.0) 09/04/22 10:06 RDW 13.2 % (11.5-15.5) 09/04/22 10:06 Plt Count 275 k/uL (150-450) 09/04/22 10:06 MPV 7.4 09/04/22 10:06 Neutrophils % 68 % 09/04/22 10:06 Lymphocytes % 23 % 09/04/22 10:06 Monocytes % 4 % 09/04/22 10:06 Eosinophils % 3 % 09/04/22 10:06 Basophils % 1 % 09/04/22 10:06 Neutrophils # 5.4 k/uL (1.3-7.7) 09/04/22 10:06 Lymphocytes # 1.9 k/uL (1.0-4.8) 09/04/22 10:06 Monocytes # 0.4 k/uL (0-1.0) 09/04/22 10:06 Eosinophils # 0.2 k/uL (0-0.7) 09/04/22 10:06 Basophils # 0.0 k/uL (0-0.2) 09/04/22 10:06 Sodium 137 mmol/L (137-145) 09/04/22 10:06 Potassium 4.6 mmol/L (3.5-5.1) 09/04/22 10:06 Chloride 103 mmol/L (98-107) 09/04/22 10:06 Carbon Dioxide 24 mmol/L (22-30) 09/04/22 10:06 Anion Gap 10 mmol/L 09/04/22 10:06 BUN 5 mg/dL (9-20) L 09/04/22 10:06 Creatinine 0.50 mg/dL (0.66-1.25) L 09/04/22 10:06 Est GFR (CKD-EPI)AfAm >90 (>60 ml/min/1.73 sqM) 09/04/22 10:06 Est GFR (CKD-EPI)NonAf >90 (>60 ml/min/1.73 sqM) 09/04/22 10:06 Glucose 100 mg/dL (74-99) H 09/04/22 10:[address] Glu mg/dL 113 09/02/22 07:21 Hemoglobin A1c 5.6 % (0.0-6.0) 09/02/22 07:21 Calcium 9.3 mg/dL (8.4-10.2) 09/04/22 10:06 Total Bilirubin 1.1 mg/dL (0.2-1.3) 09/04/22 10:06 AST 22 U/L (17-59) 09/04/22 10:06 ALT 20 U/L (4-49) 09/04/22 10:06 Alkaline Phosphatase 98 U/L (38-126) 09/04/22 10:06 Total Protein 7.1 g/dL (6.3-8.2) 09/04/22 10:06 Albumin 4.4 g/dL (3.5-5.0) 09/04/22 10:06 Triglycerides 90.00 mg/dL (0.00-149.00) 09/02/22 07:21 Cholesterol 143.00 mg/dL (0.00-200.00) 09/02/22 07:21 LDL Cholesterol, Calc 71.4 mg/dL (0.0-131.0) 09/02/22 07:21 VLDL Cholesterol, Calc 18.00 mg/dL (5.00-40.00) 09/02/22 07:21 HDL Cholesterol 53.60 mg/dL (40.00-60.00) 09/02/22 07:21 Cholesterol/HDL Ratio 2.67 Ratio 09/02/22 07:21 [place] 0.4 mmol/L 09/06/22 07:17 Vital Signs Temp 97.9 F 09/08/22 06:10 Pulse 122 H 09/08/22 06:10 Resp 16 09/08/22 06:10 BP 113/77 09/08/22 06:10 Pulse Ox 98 09/08/22 06:10 FiO2 Intake & Output 09/07/22 09/08/22 09/08/22 18:59 06:59 18:59 Weight 65.4 kg Patient Condition at Discharge: Stable Plan - Discharge Summary New Discharge Prescriptions: New Petrolatum, White [Aquaphor] 1 applic TOPICAL DAILY PRN 30 Days each PRN Reason: Dry Skin Paliperidone [Invega] 9 mg PO HS 30 Days #90 tab [place] Carbonate 450 mg PO BID 30 Days #180 capsule traZODone HCL [Desyrel] 50 mg PO HS PRN 30 Days #30 tab PRN Reason: Insomnia Continue Folic Acid 1 mg PO DAILY 30 Days #30 tab amLODIPine [Norvasc] 10 mg PO DAILY 30 Days #30 tab Thiamine [Vitamin B-1] 100 mg PO DAILY 30 Days #30 tab Discharge Medication List Folic Acid 1 mg PO DAILY 30 Days #30 tab 09/08/22 [Rx] [place] Carbonate 450 mg PO BID 30 Days #180 capsule 09/08/22 [Rx] Paliperidone [Invega] 9 mg PO HS 30 Days #90 tab 09/08/22 [Rx] Petrolatum, White [Aquaphor] 1 applic TOPICAL DAILY PRN 30 Days each 09/08/22 [Rx] Thiamine [Vitamin B-1] 100 mg PO DAILY 30 Days #30 tab 09/08/22 [Rx] amLODIPine [Norvasc] 10 mg PO DAILY 30 Days #30 tab 09/08/22 [Rx] traZODone HCL [Desyrel] 50 mg PO HS PRN 30 Days #30 tab 09/08/22 [Rx] Activity/Diet/Wound Care/Special Instructions: Avoid the use of street drugs and alcohol. Take all medications as prescribed. When you are in need of refills on your medications, please contact your medical provider and/or outpatient psychiatrist to have this done. Please go to scheduled outpatient appointments for aftercare treatment. If symptoms return or become worse, call the crisis line at and/or go to the nearest emergency room for evaluation. Discharge Disposition: HOME SELF-CARE
--- NOTE | 2022-09-08 11:25 | P.PN ---
Progress Note - Text Progress Note Date: 09/08/22 Interval history: Patient was seen today for psychiatric follow up on the unit. he was sitting o utside of the [facility] group with other patients. he claims that he is doing better today however continues to be rapid in his speech and continues to be tangential, and have some loose associations. flight of ideas are improving mildly today however he continues to have pressured speech. he was tearful about being scared on the unit due to another patient that was agitated last night. he spoke positively about his girlfriend today and claims that he misses her. he claims that his mood is "great" and denies any anxiety. very focused on discharge. he states that he slept on and off last night, has a fair appetite. he was superficial at times. he is denying any AH or VH. denies any SI or HI. General Appearance: Patient appears to be [thin, wearing a beanie hat,] stated age is alert, distractable and cooperative. Patient appears to have improving hygiene and grooming. Behavior: Patient is seated without any agitated behavior. less intrusive. Speech: Patient's speech is [fluent.] pressured speech, improving mildly Mood/Affect: Patient reports their mood is "good", affect is congruent and elated, improving mildly Suicidality/Homicidality: Patient denies having any homicidal ideation intent or plan. [Denies any suicidal ideations intent or plan] Perceptions: Patient denies any visual hallucinations [and denies any auditory hallucinations] Though content/process: flight of ideas improving midlly, rambling, tangential, improving mildly Memory and concentration: AOX3, grossly intact for the purposes of this session Judgment and insight: poor, improving mildly IMPRESSIONS: Psychosis unspecified, r/o secondary to methamphetamine abuse methamphetamine use disorder PLAN: -Patient is admitted under deferral status to [facility] for stabilization of psychiatric symptoms and safety. Patient has [not] signed [adult voluntary form and] [medication consent] and is placed in patient's chart -Medications : lithium 450 mg bid for mood stabilization, increase invega po 9 mg qhs for mood stabilization. trazodone prn for sleep. will check lithium level tomorrow morning. can add on lamictal or depakote if needed for extra mood stabilization over the weekend if needed -Ativan [and Haldol] PRN for agitation/aggression -NRT - not needed as patient does not smoke. -SW on board for discharge planning. Encourage patient to participate in groups to work on coping skills. patient signed deferral with senior data scientist. micah is not interested in rehab at this time. likely discharge early next week if he is doing better
--- NOTE | 2022-09-08 15:12 | P.PN ---
Progress Note - Text Progress Note Date: 09/07/22 Interval history: Patient was seen [wandering the hallways] and was directable and agreeable to speak with typewriter assembly and parts inspector. States that he is doing "good" At this time patient denies any suicidal or homicidal ideations intent or plan. Denies any Auditory or visual hallucinations. Patient denies any side effects from the medications and has been compliant with meds. Mental status exam: General Appearance: [Patient appears to be stated age is alert, directable, and cooperative.] Behavior: [No agitated behavior. Patient is calm and directable] Speech: Elevated right Mood/Affect: Mood is "good", affect is congruent and constricted. Suicidality/Homicidality: Patient denies having any suicidal or homicidal ideation intent or plan. Perceptions: Patient denies any auditory or visual hallucinations. Though content/process: [There is no evidence of any delusional thought content and thought process is linear and goal-directed.] Memory and concentration: AOX3, grossly intact for the purposes of this session Judgment and insight: improving mildly Assessment/Plan: Continue with current diagnosis. Patient continues to meet criteria for inpatient psychiatric admission for symptom stabilization and safety.[Patient will be maintained on current psychotropic medication regimen.] Monitor for medication compliance and for any psychotropic medication side effects. Will continue to monitor ongoing response to treatment. Encouraged participation in milieu.
== END 2022-09-08 13:06 | disposition home or self-care (01) | DRG 751 ==
LOC: 3MHU 22:22
PROVIDERS: ADMIT Psychiatry & Neurology Psychiatry; ATTEND Psychiatry & Neurology Psychiatry
DX: F29 Unspecified psychosis not due to a substance or known physiological condition (principal); F15.90 Other stimulant use, unspecified, uncomplicated; F17.210 Nicotine dependence, cigarettes, uncomplicated; F22 Delusional disorders; F41.9 Anxiety disorder, unspecified; G47.00 Insomnia, unspecified; Z79.899 Other long term (current) drug therapy
CPT/HCPCS: 80053; 80061; 80178; 83036; 85025

== ENCOUNTER 2022-10-06 15:09 | Emergency (ER) | payer OTHER ==
[2022-10-06 15:46] VITALS: RESP 18
--- NOTE | 2022-10-06 16:42 | ED ---
General Adult HPI - General Chief complaint: Recheck/Abnormal Lab/Rx Stated complaint: NEEDS MEDS MENTAL HEALTH Time Seen by Provider: 10/06/22 16:06 Source: patient, RN notes reviewed Mode of arrival: ambulatory - History of Present Illness Initial comments: 36-year-old male with no significant past medical history presents to the emergency department with a chief complaint of occasional refill. Patient reports that he was seen and evaluated this facility approximately 1 month ago for which she has psychiatric evaluation. He was discharged on multiple medications for his symptoms. He reports that he is able to run out tomorrow. He reports that he is unable to see his psychiatrist until 10/30/2022. Any suicidal or homicidal ideation. He denies any visual or auditory hallucinations. He denies any recent alcohol or drug use. - Related Data Previous Rx's Medication Instructions Recorded Folic Acid 1 mg PO DAILY 30 Days #30 tab 09/08/22 [place] Carbonate 450 mg PO BID 30 Days #180 capsule 09/08/22 Paliperidone [Invega] 9 mg PO HS 30 Days #90 tab 09/08/22 Petrolatum, White [Aquaphor] 1 applic TOPICAL DAILY PRN 30 Days 09/08/22 each Thiamine [Vitamin B-1] 100 mg PO DAILY 30 Days #30 tab 09/08/22 amLODIPine [Norvasc] 10 mg PO DAILY 30 Days #30 tab 09/08/22 traZODone HCL [Desyrel] 50 mg PO HS PRN 30 Days #30 tab 09/08/22 Folic Acid 1 mg PO DAILY #30 tablet 10/06/22 [place] Carbonate 150 mg PO BID #180 capsule 10/06/22 Paliperidone [Invega] 3 mg PO HS 30 Days #90 tab 10/06/22 Thiamine [Vitamin B-1] 100 mg PO DAILY 30 Days #30 tablet 10/06/22 amLODIPine [Norvasc] 10 mg PO DAILY #30 tablet 10/06/22 traZODone HCL [Desyrel] 50 mg PO HS #30 tab 10/06/22 Allergies Allergy/AdvReac Type Severity Reaction Status Date / Time sulfamethoxazole Allergy Unknown Verified 10/06/22 15:45 [From Bactrim] trimethoprim [From Bactrim] Allergy Unknown Verified 10/06/22 15:45 Review of Systems ROS Statement: Those systems with pertinent positive or pertinent negative responses have been documented in the HPI. ROS Other: All systems not noted in ROS Statement are negative. Past Medical History Past Medical History: GERD/Reflux, Liver Disease, Skin Disorder Additional Past Medical History / Comment(s): EPIDERMALYTIC HYPERKERATOSIS History of Any Multi-Drug Resistant Organisms: None Reported Past Surgical History: Cholecystectomy Past Anesthesia/Blood Transfusion Reactions: No Reported Reaction Past Psychological History: No Psychological Hx Reported Smoking Status: Current every day smoker Past Alcohol Use History: None Reported Past Drug Use History: None Reported - Past Family History Father Family Medical History: Unable to Obtain Additional Family Medical History / Comment(s): RAISED BY STEP FATHER Mother Family Medical History: No Reported History Additional Family Medical History / Comment(s): States his mother's heart is not working well and is in [facility]. General Exam - General Exam Comments Initial Comments: General: Alert, in no acute distress Head: atraumatic normocephalic. Eyes PERRL, EOMI intact, mucous membranes moist Respiratory: Lungs clear to auscultation bilaterally Cardiovascular: Heart rate regular rate and rhythm. Abdominal: Soft without guarding or rebound Extremities: Normal inspection with full range of motion and normal capillary refill Neuroogic: alert and oriented 3, CN II-XII intact, able to ambulate with steady gait Skin: warm dry and intact with normal color Course Vital Signs 10/06/22 10/06/22 15:40 16:54 Temperature 97.0 F L 97.9 F Pulse Rate 85 82 Respiratory 18 18 Rate Blood Pressure 139/80 132/78 O2 Sat by Pulse 98 98 Oximetry Medical Decision Making - Medical Decision Making Was pt. sent in by a medical professional or institution (, PA, WELLNESS CONSULTANT, urgent care, hospital, or fci...) When possible be specific @ -[No] Did you speak to anyone other than the patient for history (EMS, parent, family, police, friend...)? What history was obtained from this source @ -[No] Did you review nursing and triage notes (agree or disagree)? Why? @ -[I reviewed and agree with nursing and triage notes] Were old charts reviewed (outside hosp., previous admission, EMS record, old EKG, old radiological studies, urgent care reports/EKG's, fci records)? Report findings @ -[No old charts were reviewed] Differential Diagnosis (chest pain, altered mental status, abdominal pain women, abdominal pain men, vaginal bleeding, weakness, fever, dyspnea, syncope, headache, dizziness, GI bleed, back pain, seizure, CVA, palpatations, mental health, musculoskeletal)? @ -[not applicable] EKG interpreted by me (3pts min.). @ -[As above] X-rays interpreted by me (1pt min.). @ -[None done] CT interpreted by me (1pt min.). @ -[None done] U/S interpreted by me (1pt. min.). @ -[None done] What testing was considered but not performed or refused? (CT, X-rays, U/S, labs)? Why? @ -[None] What meds were considered but not given or refused? Why? @ -[None] Did you discuss the management of the patient with other professionals (professionals i.e. , PA, WELLNESS CONSULTANT, lab, RT, psych nurse, social worker psychiatric, hand weaver, teacher, security flex utility officer, therapeutic case manager)? Give summary @ -[No] Was smoking cessation discussed for >3mins.? @ -[No] Was critical care preformed (if so, how long)? @ -[No] Were there social determinants of health that impacted care today? How? (Homelessness, low income, unemployed, alcoholism, drug addiction, transportation, low edu. Level, literacy, decrease access to med. care, residential, rehab)? @ -[No] Was there de-escalation of care discussed even if they declined (Discuss DNR or withdrawal of care, Hospice)? DNR status @ -[No] What co-morbidities impacted this encounter? (DM, HTN, Smoking, COPD, CAD, Cancer, CVA, ARF, Chemo, Hep., AIDS, mental health diagnosis, sleep apnea, morbid obesity)? @ -[None] Was patient admitted / discharged? Hospital course, mention meds given and route, prescriptions, significant lab abnormalities, going to OR and other pertinent info. @ -Discharged. This is a 36-year-old male who presents to the emergency department with medication refill. Patient had thorough history and physical exam is essentially unremarkable. Patient was given prescription for needed prescriptions. He was discharged in stable condition. Return precautions were discussed. Case discussed with Dr Danielson who agrees with plan of care. Undiagnosed new problem with uncertain prognosis? @ -[No] Drug Therapy requiring intensive monitoring for toxicity (Heparin, Nitro, Insulin, Cardizem)? @ -[No] Were any procedures done? @ -[No] Diagnosis/symptom? @ -medication refill Acute, or Chronic, or Acute on Chronic? @ -acute Uncomplicated (without systemic symptoms) or Complicated (systemic symptoms)? @ -uncomplicated Side effects of treatment? @ -[No] Exacerbation, Progression, or Severe Exacerbation? @ -[No] Poses a threat to life or bodily function? How? (Chest pain, [place], [place], pneumonia, PE, COPD, DKA, ARF, appy, cholecystitis, CVA, Diverticulitis, Homicidal, Suicidal, threat to staff... and all critical care pts) @ low likelihood Disposition Clinical Impression: Encounter for medication refill Disposition: HOME SELF-CARE Condition: Stable Prescriptions: traZODone HCL [Desyrel] 50 mg PO HS #30 tab Folic Acid 1 mg PO DAILY #30 tablet Paliperidone [Invega] 3 mg PO HS 30 Days #90 tab [place] Carbonate 150 mg PO BID #180 capsule amLODIPine [Norvasc] 10 mg PO DAILY #30 tablet Thiamine [Vitamin B-1] 100 mg PO DAILY 30 Days #30 tablet Is patient prescribed a controlled substance at d/c from ED?: No Referrals: None,Stated [Primary Care Provider] - 1-2 days Time of Disposition: 16:42
[2022-10-06 16:56] VITALS: BP 132/78; PULSE 82; TEMP 97.9
== END 2022-10-06 16:54 | disposition home or self-care (01) ==
LOC: EC 15:09
DX: Z76.0 Encounter for issue of repeat prescription (principal); F17.200 Nicotine dependence, unspecified, uncomplicated; Z88.2 Allergy status to sulfonamides; Z88.1 Allergy status to other antibiotic agents
CPT/HCPCS: 99282